=== PATIENT | male | born 1935 | race Hispanic/Latino ===

== ENCOUNTER 2017-03-29 07:25 | Day surgery (SDC) | payer MEDICARE, OTHER ==
[2015-01-03 15:35] VITALS: PULSE 143
[2017-03-13 08:33] VITALS: BMI 19.5
[2017-03-29] MEDS ORDERED: Phenylephrine 2.5% Opht Soln OS ONE (08:00)
[2017-03-29] MEDS ORDERED: Flurbiprofen 0.3% Opht SOLN OU ONE (08:00)
[2017-03-29] MEDS ORDERED: Tropicamide 1% Opht 150 DROP/15 ML LEFTEYE ONE (08:00)
[2017-03-29] MEDS ORDERED: CA CL/K CL/NA CL 500 ML IR ONE (08:12)
[2017-03-29] MEDS ORDERED: EPINEPHrine 1 mg/ml (1:1000) Inj ONE (08:12)
[2017-03-29] MEDS ORDERED: Lidocaine 1% 20 MG/2 ML PF AMP ONE (08:12)
[2017-03-29] MEDS ORDERED: BSS 15 ML 45 ML IR ONE (08:12)
[2017-03-29] MEDS ORDERED: Tetracaine 0.5% Ophth 2 ML BOTTLE ONE (08:12)
[2017-03-29] MEDS ORDERED: Povidone Iodine 5% Opht SOLUTION ONE (08:13)
[2017-03-29] MEDS ORDERED: Chondroitin/Hyaluronate Opth Syringe KIT (0.55 ml-0.5 ml) IO ONE (08:13)
[2017-03-29] MEDS ORDERED: Flurbiprofen 0.3% Opht SOLN OS SCH (08:45)
[2017-03-29] MEDS ORDERED: Phenylephrine 2.5% Opht Soln OS SCH (08:45)
[2017-03-29] MEDS ORDERED: Tropicamide 1% Opht 150 DROP/15 ML LEFTEYE SCH (08:45)
[2017-03-29] MEDS ORDERED: Lactated Ringer's 1,000 ML IV ONE (09:30)
[2017-03-29] MEDS ORDERED: Midazolam 2 MG/2 ML VIAL ONE (09:33)
[2017-03-29] MEDS ORDERED: Tetracaine 0.5% Ophth 2 ML BOTTLE OU ONE (09:45)
[2017-03-29] MEDS: Acetylcholine 1% Opth System Pack IO ONE ×2 (09:58→10:15)
[2017-03-29] MEDS: Maxitrol Opht Susp ONE ×3 (09:59→10:21)
[2017-03-29] MEDS: Pilocarpine 1% Opht Soln ONE ×3 (10:00→10:21)
[2017-03-29 10:58] VITALS: O2SAT 100
[2017-03-29 11:37] VITALS: BP 138/78; PULSE 68; RESP 22; TEMP 97.6
--- NOTE | 2017-04-03 11:24 | OP ---
PROCEDURE DATE: 03/29/2017 SURGEON: RICARDA HIGGINS MD ANESTHESIOLOGIST: JOSÉ MIGUEL ACEVEDO MD ANESTHESIA: LOCAL / IV SEDATION PREOPERATIVE DIAGNOSIS: CATARACT LEFT EYE. POSTOPERATIVE DIAGNOSIS: CATARACT LEFT EYE. OPERATION: CLEAR CORNEAL PHACOEMULSIFICATION WITH LENS IMPLANT LEFT EYE. PREPARATION AND PROCEDURE: After the patient was prepped and draped in the usual manner for sterile ophthalmic surgery, local IV sedation was administered ; eye seals were applied to the upper and lower lid margins and an adult wire lid speculum was placed within the lids. Under microsurgical control, a two- step clear corneal incision was made into the anterior chamber. The initial incision was perpendicular to the corneal plane. The second Incision with the keratome was placed at a 45-degree angle to the first incision. One cc of one percent Xylocaine MPF was instilled into the anterior chamber to achieve proper intraocular anesthesia. At this time, the Viscoelastic was injected into the anterior chamber for protection of the endothelium and for maintenance of the chamber depth. A 360-degree continuous curvilinear capsulorrhexis was performed using a pre-bent 25-gauge needle. Hydrodissection and hydrodelineation were performed using a Rothman cannula and balanced salt solution. Utilizing the tip of the Rothman cannula, the nucleus was rotated freely within the capsular bag. A standard one-handed phacoemulsification was utilized at this time for sculpting and rotating of the nucleus. The nucleus was fragmented in its entirety and aspirated without any consequence. A standard I&A was carried out for the residual cortical material. No residual material was noted within the capsular bag. The posterior capsule was noted to be clear. Additional Viscoelastic was injected into the capsular bag in preparation for lens implantation. After this has been satisfactorily achieved the intraocular lens injected through the corneal incision into the capsular bag. The intraocular lens was manipulated until it was properly oriented and the Viscoelastic was evacuated from the capsular bag and anterior chamber. The anterior chamber was reformed with balanced salt solution. The corneal incision was irrigated with BSS. The intraocular pressure was found to be within normal limits. This terminated the procedure. The speculum and lid drapes were removed. TobraDex ophthalmic suspension and Pilocarpine 1% drops one drop was applied to the eye. POSTOPERATIVE CONDITION: The patient was brought to the Postanesthesia Recovery area with stable vital signs. DRICARDA LEWIS MD
== END 2017-03-29 11:50 | disposition home or self-care (01) ==
LOC: H.OPSURG 07:25
PROVIDERS: ATTEND Ophthalmology
DX: H25.22 Age-related cataract, morgagnian type, left eye (principal); J44.9 Chronic obstructive pulmonary disease, unspecified; I10 Essential (primary) hypertension; N40.0 Benign prostatic hyperplasia without lower urinary tract symptoms
CPT/HCPCS: 66984; J0171; J2250; J3010; J7120; V2632

== ENCOUNTER 2017-04-10 07:28 | Day surgery (SDC) | payer MEDICARE, OTHER ==
[2015-01-03 15:35] VITALS: PULSE 143
[2017-04-10 09:21] VITALS: BMI 19.7
[2017-04-10] MEDS ORDERED: Phenylephrine 2.5% Opht Soln OD ONE (09:23)
[2017-04-10] MEDS ORDERED: Flurbiprofen 0.3% Opht SOLN OD SCH (09:30)
[2017-04-10] MEDS ORDERED: Tropicamide 1% Opht 150 DROP/15 ML RIGHTEYE SCH (09:30)
[2017-04-10] MEDS ORDERED: Acetylcholine 1% Opth System Pack IO ONE (09:40)
[2017-04-10] MEDS ORDERED: Maxitrol Opht Susp ONE (09:40)
[2017-04-10] MEDS ORDERED: CA CL/K CL/NA CL 500 ML IR ONE (09:41)
[2017-04-10] MEDS ORDERED: Pilocarpine 1% Opht Soln ONE (09:41)
[2017-04-10] MEDS ORDERED: EPINEPHrine 1 mg/ml (1:1000) Inj ONE (09:41)
[2017-04-10] MEDS ORDERED: BSS 15 ML 45 ML IR ONE (09:41)
[2017-04-10] MEDS ORDERED: Lidocaine 1% 20 MG/2 ML PF AMP ONE (09:41)
[2017-04-10] MEDS ORDERED: Chondroitin/Hyaluronate Opth Syringe KIT (0.55 ml-0.5 ml) IO ONE (09:41)
[2017-04-10] MEDS ORDERED: Tetracaine 0.5% Ophth 2 ML BOTTLE ONE (09:41)
[2017-04-10] MEDS ORDERED: Povidone Iodine 5% Opht SOLUTION ONE (09:41)
[2017-04-10] MEDS ORDERED: Lactated Ringer's 1,000 ML IV ONE (09:51)
[2017-04-10] MEDS ORDERED: Flurbiprofen 0.3% Opht SOLN OU ONE (09:52)
[2017-04-10] MEDS ORDERED: Tropicamide 1% Opht 150 DROP/15 ML OD ONE (09:53)
[2017-04-10] MEDS ORDERED: Midazolam 2 MG/2 ML VIAL ONE (13:00)
[2017-04-10 14:24] VITALS: PULSE 72; RESP 20
[2017-04-10 14:58] VITALS: BP 176/93; TEMP 97.2
[2017-04-10 15:07] VITALS: O2SAT 96
--- NOTE | 2017-04-25 11:25 | OP ---
PROCEDURE DATE: 04/10/2017 SURGEON: RICARDA HIGGINS MD ANESTHESIOLOGIST: LORENZO BRADY MD ANESTHESIA: LOCAL / IV SEDATION PREOPERATIVE DIAGNOSIS: CATARACT RIGHT EYE. POSTOPERATIVE DIAGNOSIS: CATARACT RIGHT EYE. OPERATION: CLEAR CORNEAL PHACOEMULSIFICATION WITH LENS IMPLANT RIGHT EYE. PREPARATION AND PROCEDURE: After the patient was prepped and draped in the usual manner for sterile ophthalmic surgery, local IV sedation was administered ; eye seals were applied to the upper and lower lid margins and an adult wire lid speculum was placed within the lids. Under microsurgical control, a two- step clear corneal incision was made into the anterior chamber. The initial incision was perpendicular to the corneal plane. The second incision with the keratome was placed at a 45-degree angle to the first incision. One cc of one percent Xylocaine MPF was instilled into the anterior chamber to achieve proper intraocular anesthesia. At this time, the Viscoelastic was injected into the anterior chamber for protection of the endothelium and for maintenance of the chamber depth. A 360-degree continuous curvilinear capsulorrhexis was performed using a pre-bent 25-gauge needle. Hydrodissection and hydrodelineation were performed using a Rothman cannula and balanced salt solution. Utilizing the tip of the Rothman cannula, the nucleus was rotated freely within the capsular bag. A standard one-handed phacoemulsification was utilized at this time for sculpting and rotating of the nucleus. The nucleus was fragmented in its entirety and aspirated without any consequence. A standard I&A was carried out for the residual cortical material. No residual material was noted within the capsular bag. The posterior capsule was noted to be clear. Additional Viscoelastic was injected into the capsular bag in preparation for lens implantation. After this has been satisfactorily achieved the intraocular lens injected through the corneal incision into the capsular bag. The intraocular lens was manipulated until it was properly oriented and the Viscoelastic was evacuated from the capsular bag and anterior chamber. The anterior chamber was reformed with balanced salt solution. The corneal incision was irrigated with BSS. The intraocular pressure was found to be within normal limits. This terminated the procedure. The speculum and lid drapes were removed. TobraDex ophthalmic suspension and Pilocarpine 1% drops one drop was applied to the eye. POSTOPERATIVE CONDITION: The patient was brought to the Post anesthesia Recovery area with stable vital signs. DRICARDA LEWIS MDD
== END 2017-04-10 15:08 | disposition home or self-care (01) ==
LOC: H.OPSURG 07:28
PROVIDERS: ATTEND Ophthalmology
DX: H25.21 Age-related cataract, morgagnian type, right eye (principal)
CPT/HCPCS: 66984; J0171; J2250; J7120; V2632

== ENCOUNTER 2017-09-05 22:37 | Inpatient (IN) | payer MEDICARE, OTHER ==
[2017-09-05 22:37] VITALS: PULSE 143; BMI 19.7
[2017-09-05] MEDS ORDERED: Albuterol 0.083% Inhal Sol (2.5 mg/3 mL) UD INH ONE (23:36)
[2017-09-06] MEDS ORDERED: Albuterol 0.083% Inhal Sol (2.5 mg/3 mL) UD ONE (00:08)
--- NOTE | 2017-09-06 00:33 | ED PDOC ---
HPI: SOB/CHF/COPD Time Seen by Provider: 09/05/17 23:00 Chief Complaint (Nursing): Shortness Of Breath Chief Complaint (Provider): Shortness of Breath History Per: Patient History/Exam Limitations: no limitations Onset/Duration Of Symptoms: Hrs (2 hours ago) Current Symptoms Are (Timing): Still Present Additional Complaint(s): 82 yo male, brought in by EMS, with a history of COPD and Pneumothorax, presents to the ED complaining of shortness of breath, chest and shoulder pain, onset of 2 hours ago. Patient is currently receives oxygen at home and reports of tripping and falling over one of the oxygen cords. Of note, he denies hitting his head. pcp: Ephraim Niño Past Medical History Reviewed: Historical Data, Nursing Documentation, Vital Signs Vital Signs: Last Vital Signs Temp 98 F 09/11/17 08:16 Pulse 68 09/11/17 10:42 Resp 20 09/11/17 08:16 BP 157/89 H 09/11/17 08:22 Pulse Ox 98 09/11/17 10:42 - Medical History PMH: Anemia, COPD, Fractures (right hip fracture ), HTN, Pneumothorax Denies: Chronic Kidney Disease - Surgical History Other surgeries: Right Hip Surgery - Family History Family History: States: Unknown Family Hx - Social History Ex-Smoker (has not smoked in the last 12 months): No Alcohol: None Drugs: Denies - Home Medications Home Medications: Ambulatory Orders Medication Instructions Recorded Ascorbic Acid [Vitamin C 250 mg 250 mg PO BID #0 tab 01/20/15 Tab] Docusate [Colace] 100 mg PO BID #0 cap 01/20/15 Ferrous Sulfate [Feosol] 324 mg PO BID #0 ect 01/20/15 Lidocaine 5% [Lidoderm] 1 ea TD DAILY #0 patch 01/20/15 Metoprolol Tartrate [Lopressor] 25 mg PO Q12 #0 tab 01/20/15 Pantoprazole [Protonix EC Tab] 40 mg PO DAILY #0 ect 01/20/15 Tamsulosin [Flomax] 0.4 mg PO DAILY #0 cap 01/20/15 Aspirin [Ecotrin] 81 mg PO .COUPLE IN WEEK 03/29/17 Propylene Glycol/Peg 400 [Systane 1 drop OU TID 09/07/17 0.3-0.4% Eye Drops] Albuterol 0.083% [Albuterol 0.083% 2.5 mg INH RQ4 PRN neb 09/11/17 Inhal Annie (2.5 mg/3 ml) UD] Albuterol/Ipratropium [Duoneb 3 3 ml INH RQID neb 09/11/17 mg/0.5 mg (3 ml) UD] Aluminum Hydroxide/Magnesium 30 ml PO Q6 PRN udc 09/11/17 [Maalox Plus 30 ml] Cefdinir [Omnicef] 300 mg PO BID cap 09/11/17 Docusate [Colace] 100 mg PO BID cap 09/11/17 Enoxaparin [Lovenox] 40 mg SC DAILY syr 09/11/17 Ferrous Sulfate [Feosol] 325 mg PO BID tab 09/11/17 Methylprednisolone [Medrol Dose 4 mg PO ASDIR #21 mg 09/11/17 Pack (21 tabs)] - Allergies Allergies/Adverse Reactions: Allergies Allergy/AdvReac Type Severity Reaction Status Date / Time shellfish Allergy SHORTNESS Uncoded 09/05/17 22:41 OF BREATH Review of Systems ROS Statement: Except As Marked, All Systems Reviewed And Found Negative Cardiovascular: Positive for: Chest Pain Respiratory: Positive for: Shortness of Breath Musculoskeletal: Positive for: Shoulder Pain Physical Exam - Reviewed Nursing Documentation Reviewed: Yes Vital Signs Reviewed: Yes - Physical Exam Appears: Positive for: Well, Non-toxic, No Acute Distress Head Exam: Positive for: ATRAUMATIC Skin: Positive for: Normal Color, Warm, DRY Eye Exam: Positive for: EOMI, Normal appearance, PERRL ENT: Positive for: Normal ENT Inspection Neck: Positive for: Normal, Painless ROM, Supple Cardiovascular/Chest: Positive for: Regular Rate, Rhythm. Negative for: Murmur Respiratory: Positive for: Normal Breath Sounds. Negative for: Respiratory Distress Gastrointestinal/Abdominal: Positive for: Normal Exam, Soft. Negative for: Tenderness Back: Positive for: Normal Inspection Extremity: Positive for: Normal ROM, Deformity. Negative for: Pedal Edema Neurologic/Psych: Positive for: Alert, Oriented. Negative for: Motor/Sensory Deficits - Laboratory Results Result Diagrams: 09/09/17 10:02 09/07/17 05:55 - ECG ECG: Positive for: Interpreted By Me, Viewed By Me ECG Rhythm: Positive for: Normal QRS, Normal ST Segment, Sinus Rhythm (normal) Rate: 90 O2 Sat by Pulse Oximetry: 100 (RA) Medical Decision Making Medical Decision Making: Time: --23:33 Impression: --Shortness of breath - rule out pneumonia Plan: --ECG --Labs --Troponin I --ED Urine Dip --Chest X-ray --Albuterol 2.5mg INH --methylprednisolone --right shoulder x-ray --peak flow pre/post tx --Influenza a b - Reassess --00:00 Patient to be signed out to Dr. Sumeet Villalobos pending workup, Chest X-ray, and Shoulder X-ray and admission Scribe Attestation: Documented by Artemio Peacock acting as a scribe for Elian Siegel MD. Provider Attestation: All medical record entries made by the Scribe were at my direction and personally dictated by me. I have reviewed the chart and agree that the record accurately reflects my personal performance of the history, physical exam, medical decision making, and the department course for this patient. I have also personally directed, reviewed, and agree with the discharge instructions and disposition. Disposition - Clinical Impression Clinical Impression: Shortness of breath, Pneumonia - Patient ED Disposition Is Patient to be Admitted: Transfer of Care Discussed With : Sumeet Villalobos Doctor Will See Patient In The: ED - Disposition Disposition: Transfer of Care Disposition Time: 00:00 Condition: STABLE Patient Signed Over To: Sumeet Villalobos
[2017-09-06 00:45] LABS: BASO % 0.4 % (0.0-2.0); EOS # 0.2 K/uL (0.0-0.7); EOS % 1.7 % (0.0-4.0); HEMOGLOBIN 11.9 g/dL (12.0-18.0); LYMPH # 0.8 K/uL (1.0-4.3); LYMPH % 8.5 % (20.0-40.0); MEAN CELL VOLUME 94.8 fl (80.0-94.0); MEAN CORPUSCULAR HEMOGLOBIN 30.6 pg (27.0-31.0); MEAN CORPUSCULAR HGB CONC 32.3 g/dL (33.0-37.0); MEAN PLATELET VOLUME 8.8 fl (7.2-11.7); MONO # 0.7 K/uL (0.0-0.8); MONO % 8.2 % (0.0-10.0); NEUT # 7.3 K/uL (1.8-7.0); NEUT % 81.2 % (50.0-75.0); PLATELET COUNT 200 K/uL (130-400); RBC 3.88 Mil/uL (4.40-5.90); RED CELL DISTRIBUTION WIDTH 13.1 % (11.5-14.5)
[2017-09-06 00:56] LABS: ALB/GLOB RATIO 0.9 (1.0-2.1); ALBUMIN 3.9 g/dL (3.5-5.0); ALT/SGPT 30 U/L (21-72); AST/SGOT 36 U/L (17-59); BLOOD UREA NITROGEN 23 mg/dl (9-20); CALCIUM 9.2 mg/dL (8.4-10.2); GFR AFRICAN-AMERICAN > 60; GFR NON-AFRICAN AMERICAN 58
--- NOTE | 2017-09-06 01:37 | ED PDOC ---
- Laboratory Results Result Diagrams: 09/06/17 00:30 09/06/17 00:30 - ECG O2 Sat by Pulse Oximetry: 100 (RA) Pulse Ox Interpretation: Normal Medical Decision Making Medical Decision Making: Time: --00:00 Reassess --Patient signed out to the provider by Elian Young pending workup, Chest X-ray, and Shoulder X-ray. --05:23 EXAM: CT Head Without Intravenous Contrast FINDINGS: Brain: Cerebral and cerebellar volume loss. Patchy hypodensity is seen in the periventricular and subcortical white matter. No hemorrhage. Ventricles: Unremarkable. No ventriculomegaly. Bones/joints: Unremarkable. No acute fracture. Soft tissues: Unremarkable. Vasculature: Vascular calcifications. Sinuses: Unremarkable. No acute sinusitis. Mastoid air cells: Unremarkable. No mastoid effusion. Orbits: Evidence of bilateral eye surgery. IMPRESSION: No evidence of an acute intracranial hemorrhage, midline shift or mass effect is identified 327 Pt. w PNA on CXR. Will admit to Dr. Palomo given age and RF's for inpatient treatment. Scribe Attestation: Documented by Artemio Peacock acting as a scribe for Sumeet Villalobos MD. Provider Attestation: All medical record entries made by the Scribe were at my direction and personally dictated by me. I have reviewed the chart and agree that the record accurately reflects my personal performance of the history, physical exam, medical decision making, and the department course for this patient. I have also personally directed, reviewed, and agree with the discharge instructions and disposition. Disposition - Clinical Impression Clinical Impression: Shortness of breath, Pneumonia - POA Present On Arrival: None - Disposition Disposition: Admitted as In-Patient Disposition Time: 03:00 Condition: FAIR
[2017-09-06] MEDS ORDERED: Azithromycin 500 MG in Sodium Chloride 0.9% 250 ML IVPB STA (02:26)
[2017-09-06] MEDS ORDERED: Sodium Chloride 0.9% 1,000 ML IV STA (03:10)
[2017-09-06 03:15] LABS: VENOUS BLOOD GAS BASE EXCESS 3.2 mmol/L (0.0-2.0); VENOUS BLOOD GAS PCO2 53 mmHg (40-60); VENOUS BLOOD GAS PO2 41 mm/Hg (30-55); VENOUS BLOOD PH 7.36 (7.32-7.43)
--- NOTE | 2017-09-06 03:26 | CP.PCM.HP ---
History of Present Illness - History of Present Illness History of Present Illness: Aircraft Time Clerk: Ephraim Niño MD Chief Complaint: Fall/SOB The patient was seen and examined in the ED HPI: The hx was obtained from the patient and dafter review of the medical records. He is an 82 years old male, living alone, uses a cane to ambulate, with hx of Interstitial lung disease on home Oxygen, Pneumothorax and Anemia. He was brought to the ED with a 2 hrs hx of felling and could not get up and SOB. According to the patient, he tripped and fell receiving pain to the right shoulder and tightness to the chest with some worsening of his SOB. He denies hitting his head but does not remember how he received the linear bruise horizontal at the mid left arm. No LOC. PMH: Right Pneumothorax' A Fiv; Anemia; Interstitial Lung disease; HTTN; BPH; Right hip fracture; COPD PSH: Bilateral Cataract surgery; Right Hip ORIF. Right Chest Tube 12/28/14 SH: Never Smoked: No ETOH use; No illegal drug Use; Lives alone with Aide visiting; Walks with 4 legged Cane FH: Brother with Lung problem on home Oxygen Allergies: NKDA Shellfish Medication: Reviewed Present on Admission - Present on Admission Any Indicators Present on Admission: No History of DVT/PE: No History of Uncontrolled Diabetes: No Urinary Catheter: No Decubitus Ulcer Present: No Review of Systems - Constitutional Constitutional: Weakness. absent: Fever, Lethargy - EENT Eyes: Requires Corrective Lenses. absent: Diplopia, Floaters, Photophobia Ears: Decreased Hearing. absent: Ear Discharge, Tinnitus Nose/Mouth/Throat: absent: Epistaxis, Nasal Congestion, Nasal Discharge, Sinus Pain, Sinus Pressure - Cardiovascular Cardiovascular: Dyspnea, Edema, Leg Edema Additional comments: Chest Pressure - Respiratory Respiratory: Cough, Dyspnea - Gastrointestinal Gastrointestinal: absent: Abdominal Pain, Constipation, Diarrhea, Nausea, Vomiting - Musculoskeletal Musculoskeletal: Arthralgias, Muscle Weakness - Integumentary Integumentary: Alopecia, Swelling. absent: Pruritus, Rash, Skin Ulcer, Sores, Striae - Neurological Neurological: Weakness. absent: Confusion, Dizziness, Focal Weakness, Headaches - Psychiatric Psychiatric: absent: Anxiety, Depression, Panic Attacks - Endocrine Endocrine: absent: Palpitations, Polydipsia, Polyphagia, Polyuria - Hematologic/Lymphatic Hematologic: absent: Easy Bleeding, Easy Bruising Past Patient History - Infectious Disease Hx of Infectious Diseases: None - Tetanus Immunizations Tetanus Immunization: Unknown - Past Medical History & Family History Past Medical History?: Yes - Past Social History Smoking Status: Never Smoked Chewing Tobacco Use: No Cigar Use: No Alcohol: None Drugs: Denies Home Situation {Lives}: Alone - CARDIAC Hx Hypertension: Yes - PULMONARY Hx Chronic Obstructive Pulmonary Disease (COPD): Yes Other/Comment: Interstitial lung disease. On Home Oxygen - NEUROLOGICAL Hx Neurological Disorder: No - HEENT Hx HEENT Problems: Yes Hx Cataracts: Yes (BILATERAL) Hx Deafness: Yes - RENAL Hx Chronic Kidney Disease: No - ENDOCRINE/METABOLIC Hx Endocrine Disorders: No - HEMATOLOGICAL/ONCOLOGICAL Hx Anemia: Yes - INTEGUMENTARY Hx Dermatological Problems: No - MUSCULOSKELETAL/RHEUMATOLOGICAL Hx Fractures: Yes (right hip fracture ) - GASTROINTESTINAL Hx Gastrointestinal Disorders: No - GENITOURINARY/GYNECOLOGICAL Hx Genitourinary Disorders: Yes Hx Prostate Problems: Yes (BPH) - PSYCHIATRIC Hx Psychophysiologic Disorder: No Hx Substance Use: No - SURGICAL HISTORY Hx Surgeries: Yes Other/Comment: R HIP PINNING ORIF; Right COLLAPSE LUNG/-CHEST TUBE - ANESTHESIA Hx Anesthesia: Yes Hx Anesthesia Reactions: No Hx Malignant Hyperthermia: No Meds Allergies/Adverse Reactions: Allergies Allergy/AdvReac Type Severity Reaction Status Date / Time shellfish Allergy SHORTNESS Uncoded 09/05/17 22:41 OF BREATH Physical Exam - Constitutional Appears: In Acute Distress - Head Exam Additional comments: Head Atraumatic, central [place], Black coloration at mid forehead, probably dirt or dried skin, - Eye Exam Eye Exam: EOMI, Normal appearance Pupil Exam: NORMAL ACCOMODATION, PERRL - ENT Exam ENT Exam: Mucous Membranes Dry, Normal External Ear Exam - Neck Exam Neck exam: Positive for: Full Rom, Normal Inspection. Negative for: Lymphadenopathy, Tenderness - Respiratory Exam Additional comments: Rales diffuse in both lung erickson L>R, No wheezes nor rhonchi. - Cardiovascular Exam Cardiovascular Exam: REGULAR RHYTHM, RRR, +S1, +S2. absent: Gallop - GI/Abdominal Exam GI & Abdominal Exam: Normal Bowel Sounds, Soft. absent: Mass, Organomegaly - Rectal Exam Rectal Exam: Deferred - Extremities Exam Additional comments: Both ankles with trace edema, nontender to palpation. Horizontal linear bruise at lateral, mid left arm 4-5cm Right shoulder pain on anterior flexion. - Back Exam Back exam: NORMAL INSPECTION. absent: CVA tenderness (L), CVA tenderness (R) - Neurological Exam Neurological exam: Alert, CN II-XII Intact, Oriented x3, Reflexes Normal - Psychiatric Exam Psychiatric exam: Normal Affect, Normal Mood - Skin Skin Exam: Dry, Normal Color, Warm Results - Vital Signs Recent Vital Signs: Last Vital Signs Temp 98.0 F 09/05/17 22:42 Pulse 90 09/06/17 00:43 Resp 15 09/05/17 23:04 BP 180/99 H 09/05/17 22:42 Pulse Ox 100 09/06/17 01:37 - Labs Result Diagrams: 09/06/17 00:30 09/06/17 00:30 Labs: Laboratory Results - last 24 hr 09/06/17 09/06/17 09/06/17 00:30 00:30 00:30 WBC 9.0 RBC 3.88 L Hgb 11.9 L Hct 36.8 MCV 94.8 H MCH 30.6 MCHC 32.3 L RDW 13.1 Plt Count 200 MPV 8.8 Neut % (Auto) 81.2 H Lymph % (Auto) 8.5 L Calhoun % (Auto) 8.2 Eos % (Auto) 1.7 Baso % (Auto) 0.4 Neut # (Auto) 7.3 H Lymph # (Auto) 0.8 L Calhoun # (Auto) 0.7 Eos # (Auto) 0.2 Baso # (Auto) 0.0 pO2 VBG pH VBG pCO2 VBG HCO3 VBG Total CO2 VBG O2 Sat (Calc) VBG Base Excess VBG Potassium Glucose Lactate FiO2 Sodium 141 Potassium 4.2 Chloride 100 Carbon Dioxide 30 Anion Gap 15 BUN 23 H Creatinine 1.2 Est GFR ( Amer) > 60 Est GFR (Non-Af Amer) 58 Random Glucose 101 Calcium 9.2 Total Bilirubin 0.4 AST 36 ALT 30 Alkaline Phosphatase 65 Troponin I 0.0710 Total Protein 8.3 H Albumin 3.9 Globulin 4.4 H Albumin/Globulin Ratio 0.9 L Venous Blood Potassium Influenza Typ A,B (EIA) Negative for flu a/b 09/06/17 03:12 WBC RBC Hgb Hct MCV MCH MCHC RDW Plt Count MPV Neut % (Auto) Lymph % (Auto) Calhoun % (Auto) Eos % (Auto) Baso % (Auto) Neut # (Auto) Lymph # (Auto) Calhoun # (Auto) Eos # (Auto) Baso # (Auto) pO2 41 VBG pH 7.36 VBG pCO2 53 VBG HCO3 26.8 VBG Total CO2 31.5 H VBG O2 Sat (Calc) 82.6 H VBG Base Excess 3.2 H VBG Potassium 4.0 Glucose 132 H Lactate 1.1 FiO2 21.0 Sodium 137.0 Potassium Chloride 101.0 Carbon Dioxide Anion Gap BUN Creatinine Est GFR ( Amer) Est GFR (Non-Af Amer) Random Glucose Calcium Total Bilirubin AST ALT Alkaline Phosphatase Troponin I Total Protein Albumin Globulin Albumin/Globulin Ratio Venous Blood Potassium 4.0 Influenza Typ A,B (EIA) - Impressions Impression: NSR 90/min with LVH. No sign of Acute Ischemia - Imaging and Cardiology CT scan - head Status: Image reviewed by me, Report reviewed by me Additional comment: CT Head Without Intravenous Contrast FINDINGS: Brain: Cerebral and cerebellar volume loss. Patchy hypodensity is seen in the periventricular and subcortical white matter. No hemorrhage. Ventricles: Unremarkable. No ventriculomegaly. Bones/joints: Unremarkable. No acute fracture. Soft tissues: Unremarkable. Vasculature: Vascular calcifications. Sinuses: Unremarkable. No acute sinusitis. Mastoid air cells: Unremarkable. No mastoid effusion. Orbits: Evidence of bilateral eye surgery. IMPRESSION: No evidence of an acute intracranial hemorrhage, midline shift or mass effect is identified. Chest x-ray Status: Image reviewed by me Additional comment: Chronic interstitial lung changes, worse at left base Right shoulder X Ray Status: Image reviewed by me Additional comment: No fracture nor Dislocation as read by me Assessment & Plan - Assessment and Plan (Free Text) Assessment: #. Fall #. Interstitial Lung disease on home Oxygen #. Dehydration #. Anemia #. HTN Plan: 82 years old male, living alone, uses a cane to ambulate, with hx of Interstitial lung disease on home Oxygen, Pneumothorax and Anemia, brought to the ED 2hrs after tripping and falling and could not get up, also found to have significant SOB. Complained of right shoulder pain and Chest tightness with worsening SOB. No LOC. #. Fall etiology not quite clear. r/o CVA CT Head IMPRESSION: No evidence of an acute intracranial hemorrhage, midline shift or mass effect is identified. - Neuro checks Q4 - PT/OT #. Interstitial Lung disease on home Oxygen. Now with worsening SOB and Chest tightness, r/o Pneumonia left lung - Consult Dr Niño pulmonary - Albuterol/ Ipratropium - Methylprednisolone - Empiric antibiotics: - Azithromycin - Ceftriaxone - follow serial Troponin to r/o ACS #. Dehydration Probably due to Poor intake - IV Fluid - Follow Renal labs #. Anemia Symptomatic. Weakness after walking short distances caused by the ILD and the ANEMIA - Iron Panel/Vitamin B12/ Folate levels - Follow Hb #. HTN Uncontrolled - Metoprolol - Follow blood pressures #. Leg edema, probably due to stasis . Follow BNP to decide on work up for CHF #. hx of A Fib now Sinus Rhythm #. DVT prophylaxis with Lovenox and SCD #. Code Status: Full - Date & Time Date: 09/06/17 Time: 03:25
[2017-09-06] MEDS ORDERED: Sodium Chloride 0.45% 1,000 ML IV SCH (04:15)
[2017-09-06] MEDS ORDERED: Albuterol-Ipratrop 3 mg / 0.5 (3 ml) UD INH PRN (04:15)
[2017-09-06] MEDS ORDERED: Lactated Ringer's 1,000 ML IV SCH (04:45)
[2017-09-06 05:20] LABS: BANDS 1 % (0-2); EOSINOPHIL 1 % (0-7); LYMPHOCYTE 10 % (20-50); MONOCYTE 8 % (0-10); NEUTROPHIL 79 % (42-75); REACTIVE LYMPHOCYTES 1 % (0-0); TOTAL CELLS COUNTED 100
[2017-09-06 05:21] LABS: ANISOCYTOSIS SLIGHT; PLATELET ESTIMATE NORMAL (NORMAL); STOMATOCYTES SLIGHT
--- NOTE | 2017-09-06 05:23 | CT ---
EXAM: CT Head Without Intravenous Contrast CLINICAL HISTORY: 82 years old, male; Injury or trauma; Fall; Additional info: Fall and could not get up TECHNIQUE: Axial computed tomography images of the head/brain without intravenous contrast. All CT scans at this facility use one or more dose reduction techniques, viz.: automated exposure control; ma/kV adjustment per patient size (including targeted exams where dose is matched to indication; i.e. head); or iterative reconstruction technique. 307 images are submitted. Coronal and sagittal reformatted images were created and reviewed. Axial reformatted images were created and reviewed. COMPARISON: No relevant prior studies available. FINDINGS: Brain: Cerebral and cerebellar volume loss. Patchy hypodensity is seen in the periventricular and subcortical white matter. No hemorrhage. Ventricles: Unremarkable. No ventriculomegaly. Bones/joints: Unremarkable. No acute fracture. Soft tissues: Unremarkable. Vasculature: Vascular calcifications. Sinuses: Unremarkable. No acute sinusitis. Mastoid air cells: Unremarkable. No mastoid effusion. Orbits: Evidence of bilateral eye surgery. IMPRESSION: No evidence of an acute intracranial hemorrhage, midline shift or mass effect is identified.
[2017-09-06] MEDS: Albuterol-Ipratrop 3 mg / 0.5 (3 ml) UD INH SCH ×3 (08:40→20:07)
[2017-09-06] MEDS ORDERED: cefTRIAXone 2 GM in Sodium Chloride 0.9% 100 ML IVPB SCH (09:00)
[2017-09-06] MEDS ORDERED: methylPREDNISolone 40 MG in Sodium Chloride 0.9% 50 ML IVPB SCH (09:00)
[2017-09-06] MEDS ORDERED: Patient's Own Med (Ferrous Sulfate [Feosol] 324 MG) PO SCH (09:00)
[2017-09-06] MEDS: Enoxaparin 40 mg Syringe SC SCH (10:21)
[2017-09-06] MEDS: Pantoprazole 40 mg EC Tab PO SCH (10:23)
[2017-09-06] MEDS: MethylPREDNISolone 40 mg Vial IVP SCH ×2 (10:24→16:24)
--- NOTE | 2017-09-06 10:53 | CARD ---
APPROVED REPORT EKG Measurement Heart [id number] <Conclusion> Normal sinus rhythm Voltage criteria for left ventricular hypertrophy T wave abnormality, consider anterior ischemia Abnormal ECG excessive artefact to read correctly-recommend repeat
[2017-09-06 11:11] LABS: BASO % 0.1 % (0.0-2.0); HEMOGLOBIN 11.3 g/dL (12.0-18.0); LYMPH # 0.4 K/uL (1.0-4.3); LYMPH % 7.2 % (20.0-40.0); MEAN CELL VOLUME 94.5 fl (80.0-94.0); MEAN CORPUSCULAR HEMOGLOBIN 30.5 pg (27.0-31.0); MEAN CORPUSCULAR HGB CONC 32.2 g/dL (33.0-37.0); MEAN PLATELET VOLUME 8.7 fl (7.2-11.7); MONO % 0.8 % (0.0-10.0); NEUT # 5.6 K/uL (1.8-7.0); NEUT % 91.9 % (50.0-75.0); PLATELET COUNT 194 K/uL (130-400); RED CELL DISTRIBUTION WIDTH 13.4 % (11.5-14.5); WHITE BLOOD COUNT 6.1 K/uL (4.8-10.8)
--- NOTE | 2017-09-06 11:27 | RAD ---
PROCEDURE: Radiographs of the Right Shoulder HISTORY: R SHOULDER PAIN COMPARISON: No prior shoulder radiographs available however correlation made with prior chest radiograph 11/20/2016 which partially image the right shoulder. FINDINGS: BONES: No evidence of acute displaced fracture nor dislocation. Two tiny sclerotic densities are present of which overlies the humeral head however the more inferiorly located sclerotic density could be located within the glenoid. 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 SOFT TISSUES: Normal. OTHER FINDINGS: Re- demonstrated is diffuse extensive interstitial fibrosis right lung IMPRESSION: No evidence of acute displaced fracture nor dislocation. Minor degenerative changes right acromioclavicular joint. Re- demonstrated is diffuse extensive interstitial fibrosis right lung.
[2017-09-06 11:28] LABS: BLOOD UREA NITROGEN 21 mg/dl (9-20); CALCIUM 8.7 mg/dL (8.4-10.2); GFR AFRICAN-AMERICAN > 60; GFR NON-AFRICAN AMERICAN > 60
--- NOTE | 2017-09-06 11:35 | RAD ---
PROCEDURE: CHEST RADIOGRAPH, 1 VIEW HISTORY: SOB COMPARISON: Comparison made with chest radiograph 11/20/[address] scan chest dated 01/15/2015. FINDINGS: LUNGS: Extensive diffuse interstitial fibrosis again noted. Slight persistent elevation right hemidiaphragm unchanged PLEURA: No pneumothorax or pleural fluid seen. CARDIOVASCULAR: Heart appears enlarged. OSSEOUS STRUCTURES: No significant abnormalities. VISUALIZED UPPER ABDOMEN: Normal. OTHER FINDINGS: None. IMPRESSION: Extensive diffuse interstitial fibrosis again noted. Slight persistent elevation right hemidiaphragm unchanged
[2017-09-06 11:37] LABS: B-TYPE NATRIURETIC PEPTIDE 2080 pg/ml (0-900)
[2017-09-06 13:21] LABS: IRON 26 ug/dL (49-181)
[2017-09-06 13:35] LABS: % IRON SATURATION 10 % (20-55); TOTAL IRON BINDING CAPACITY 249 ug/dL (250-450)
[2017-09-06 15:41] LABS: LYMPHOCYTE 5 % (20-50); MONOCYTE 2 % (0-10); NEUTROPHIL 93 % (42-75); TOTAL CELLS COUNTED 100
[2017-09-06 15:42] LABS: HYPOCHROMIC SLIGHT; PLATELET ESTIMATE NORMAL (NORMAL)
[2017-09-06 15:43] LABS: OVALOCYTES SLIGHT
[2017-09-06 22:18] LABS: FOLATE > 20.0 ng/mL
[2017-09-07] MEDS: Albuterol-Ipratrop 3 mg / 0.5 (3 ml) UD INH SCH ×4 (00:59→19:08)
[2017-09-07] MEDS: MethylPREDNISolone 40 mg Vial IVP SCH ×3 (01:30→16:52)
[2017-09-07 06:36] LABS: HEMOGLOBIN 9.9 g/dL (12.0-18.0); MEAN CELL VOLUME 94.8 fl (80.0-94.0); MEAN CORPUSCULAR HEMOGLOBIN 29.9 pg (27.0-31.0); MEAN CORPUSCULAR HGB CONC 31.5 g/dL (33.0-37.0); RBC 3.33 Mil/uL (4.40-5.90); RED CELL DISTRIBUTION WIDTH 13.6 % (11.5-14.5); WHITE BLOOD COUNT 15.9 K/uL (4.8-10.8)
[2017-09-07 06:43] LABS: BLOOD UREA NITROGEN 31 mg/dl (9-20); CALCIUM 8.7 mg/dL (8.4-10.2); GFR AFRICAN-AMERICAN > 60; GFR NON-AFRICAN AMERICAN 58
[2017-09-07] MEDS: Enoxaparin 40 mg Syringe SC SCH (09:23)
[2017-09-07] MEDS: Pantoprazole 40 mg EC Tab PO SCH (09:24)
--- NOTE | 2017-09-07 10:11 | PCM.RRT ---
<Markel Jeromeang - Last Filed: 09/07/17 10:12> [facility] [employer] [facility] Nurse Assessment - Ventilator Settings Ventilator Respiratory Rate Settin Ventilator Tidal Volume Settin Peak Flow: 90 Plan - Assessment of Findings&Treatment Plan [facility] [employer] LOCATION 664- [facility] REASON: chest tightness S: 82 yo M with pmhx of IPF reported chest tightness while consuming breakfast. Denies chest pain, sob, diaphoresis, N/V, Chest tightness is mid sternal, non radiating, O [facility] [employer] [facility] VITALS 173/80 99% on 3L NC. 97.6 F AAOX3 Cardiac: S1S2 Chest: reproducible chest discomfort at substernal. Lungs: bl lower lung crackles Abdo: soft, nontender [facility] [employer] INTERVENTION EKG: Normal sinus rhythm. Troponin A/P: 82 yo M with pmhx of IPF reported chest tightness [employer] OUTCOME f/u troponin, r/o ACS Monitor for progression of chest tightness, vitals [facility] [employer] LEADER Dr. Foster [facility] [employer] [facility] RESIDENTS: Dr. Queenie MD PGY1, Dr. Erum MD PGY3, Dr. Gustabo MD PGY1, Dr. Stuart DPM PGY1 <Washington Foster - Last Filed: 09/07/17 15:59> [employer] Nurse Assessment - Vital Signs Vital Signs: Rapid Response Vital Sign Blood Pressure 173/80 Pulse Rate 101 Temperature 97.6 F Oxygen Saturation 99 - Vital Signs at end of [facility] [employer] [facility] Vital Signs at end of [facility] [employer] [facility]: Rapid Response End Vital Sign Blood Pressure 165/74 Plan - Assessment of Findings&Treatment Plan ATTENDING ATTESTATION: Patient was seen and examined. I discussed the case with the resident and agree with the findings and plan as documented in the residents note. EKG SHOWS NORMAL SINUS RHYTHM; NO ACUTE CHANGES TROPONIN WITHIN NORMAL LIMITS CHEST PAIN RESOLVED ETIOLOGY LIKELY MUSCULOSKELETAL VS ANXIETY
[2017-09-07] MEDS: Azithromycin 500 MG in Sodium Chloride 0.9% 250 ML IVPB SCH (10:36)
--- NOTE | 2017-09-07 16:25 | CP.PCM.PN ---
Subjective - Date & Time of Evaluation Date of Evaluation: 09/07/17 Time of Evaluation: 16:22 - Subjective Subjective: Seen on rounds earlier this morning in his room on the regular medical floor. He had an episode this morning of chest discomfort for which an MANAGER KNOWLEDGE was called and the patient was evaluated without any cardiac findings. The patient relates a feeling of acid reflux subsequent to having breakfast this morning. The patient presently is seated upright in bed talking with family members without any distress. There is mild flush facies noted because of his ongoing treatment. The pharynx is pink and mucous membranes are moist. No exudate. The neck is supple and trachea is midline. No neck vein distention or carotid bruit. No dullness on chest percussion is noted. Equal, but limited expansion bilaterally. Breath sounds are present bilaterally with diffuse early dry, Velcro type rales. No audible wheezing. No bronchial breathing or egophony. Idiopathic pulmonary fibrosis. Apparent gastroesophageal reflux with esophagitis and spasm earlier this morning. Would not discontinue antibiotics at this current time. Objective - Vital Signs/Intake and Output Vital Signs (last 24 hours): Temp Pulse Resp BP Pulse Ox 97.6 F 101 H 20 173/80 H 98 09/07/17 08:28 09/07/17 09:48 09/07/17 08:28 09/07/17 09:48 09/07/17 08:28 - Medications Medications: Current Medications Albuterol/Ipratropium (Duoneb 3 Mg/0.5 Mg (3 Ml) Ud) 3 ml INH RQ6 [facility] Last Admin: 09/07/17 13:02 Dose: Not Given Albuterol/Ipratropium (Duoneb 3 Mg/0.5 Mg (3 Ml) Ud) 3 ml INH RQ2 PRN PRN Reason: Shortness of Breath Ascorbic Acid (Vitamin C 250 Mg Tab) 250 mg PO BID [facility] Last Admin: 09/07/17 09:25 Dose: 250 mg Aspirin (Ecotrin) 81 mg PO DAILY [facility] Last Admin: 09/07/17 09:23 Dose: 81 mg Docusate Sodium (Colace) 100 mg PO BID [facility] Last Admin: 09/07/17 09:23 Dose: 100 mg Enoxaparin Sodium (Lovenox) 40 mg SC DAILY [facility] PRN Reason: Protocol Last Admin: 09/07/17 09:23 Dose: 40 mg Ferrous Sulfate (Feosol) 325 mg PO BID [facility] Last Admin: 09/07/17 09:24 Dose: 325 mg Ceftriaxone Sodium 1 gm/ (Sodium Chloride) 100 mls @ 100 mls/hr IVPB DAILY [facility] PRN Reason: Protocol Last Admin: 09/07/17 09:25 Dose: 100 mls/hr Azithromycin 500 mg/ Sodium (Chloride) 250 mls @ 250 mls/hr IVPB DAILY [facility] PRN Reason: Protocol Last Admin: 09/07/17 10:36 Dose: 250 mls/hr Methylprednisolone (Solu-Medrol) 40 mg IVP Q8 [facility] Last Admin: 09/07/17 09:25 Dose: 40 mg Metoprolol Tartrate (Lopressor) 25 mg PO Q12 [facility] Last Admin: 09/07/17 09:48 Dose: 25 mg Pantoprazole Sodium (Protonix Ec Tab) 40 mg PO DAILY [facility] Last Admin: 09/07/17 09:24 Dose: 40 mg Tamsulosin HCl (Flomax) 0.4 mg PO DAILY [facility] Last Admin: 09/07/17 09:24 Dose: 0.4 mg - Labs Labs: 09/07/17 05:55 09/07/17 05:55
--- NOTE | 2017-09-07 17:06 | CP.PCM.PN ---
Subjective - Date & Time of Evaluation Date of Evaluation: 09/07/17 Time of Evaluation: 17:10 - Subjective Subjective: Patient seen and examined. Had chest tightness earlier and had SKY DIVER. Still having some tightness but actually feeling better. Denied SOB. Objective - Vital Signs/Intake and Output Vital Signs (last 24 hours): Temp Pulse Resp BP Pulse Ox 98.1 F 88 20 127/71 98 09/07/17 16:36 09/07/17 16:36 09/07/17 16:36 09/07/17 16:36 09/07/17 16:36 - Medications Medications: Current Medications Albuterol/Ipratropium (Duoneb 3 Mg/0.5 Mg (3 Ml) Ud) 3 ml INH RQ6 [facility] Last Admin: 09/07/17 13:02 Dose: Not Given Albuterol/Ipratropium (Duoneb 3 Mg/0.5 Mg (3 Ml) Ud) 3 ml INH RQ2 PRN PRN Reason: Shortness of Breath Ascorbic Acid (Vitamin C 250 Mg Tab) 250 mg PO BID [facility] Last Admin: 09/07/17 09:25 Dose: 250 mg Aspirin (Ecotrin) 81 mg PO DAILY [facility] Last Admin: 09/07/17 09:23 Dose: 81 mg Docusate Sodium (Colace) 100 mg PO BID [facility] Last Admin: 09/07/17 09:23 Dose: 100 mg Enoxaparin Sodium (Lovenox) 40 mg SC DAILY [facility] PRN Reason: Protocol Last Admin: 09/07/17 09:23 Dose: 40 mg Ferrous Sulfate (Feosol) 325 mg PO BID [facility] Last Admin: 09/07/17 09:24 Dose: 325 mg Ceftriaxone Sodium 1 gm/ (Sodium Chloride) 100 mls @ 100 mls/hr IVPB DAILY [facility] PRN Reason: Protocol Last Admin: 09/07/17 09:25 Dose: 100 mls/hr Azithromycin 500 mg/ Sodium (Chloride) 250 mls @ 250 mls/hr IVPB DAILY [facility] PRN Reason: Protocol Last Admin: 09/07/17 10:36 Dose: 250 mls/hr Methylprednisolone (Solu-Medrol) 40 mg IVP Q8 [facility] Last Admin: 09/07/17 09:25 Dose: 40 mg Metoprolol Tartrate (Lopressor) 25 mg PO Q12 [facility] Last Admin: 09/07/17 09:48 Dose: 25 mg Pantoprazole Sodium (Protonix Ec Tab) 40 mg PO DAILY [facility] Last Admin: 09/07/17 09:24 Dose: 40 mg Tamsulosin HCl (Flomax) 0.4 mg PO DAILY [facility] Last Admin: 09/07/17 09:24 Dose: 0.4 mg - Labs Labs: 09/07/17 05:55 09/07/17 05:55 - Constitutional Appears: No Acute Distress - Head Exam Head Exam: ATRAUMATIC - Eye Exam Eye Exam: absent: Scleral icterus - ENT Exam ENT Exam: Mucous Membranes Moist - Neck Exam Neck Exam: absent: Meningismus - Respiratory Exam Respiratory Exam: absent: Rhonchi, Wheezes, Respiratory Distress - Cardiovascular Exam Cardiovascular Exam: REGULAR RHYTHM, +S1, +S2 - GI/Abdominal Exam GI & Abdominal Exam: Soft. absent: Tenderness - Rectal Exam Rectal Exam: Deferred - Neurological Exam Neurological Exam: Alert, Oriented x3 - Psychiatric Exam Psychiatric exam: Normal Affect - Skin Skin Exam: Dry, Intact Assessment and Plan - Assessment and Plan (Free Text) Assessment: 82 yo male with history of Idiopathic Pulmonary Fibrosis with oxygen dependent at home tripped on his oxygen tubing and fell. He called 911 since he could not get up and was brought here and placed on observation. Patient denied SOB while with oxygen supplement which is his baseline. 1. Fall accidentally tripped on oxygen tubings and was unable to get up on his own CT scan of Head: negative for intracranial bleed Shoulder Xray: negative for fracture 2. Idiopathic Pulmonary Fibrosis continue oxygen supplement Duoneb q 2 hrs prn for SOB SoluMedrol 40mg IV q 8hrs continue Rocephin and Azithromycin 3. Reflux Esophagitis probably causing spasm perceived as chest tightness Mylanta 30cc PO q 6hrs prn Protonix 40mg PO daily 4. HTN BP stable continue Metoprolol 25mg PO q 12hrs 5. DVT prophylaxis on Lovenox
[2017-09-07] MEDS: Alum-Mag Hydrox-Simethicone Susp (30 mL) PO PRN (17:52)
[2017-09-07] MEDS: PROPYLENE GLYCOL OU SCH (17:52)
[2017-09-07] MEDS: PEG OU SCH (17:52)
--- NOTE | 2017-09-07 19:00 | CARD ---
APPROVED REPORT EKG Measurement Heart [id number] <Conclusion> Normal sinus rhythm Left axis deviation Moderate voltage criteria for LVH, may be normal variant Borderline ECG
[2017-09-08] MEDS: MethylPREDNISolone 40 mg Vial IVP SCH ×3 (00:32→21:53)
[2017-09-08] MEDS: Albuterol-Ipratrop 3 mg / 0.5 (3 ml) UD INH SCH ×5 (01:10→19:48)
[2017-09-08] MEDS: Pantoprazole 40 mg EC Tab PO SCH (09:05)
[2017-09-08] MEDS: PROPYLENE GLYCOL OU SCH ×3 (09:06→17:03)
[2017-09-08] MEDS: PEG OU SCH ×3 (09:06→17:03)
[2017-09-08] MEDS: Enoxaparin 40 mg Syringe SC SCH (09:06)
--- NOTE | 2017-09-08 09:10 | CP.PCM.CON ---
History of Present Illness - History of Present Illness History of Present Illness: Asked to evaluate this 82-year-old gentleman who is a never smoker with a previous diagnosis of idiopathic pulmonary fibrosis. He apparently had been in his usual state of health at home when he sustained a fall causing trauma to the right shoulder and right hip. This resulted in chest tightness and increased shortness of breath. There was no loss of consciousness or head trauma. He does use oxygen by nasal cannula at home on a regular basis. His activities markedly limited because of dyspnea on exertion. Review of Systems - Review of Systems All systems: reviewed and no additional remarkable complaints except - Respiratory Respiratory: Cough, Dyspnea on Exertion - Musculoskeletal Musculoskeletal: As Per HPI - Neurological Neurological: As Per HPI Past Patient History - Infectious Disease Hx of Infectious Diseases: None - Tetanus Immunizations Tetanus Immunization: Unknown - Past Medical History & Family History Past Medical History?: Yes Pertinent Family History: Mother and father both had coronary artery disease. One brother had rectal carcinoma. - Past Social History Smoking Status: Never Smoked Chewing Tobacco Use: No Cigar Use: No Alcohol: None Drugs: Denies Home Situation {Lives}: Alone - CARDIAC Hx Hypertension: Yes - PULMONARY Hx Chronic Obstructive Pulmonary Disease (COPD): Yes Other/Comment: Idiopathic pulmonary fibrosis. Spontaneous pneumothorax - NEUROLOGICAL Hx Neurological Disorder: No Hx Vertigo: No Other/Comment: Gradual cognitive decline - HEENT Hx Cataracts: Yes - RENAL Hx Chronic Kidney Disease: No - ENDOCRINE/METABOLIC Hx Endocrine Disorders: No - HEMATOLOGICAL/ONCOLOGICAL Hx Anemia: Yes - INTEGUMENTARY Hx Dermatological Problems: No - MUSCULOSKELETAL/RHEUMATOLOGICAL Hx Falls: Yes Hx Fractures: Yes (right hip fracture 2008) Hx Unsteady Gait: Yes (uses cane to ambulate) - GASTROINTESTINAL Hx Gastrointestinal Disorders: No - GENITOURINARY/GYNECOLOGICAL Hx Prostate Problems: Yes (BPH) - PSYCHIATRIC Hx Psychophysiologic Disorder: No Hx Substance Use: No - SURGICAL HISTORY Hx Cataract Extraction: Yes Hx Joint Replacement: Yes (Hip) Other/Comment: Right hip fracture ORIF. Right spontaneous pneumothorax with VATS - ANESTHESIA Hx Anesthesia: Yes Hx Anesthesia Reactions: No Hx Malignant Hyperthermia: No Meds Allergies/Adverse Reactions: Allergies Allergy/AdvReac Type Severity Reaction Status Date / Time shellfish Allergy SHORTNESS Uncoded 09/05/17 22:41 OF BREATH - Medications Medications: Current Medications Al Hydrox/Mg Hydrox/Simethicone (Maalox Plus 30 Ml) 30 ml PO Q6 PRN PRN Reason: Indigestion / Heartburn Last Admin: 09/07/17 17:52 Dose: 30 ml Albuterol/Ipratropium (Duoneb 3 Mg/0.5 Mg (3 Ml) Ud) 3 ml INH RQ6 [facility] Last Admin: 09/08/17 08:02 Dose: 3 ml Albuterol/Ipratropium (Duoneb 3 Mg/0.5 Mg (3 Ml) Ud) 3 ml INH RQ2 PRN PRN Reason: Shortness of Breath Ascorbic Acid (Vitamin C 250 Mg Tab) 250 mg PO BID [facility] Last Admin: 09/08/17 09:04 Dose: 250 mg Aspirin (Ecotrin) 81 mg PO DAILY [facility] Last Admin: 09/08/17 09:05 Dose: 81 mg Docusate Sodium (Colace) 100 mg PO BID [facility] Last Admin: 09/08/17 09:04 Dose: 100 mg Enoxaparin Sodium (Lovenox) 40 mg SC DAILY [facility] PRN Reason: Protocol Last Admin: 09/08/17 09:06 Dose: 40 mg Ferrous Sulfate (Feosol) 325 mg PO BID [facility] Last Admin: 09/08/17 09:05 Dose: 325 mg Home Med (Propylene Glycol/Peg 400 [Systane 0.3-0.4% Eye Drops]) 1 drop OU TID [facility] Last Admin: 09/08/17 09:06 Dose: 1 drop Ceftriaxone Sodium 1 gm/ (Sodium Chloride) 100 mls @ 100 mls/hr IVPB DAILY [facility] PRN Reason: Protocol Last Admin: 09/08/17 09:03 Dose: 100 mls/hr Azithromycin 500 mg/ Sodium (Chloride) 250 mls @ 250 mls/hr IVPB DAILY [facility] PRN Reason: Protocol Last Admin: 09/07/17 10:36 Dose: 250 mls/hr Methylprednisolone (Solu-Medrol) 40 mg IVP Q8 [facility] Last Admin: 09/08/17 00:32 Dose: 40 mg Metoprolol Tartrate (Lopressor) 25 mg PO Q12 [facility] Last Admin: 09/07/17 21:25 Dose: 25 mg Pantoprazole Sodium (Protonix Ec Tab) 40 mg PO DAILY [facility] Last Admin: 09/08/17 09:05 Dose: 40 mg Tamsulosin HCl (Flomax) 0.4 mg PO DAILY [facility] Last Admin: 09/08/17 09:05 Dose: 0.4 mg Physical Exam - Additional Findings Additional findings: Thin, chronically ill-appearing male who is dyspneic with conversation. The conjunctivae are pale and there is no scleral icterus. Nares are patent bilaterally without bleeding or exudate. Pharynx is pink and mucous membranes are moist. No exudate. Neck is supple and trachea is midline. No neck vein distention or carotid bruit. No palpable lymphadenopathy. No dullness on chest percussion. Healed surgical sites from thoracostomy tubes and VATS. Breath sounds are diminished bilaterally with a shortened inspiratory phase. Try to medium Velcro type rales are heard throughout both lungs. No audible wheezing. No bronchial breathing or egophony. The heart is regular and mildly tachycardic. Heart sounds are distant. No murmurs heard. Abdomen is soft and nontender with no palpable HSM. No mass. Normal bowel sounds. Trace bilateral dependent edema of ankles. No cyanosis. No calf tenderness. Linear excoriation is noted over the left upper extremity. Tenderness on palpation of the right shoulder and passive movement. Tenderness over the right hip without visible ecchymosis. Results - Vital Signs Recent Vital Signs: Last Vital Signs Temp 97.4 F L 09/08/17 08:45 Pulse 80 09/08/17 08:45 Resp 19 09/08/17 08:45 BP 162/79 H 09/08/17 08:45 Pulse Ox 96 09/08/17 08:45 - Labs Result Diagrams: 09/07/17 05:55 09/07/17 05:55 Labs: Laboratory Results - last 24 hr 09/07/17 09/07/17 09:50 10:20 POC Glucose (mg/dL) 186 H Troponin I 0.0690 Assessment & Plan (1) Idiopathic pulmonary fibrosis Status: Chronic Priority: High Comment: Initial encounter 2014 with spontaneous pneumothorax. Has been treated with PIRFENIDONE for over one year. (2) Fall Status: Acute Priority: High Comment: Mechanical fall without loss of consciousness. (3) Musculoskeletal pain of right upper extremity Status: Acute Priority: High (4) Musculoskeletal pain of right lower extremity Status: Acute Priority: High - Assessment and Plan (Free Text) Assessment: Current exacerbation of symptoms appear to be related to musculoskeletal pain. Current chest x-ray does not reveal significant change from previous films. Remains well oxygenated. - Date & Time Date: 09/06/17 Time: 14:00
--- NOTE | 2017-09-08 09:44 | CP.PCM.PN ---
Subjective - Date & Time of Evaluation Date of Evaluation: 09/08/17 Time of Evaluation: 09:15 - Subjective Subjective: Patient seen and examined. Claimed he was feeling better. Asked if he was willing to stay for therapy to make him stronger, he gladly accepted. His home visitor is currently hospitalized at [facility], so he would be all alone at home. Objective - Vital Signs/Intake and Output Vital Signs (last 24 hours): Temp Pulse Resp BP Pulse Ox 97.4 F L 97 H 19 144/75 96 09/08/17 08:45 09/08/17 09:08 09/08/17 08:45 09/08/17 09:08 09/08/17 08:45 - Medications Medications: Current Medications Al Hydrox/Mg Hydrox/Simethicone (Maalox Plus 30 Ml) 30 ml PO Q6 PRN PRN Reason: Indigestion / Heartburn Last Admin: 09/07/17 17:52 Dose: 30 ml Albuterol/Ipratropium (Duoneb 3 Mg/0.5 Mg (3 Ml) Ud) 3 ml INH RQ6 [facility] Last Admin: 09/08/17 08:02 Dose: 3 ml Albuterol/Ipratropium (Duoneb 3 Mg/0.5 Mg (3 Ml) Ud) 3 ml INH RQ2 PRN PRN Reason: Shortness of Breath Ascorbic Acid (Vitamin C 250 Mg Tab) 250 mg PO BID [facility] Last Admin: 09/08/17 09:04 Dose: 250 mg Aspirin (Ecotrin) 81 mg PO DAILY [facility] Last Admin: 09/08/17 09:05 Dose: 81 mg Docusate Sodium (Colace) 100 mg PO BID [facility] Last Admin: 09/08/17 09:04 Dose: 100 mg Enoxaparin Sodium (Lovenox) 40 mg SC DAILY [facility] PRN Reason: Protocol Last Admin: 09/08/17 09:06 Dose: 40 mg Ferrous Sulfate (Feosol) 325 mg PO BID [facility] Last Admin: 09/08/17 09:05 Dose: 325 mg Home Med (Propylene Glycol/Peg 400 [Systane 0.3-0.4% Eye Drops]) 1 drop OU TID [facility] Last Admin: 09/08/17 09:06 Dose: 1 drop Ceftriaxone Sodium 1 gm/ (Sodium Chloride) 100 mls @ 100 mls/hr IVPB DAILY [facility] PRN Reason: Protocol Last Admin: 09/08/17 09:03 Dose: 100 mls/hr Azithromycin 500 mg/ Sodium (Chloride) 250 mls @ 250 mls/hr IVPB DAILY [facility] PRN Reason: Protocol Last Admin: 09/07/17 10:36 Dose: 250 mls/hr Methylprednisolone (Solu-Medrol) 40 mg IVP Q8 [facility] Last Admin: 09/08/17 09:24 Dose: 40 mg Metoprolol Tartrate (Lopressor) 25 mg PO Q12 [facility] Last Admin: 09/08/17 09:08 Dose: 25 mg Pantoprazole Sodium (Protonix Ec Tab) 40 mg PO DAILY [facility] Last Admin: 09/08/17 09:05 Dose: 40 mg Tamsulosin HCl (Flomax) 0.4 mg PO DAILY [facility] Last Admin: 09/08/17 09:05 Dose: 0.4 mg - Labs Labs: 09/07/17 05:55 09/07/17 05:55 - Constitutional Appears: No Acute Distress - Head Exam Head Exam: ATRAUMATIC - Eye Exam Eye Exam: absent: Scleral icterus - ENT Exam ENT Exam: Mucous Membranes Moist - Neck Exam Neck Exam: absent: Meningismus - Respiratory Exam Respiratory Exam: Decreased Breath Sounds. absent: Rhonchi, Wheezes, Respiratory Distress - Cardiovascular Exam Cardiovascular Exam: REGULAR RHYTHM, +S1, +S2 - GI/Abdominal Exam GI & Abdominal Exam: Soft. absent: Tenderness - Rectal Exam Rectal Exam: Deferred - Neurological Exam Neurological Exam: Alert, Oriented x3 - Psychiatric Exam Psychiatric exam: Normal Affect - Skin Skin Exam: Dry, Intact Assessment and Plan - Assessment and Plan (Free Text) Assessment: 82 yo male with history of Idiopathic Pulmonary Fibrosis with oxygen dependent at home tripped on his oxygen tubing and fell. He called 911 since he could not get up and was brought here and placed on observation. Patient denied SOB while with oxygen supplement which is his baseline. 1. Fall accidentally tripped on oxygen tubings and was unable to get up on his own CT scan of Head: negative for intracranial bleed Shoulder Xray: negative for fracture patient needed therapy because of deconditioning specially after falling at home. Also his home visitor is hospitalized and will not be available to assist when he gets home recommended by PT to be admitted to [facility] or TCU 2. Idiopathic Pulmonary Fibrosis continue oxygen supplement Duoneb q 2 hrs prn for SOB SoluMedrol 40mg IV q 8hrs continue Rocephin and Azithromycin 3. Reflux Esophagitis Mylanta 30cc PO q 6hrs prn Protonix 40mg PO daily 4. HTN BP stable continue Metoprolol 25mg PO q 12hrs 5. DVT prophylaxis on Lovenox
[2017-09-08] MEDS: Azithromycin 500 MG in Sodium Chloride 0.9% 250 ML IVPB SCH (10:31)
[2017-09-08] MEDS ORDERED: Albuterol 0.083% Inhal Sol (2.5 mg/3 mL) UD INH PRN (11:47)
--- NOTE | 2017-09-08 12:45 | CP.PCM.PN ---
Subjective - Date & Time of Evaluation Date of Evaluation: 09/08/17 Time of Evaluation: 12:42 - Subjective Subjective: Appears to be doing well on current regimen. Vital signs have remained stable, no temp elevation. Diffuse early dry to medium rales bilaterally. No audible wheezing at present. Flushed facies secondary to steroid therapy. Agree with need for physical therapy/TOSIN. Antibiotics changed to PO azithromycin and Omnicef. Solumedrol dose reduced, elevated WBC hopefully result of steroids only. Objective - Vital Signs/Intake and Output Vital Signs (last 24 hours): Temp Pulse Resp BP Pulse Ox 97.4 F L 97 H 19 144/75 96 09/08/17 08:45 09/08/17 09:08 09/08/17 08:45 09/08/17 09:08 09/08/17 08:45 - Medications Medications: Current Medications Al Hydrox/Mg Hydrox/Simethicone (Maalox Plus 30 Ml) 30 ml PO Q6 PRN PRN Reason: Indigestion / Heartburn Last Admin: 09/07/17 17:52 Dose: 30 ml Albuterol Sulfate (Albuterol 0.083% Inhal Annie (2.5 Mg/3 Ml) Ud) 2.5 mg INH RQ4 PRN PRN Reason: Shortness of Breath Albuterol/Ipratropium (Duoneb 3 Mg/0.5 Mg (3 Ml) Ud) 3 ml INH RQID [facility] Ascorbic Acid (Vitamin C 250 Mg Tab) 250 mg PO BID [facility] Last Admin: 09/08/17 09:04 Dose: 250 mg Aspirin (Ecotrin) 81 mg PO DAILY [facility] Last Admin: 09/08/17 09:05 Dose: 81 mg Azithromycin (Zithromax) 250 mg PO DAILY [facility] PRN Reason: Protocol Stop: 09/12/17 09:01 Cefdinir (Omnicef) 300 mg PO BID [facility] Docusate Sodium (Colace) 100 mg PO BID [facility] Last Admin: 09/08/17 09:04 Dose: 100 mg Enoxaparin Sodium (Lovenox) 40 mg SC DAILY [facility] PRN Reason: Protocol Last Admin: 09/08/17 09:06 Dose: 40 mg Ferrous Sulfate (Feosol) 325 mg PO BID [facility] Last Admin: 09/08/17 09:05 Dose: 325 mg Home Med (Propylene Glycol/Peg 400 [Systane 0.3-0.4% Eye Drops]) 1 drop OU TID [facility] Last Admin: 09/08/17 09:06 Dose: 1 drop Methylprednisolone (Solu-Medrol) 40 mg IVP Q12 [facility] Metoprolol Tartrate (Lopressor) 25 mg PO Q12 [facility] Last Admin: 09/08/17 09:08 Dose: 25 mg Pantoprazole Sodium (Protonix Ec Tab) 40 mg PO DAILY [facility] Last Admin: 09/08/17 09:05 Dose: 40 mg Tamsulosin HCl (Flomax) 0.4 mg PO DAILY [facility] Last Admin: 09/08/17 09:05 Dose: 0.4 mg - Labs Labs: 09/07/17 05:55 09/07/17 05:55 Assessment and Plan (1) Idiopathic pulmonary fibrosis Status: Chronic (2) Fall Status: Acute (3) Musculoskeletal pain of right upper extremity Status: Acute (4) Musculoskeletal pain of right lower extremity Status: Acute
[2017-09-08] MEDS: Cefdinir 300 MG CAP PO SCH (17:02)
[2017-09-09] MEDS: Albuterol-Ipratrop 3 mg / 0.5 (3 ml) UD INH SCH ×4 (09:21→19:08)
[2017-09-09] MEDS: PEG OU SCH ×3 (10:27→17:06)
[2017-09-09] MEDS: Enoxaparin 40 mg Syringe SC SCH (10:27)
[2017-09-09] MEDS: PROPYLENE GLYCOL OU SCH ×3 (10:27→17:06)
[2017-09-09] MEDS: Cefdinir 300 MG CAP PO SCH (10:28)
[2017-09-09] MEDS: Pantoprazole 40 mg EC Tab PO SCH (10:34)
[2017-09-09 11:06] LABS: BASO % 0.1 % (0.0-2.0); EOS % 0.2 % (0.0-4.0); HEMOGLOBIN 12.1 g/dL (12.0-18.0); LYMPH # 1.3 K/uL (1.0-4.3); MEAN CELL VOLUME 96.2 fl (80.0-94.0); MEAN CORPUSCULAR HEMOGLOBIN 30.3 pg (27.0-31.0); MEAN CORPUSCULAR HGB CONC 31.5 g/dL (33.0-37.0); MEAN PLATELET VOLUME 9.1 fl (7.2-11.7); MONO # 0.8 K/uL (0.0-0.8); MONO % 6.9 % (0.0-10.0); NEUT # 9.7 K/uL (1.8-7.0); NEUT % 81.8 % (50.0-75.0); RED CELL DISTRIBUTION WIDTH 13.9 % (11.5-14.5); WHITE BLOOD COUNT 11.8 K/uL (4.8-10.8)
[2017-09-09] MEDS: Alum-Mag Hydrox-Simethicone Susp (30 mL) PO PRN (12:29)
[2017-09-09] MEDS: MethylPREDNISolone 40 mg Vial IVP SCH ×2 (12:29→21:27)
--- NOTE | 2017-09-09 19:03 | CP.PCM.PN ---
Subjective - Date & Time of Evaluation Date of Evaluation: 09/09/17 Time of Evaluation: 15:30 - Subjective Subjective: Patient seen and examined. Denied any complaint. Objective - Vital Signs/Intake and Output Vital Signs (last 24 hours): Temp Pulse Resp BP Pulse Ox 97.6 F 78 20 99/62 L 95 09/09/17 15:46 09/09/17 15:46 09/09/17 15:46 09/09/17 15:46 09/09/17 15:46 - Medications Medications: Current Medications Al Hydrox/Mg Hydrox/Simethicone (Maalox Plus 30 Ml) 30 ml PO Q6 PRN PRN Reason: Indigestion / Heartburn Last Admin: 09/09/17 12:29 Dose: 30 ml Albuterol Sulfate (Albuterol 0.083% Inhal Annie (2.5 Mg/3 Ml) Ud) 2.5 mg INH RQ4 PRN PRN Reason: Shortness of Breath Albuterol/Ipratropium (Duoneb 3 Mg/0.5 Mg (3 Ml) Ud) 3 ml INH RQID [facility] Last Admin: 09/09/17 15:39 Dose: 3 ml Ascorbic Acid (Vitamin C 250 Mg Tab) 250 mg PO BID [facility] Last Admin: 09/09/17 17:06 Dose: 250 mg Aspirin (Ecotrin) 81 mg PO DAILY [facility] Last Admin: 09/09/17 10:26 Dose: 81 mg Azithromycin (Zithromax) 250 mg PO DAILY [facility] PRN Reason: Protocol Stop: 09/12/17 09:01 Last Admin: 09/09/17 10:26 Dose: 250 mg Cefdinir (Omnicef) 300 mg PO BID [facility] Last Admin: 09/09/17 10:28 Dose: 300 mg Docusate Sodium (Colace) 100 mg PO BID [facility] Last Admin: 09/09/17 17:05 Dose: Not Given Enoxaparin Sodium (Lovenox) 40 mg SC DAILY [facility] PRN Reason: Protocol Last Admin: 09/09/17 10:27 Dose: 40 mg Ferrous Sulfate (Feosol) 325 mg PO BID [facility] Last Admin: 09/09/17 17:06 Dose: 325 mg Home Med (Propylene Glycol/Peg 400 [Systane 0.3-0.4% Eye Drops]) 1 drop OU TID [facility] Last Admin: 09/09/17 17:06 Dose: 1 drop Methylprednisolone (Solu-Medrol) 40 mg IVP Q12 [facility] Last Admin: 09/09/17 12:29 Dose: 40 mg Metoprolol Tartrate (Lopressor) 25 mg PO Q12 [facility] Last Admin: 09/09/17 10:24 Dose: 25 mg Pantoprazole Sodium (Protonix Ec Tab) 40 mg PO DAILY [facility] Last Admin: 09/09/17 10:34 Dose: 40 mg Tamsulosin HCl (Flomax) 0.4 mg PO DAILY [facility] Last Admin: 09/09/17 10:27 Dose: 0.4 mg - Labs Labs: 09/09/17 10:02 09/07/17 05:55 - Constitutional Appears: No Acute Distress - Head Exam Head Exam: ATRAUMATIC - Eye Exam Eye Exam: absent: Scleral icterus - ENT Exam ENT Exam: Mucous Membranes Moist - Neck Exam Neck Exam: absent: Meningismus - Respiratory Exam Respiratory Exam: absent: Rhonchi, Wheezes, Respiratory Distress - Cardiovascular Exam Cardiovascular Exam: REGULAR RHYTHM, +S1, +S2 - GI/Abdominal Exam GI & Abdominal Exam: Soft. absent: Tenderness - Rectal Exam Rectal Exam: Deferred - Back Exam Back Exam: absent: tenderness - Neurological Exam Neurological Exam: Alert, Oriented x3 - Psychiatric Exam Psychiatric exam: Normal Affect - Skin Skin Exam: Dry, Intact Assessment and Plan - Assessment and Plan (Free Text) Assessment: 82 yo male with history of Idiopathic Pulmonary Fibrosis with oxygen dependent at home tripped on his oxygen tubing and fell. He called 911 since he could not get up and was brought here and placed on observation. Patient denied SOB while with oxygen supplement which is his baseline. 1. Fall fell on oxygen tubings and was unable to get up on his own CT scan of Head: negative for intracranial bleed Shoulder Xray: negative for fracture patient needed therapy because of deconditioning specially after falling at home. Also county home demonstrator is hospitalized and will not be available to assist him recommended by PT to be admitted to [facility] or TCU 2. Idiopathic Pulmonary Fibrosis continue oxygen supplement Duoneb q 2 hrs prn for SOB SoluMedrol 40mg IV q 12hrs switched to PO Cefdinir 300mg PO BID and Zithromax 250mg PO daily 3. Reflux Esophagitis Mylanta 30cc PO q 6hrs prn Protonix 40mg PO daily 4. HTN BP stable continue Metoprolol 25mg PO q 12hrs 5. DVT prophylaxis on Lovenox
[2017-09-10] MEDS: Albuterol-Ipratrop 3 mg / 0.5 (3 ml) UD INH SCH ×4 (08:00→19:18)
[2017-09-10] MEDS: Enoxaparin 40 mg Syringe SC SCH (09:45)
[2017-09-10] MEDS: Pantoprazole 40 mg EC Tab PO SCH (09:46)
[2017-09-10] MEDS: Cefdinir 300 MG CAP PO SCH ×2 (09:47→16:27)
[2017-09-10] MEDS: PROPYLENE GLYCOL OU SCH ×3 (09:50→16:27)
[2017-09-10] MEDS: PEG OU SCH ×3 (09:50→16:27)
--- NOTE | 2017-09-10 11:46 | CP.PCM.DIS ---
Provider - Provider Date of Admission: 09/08/17 09:47 Attending physician: Chalo Palomo Consults: Pulmonary Consult- Dr. Niño Time Spent in preparation of Discharge (in minutes): 20 Diagnosis - Discharge Diagnosis (1) Fall Status: Acute Priority: Medium (2) Idiopathic pulmonary fibrosis Status: Acute Priority: Medium (3) Reflux esophagitis Status: Acute Priority: Medium (4) HTN (hypertension) Status: Chronic Priority: Medium Hospital Course - Lab Results Lab Results: Micro Results 09/06/17 05:37 Blood-Venous Blood Culture - Preliminary NO GROWTH AFTER 4 DAYS Most Recent Lab Values WBC 11.8 K/uL (4.8-10.8) H 09/09/17 10:02 RBC 4.00 Mil/uL (4.40-5.90) L 09/09/17 10:02 Hgb 12.1 g/dL (12.0-18.0) D 09/09/17 10:02 Hct 38.5 % (35.0-51.0) 09/09/17 10:02 MCV 96.2 fl (80.0-94.0) H 09/09/17 10:02 MCH 30.3 pg (27.0-31.0) 09/09/17 10:02 MCHC 31.5 g/dL (33.0-37.0) L 09/09/17 10:02 RDW 13.9 % (11.5-14.5) 09/09/17 10:02 Plt Count 197 K/uL (130-400) 09/09/17 10:02 MPV 9.1 fl (7.2-11.7) 09/09/17 10:02 Neut % (Auto) 81.8 % (50.0-75.0) H 09/09/17 10:02 Lymph % (Auto) 11.0 % (20.0-40.0) L 09/09/17 10:02 Vernon % (Auto) 6.9 % (0.0-10.0) 09/09/17 10:02 Eos % (Auto) 0.2 % (0.0-4.0) 09/09/17 10:02 Baso % (Auto) 0.1 % (0.0-2.0) 09/09/17 10:02 Neut # (Auto) 9.7 K/uL (1.8-7.0) H 09/09/17 10:02 Lymph # (Auto) 1.3 K/uL (1.0-4.3) 09/09/17 10:02 Vernon # (Auto) 0.8 K/uL (0.0-0.8) 09/09/17 10:02 Eos # (Auto) 0.0 K/uL (0.0-0.7) 09/09/17 10:02 Baso # (Auto) 0.0 K/uL (0.0-0.2) 09/09/17 10:02 Neutrophils % (Manual) 93 % (42-75) H 09/06/17 10:58 Band Neutrophils % 1 % (0-2) 09/06/17 00:30 Lymphocytes % (Manual) 5 % (20-50) L 09/06/17 10:58 Reactive Lymphs % 1 % (0-0) H 09/06/17 00:30 Monocytes % (Manual) 2 % (0-10) 09/06/17 10:58 Eosinophils % (Manual) 1 % (0-7) 09/06/17 00:30 Platelet Estimate Normal (NORMAL) 09/06/17 10:58 Hypochromasia (manual) Slight 09/06/17 10:58 Anisocytosis (manual) Slight 09/06/17 00:30 Macrocytosis (manual) Slight 09/06/17 10:58 Ovalocytes Slight 09/06/17 10:58 Stomatocytes Slight 09/06/17 00:30 pO2 41 mm/Hg (30-55) 09/06/17 03:12 VBG pH 7.36 (7.32-7.43) 09/06/17 03:12 VBG pCO2 53 mmHg (40-60) 09/06/17 03:12 VBG HCO3 26.8 mmol/L 09/06/17 03:12 VBG Total CO2 31.5 mmol/L (22-28) H 09/06/17 03:12 VBG O2 Sat (Calc) 82.6 % (40-65) H 09/06/17 03:12 VBG Base Excess 3.2 mmol/L (0.0-2.0) H 09/06/17 03:12 VBG Potassium 4.0 mmol/L (3.6-5.2) 09/06/17 03:12 Sodium 137.0 mmol/L (132-148) 09/06/17 03:12 Chloride 101.0 mmol/L (98-107) 09/06/17 03:12 Glucose 132 mg/dL (75-110) H 09/06/17 03:12 Lactate 1.1 mmol/L (0.7-2.1) 09/06/17 03:12 FiO2 21.0 % 09/06/17 03:12 Sodium 140 mmol/l (132-148) 09/07/17 05:55 Potassium 4.6 MMOL/L (3.6-5.0) 09/07/17 05:55 Chloride 103 mmol/L (98-107) 09/07/17 05:55 Carbon Dioxide 25 mmol/L (22-30) 09/07/17 05:55 Anion Gap 17 (10-20) 09/07/17 05:55 BUN 31 mg/dl (9-20) H 09/07/17 05:55 Creatinine 1.2 mg/dl (0.8-1.5) 09/07/17 05:55 Est GFR ( Amer) > 60 09/07/17 05:55 Est GFR (Non-Af Amer) 58 09/07/17 05:55 POC Glucose (mg/dL) 186 mg/dL (65-110) H 09/07/17 09:50 Random Glucose 142 mg/dL (75-110) H 09/07/17 05:55 Calcium 8.7 mg/dL (8.4-10.2) 09/07/17 05:55 Iron 26 ug/dL (49-181) L 09/06/17 10:58 TIBC 249 ug/dL (250-450) L 09/06/17 10:58 % Saturation 10 % (20-55) L 09/06/17 10:58 Total Bilirubin 0.4 mg/dl (0.2-1.3) 09/06/17 00:30 AST 36 U/L (17-59) 09/06/17 00:30 ALT 30 U/L (21-72) 09/06/17 00:30 Alkaline Phosphatase 65 U/L (38-126) 09/06/17 00:30 Troponin I 0.0690 ng/mL (0.00-0.120) 09/07/17 10:20 NT-Pro-B Natriuret Pep 2080 pg/ml (0-900) H 09/06/17 10:58 Total Protein 8.3 G/DL (6.3-8.2) H 09/06/17 00:30 Albumin 3.9 g/dL (3.5-5.0) 09/06/17 00:30 Globulin 4.4 gm/dL (2.2-3.9) H 09/06/17 00:30 Albumin/Globulin Ratio 0.9 (1.0-2.1) L 09/06/17 00:30 Vitamin B12 455 pg/mL (239-931) 09/06/17 10:58 Folate > 20.0 ng/mL 09/06/17 10:58 Venous Blood Potassium 4.0 mmol/L (3.6-5.2) 09/06/17 03:12 Influenza Typ A,B (EIA) Negative for flu a/b (NEGATIVE) 09/06/17 00:30 - Hospital Course Hospital Course: Waiting for SW May be D/C today to rehab pending healthcare social worker Discharge Exam - Head Exam Head Exam: ATRAUMATIC, NORMAL INSPECTION, NORMOCEPHALIC - Eye Exam Eye Exam: EOMI, Normal appearance Pupil Exam: NORMAL ACCOMODATION - ENT Exam ENT Exam: Mucous Membranes Moist - Neck Exam Neck exam: Full Rom, Normal Inspection - Respiratory Exam Respiratory Exam: Rales. absent: Rhonchi, Wheezes, Respiratory Distress, Stridor Additional comments: Diminished breath sounds - Cardiovascular Exam Cardiovascular Exam: REGULAR RHYTHM, +S1, +S2 - GI/Abdominal Exam GI & Abdominal Exam: Normal Bowel Sounds - Rectal Exam Rectal Exam: Deferred - Extremities Exam Additional comments: Pitting edema noted to the LE bilaterally No pain with palpation to the calfs bilaterally - Back Exam Back exam: absent: CVA tenderness (L), CVA tenderness (R) - Neurological Exam Neurological exam: Alert, Oriented x3 - Psychiatric Exam Psychiatric exam: Normal Affect, Normal Mood - Skin Skin Exam: Dry, Intact, Normal Color, Warm - Additional Findings Additional findings: Limited ROM to left shoulder with mild pain elicited with ROM Ecchymosis noted to the left upper arm measuring approximately 2 x 3 cm, healing and improved in color No flucatance, no hematoma, no abscess Discharge Plan - Follow Up Plan Condition: FAIR Disposition: TRANSF TO SNF Instructions: Shortness of Breath (Dyspnea) (DC) Referrals: Ephraim Niño MD [Family Provider] -
[2017-09-10] MEDS: MethylPREDNISolone 40 mg Vial IVP SCH ×2 (12:17→21:28)
--- NOTE | 2017-09-10 13:27 | PQF GENQUE ---
Dr. Phillips Pt has documented Pneumonia noted as rule out in the H and P and then the dx. is dropped: Please clarify status of this condition: Patient has condition Condition was ruled out Please provide corresponding diagnosis for patient's clinical picture and associated treatment Patient had condition which is now resolved Other (please specify) Clinically unable to determine Unknown CXR: Impression: Extensive diffuse interstitial fibrosis again noted. Slight persistent elevation right hemidiaphragm unchanged H and P: Interstitial Lung disease on home Oxygen. Now with worsening SOB and Chest tightness, r/o Pneumonia left lung - Consult Dr Niño pulmonary - Albuterol/ Ipratropium - Methylprednisolone - Empiric antibiotics: - Azithromycin - Ceftriaxone - follow serial Troponin to r/o ACS This form is a permanent part of the medical record Clarification of your documentation is requested to better reflect the severity of illness and intensity of treatment of your patient. Indicators present [] Specify: [] [] Specify: [] [] Specify: [] [] Specify: [] Location in the medical record that reflects the above clinical findings: [] Treatment Provided: [] PHYSICIAN'S RESPONSE Based on your medical judgment of the clinical indicators outlined above please clarify the following: [] Practitioner response [] If unable to determine, please check the box, sign and date. Present On Admission (POA) Indicator: [] Present at the time of admission [] Not present at the time of admission [] Clinically Undetermined In responding to this query, please exercise your independent professional judgment. The fact that a question is asked does not imply that any particular answer is desired or expected. Thank you for your clarification on this documentation. If you have any questions please call. * Thank you, Laura Houston RN ext. #[phone] MTDD
--- NOTE | 2017-09-10 14:54 | PQF GENQUE ---
Dr. Phillips, Please clarify the medical conditions and the associated clinical risk factors necessitating admission. H and P; 82 years old male, living alone, uses a cane to ambulate, with hx of Interstitial lung disease on home Oxygen, Pneumothorax and Anemia, brought to the ED 2hrs after tripping and falling and could not get up, also found to have significant SOB. Complained of right shoulder pain and Chest tightness with worsening SOB. No LOC. #. Fall etiology not quite clear. r/o CVA #Interstitial Lung disease on home Oxygen. Now with worsening SOB and Chest tightness, r/o Pneumonia left lung - Consult Dr Niño pulmonary - Albuterol/ Ipratropium - Methylprednisolone - Empiric antibiotics: - Azithromycin - Ceftriaxone - follow serial Troponin to r/o ACS #. Dehydration Probably due to Poor intake - IV Fluid - Follow Renal labs #. Anemia Symptomatic. Weakness after walking short distances caused by the ILD and the ANEMIA - Iron Panel/Vitamin B12/ Folate levels - Follow Hb #. HTN Uncontrolled - Metoprolol - Follow blood pressures #. Leg edema, probably due to stasis . Follow BNP to decide on work up for CHF #. hx of A Fib now Sinus Rhythm #. DVT prophylaxis with Lovenox and SCD 09/07 and 09/08 and 09/09: Follow up Progress notes Attending: history of Idiopathic Pulmonary Fibrosis with oxygen dependent at home tripped on his oxygen tubing and fell. He called 911 since he could not get up and was brought here and placed on observation. Patient denied SOB while with oxygen supplement which is his baseline. 1. Fall fell on oxygen tubings and was unable to get up on his own CT scan of Head: negative for intracranial bleed Shoulder Xray: negative for fracture patient needed therapy because of deconditioning specially after falling at home. Also caregiver services home is hospitalized and will not be available to assist him recommended by PT to be admitted to [facility] or TCU 2. Idiopathic Pulmonary Fibrosis continue oxygen supplement Duoneb q 2 hrs prn for SOB SoluMedrol 40mg IV q 12hrs switched to PO Cefdinir 300mg PO BID and Zithromax 250mg PO daily 3. Reflux Esophagitis Mylanta 30cc PO q 6hrs prn Protonix 40mg PO daily 4. HTN BP stable continue Metoprolol 25mg PO q 12hrs 5. DVT prophylaxis on Lovenox This form is a permanent part of the medical record Clarification of your documentation is requested to better reflect the severity of illness and intensity of treatment of your patient. Indicators present [] Specify: [] [] Specify: [] [] Specify: [] [] Specify: [] Location in the medical record that reflects the above clinical findings: [] Treatment Provided: [] PHYSICIAN'S RESPONSE Based on your medical judgment of the clinical indicators outlined above please clarify the following: [] Practitioner response [] If unable to determine, please check the box, sign and date. Present On Admission (POA) Indicator: [] Present at the time of admission [] Not present at the time of admission [] Clinically Undetermined In responding to this query, please exercise your independent professional judgment. The fact that a question is asked does not imply that any particular answer is desired or expected. Thank you for your clarification on this documentation. If you have any questions please call. * Thank you, Laura Houston RN ext. #[phone] MTDD
--- NOTE | 2017-09-10 14:55 | CP.PCM.PN ---
Subjective - Date & Time of Evaluation Date of Evaluation: 09/10/17 Time of Evaluation: 10:30 - Subjective Subjective: Hospitalist Progress Note- Dr. Phillips 82 y.o male seen and evaluated at bedside with attending Dr. Phillips s/p fall from home on 09/06/17. Patient is seen resting comfortably in chair, in NAD, and AA0x3. Patient has no new complains today. Denies acute overnight events. Denies n/v/sob/cp/chills/f or calf tenderness. Objective - Vital Signs/Intake and Output Vital Signs (last 24 hours): Temp Pulse Resp BP Pulse Ox 97.6 F 71 20 148/82 100 09/10/17 08:30 09/10/17 09:43 09/10/17 08:30 09/10/17 09:43 09/10/17 08:30 - Medications Medications: Current Medications Al Hydrox/Mg Hydrox/Simethicone (Maalox Plus 30 Ml) 30 ml PO Q6 PRN PRN Reason: Indigestion / Heartburn Last Admin: 09/09/17 12:29 Dose: 30 ml Albuterol Sulfate (Albuterol 0.083% Inhal Annie (2.5 Mg/3 Ml) Ud) 2.5 mg INH RQ4 PRN PRN Reason: Shortness of Breath Albuterol/Ipratropium (Duoneb 3 Mg/0.5 Mg (3 Ml) Ud) 3 ml INH RQID [facility] Last Admin: 09/10/17 11:37 Dose: 3 ml Ascorbic Acid (Vitamin C 250 Mg Tab) 250 mg PO BID [facility] Last Admin: 09/10/17 09:44 Dose: 250 mg Aspirin (Ecotrin) 81 mg PO DAILY [facility] Last Admin: 09/10/17 09:44 Dose: 81 mg Azithromycin (Zithromax) 250 mg PO DAILY [facility] PRN Reason: Protocol Stop: 09/12/17 09:01 Last Admin: 09/10/17 12:16 Dose: 250 mg Cefdinir (Omnicef) 300 mg PO BID [facility] Last Admin: 09/10/17 09:47 Dose: 300 mg Docusate Sodium (Colace) 100 mg PO BID [facility] Last Admin: 09/10/17 09:46 Dose: 100 mg Enoxaparin Sodium (Lovenox) 40 mg SC DAILY [facility] PRN Reason: Protocol Last Admin: 09/10/17 09:45 Dose: 40 mg Ferrous Sulfate (Feosol) 325 mg PO BID [facility] Last Admin: 09/10/17 09:46 Dose: 325 mg Home Med (Propylene Glycol/Peg 400 [Systane 0.3-0.4% Eye Drops]) 1 drop OU TID [facility] Last Admin: 09/10/17 12:20 Dose: 1 drop Methylprednisolone (Solu-Medrol) 40 mg IVP Q12 [facility] Last Admin: 09/10/17 12:17 Dose: 40 mg Metoprolol Tartrate (Lopressor) 25 mg PO Q12 [facility] Last Admin: 09/10/17 09:43 Dose: 25 mg Pantoprazole Sodium (Protonix Ec Tab) 40 mg PO DAILY [facility] Last Admin: 09/10/17 09:46 Dose: 40 mg Tamsulosin HCl (Flomax) 0.4 mg PO DAILY [facility] Last Admin: 09/10/17 09:46 Dose: 0.4 mg - Labs Labs: 09/09/17 10:02 09/07/17 05:55 - Constitutional Appears: Well, Non-toxic, No Acute Distress - Head Exam Head Exam: ATRAUMATIC, NORMOCEPHALIC - Eye Exam Eye Exam: EOMI, Normal appearance, PERRL Pupil Exam: NORMAL ACCOMODATION, PERRL - ENT Exam ENT Exam: Mucous Membranes Moist, Normal Exam - Neck Exam Neck Exam: Full ROM, Normal Inspection - Respiratory Exam Respiratory Exam: Decreased Breath Sounds. absent: Rales, Rhonchi, Wheezes, Respiratory Distress, Stridor - Cardiovascular Exam Cardiovascular Exam: REGULAR RHYTHM, +S1, +S2 - GI/Abdominal Exam GI & Abdominal Exam: Soft, Normal Bowel Sounds - Rectal Exam Rectal Exam: Deferred - Extremities Exam Extremities Exam: absent: Calf Tenderness Additional comments: Pitting edema noted to the LE bilaterally No pain with palpation to the calfs bilaterally - Back Exam Back Exam: NORMAL INSPECTION. absent: CVA tenderness (L), CVA tenderness (R) - Neurological Exam Neurological Exam: Alert, Awake, Oriented x3 - Psychiatric Exam Psychiatric exam: Normal Affect, Normal Mood Additional comments: Limited ROM to left shoulder with mild pain elicited with ROM Ecchymosis noted to the left upper arm measuring approximately 2 x 3 cm, healing and improved in color No flucatance, no hematoma, no abscess Assessment and Plan - Assessment and Plan (Free Text) Assessment: 82 yo male with Idiopathic Pulmonary Fibrosis with home O2 seen s/p fall after tripping. Plan: 1. Trip and Fall w/ right shoulder contusion -fell on oxygen tubings and was unable to get up on his own -CT scan of Head: negative for intracranial bleed -Shoulder Xray: negative for fracture -patient needed therapy because of deconditioning specially after falling at home. Also home day care provider is hospitalized and will not be available to assist him -recommended by PT to be admitted to [facility] or TCU 2. Idiopathic Pulmonary Fibrosis with worsening dyspnea -Chest X-ray shows chronic interstitial lung changes, worse at the left base. -c/w oxygen supplement -Duoneb q 2 hrs prn for SOB -SoluMedrol 40mg IV q 12hrs -will tapered down to PO -discontinued IV Rocephin and Azithromycin -c/w Cefdinir 300mg PO BID and Zithromax 250mg PO daily 3. Reflux Esophagitis -Mylanta 30cc PO q 6hrs prn -Protonix 40mg PO daily 4. HTN -BP stable -continue Metoprolol 25mg PO q 12hrs 5. Mild anemia with iron deficiency -c/w ferrous sulfate 6. BPH -Tamsulosin 7. Dehydration -IV fluids 60mls/hr 8. Cachexia -heart healthy diet -IV fluids 9. DVT prophylaxis on Lovenox
[2017-09-10] MEDS: Sodium Chloride 0.9% 1,000 ML IV SCH (16:26)
[2017-09-11] MEDS: Albuterol-Ipratrop 3 mg / 0.5 (3 ml) UD INH SCH ×4 (08:10→20:16)
[2017-09-11] MEDS: Enoxaparin 40 mg Syringe SC SCH (08:21)
[2017-09-11] MEDS: Cefdinir 300 MG CAP PO SCH ×2 (08:22→16:01)
[2017-09-11] MEDS: Pantoprazole 40 mg EC Tab PO SCH (08:23)
[2017-09-11] MEDS: PROPYLENE GLYCOL OU SCH ×3 (08:23→16:01)
[2017-09-11] MEDS: Sodium Chloride 0.9% 1,000 ML IV SCH (08:23)
[2017-09-11] MEDS: PEG OU SCH ×3 (08:23→16:01)
[2017-09-11] MEDS: MethylPREDNISolone 40 mg Vial IVP SCH (08:31)
--- NOTE | 2017-09-11 10:07 | CP.PCM.PN ---
Subjective - Date & Time of Evaluation Date of Evaluation: 09/11/17 Time of Evaluation: 10:03 - Subjective Subjective: Seated in a bedside chair, appears comfortable. Vital signs remain stable. He continues to be afebrile. Occasional cough is noted with rare mucoid sputum production. Oxygenation is good with supplemental nasal cannula at 2 L. Able to ambulate short distances with assistance. Diffuse early Velcro type rales are heard bilaterally. No audible wheezing. Plan is for discharge to subacute rehabilitation. Taper and discontinue steroids as tolerated. Continue azithromycin, discontinue Omnicef. Objective - Vital Signs/Intake and Output Vital Signs (last 24 hours): Temp Pulse Resp BP Pulse Ox 98 F 71 20 157/89 H 100 09/11/17 08:16 09/11/17 08:22 09/11/17 08:16 09/11/17 08:22 09/11/17 08:16 - Medications Medications: Current Medications Al Hydrox/Mg Hydrox/Simethicone (Maalox Plus 30 Ml) 30 ml PO Q6 PRN PRN Reason: Indigestion / Heartburn Last Admin: 09/09/17 12:29 Dose: 30 ml Albuterol Sulfate (Albuterol 0.083% Inhal Annie (2.5 Mg/3 Ml) Ud) 2.5 mg INH RQ4 PRN PRN Reason: Shortness of Breath Albuterol/Ipratropium (Duoneb 3 Mg/0.5 Mg (3 Ml) Ud) 3 ml INH RQID [facility] Last Admin: 09/11/17 08:10 Dose: 3 ml Ascorbic Acid (Vitamin C 250 Mg Tab) 250 mg PO BID [facility] Last Admin: 09/11/17 08:23 Dose: 250 mg Aspirin (Ecotrin) 81 mg PO DAILY [facility] Last Admin: 09/11/17 08:22 Dose: 81 mg Azithromycin (Zithromax) 250 mg PO DAILY [facility] PRN Reason: Protocol Stop: 09/12/17 09:01 Last Admin: 09/11/17 08:23 Dose: 250 mg Cefdinir (Omnicef) 300 mg PO BID [facility] Last Admin: 09/11/17 08:22 Dose: 300 mg Docusate Sodium (Colace) 100 mg PO BID [facility] Last Admin: 09/11/17 08:22 Dose: 100 mg Enoxaparin Sodium (Lovenox) 40 mg SC DAILY [facility] PRN Reason: Protocol Last Admin: 09/11/17 08:21 Dose: 40 mg Ferrous Sulfate (Feosol) 325 mg PO BID [facility] Last Admin: 09/11/17 08:22 Dose: 325 mg Home Med (Propylene Glycol/Peg 400 [Systane 0.3-0.4% Eye Drops]) 1 drop OU TID [facility] Last Admin: 09/11/17 08:23 Dose: 1 drop Sodium Chloride (Sodium Chloride 0.9%) 1,000 mls @ 60 mls/hr IV .[id number] [facility] Stop: 09/11/17 15:56 Last Admin: 09/11/17 08:23 Dose: 60 mls/hr Methylprednisolone (Solu-Medrol) 40 mg IVP DAILY [facility] Last Admin: 09/11/17 08:31 Dose: 40 mg Metoprolol Tartrate (Lopressor) 25 mg PO Q12 [facility] Last Admin: 09/11/17 08:22 Dose: 25 mg Pantoprazole Sodium (Protonix Ec Tab) 40 mg PO DAILY [facility] Last Admin: 09/11/17 08:23 Dose: 40 mg Tamsulosin HCl (Flomax) 0.4 mg PO DAILY [facility] Last Admin: 09/11/17 08:22 Dose: 0.4 mg - Labs Labs: 09/09/17 10:02 09/07/17 05:55 Assessment and Plan (1) Idiopathic pulmonary fibrosis Status: Acute (2) Fall Status: Acute (3) Musculoskeletal pain of right upper extremity Status: Acute (4) Musculoskeletal pain of right lower extremity Status: Acute
--- NOTE | 2017-09-11 10:10 | CP.PCM.PN ---
Subjective - Date & Time of Evaluation Date of Evaluation: 09/10/17 Time of Evaluation: 10:00 - Subjective Subjective: Seated in bedside chair, appears comfortable. Flushed facies noted. Steroid dosages being decreased. Physical findings are unchanged. Plan is for discharge to subacute therapy. Objective - Vital Signs/Intake and Output Vital Signs (last 24 hours): Temp Pulse Resp BP Pulse Ox 98 F 71 20 157/89 H 100 09/11/17 08:16 09/11/17 08:22 09/11/17 08:16 09/11/17 08:22 09/11/17 08:16 - Medications Medications: Current Medications Al Hydrox/Mg Hydrox/Simethicone (Maalox Plus 30 Ml) 30 ml PO Q6 PRN PRN Reason: Indigestion / Heartburn Last Admin: 09/09/17 12:29 Dose: 30 ml Albuterol Sulfate (Albuterol 0.083% Inhal Annie (2.5 Mg/3 Ml) Ud) 2.5 mg INH RQ4 PRN PRN Reason: Shortness of Breath Albuterol/Ipratropium (Duoneb 3 Mg/0.5 Mg (3 Ml) Ud) 3 ml INH RQID [facility] Last Admin: 09/11/17 08:10 Dose: 3 ml Ascorbic Acid (Vitamin C 250 Mg Tab) 250 mg PO BID [facility] Last Admin: 09/11/17 08:23 Dose: 250 mg Aspirin (Ecotrin) 81 mg PO DAILY [facility] Last Admin: 09/11/17 08:22 Dose: 81 mg Azithromycin (Zithromax) 250 mg PO DAILY [facility] PRN Reason: Protocol Stop: 09/12/17 09:01 Last Admin: 09/11/17 08:23 Dose: 250 mg Cefdinir (Omnicef) 300 mg PO BID [facility] Last Admin: 09/11/17 08:22 Dose: 300 mg Docusate Sodium (Colace) 100 mg PO BID [facility] Last Admin: 09/11/17 08:22 Dose: 100 mg Enoxaparin Sodium (Lovenox) 40 mg SC DAILY [facility] PRN Reason: Protocol Last Admin: 09/11/17 08:21 Dose: 40 mg Ferrous Sulfate (Feosol) 325 mg PO BID [facility] Last Admin: 09/11/17 08:22 Dose: 325 mg Home Med (Propylene Glycol/Peg 400 [Systane 0.3-0.4% Eye Drops]) 1 drop OU TID [facility] Last Admin: 09/11/17 08:23 Dose: 1 drop Sodium Chloride (Sodium Chloride 0.9%) 1,000 mls @ 60 mls/hr IV .[id number] [facility] Stop: 09/11/17 15:56 Last Admin: 09/11/17 08:23 Dose: 60 mls/hr Methylprednisolone (Solu-Medrol) 40 mg IVP DAILY [facility] Last Admin: 09/11/17 08:31 Dose: 40 mg Metoprolol Tartrate (Lopressor) 25 mg PO Q12 [facility] Last Admin: 09/11/17 08:22 Dose: 25 mg Pantoprazole Sodium (Protonix Ec Tab) 40 mg PO DAILY [facility] Last Admin: 09/11/17 08:23 Dose: 40 mg Tamsulosin HCl (Flomax) 0.4 mg PO DAILY [facility] Last Admin: 09/11/17 08:22 Dose: 0.4 mg - Labs Labs: 09/09/17 10:02 09/07/17 05:55 Assessment and Plan (1) Idiopathic pulmonary fibrosis Status: Acute (2) Fall Status: Acute (3) Musculoskeletal pain of right upper extremity Status: Acute (4) Musculoskeletal pain of right lower extremity Status: Acute
--- NOTE | 2017-09-11 10:29 | CP.PCM.DIS ---
<Brendan Stuart - Last Filed: 09/11/17 15:20> Provider - Provider Date of Admission: 09/08/17 09:47 Attending physician: Chalo Palomo Consults: Pulmonary Consult- Dr. Niño Time Spent in preparation of Discharge (in minutes): 20 Diagnosis - Discharge Diagnosis (1) Contusion of right shoulder Status: Acute (2) Fall Status: Acute Priority: Medium (3) Idiopathic pulmonary fibrosis Status: Chronic Priority: Medium Comment: pneumonia ruled out (4) Gait instability Status: Acute (5) Reflux esophagitis Status: Acute Priority: Medium (6) HTN (hypertension) Status: Chronic Priority: Medium (7) BPH (benign prostatic hyperplasia) Status: Chronic (8) Dehydration Status: Acute (9) Cachexia Status: Chronic Hospital Course - Lab Results Lab Results: Micro Results 09/06/17 05:37 Blood-Venous Blood Culture - Final NO GROWTH AFTER 5 DAYS 09/06/17 05:37 Blood-Venous Gram Stain - Final TEST NOT PERFORMED Most Recent Lab Values WBC 11.8 K/uL (4.8-10.8) H 09/09/17 10:02 RBC 4.00 Mil/uL (4.40-5.90) L 09/09/17 10:02 Hgb 12.1 g/dL (12.0-18.0) D 09/09/17 10:02 Hct 38.5 % (35.0-51.0) 09/09/17 10:02 MCV 96.2 fl (80.0-94.0) H 09/09/17 10:02 MCH 30.3 pg (27.0-31.0) 09/09/17 10:02 MCHC 31.5 g/dL (33.0-37.0) L 09/09/17 10:02 RDW 13.9 % (11.5-14.5) 09/09/17 10:02 Plt Count 197 K/uL (130-400) 09/09/17 10:02 MPV 9.1 fl (7.2-11.7) 09/09/17 10:02 Neut % (Auto) 81.8 % (50.0-75.0) H 09/09/17 10:02 Lymph % (Auto) 11.0 % (20.0-40.0) L 09/09/17 10:02 Dawson % (Auto) 6.9 % (0.0-10.0) 09/09/17 10:02 Eos % (Auto) 0.2 % (0.0-4.0) 09/09/17 10:02 Baso % (Auto) 0.1 % (0.0-2.0) 09/09/17 10:02 Neut # (Auto) 9.7 K/uL (1.8-7.0) H 09/09/17 10:02 Lymph # (Auto) 1.3 K/uL (1.0-4.3) 09/09/17 10:02 Dawson # (Auto) 0.8 K/uL (0.0-0.8) 09/09/17 10:02 Eos # (Auto) 0.0 K/uL (0.0-0.7) 09/09/17 10:02 Baso # (Auto) 0.0 K/uL (0.0-0.2) 09/09/17 10:02 Neutrophils % (Manual) 93 % (42-75) H 09/06/17 10:58 Band Neutrophils % 1 % (0-2) 09/06/17 00:30 Lymphocytes % (Manual) 5 % (20-50) L 09/06/17 10:58 Reactive Lymphs % 1 % (0-0) H 09/06/17 00:30 Monocytes % (Manual) 2 % (0-10) 09/06/17 10:58 Eosinophils % (Manual) 1 % (0-7) 09/06/17 00:30 Platelet Estimate Normal (NORMAL) 09/06/17 10:58 Hypochromasia (manual) Slight 09/06/17 10:58 Anisocytosis (manual) Slight 09/06/17 00:30 Macrocytosis (manual) Slight 09/06/17 10:58 Ovalocytes Slight 09/06/17 10:58 Stomatocytes Slight 09/06/17 00:30 pO2 41 mm/Hg (30-55) 09/06/17 03:12 VBG pH 7.36 (7.32-7.43) 09/06/17 03:12 VBG pCO2 53 mmHg (40-60) 09/06/17 03:12 VBG HCO3 26.8 mmol/L 09/06/17 03:12 VBG Total CO2 31.5 mmol/L (22-28) H 09/06/17 03:12 VBG O2 Sat (Calc) 82.6 % (40-65) H 09/06/17 03:12 VBG Base Excess 3.2 mmol/L (0.0-2.0) H 09/06/17 03:12 VBG Potassium 4.0 mmol/L (3.6-5.2) 09/06/17 03:12 Sodium 137.0 mmol/L (132-148) 09/06/17 03:12 Chloride 101.0 mmol/L (98-107) 09/06/17 03:12 Glucose 132 mg/dL (75-110) H 09/06/17 03:12 Lactate 1.1 mmol/L (0.7-2.1) 09/06/17 03:12 FiO2 21.0 % 09/06/17 03:12 Sodium 140 mmol/l (132-148) 09/07/17 05:55 Potassium 4.6 MMOL/L (3.6-5.0) 09/07/17 05:55 Chloride 103 mmol/L (98-107) 09/07/17 05:55 Carbon Dioxide 25 mmol/L (22-30) 09/07/17 05:55 Anion Gap 17 (10-20) 09/07/17 05:55 BUN 31 mg/dl (9-20) H 09/07/17 05:55 Creatinine 1.2 mg/dl (0.8-1.5) 09/07/17 05:55 Est GFR ( Amer) > 60 09/07/17 05:55 Est GFR (Non-Af Amer) 58 09/07/17 05:55 POC Glucose (mg/dL) 186 mg/dL (65-110) H 09/07/17 09:50 Random Glucose 142 mg/dL (75-110) H 09/07/17 05:55 Calcium 8.7 mg/dL (8.4-10.2) 09/07/17 05:55 Iron 26 ug/dL (49-181) L 09/06/17 10:58 TIBC 249 ug/dL (250-450) L 09/06/17 10:58 % Saturation 10 % (20-55) L 09/06/17 10:58 Total Bilirubin 0.4 mg/dl (0.2-1.3) 09/06/17 00:30 AST 36 U/L (17-59) 09/06/17 00:30 ALT 30 U/L (21-72) 09/06/17 00:30 Alkaline Phosphatase 65 U/L (38-126) 09/06/17 00:30 Troponin I 0.0690 ng/mL (0.00-0.120) 09/07/17 10:20 NT-Pro-B Natriuret Pep 2080 pg/ml (0-900) H 09/06/17 10:58 Total Protein 8.3 G/DL (6.3-8.2) H 09/06/17 00:30 Albumin 3.9 g/dL (3.5-5.0) 09/06/17 00:30 Globulin 4.4 gm/dL (2.2-3.9) H 09/06/17 00:30 Albumin/Globulin Ratio 0.9 (1.0-2.1) L 09/06/17 00:30 Vitamin B12 455 pg/mL (239-931) 09/06/17 10:58 Folate > 20.0 ng/mL 09/06/17 10:58 Venous Blood Potassium 4.0 mmol/L (3.6-5.2) 09/06/17 03:12 Influenza Typ A,B (EIA) Negative for flu a/b (NEGATIVE) 09/06/17 00:30 - Hospital Course Hospital Course: 82 y.o male with PMHx of interstitial lung disease on home O2, pneumothorax and anemia, brought to the ED 2hrs after tripping and falling on 09/06/17. In the ED, patient complained of right shoulder pain and chest tightness with worsening SOB and was admitted . CT Head- no acute intracranial hemmorhage, midline shift or mass effect noted. EKG- wnl. Troponin x 3- negative. Chest X- ray shows chronic interstitial lung changes, worse at the left base. Right shoulder X-ray- no fractures. Pulmonary consult- Dr. Niño recommended supplement oxygen, Albuterol/ Ipratropium, IV Methylprednisolone. Patient started on Azithromycin and Ceftriaxone due to worsening SOB and interstitial lung disease and was switched to PO Cefdinir 300mg PO BID and Zithromax 250mg PO daily. PO Cefinir discontinued on 09/11/17 and IV methyloprednisone tapered down per pulmonary recommendations. During hospital stay patient had SERVICE COUNSELOR called secondary to chest tightness while consuming breakfast. Reproducible at substernal. EKG performed- showed normal sinus rhythm with no acute changes. Troponin negative. Chest pain resolved a and SERVICE COUNSELOR was called off. Patient's leukocytosis (on 09/07/17) most likely secondary to steroid therapy. During hospital stay, patient has improved clinically and hemodynamically stable and decision was made to discharge patient to rehab for strength, muscle function, coordination, and gait mobility. Oxygenation is good with supplemental nasal cannula at 2 L. Discharge Exam - Head Exam Head Exam: ATRAUMATIC, NORMOCEPHALIC - Eye Exam Eye Exam: EOMI, Normal appearance, PERRL Pupil Exam: NORMAL ACCOMODATION, PERRL - ENT Exam ENT Exam: Mucous Membranes Moist - Neck Exam Neck exam: Full Rom, Normal Inspection - Respiratory Exam Respiratory Exam: NORMAL BREATHING PATTERN. absent: Wheezes, Respiratory Distress, Stridor Additional comments: Diffuse rales to b/l lungs - Cardiovascular Exam Cardiovascular Exam: REGULAR RHYTHM, +S1, +S2 - GI/Abdominal Exam GI & Abdominal Exam: Normal Bowel Sounds, Unremarkable - Extremities Exam Additional comments: Pitting edema noted to the LE bilaterally No pain with palpation to the calfs bilaterally - Back Exam Back exam: NORMAL INSPECTION. absent: CVA tenderness (L), CVA tenderness (R) - Neurological Exam Neurological exam: Alert, Oriented x3 - Psychiatric Exam Psychiatric exam: Normal Affect, Normal Mood - Skin Skin Exam: Dry, Intact, Normal Color - Additional Findings Additional findings: Limited ROM right shoulder. No pain with palpation to hips, shoulders, back. Discharge Plan - Discharge Medications Prescriptions: Methylprednisolone [Medrol Dose Pack (21 tabs)] 4 mg PO ASDIR #21 mg - Follow Up Plan Condition: STABLE Disposition: TRANSF TO SNF Instructions: Shortness of Breath (Dyspnea) (DC) Referrals: Ephraim Niño MD [Family Provider] - <Lilian Tate - Last Filed: 09/11/17 15:40> Provider - Provider Date of Admission: 09/08/17 09:47 Attending physician: Chalo Palomo [facility] Course - Lab Results Lab Results: Micro Results 09/06/17 05:37 Blood-Venous Blood Culture - Final NO GROWTH AFTER 5 DAYS 02/15/18 05:37 Blood-Venous Gram Stain - Final TEST NOT PERFORMED Most Recent Lab Values WBC 11.8 K/uL (4.8-10.8) H 09/09/17 10:02 RBC 4.00 Mil/uL (4.40-5.90) L 09/09/17 10:02 Hgb 12.1 g/dL (12.0-18.0) D 09/09/17 10:02 Hct 38.5 % (35.0-51.0) 09/09/17 10:02 MCV 96.2 fl (80.0-94.0) H 09/09/17 10:02 MCH 30.3 pg (27.0-31.0) 09/09/17 10:02 MCHC 31.5 g/dL (33.0-37.0) L 09/09/17 10:02 RDW 13.9 % (11.5-14.5) 09/09/17 10:02 Plt Count 197 K/uL (130-400) 09/09/17 10:02 MPV 9.1 fl (7.2-11.7) 09/09/17 10:02 Neut % (Auto) 81.8 % (50.0-75.0) H 09/09/17 10:02 Lymph % (Auto) 11.0 % (20.0-40.0) L 09/09/17 10:02 Dawson % (Auto) 6.9 % (0.0-10.0) 09/09/17 10:02 Eos % (Auto) 0.2 % (0.0-4.0) 09/09/17 10:02 Baso % (Auto) 0.1 % (0.0-2.0) 09/09/17 10:02 Neut # (Auto) 9.7 K/uL (1.8-7.0) H 09/09/17 10:02 Lymph # (Auto) 1.3 K/uL (1.0-4.3) 09/09/17 10:02 Dawson # (Auto) 0.8 K/uL (0.0-0.8) 09/09/17 10:02 Eos # (Auto) 0.0 K/uL (0.0-0.7) 09/09/17 10:02 Baso # (Auto) 0.0 K/uL (0.0-0.2) 09/09/17 10:02 Neutrophils % (Manual) 93 % (42-75) H 09/06/17 10:58 Band Neutrophils % 1 % (0-2) 09/06/17 00:30 Lymphocytes % (Manual) 5 % (20-50) L 09/06/17 10:58 Reactive Lymphs % 1 % (0-0) H 09/06/17 00:30 Monocytes % (Manual) 2 % (0-10) 09/06/17 10:58 Eosinophils % (Manual) 1 % (0-7) 09/06/17 00:30 Platelet Estimate Normal (NORMAL) 09/06/17 10:58 Hypochromasia (manual) Slight 09/06/17 10:58 Anisocytosis (manual) Slight 09/06/17 00:30 Macrocytosis (manual) Slight 09/06/17 10:58 Ovalocytes Slight 09/06/17 10:58 Stomatocytes Slight 09/06/17 00:30 pO2 41 mm/Hg (30-55) 09/06/17 03:12 VBG pH 7.36 (7.32-7.43) 09/06/17 03:12 VBG pCO2 53 mmHg (40-60) 09/06/17 03:12 VBG HCO3 26.8 mmol/L 09/06/17 03:12 VBG Total CO2 31.5 mmol/L (22-28) H 09/06/17 03:12 VBG O2 Sat (Calc) 82.6 % (40-65) H 09/06/17 03:12 VBG Base Excess 3.2 mmol/L (0.0-2.0) H 09/06/17 03:12 VBG Potassium 4.0 mmol/L (3.6-5.2) 09/06/17 03:12 Sodium 137.0 mmol/L (132-148) 09/06/17 03:12 Chloride 101.0 mmol/L (98-107) 09/06/17 03:12 Glucose 132 mg/dL (75-110) H 09/06/17 03:12 Lactate 1.1 mmol/L (0.7-2.1) 09/06/17 03:12 FiO2 21.0 % 09/06/17 03:12 Sodium 140 mmol/l (132-148) 09/07/17 05:55 Potassium 4.6 MMOL/L (3.6-5.0) 09/07/17 05:55 Chloride 103 mmol/L (98-107) 09/07/17 05:55 Carbon Dioxide 25 mmol/L (22-30) 09/07/17 05:55 Anion Gap 17 (10-20) 09/07/17 05:55 BUN 31 mg/dl (9-20) H 09/07/17 05:55 Creatinine 1.2 mg/dl (0.8-1.5) 09/07/17 05:55 Est GFR ( Amer) > 60 09/07/17 05:55 Est GFR (Non-Af Amer) 58 09/07/17 05:55 POC Glucose (mg/dL) 186 mg/dL (65-110) H 09/07/17 09:50 Random Glucose 142 mg/dL (75-110) H 09/07/17 05:55 Calcium 8.7 mg/dL (8.4-10.2) 09/07/17 05:55 Iron 26 ug/dL (49-181) L 09/06/17 10:58 TIBC 249 ug/dL (250-450) L 09/06/17 10:58 % Saturation 10 % (20-55) L 09/06/17 10:58 Total Bilirubin 0.4 mg/dl (0.2-1.3) 09/06/17 00:30 AST 36 U/L (17-59) 09/06/17 00:30 ALT 30 U/L (21-72) 09/06/17 00:30 Alkaline Phosphatase 65 U/L (38-126) 09/06/17 00:30 Troponin I 0.0690 ng/mL (0.00-0.120) 09/07/17 10:20 NT-Pro-B Natriuret Pep 2080 pg/ml (0-900) H 09/06/17 10:58 Total Protein 8.3 G/DL (6.3-8.2) H 09/06/17 00:30 Albumin 3.9 g/dL (3.5-5.0) 09/06/17 00:30 Globulin 4.4 gm/dL (2.2-3.9) H 09/06/17 00:30 Albumin/Globulin Ratio 0.9 (1.0-2.1) L 09/06/17 00:30 Vitamin B12 455 pg/mL (239-931) 09/06/17 10:58 Folate > 20.0 ng/mL 09/06/17 10:58 Venous Blood Potassium 4.0 mmol/L (3.6-5.2) 09/06/17 03:12 Influenza Typ A,B (EIA) Negative for flu a/b (NEGATIVE) 09/06/17 00:30 Attending/Attestation - Attestation I have personally seen and examined this patient.: Yes I have fully participated in the care of the patient.: Yes I have reviewed all pertinent clinical information, including history, physical exam and plan: Yes
[2017-09-12 06:25] LABS: MEAN CELL VOLUME 94.4 fl (80.0-94.0); MEAN CORPUSCULAR HEMOGLOBIN 30.9 pg (27.0-31.0); MEAN CORPUSCULAR HGB CONC 32.8 g/dL (33.0-37.0); RBC 3.87 Mil/uL (4.40-5.90); RED CELL DISTRIBUTION WIDTH 13.2 % (11.5-14.5); WHITE BLOOD COUNT 11.6 K/uL (4.8-10.8)
[2017-09-12 06:45] LABS: BLOOD UREA NITROGEN 50 mg/dl (9-20); CALCIUM 8.8 mg/dL (8.4-10.2); GFR AFRICAN-AMERICAN > 60; GFR NON-AFRICAN AMERICAN 58
[2017-09-12] MEDS: Albuterol-Ipratrop 3 mg / 0.5 (3 ml) UD INH SCH ×4 (07:44→19:14)
--- NOTE | 2017-09-12 09:15 | CP.PCM.PN ---
<Brendan Stuart - Last Filed: 09/12/17 16:03> Subjective - Date & Time of Evaluation Date of Evaluation: 09/12/17 Time of Evaluation: 09:00 - Subjective Subjective: Hospitalist Progress Note- Dr. Tate 82 y.o male seen and evaluated at bedside with attending s/p fall with right shoulder contusion from home on 09/06/17. Patient is seen resting comfortably in chair, in NAD, and AA0x3. Patient reports the same chest tightness, reproducible with palpation. Patient has no new complains today. Denies acute overnight events. Denies n/v/sob/cp/chills/f or calf tenderness. Patient denies pain. Denies pain to the hips, shoulders, and back. Objective - Vital Signs/Intake and Output Vital Signs (last 24 hours): Temp Pulse Resp BP Pulse Ox 97.6 F 76 22 152/81 H 100 09/12/17 08:18 09/12/17 08:18 09/12/17 08:18 09/12/17 08:18 09/12/17 08:18 - Medications Medications: Current Medications Al Hydrox/Mg Hydrox/Simethicone (Maalox Plus 30 Ml) 30 ml PO Q6 PRN PRN Reason: Indigestion / Heartburn Last Admin: 09/09/17 12:29 Dose: 30 ml Albuterol Sulfate (Albuterol 0.083% Inhal Annie (2.5 Mg/3 Ml) Ud) 2.5 mg INH RQ4 PRN PRN Reason: Shortness of Breath Albuterol/Ipratropium (Duoneb 3 Mg/0.5 Mg (3 Ml) Ud) 3 ml INH RQID [facility] Last Admin: 09/12/17 07:44 Dose: 3 ml Ascorbic Acid (Vitamin C 250 Mg Tab) 250 mg PO BID [facility] Last Admin: 09/11/17 16:02 Dose: 250 mg Aspirin (Ecotrin) 81 mg PO DAILY [facility] Last Admin: 09/11/17 08:22 Dose: 81 mg Azithromycin (Zithromax) 250 mg PO DAILY [facility] PRN Reason: Protocol Stop: 09/12/17 09:01 Last Admin: 09/11/17 08:23 Dose: 250 mg Cefdinir (Omnicef) 300 mg PO BID [facility] Last Admin: 09/11/17 16:01 Dose: 300 mg Docusate Sodium (Colace) 100 mg PO BID [facility] Last Admin: 09/11/17 16:01 Dose: 100 mg Enoxaparin Sodium (Lovenox) 40 mg SC DAILY [facility] PRN Reason: Protocol Last Admin: 09/11/17 08:21 Dose: 40 mg Ferrous Sulfate (Feosol) 325 mg PO BID [facility] Last Admin: 09/11/17 16:01 Dose: 325 mg Home Med (Propylene Glycol/Peg 400 [Systane 0.3-0.4% Eye Drops]) 1 drop OU TID [facility] Last Admin: 09/11/17 16:01 Dose: 1 drop Methylprednisolone (Solu-Medrol) 40 mg IVP DAILY [facility] Last Admin: 09/11/17 08:31 Dose: 40 mg Metoprolol Tartrate (Lopressor) 25 mg PO Q12 [facility] Last Admin: 09/11/17 21:10 Dose: 25 mg Pantoprazole Sodium (Protonix Ec Tab) 40 mg PO DAILY [facility] Last Admin: 09/11/17 08:23 Dose: 40 mg Tamsulosin HCl (Flomax) 0.4 mg PO DAILY [facility] Last Admin: 09/11/17 08:22 Dose: 0.4 mg - Labs Labs: 09/12/17 05:55 09/12/17 05:55 - Constitutional Appears: Well, Non-toxic, No Acute Distress - Head Exam Head Exam: ATRAUMATIC, NORMOCEPHALIC - Eye Exam Eye Exam: EOMI, Normal appearance, PERRL Pupil Exam: NORMAL ACCOMODATION - ENT Exam ENT Exam: Mucous Membranes Moist, Normal Exam - Neck Exam Neck Exam: Full ROM, Normal Inspection - Respiratory Exam Additional comments: Diffuse rales to the lower base of lungs b/l - Cardiovascular Exam Cardiovascular Exam: REGULAR RHYTHM, +S1, +S2 - GI/Abdominal Exam GI & Abdominal Exam: Soft, Normal Bowel Sounds - Extremities Exam Additional comments: Pitting edema noted to the LE bilaterally, temperature gradient WNL, CFT delayed to digits No pain with palpation to the calfs bilaterally No pain with hip flexion and extension Hand tremors - Back Exam Back Exam: NORMAL INSPECTION. absent: CVA tenderness (L), CVA tenderness (R) Additional comments: No pain with palpation to the entire back - Neurological Exam Neurological Exam: Alert, Awake, Oriented x3 - Psychiatric Exam Psychiatric exam: Normal Affect, Normal Mood - Skin Skin Exam: Dry, Intact, Normal Color Assessment and Plan (1) Contusion of right shoulder Status: Acute (2) Fall Status: Acute (3) Idiopathic pulmonary fibrosis Status: Chronic (4) Gait instability Status: Acute (5) Reflux esophagitis Status: Acute (6) HTN (hypertension) Status: Chronic (7) BPH (benign prostatic hyperplasia) Status: Chronic (8) Dehydration Status: Acute (9) Cachexia Status: Chronic - Assessment and Plan (Free Text) Assessment: 82 yo male with Idiopathic Pulmonary Fibrosis on home O2 admitted after tripping and falling with right shoulder contusion. Plan: 1. Trip and Fall w/ right shoulder contusion -fell on oxygen tubings and was unable to get up on his own -CT scan of Head: negative for intracranial bleed -Shoulder Xray: negative for fracture -patient needed therapy because of deconditioning specially after falling at home. Also home health caregiver is hospitalized and will not be available to assist him -recommended by PT to be admitted to [facility] or TCU 2. Idiopathic Pulmonary Fibrosis with worsening dyspnea -Chest X-ray shows chronic interstitial lung changes, worse at the left base. -c/w oxygen supplement -Duoneb q 2 hrs prn for SOB -SoluMedrol 40mg IV q 12hrs tapered down to 40mg IV q daily -discontinued IV Rocephin and Azithromycin -c/w Cefdinir PO and Zithromax PO 3. Gait instability -c/w OT/PT 4. Mild tremors -Neurology Dr. Soto consulted 5. Reflux Esophagitis -Mylanta 30cc PO q 6hrs prn -Protonix 40mg PO daily 6. HTN -BP stable -continue Metoprolol 25mg PO q 12hrs 7. Mild anemia with iron deficiency -c/w ferrous sulfate 8. BPH -c/w Tamsulosin 9. Dehydration -c/w IV fluids 60mls/hr 10. Cachexia -heart healthy diet -IV fluids 11. DVT prophylaxis on Lovenox <Lilian Tate - Last Filed: 09/12/17 16:38> Objective - Vital Signs/Intake and Output Vital Signs (last 24 hours): Temp Pulse Resp BP Pulse Ox 98 F 83 20 108/65 93 L 09/12/17 16:11 09/12/17 16:11 09/12/17 16:11 09/12/17 16:11 09/12/17 16:11 - Medications Medications: Current Medications Al Hydrox/Mg Hydrox/Simethicone (Maalox Plus 30 Ml) 30 ml PO Q6 PRN PRN Reason: Indigestion / Heartburn Last Admin: 09/09/17 12:29 Dose: 30 ml Albuterol Sulfate (Albuterol 0.083% Inhal Annie (2.5 Mg/3 Ml) Ud) 2.5 mg INH RQ4 PRN PRN Reason: Shortness of Breath Albuterol/Ipratropium (Duoneb 3 Mg/0.5 Mg (3 Ml) Ud) 3 ml INH RQID [facility] Last Admin: 09/12/17 15:36 Dose: 3 ml Ascorbic Acid (Vitamin C 250 Mg Tab) 250 mg PO BID [facility] Last Admin: 09/12/17 16:21 Dose: 250 mg Aspirin (Ecotrin) 81 mg PO DAILY [facility] Last Admin: 09/12/17 09:28 Dose: 81 mg Cefdinir (Omnicef) 300 mg PO BID [facility] Last Admin: 09/12/17 16:22 Dose: 300 mg Docusate Sodium (Colace) 100 mg PO BID [facility] Last Admin: 09/12/17 16:21 Dose: Not Given Enoxaparin Sodium (Lovenox) 40 mg SC DAILY [facility] PRN Reason: Protocol Last Admin: 09/12/17 09:31 Dose: 40 mg Ferrous Sulfate (Feosol) 325 mg PO BID [facility] Last Admin: 09/12/17 16:21 Dose: 325 mg Home Med (Propylene Glycol/Peg 400 [Systane 0.3-0.4% Eye Drops]) 1 drop OU TID [facility] Last Admin: 09/12/17 16:21 Dose: 1 drop Methylprednisolone (Solu-Medrol) 40 mg IVP DAILY [facility] Last Admin: 09/12/17 09:34 Dose: 40 mg Metoprolol Tartrate (Lopressor) 25 mg PO Q12 [facility] Last Admin: 09/12/17 09:29 Dose: 25 mg Pantoprazole Sodium (Protonix Ec Tab) 40 mg PO DAILY [facility] Last Admin: 09/12/17 09:33 Dose: 40 mg Tamsulosin HCl (Flomax) 0.4 mg PO DAILY [facility] Last Admin: 09/12/17 09:29 Dose: 0.4 mg - Labs Labs: 09/12/17 05:55 09/12/17 05:55 Attending/Attestation - Attestation I have personally seen and examined this patient.: Yes I have fully participated in the care of the patient.: Yes I have reviewed all pertinent clinical information, including history, physical exam and plan: Yes Notes (Text): Additional Note: Mild Tremors - pt was seen by Dr Soto ( neuro) , and he does not think this is Parkinson's Gait Instability Pt's gait is still unstable, he lives alone and is unsafe for discharge - awaiting pt's insurance to approve Rehab benefit , till then , pt will remain in the hospital and continue PT inhouse
[2017-09-12] MEDS: Enoxaparin 40 mg Syringe SC SCH (09:31)
[2017-09-12] MEDS: Cefdinir 300 MG CAP PO SCH ×3 (09:31→16:22)
[2017-09-12] MEDS: PROPYLENE GLYCOL OU SCH ×3 (09:32→16:21)
[2017-09-12] MEDS: PEG OU SCH ×3 (09:32→16:21)
[2017-09-12] MEDS: Pantoprazole 40 mg EC Tab PO SCH (09:33)
[2017-09-12] MEDS: MethylPREDNISolone 40 mg Vial IVP SCH (09:34)
[2017-09-13] MEDS: Albuterol-Ipratrop 3 mg / 0.5 (3 ml) UD INH SCH ×4 (08:21→19:55)
--- NOTE | 2017-09-13 08:28 | CON ---
DATE: 09/12/2017 NEUROLOGY CONSULT CHIEF COMPLAINT: Evaluation for tremors and poor balance. HISTORY OF PRESENT ILLNESS: This is an 82-year-old man with past medical history of interstitial lung disease on home oxygen, pneumothorax, and anemia, brought into the hospital because after stripping and fall on 09/06/2017 where he injured his right shoulder and contused his right side of the chest. Right shoulder x-ray showed no fractures. He did have some worsening shortness of breath for which he has been started on Zithromax and ceftriaxone due to worsening shortness of breath and interstitial lung disease and switched to cephalosporins, Zithromax, and IV methylprednisolone, which was tapered. He has some chest tightness while consuming breakfast and reproducible substernal most likely musculoskeletal. He has poor balance cause of severe tremors and poor balance. He did not have any features of Parkinson's disease. His tremors are very mild and more on the plan of action rather than rest, slight increased though moves all extremities equally. He is A&O x3. PAST MEDICAL HISTORY: History of interstitial lung disease on home oxygen, pneumothorax, and anemia. REVIEW OF SYSTEMS: A 14-point review of systems negative except for the HPI. FAMILY HISTORY: Noncontributory. SOCIAL HISTORY: No illicit drug use, smoking or EtOH abuse. ALLERGIES: ALLERGIC TO SELFISH. MEDICATIONS: Reviewed by nurse reconciliation sheet. PHYSICAL EXAMINATION: VITAL SIGNS: Temperature 97.6, pulse rate 76, blood pressure 150/81, respiratory rate 22, and oxygen saturation 100% by home oxygen. GENERAL: The patient is sitting up in bed, in no acute distress. HEENT: Atraumatic, normocephalic. PERRLA. Extraocular muscles intact. NECK: Supple. No JVD. No adenopathy noted. LUNGS: Clear to auscultation. No adventitious sounds. HEART: S1 and S2. Normal rate and rhythm. No murmurs, rubs or gallops. ABDOMEN: Soft, nontender, and nondistended. Bowel sounds are present. EXTREMITIES: No clubbing. No cyanosis. Peripheral pulses are 2+ felt bilaterally. NEUROLOGIC: The patient is alert and oriented to person, place, month, and year. Recall after 5 minutes 0/3. Poor attention span, slow thought process. Motor exam: Slight increase in tone throughout. Moves all extremities equally. resting tremor seen. Sensory exam: Light touch, pinprick, proprioception, and vibration are intact. DTRs are 2+ throughout and 1 at the both knees and ankles. Coordination, [id number] intact. Gait is unstable. LABORATORY DATA: Sodium 139, potassium 4.6, chloride 98, carbon dioxide of 32, BUN of 50, creatinine 1.2, and random glucose 88. ASSESSMENT AND PLAN: This is an 82-year-old man with a history of interstitial lung disease on home oxygen, pneumothorax, and anemia, iron-deficiency type status post fall, had right shoulder contusion, otherwise, no fracture. There are no features of Parkinson's. He is very deconditioned with his superimposed underlying idiopathic pulmonary fibrosis. At this time, recommend physical therapy, recommend subacute rehab for muscle strengthening, coordination, balance exercises, and continue with heart-healthy diet and IV fluids and continue with ferrous sulfate for his mild iron deficiency anemia. Keep his blood pressure into 122 to 130 mmHg and have PT and OT evaluation in subacute rehab. At this time, no medications for any Parkinsonism at this time. We will evaluate him in the office setting. Thank you for this consult. Brodie Soto MD
[2017-09-13 09:25] LABS: BLOOD UREA NITROGEN 44 mg/dl (9-20); CALCIUM 8.8 mg/dL (8.4-10.2); GFR AFRICAN-AMERICAN > 60; GFR NON-AFRICAN AMERICAN > 60
[2017-09-13] MEDS: PEG OU SCH ×3 (09:47→17:15)
[2017-09-13] MEDS: Pantoprazole 40 mg EC Tab PO SCH (09:47)
[2017-09-13] MEDS: PROPYLENE GLYCOL OU SCH ×3 (09:47→17:15)
[2017-09-13] MEDS: MethylPREDNISolone 40 mg Vial IVP SCH (09:48)
[2017-09-13] MEDS: Enoxaparin 40 mg Syringe SC SCH (09:48)
--- NOTE | 2017-09-13 10:56 | CP.PCM.PN ---
Subjective - Date & Time of Evaluation Date of Evaluation: 09/13/17 Time of Evaluation: 11:00 - Subjective Subjective: Hospitalist Progress Note- Dr. Phillips 82 y.o male admitted for fall with right shoulder contusion at home on 09/06/17. Patient is seen laying comfortably in bed, in NAD, and AA0x3. Patient reports the same chest tightness, reproducible with palpation. Patient has no new complains today. Denies acute overnight events. Denies n/v/sob/cp/chills/f or calf tenderness. Patient denies pain. Denies pain to the hips, shoulders, and back. Objective - Vital Signs/Intake and Output Vital Signs (last 24 hours): Temp Pulse Resp BP Pulse Ox 98.3 F 64 20 144/79 100 09/13/17 08:10 09/13/17 09:48 09/13/17 08:10 09/13/17 09:48 09/13/17 08:10 - Medications Medications: Current Medications Al Hydrox/Mg Hydrox/Simethicone (Maalox Plus 30 Ml) 30 ml PO Q6 PRN PRN Reason: Indigestion / Heartburn Last Admin: 09/09/17 12:29 Dose: 30 ml Albuterol Sulfate (Albuterol 0.083% Inhal Annie (2.5 Mg/3 Ml) Ud) 2.5 mg INH RQ4 PRN PRN Reason: Shortness of Breath Albuterol/Ipratropium (Duoneb 3 Mg/0.5 Mg (3 Ml) Ud) 3 ml INH RQID [facility] Last Admin: 09/13/17 08:21 Dose: 3 ml Ascorbic Acid (Vitamin C 250 Mg Tab) 250 mg PO BID [facility] Last Admin: 09/13/17 09:49 Dose: 250 mg Aspirin (Ecotrin) 81 mg PO DAILY [facility] Last Admin: 09/13/17 09:47 Dose: 81 mg Azithromycin (Zithromax) 500 mg PO DAILY [facility] PRN Reason: Protocol Stop: 09/16/17 09:01 Last Admin: 09/13/17 09:48 Dose: 500 mg Docusate Sodium (Colace) 100 mg PO BID [facility] Last Admin: 09/13/17 09:47 Dose: 100 mg Enoxaparin Sodium (Lovenox) 40 mg SC DAILY [facility] PRN Reason: Protocol Last Admin: 09/13/17 09:48 Dose: 40 mg Ferrous Sulfate (Feosol) 325 mg PO BID [facility] Last Admin: 09/13/17 09:47 Dose: 325 mg Home Med (Propylene Glycol/Peg 400 [Systane 0.3-0.4% Eye Drops]) 1 drop OU TID [facility] Last Admin: 09/13/17 09:47 Dose: 1 drop Methylprednisolone (Solu-Medrol) 40 mg IVP DAILY [facility] Stop: 09/13/17 23:59 Last Admin: 09/13/17 09:48 Dose: 40 mg Methylprednisolone (Medrol) 20 mg PO DAILY [facility] Metoprolol Tartrate (Lopressor) 25 mg PO Q12 [facility] Last Admin: 09/13/17 09:48 Dose: 25 mg Pantoprazole Sodium (Protonix Ec Tab) 40 mg PO DAILY [facility] Last Admin: 09/13/17 09:47 Dose: 40 mg Tamsulosin HCl (Flomax) 0.4 mg PO DAILY [facility] Last Admin: 09/13/17 09:48 Dose: 0.4 mg - Labs Labs: 09/12/17 05:55 09/13/17 09:05 - Constitutional Appears: Well, Non-toxic, No Acute Distress - Head Exam Head Exam: ATRAUMATIC, NORMOCEPHALIC - Eye Exam Eye Exam: EOMI, Normal appearance, PERRL Pupil Exam: NORMAL ACCOMODATION, PERRL - ENT Exam ENT Exam: Mucous Membranes Moist, Normal Exam - Neck Exam Neck Exam: Full ROM, Normal Inspection - Respiratory Exam Respiratory Exam: NORMAL BREATHING PATTERN. absent: Rhonchi, Wheezes, Respiratory Distress, Stridor Additional comments: Diffuse rales to the lower base of lungs b/l - Cardiovascular Exam Cardiovascular Exam: REGULAR RHYTHM, +S1 - GI/Abdominal Exam GI & Abdominal Exam: Soft, Normal Bowel Sounds - Extremities Exam Extremities Exam: absent: Calf Tenderness Additional comments: Pitting edema noted to the LE bilaterally, temperature gradient WNL, CFT delayed to digits No pain with palpation to the calfs bilaterally No pain with hip flexion and extension Hand tremors - Back Exam Back Exam: NORMAL INSPECTION. absent: CVA tenderness (L), CVA tenderness (R) - Neurological Exam Neurological Exam: Alert, Awake, Oriented x3 - Psychiatric Exam Psychiatric exam: Normal Affect, Normal Mood - Skin Skin Exam: Dry, Intact, Normal Color, Warm Assessment and Plan (1) Contusion of right shoulder Status: Acute (2) Fall Status: Acute (3) Idiopathic pulmonary fibrosis Status: Chronic (4) Gait instability Status: Acute (5) Reflux esophagitis Status: Acute (6) HTN (hypertension) Status: Chronic (7) BPH (benign prostatic hyperplasia) Status: Chronic (8) Dehydration Status: Acute (9) Cachexia Status: Chronic - Assessment and Plan (Free Text) Assessment: 82 yo male with Idiopathic Pulmonary Fibrosis on home O2 admitted after tripping and falling with right shoulder contusion. Plan: 1. Trip and Fall w/ right shoulder contusion -fell on oxygen tubings and was unable to get up on his own -CT scan of Head: negative for intracranial bleed -Shoulder Xray: negative for fracture -patient needed therapy because of deconditioning specially after falling at home. Also home supervisor is hospitalized and will not be available to assist him -recommended by PT to be admitted to TOSIN or TCU -pt to work with PT/OT while in house 2. Idiopathic Pulmonary Fibrosis with worsening dyspnea -Chest X-ray shows chronic interstitial lung changes, worse at the left base. -c/w oxygen supplement -Duoneb q 2 hrs prn for SOB -SoluMedrol 40mg IV q daily tapered to methylprednisolone 20mg PO daily in AM -discontinued IV Rocephin and Azithromycin -d/c Cefdinir PO and Zithromax PO 3. Elevated BUN, unclear etiology -no diarrhea, no active bleeding -BUN unproportional to creatinine, not likely from kidney -check EF and cardiac function; pending ECHO -repeat BMP in AM 4. Gait instability -c/w OT/PT -pt to work with PT/OT while in house 5. Mild tremors likely essential tremors -Neurology Dr. Soto consulted -No Parkinson 6. Reflux Esophagitis -Mylanta 30cc PO q 6hrs prn -Protonix 40mg PO daily 7. HTN -BP stable -continue Metoprolol 25mg PO q 12hrs 8. Mild anemia with iron deficiency -c/w ferrous sulfate 9. BPH -c/w Tamsulosin 10. Dehydration -encourage to increase PO intake 11. Cachexia -heart healthy diet -encourage to increase PO intake 12. DVT prophylaxis on Lovenox
[2017-09-13 11:08] LABS: ABG ALLEN TEST YES; ARTERIAL BLOOD GAS HCO3 29.7 mmol/L (21-28); ARTERIAL BLOOD GAS HEMOGLOBIN 11.9 g/dL (11.7-17.4); ARTERIAL BLOOD GAS O2 CAPACITY 16.3 mL/dL (16-24); ARTERIAL BLOOD GAS O2 CONTENT 16.2 ML/dL (15-23); ARTERIAL BLOOD GAS O2 SAT 99.3 % (95-98); ARTERIAL BLOOD GAS PCO2 52 mm/Hg (35-45); ARTERIAL BLOOD GAS PO2 133 mm/Hg (80-100); ARTERIAL BLOOD GAS TCO2 33.8 mmol/L (22-28)
--- NOTE | 2017-09-13 15:18 | CP.PCM.PN ---
Subjective - Date & Time of Evaluation Date of Evaluation: 09/13/17 Time of Evaluation: 15:16 - Subjective Subjective: The patient is presently seated in bedside chair. He has just come back from having an echocardiogram. He claims to feel relatively well and denies any shortness of breath at rest. Vital signs remained stable and he remains well oxygenated with supplemental oxygen via nasal cannula at 2 L/m. He continues to be afebrile. Mild flushed facies are evident secondary to steroids. 1+ dependent edema is noted at both ankles. No calf tenderness. No cyanosis. Neck is supple and trachea is midline. No dullness on chest percussion. Breath sounds are well heard bilaterally with loud/early/dry rales present throughout both lungs. No audible wheezing is noted. No bronchial breathing or egophony. Heart sounds are relatively well heard and auscultation is slightly difficult due to noisy breathing. Agree with current medical management. Taper and discontinue steroids as tolerated. Agree with need for subacute rehabilitation to ensure safe discharge. Patient will need to complete ADLs on his own. Objective - Vital Signs/Intake and Output Vital Signs (last 24 hours): Temp Pulse Resp BP Pulse Ox 98.3 F 64 20 144/79 100 09/13/17 08:10 09/13/17 09:48 09/13/17 08:10 09/13/17 09:48 09/13/17 08:10 - Medications Medications: Current Medications Al Hydrox/Mg Hydrox/Simethicone (Maalox Plus 30 Ml) 30 ml PO Q6 PRN PRN Reason: Indigestion / Heartburn Last Admin: 09/09/17 12:29 Dose: 30 ml Albuterol Sulfate (Albuterol 0.083% Inhal Annie (2.5 Mg/3 Ml) Ud) 2.5 mg INH RQ4 PRN PRN Reason: Shortness of Breath Albuterol/Ipratropium (Duoneb 3 Mg/0.5 Mg (3 Ml) Ud) 3 ml INH RQID [facility] Last Admin: 09/13/17 11:56 Dose: 3 ml Ascorbic Acid (Vitamin C 250 Mg Tab) 250 mg PO BID [facility] Last Admin: 09/13/17 09:49 Dose: 250 mg Aspirin (Ecotrin) 81 mg PO DAILY [facility] Last Admin: 09/13/17 09:47 Dose: 81 mg Azithromycin (Zithromax) 500 mg PO DAILY [facility] PRN Reason: Protocol Stop: 09/16/17 09:01 Last Admin: 09/13/17 09:48 Dose: 500 mg Docusate Sodium (Colace) 100 mg PO BID [facility] Last Admin: 09/13/17 09:47 Dose: 100 mg Enoxaparin Sodium (Lovenox) 40 mg SC DAILY [facility] PRN Reason: Protocol Last Admin: 09/13/17 09:48 Dose: 40 mg Ferrous Sulfate (Feosol) 325 mg PO BID [facility] Last Admin: 09/13/17 09:47 Dose: 325 mg Home Med (Propylene Glycol/Peg 400 [Systane 0.3-0.4% Eye Drops]) 1 drop OU TID [facility] Last Admin: 09/13/17 12:28 Dose: 1 drop Methylprednisolone (Solu-Medrol) 40 mg IVP DAILY [facility] Stop: 09/13/17 23:59 Last Admin: 09/13/17 09:48 Dose: 40 mg Methylprednisolone (Medrol) 20 mg PO DAILY [facility] Metoprolol Tartrate (Lopressor) 25 mg PO Q12 [facility] Last Admin: 09/13/17 09:48 Dose: 25 mg Pantoprazole Sodium (Protonix Ec Tab) 40 mg PO DAILY [facility] Last Admin: 09/13/17 09:47 Dose: 40 mg Tamsulosin HCl (Flomax) 0.4 mg PO DAILY [facility] Last Admin: 09/13/17 09:48 Dose: 0.4 mg - Labs Labs: 09/12/17 05:55 09/13/17 09:05 Assessment and Plan (1) Idiopathic pulmonary fibrosis Status: Chronic (2) Fall Status: Acute (3) Musculoskeletal pain of right upper extremity Status: Acute (4) Musculoskeletal pain of right lower extremity Status: Acute
--- NOTE | 2017-09-13 16:02 | CARD ---
APPROVED REPORT EXAM: Two-dimensional and M-mode echocardiogram with Doppler and color Doppler. Other Information Quality : GoodRhythm : NSR INDICATION LV Function:SystolicDiastolic 2D DIMENSIONS IVSd0.96 (0.7-1.1cm)LVDd3.44 (3.9-5.9cm) LVOT Diameter2.20 (1.8-2.4cm)PWd1.04 (0.7-1.1cm) IVSs1.39 (0.8-1.2cm)LVDs1.72 (2.5-4.0cm) FS (%) 49.9 %PWs1.55 (0.8-1.2cm) LVEF (%)55.0 (>50%) M-Mode DIMENSIONS Left Atrium (MM)2.23 (2.5-4.0cm)IVSd0.75 (0.7-1.1cm) Aortic Root3.04 (2.2-3.7cm)LVDd4.39 (4.0-5.6cm) Aortic Cusp Exc.1.39 (1.5-2.0cm)PWd0.95 (0.7-1.1cm) IVSs1.39 cmFS (%) 50 % LVDs2.18 (2.0-3.8cm)PWs1.68 cm Mitral Valve MV E Ljajlhpm87.0cm/sMV DECEL [id number] A Itvfsrjq35.1cm/s MV GDJ52prE/A ratio1.1MVA (PHT)2.79cm2 TDI Lateral E' Peak V13.44cm/sMedial E' Peak V6.27cm/sE/Lateral E'5.0 E/Medial E'10.7 Pulmonary Valve PV Peak Dzfcdwxe264.0cm/s Tricuspid Valve TR Peak Lqadjhan723ml/sRAP [id number] Peak Gr.38mmHg [id number] LEFT VENTRICLE The left ventricle is normal size. There is mild to moderate concentric left ventricular hypertrophy. The left ventricular function is normal. The left ventricular ejection fraction is within the normal range. There is normal LV segmental wall motion. Transmitral Doppler flow pattern is Grade I-abnormal relaxation pattern. RIGHT VENTRICLE The right ventricle is mildly dilated. There is normal right ventricular wall thickness. Systolic function is borderline reduced. ATRIA The left atrium size is normal. The right atrium is borderline dilated. AORTIC VALVE The aortic valve is mildly sclerotic. No aortic regurgitation is present. There is no aortic valvular stenosis. MITRAL VALVE The mitral valve is mildly thickened. There is no mitral valve stenosis. There is no mitral valve regurgitation noted. TRICUSPID VALVE The tricuspid valve is normal in structure. There is moderate tricuspid regurgitation. There is moderate pulmonary hypertension. PULMONIC VALVE The pulmonary valve is normal in structure. There is no pulmonic valvular regurgitation. GREAT VESSELS The aortic root is normal in size. The IVC was not visualized. PERICARDIAL EFFUSION The pericardium appears normal. <Conclusion> The left ventricle is normal size. There is mild to moderate concentric left ventricular hypertrophy. The left ventricular function is normal. The left ventricular ejection fraction is within the normal range. There is normal LV segmental wall motion. Transmitral Doppler flow pattern is Grade I-abnormal relaxation pattern. There is moderate tricuspid regurgitation. There is moderate pulmonary hypertension.
[2017-09-13] MEDS: Sodium Chloride 0.9% 1,000 ML IV SCH (17:13)
[2017-09-14] MEDS: Sodium Chloride 0.9% 1,000 ML IV SCH (05:02)
[2017-09-14 06:50] LABS: BLOOD UREA NITROGEN 42 mg/dl (9-20); CALCIUM 8.4 mg/dL (8.4-10.2); GFR AFRICAN-AMERICAN > 60; GFR NON-AFRICAN AMERICAN > 60
[2017-09-14] MEDS: Albuterol-Ipratrop 3 mg / 0.5 (3 ml) UD INH SCH ×3 (07:28→19:41)
[2017-09-14] MEDS: Enoxaparin 40 mg Syringe SC SCH (09:38)
[2017-09-14] MEDS: PEG OU SCH ×3 (09:39→17:15)
[2017-09-14] MEDS: PROPYLENE GLYCOL OU SCH ×3 (09:39→17:15)
[2017-09-14] MEDS: Pantoprazole 40 mg EC Tab PO SCH (09:39)
--- NOTE | 2017-09-14 15:05 | CP.PCM.PN ---
Subjective - Date & Time of Evaluation Date of Evaluation: 09/14/17 Time of Evaluation: 15:05 - Subjective Subjective: Hospitalist Progress Note- Dr. Phillips 82 y.o male admitted for fall with right shoulder contusion at home on 09/06/17. Patient is seen sitting comfortably in bed, in NAD, and AA0x3. Patient reports the same chest tightness, reproducible with palpation. Patient has no new complains today. Denies acute overnight events. Denies n/v/sob/cp/chills/f or calf tenderness. Patient denies pain. Denies pain to the hips, shoulders, and back. Patient reports that he is still feeling weak. He reports that he has no where to go. Patient reports that his pipes burst and contractors are coming over the weekend to get them fix. Objective - Vital Signs/Intake and Output Vital Signs (last 24 hours): Temp Pulse Resp BP Pulse Ox 97.7 F 84 20 138/73 100 09/14/17 08:02 09/14/17 09:38 09/14/17 08:02 09/14/17 09:38 09/14/17 08:02 - Medications Medications: Current Medications Al Hydrox/Mg Hydrox/Simethicone (Maalox Plus 30 Ml) 30 ml PO Q6 PRN PRN Reason: Indigestion / Heartburn Last Admin: 09/09/17 12:29 Dose: 30 ml Albuterol Sulfate (Albuterol 0.083% Inhal Annie (2.5 Mg/3 Ml) Ud) 2.5 mg INH RQ4 PRN PRN Reason: Shortness of Breath Albuterol/Ipratropium (Duoneb 3 Mg/0.5 Mg (3 Ml) Ud) 3 ml INH RQID [facility] Last Admin: 09/14/17 07:28 Dose: 3 ml Ascorbic Acid (Vitamin C 250 Mg Tab) 250 mg PO BID [facility] Last Admin: 09/14/17 09:39 Dose: 250 mg Aspirin (Ecotrin) 81 mg PO DAILY [facility] Last Admin: 09/14/17 09:37 Dose: 81 mg Docusate Sodium (Colace) 100 mg PO BID [facility] Last Admin: 09/14/17 09:37 Dose: 100 mg Enoxaparin Sodium (Lovenox) 40 mg SC DAILY [facility] PRN Reason: Protocol Last Admin: 09/14/17 09:38 Dose: 40 mg Ferrous Sulfate (Feosol) 325 mg PO BID [facility] Last Admin: 09/14/17 09:37 Dose: 325 mg Home Med (Propylene Glycol/Peg 400 [Systane 0.3-0.4% Eye Drops]) 1 drop OU TID [facility] Last Admin: 09/14/17 13:30 Dose: 1 drop Sodium Chloride (Sodium Chloride 0.9%) 1,000 mls @ 80 mls/hr IV .[id number] [facility] Stop: 09/14/17 16:14 Last Admin: 09/14/17 05:02 Dose: Not Given Methylprednisolone (Medrol) 20 mg PO DAILY [facility] Last Admin: 09/14/17 09:39 Dose: 20 mg Metoprolol Tartrate (Lopressor) 25 mg PO Q12 [facility] Last Admin: 09/14/17 09:38 Dose: 25 mg Pantoprazole Sodium (Protonix Ec Tab) 40 mg PO DAILY [facility] Last Admin: 09/14/17 09:39 Dose: 40 mg Tamsulosin HCl (Flomax) 0.4 mg PO DAILY [facility] Last Admin: 09/14/17 09:38 Dose: 0.4 mg - Labs Labs: 09/12/17 05:55 09/14/17 05:00 - Constitutional Appears: Well, Non-toxic, No Acute Distress - Head Exam Head Exam: ATRAUMATIC, NORMAL INSPECTION, NORMOCEPHALIC - Eye Exam Eye Exam: EOMI, Normal appearance, PERRL Pupil Exam: NORMAL ACCOMODATION, PERRL - ENT Exam ENT Exam: Mucous Membranes Moist, Normal Exam - Neck Exam Neck Exam: Full ROM, Normal Inspection - Respiratory Exam Respiratory Exam: NORMAL BREATHING PATTERN. absent: Rhonchi, Respiratory Distress, Stridor Additional comments: Diffuse rales to the lower base of lungs b/l - Cardiovascular Exam Cardiovascular Exam: REGULAR RHYTHM, +S1, +S2 - GI/Abdominal Exam GI & Abdominal Exam: Soft, Normal Bowel Sounds. absent: Tenderness - Rectal Exam Rectal Exam: absent: Deferred - Extremities Exam Extremities Exam: absent: Calf Tenderness Additional comments: Pitting edema noted to the LE bilaterally, temperature gradient WNL, CFT delayed to digits No pain with palpation to the calfs bilaterally No pain with hip flexion and extension Hand tremors - Back Exam Back Exam: NORMAL INSPECTION. absent: CVA tenderness (L), CVA tenderness (R) - Neurological Exam Neurological Exam: Alert, Awake, Oriented x3 - Psychiatric Exam Psychiatric exam: Normal Affect, Normal Mood - Skin Skin Exam: Dry, Intact, Normal Color, Warm Assessment and Plan (1) Contusion of right shoulder Status: Acute (2) Fall Status: Acute (3) Idiopathic pulmonary fibrosis Status: Chronic (4) Gait instability Status: Acute (5) Reflux esophagitis Status: Acute (6) HTN (hypertension) Status: Chronic (7) BPH (benign prostatic hyperplasia) Status: Chronic (8) Dehydration Status: Acute (9) Cachexia Status: Chronic - Assessment and Plan (Free Text) Assessment: 82 yo male with Idiopathic Pulmonary Fibrosis on home O2 admitted after tripping and falling with right shoulder contusion. Plan: 1. Trip and Fall w/ right shoulder contusion -fell on oxygen tubings and was unable to get up on his own -CT scan of Head: negative for intracranial bleed -Shoulder Xray: negative for fracture -patient needed therapy because of deconditioning specially after falling at home. Also home economics expert is hospitalized and will not be available to assist him -recommended by PT to be admitted to TOSIN or TCU -pt to work with PT/OT while in house 2. Idiopathic Pulmonary Fibrosis with worsening dyspnea -Chest X-ray shows chronic interstitial lung changes, worse at the left base. -c/w oxygen supplement -Duoneb q 2 hrs prn for SOB - methylprednisolone 20mg PO daily in AM, will stop steroids -discontinued IV Rocephin and Azithromycin -discuss with pulmonary, d/c Cefdinir PO and Zithromax PO 3. Elevated BUN, unclear etiology -no diarrhea, no active bleeding -BUN unproportional to creatinine, not likely from kidney -ECHO showed normal EF and wall motion with moderate pulmonary hypertension -c/w NS @ 80cc/hr -BUN slightly improved from yesterday 4. Gait instability -c/w OT/PT -pt to work with PT/OT while in house 5. Mild tremors likely essential tremors -Neurology Dr. Soto consulted -No Parkinson 6. Reflux Esophagitis -Mylanta 30cc PO q 6hrs prn -Protonix 40mg PO daily 7. HTN -BP stable -continue Metoprolol 25mg PO q 12hrs 8. Mild anemia with iron deficiency -c/w ferrous sulfate 9. BPH -c/w Tamsulosin 10. Dehydration -encourage to increase PO intake 11. Cachexia -heart healthy diet -encourage to increase PO intake 12. DVT prophylaxis on Lovenox
[2017-09-15] MEDS: Albuterol-Ipratrop 3 mg / 0.5 (3 ml) UD INH SCH ×4 (07:23→19:07)
[2017-09-15] MEDS: Enoxaparin 40 mg Syringe SC SCH (08:35)
[2017-09-15] MEDS: PEG OU SCH ×3 (08:36→16:36)
[2017-09-15] MEDS: PROPYLENE GLYCOL OU SCH ×3 (08:36→16:36)
[2017-09-15] MEDS: Pantoprazole 40 mg EC Tab PO SCH (08:36)
--- NOTE | 2017-09-15 09:52 | CP.PCM.PN ---
Subjective - Date & Time of Evaluation Date of Evaluation: 09/15/17 Time of Evaluation: 09:30 - Subjective Subjective: Pt seen while he was having physical therapy He was able to walk with the help of the walker , assisted by PT from his bed to a chair that was in the hallway [place] short of breath with exertion some epigastric discomfort relieved by Mylanta denies N/V no fever Objective - Vital Signs/Intake and Output Vital Signs (last 24 hours): Temp Pulse Resp BP Pulse Ox 97.9 F 73 20 146/74 100 09/15/17 08:20 09/15/17 08:35 09/15/17 08:20 09/15/17 08:35 09/15/17 08:20 - Medications Medications: Current Medications Al Hydrox/Mg Hydrox/Simethicone (Maalox Plus 30 Ml) 30 ml PO Q6 PRN PRN Reason: Indigestion / Heartburn Last Admin: 09/09/17 12:29 Dose: 30 ml Albuterol Sulfate (Albuterol 0.083% Inhal Annie (2.5 Mg/3 Ml) Ud) 2.5 mg INH RQ4 PRN PRN Reason: Shortness of Breath Albuterol/Ipratropium (Duoneb 3 Mg/0.5 Mg (3 Ml) Ud) 3 ml INH RQID [facility] Last Admin: 09/15/17 07:23 Dose: 3 ml Ascorbic Acid (Vitamin C 250 Mg Tab) 250 mg PO BID [facility] Last Admin: 09/15/17 08:36 Dose: 250 mg Aspirin (Ecotrin) 81 mg PO DAILY [facility] Last Admin: 09/15/17 08:36 Dose: 81 mg Docusate Sodium (Colace) 100 mg PO BID [facility] Last Admin: 09/15/17 08:34 Dose: 100 mg Enoxaparin Sodium (Lovenox) 40 mg SC DAILY [facility] PRN Reason: Protocol Last Admin: 09/15/17 08:35 Dose: 40 mg Ferrous Sulfate (Feosol) 325 mg PO BID [facility] Last Admin: 09/15/17 08:36 Dose: 325 mg Home Med (Propylene Glycol/Peg 400 [Systane 0.3-0.4% Eye Drops]) 1 drop OU TID [facility] Last Admin: 09/15/17 08:36 Dose: 1 drop Metoprolol Tartrate (Lopressor) 25 mg PO Q12 [facility] Last Admin: 02/24/18 08:35 Dose: 25 mg Pantoprazole Sodium (Protonix Ec Tab) 40 mg PO DAILY [facility] Last Admin: 09/15/17 08:36 Dose: 40 mg Prednisone (Prednisone Tab) 10 mg PO DAILY [facility] Last Admin: 09/15/17 08:36 Dose: 10 mg Tamsulosin HCl (Flomax) 0.4 mg PO DAILY [facility] Last Admin: 09/15/17 08:34 Dose: 0.4 mg - Labs Labs: 09/12/17 05:55 09/14/17 05:00 - Constitutional Appears: No Acute Distress, Chronically Ill - Head Exam Head Exam: NORMAL INSPECTION, NORMOCEPHALIC - Eye Exam Eye Exam: EOMI, Normal appearance Pupil Exam: NORMAL ACCOMODATION - ENT Exam ENT Exam: Mucous Membranes Moist, Normal External Ear Exam - Neck Exam Neck Exam: Full ROM. absent: Meningismus - Respiratory Exam Respiratory Exam: Rales, Rhonchi, NORMAL BREATHING PATTERN. absent: Wheezes, Respiratory Distress - Cardiovascular Exam Cardiovascular Exam: REGULAR RHYTHM, +S1, +S2 - GI/Abdominal Exam GI & Abdominal Exam: Soft, Normal Bowel Sounds. absent: Tenderness - Extremities Exam Extremities Exam: Normal Capillary Refill. absent: Calf Tenderness, Pedal Edema - Back Exam Back Exam: Full ROM. absent: CVA tenderness (L), CVA tenderness (R) - Neurological Exam Neurological Exam: Alert, Awake, Oriented x3 Neuro motor strength exam: Left Upper Extremity: 5, Right Upper Extremity: 5, Left Lower Extremity: 5, Right Lower Extremity: 5 - Psychiatric Exam Psychiatric exam: Normal Affect, Normal Mood - Skin Skin Exam: Dry, Normal Color, Warm Assessment and Plan - Assessment and Plan (Free Text) Assessment: 82 yo male with Idiopathic Pulmonary Fibrosis on home O2 admitted after tripping and falling with right shoulder contusion. 1. Trip and Fall w/ right shoulder contusion -tripped on oxygen tubings and was unable to get up on his own -CT scan of Head: negative for intracranial bleed -Shoulder Xray: negative for fracture -patient needed therapy because of deconditioning specially after falling at home. Also mobile home laborer is hospitalized and will not be available to assist him -recommended by PT to be admitted to [facility] or TCU however pt has no Insurance Rehab benefits -pt to work with PT/OT while in house 2. Idiopathic Pulmonary Fibrosis with worsening dyspnea -Chest X-ray shows chronic interstitial lung changes, worse at the left base. -c/w oxygen supplement -Duoneb q 2 hrs prn for SOB -Solumedrol IV tapered off - now on Prednisone 10 mg daily -discontinued IV Rocephin and Azithromycin -completed tx w/ Cefdinir PO and Zithromax PO 3. Elevated BUN, unclear etiology -no diarrhea, no active bleeding -BUN unproportional to creatinine -ECHO showed normal EF and wall motion with moderate pulmonary hypertension - IVF hydration -BUN slightly improved from yesterday 4. Gait instability -c/w OT/PT -pt to work with PT/OT while in house 5. Mild tremors likely essential tremors -Neurology Dr. Soto consulted -No Parkinson 6. Reflux Esophagitis -Mylanta 30cc PO q 6hrs prn -Protonix 40mg PO daily - start Sucralfate susp 7. HTN -BP stable -continue Metoprolol 25mg PO q 12hrs 8. Mild anemia with iron deficiency -c/w ferrous sulfate 9. BPH -c/w Tamsulosin 10. Dehydration -encourage to increase PO intake 11. Cachexia -heart healthy diet -encourage to increase PO intake 12. DVT prophylaxis on Lovenox
[2017-09-15] MEDS ORDERED: Sucralfate 1 gm/10 ml Oral Susp UD PO SCH (10:00)
--- NOTE | 2017-09-15 13:54 | CP.PCM.PN ---
Subjective - Date & Time of Evaluation Date of Evaluation: 09/15/17 Time of Evaluation: 13:52 - Subjective Subjective: Presently seated in a bedside chair, appears comfortable. Complains of chest tightness when attempting to get up from the chair. Congested cough with minimal sputum production persists. No cyanosis. No palpable lymphadenopathy. Diffuse Velcro type rales are heard bilaterally primarily in the lower lung zones. No audible wheezing or bronchial breathing. No chest wall tenderness elicited. Tenderness is present in the epigastric area on light palpation. There appears to be some mild distention of the abdomen. Started earlier today on sucralfate which I will simply increase to 4 times daily. Agree with reduction in steroid dosing. Remainder of treatments remain unchanged. Objective - Vital Signs/Intake and Output Vital Signs (last 24 hours): Temp Pulse Resp BP Pulse Ox 97.9 F 73 20 146/74 100 09/15/17 09:00 09/15/17 09:00 09/15/17 09:00 09/15/17 09:00 09/15/17 09:00 - Medications Medications: Current Medications Al Hydrox/Mg Hydrox/Simethicone (Maalox Plus 30 Ml) 30 ml PO Q6 PRN PRN Reason: Indigestion / Heartburn Last Admin: 09/09/17 12:29 Dose: 30 ml Albuterol Sulfate (Albuterol 0.083% Inhal Annie (2.5 Mg/3 Ml) Ud) 2.5 mg INH RQ4 PRN PRN Reason: Shortness of Breath Albuterol/Ipratropium (Duoneb 3 Mg/0.5 Mg (3 Ml) Ud) 3 ml INH RQID [facility] Last Admin: 09/15/17 11:27 Dose: 3 ml Ascorbic Acid (Vitamin C 250 Mg Tab) 250 mg PO BID [facility] Last Admin: 09/15/17 08:36 Dose: 250 mg Aspirin (Ecotrin) 81 mg PO DAILY [facility] Last Admin: 09/15/17 08:36 Dose: 81 mg Docusate Sodium (Colace) 100 mg PO BID [facility] Last Admin: 09/15/17 08:34 Dose: 100 mg Enoxaparin Sodium (Lovenox) 40 mg SC DAILY [facility] PRN Reason: Protocol Last Admin: 09/15/17 08:35 Dose: 40 mg Ferrous Sulfate (Feosol) 325 mg PO BID [facility] Last Admin: 09/15/17 08:36 Dose: 325 mg Home Med (Propylene Glycol/Peg 400 [Systane 0.3-0.4% Eye Drops]) 1 drop OU TID [facility] Last Admin: 09/15/17 12:48 Dose: 1 drop Metoprolol Tartrate (Lopressor) 25 mg PO Q12 [facility] Last Admin: 09/15/17 08:35 Dose: 25 mg Pantoprazole Sodium (Protonix Ec Tab) 40 mg PO DAILY [facility] Last Admin: 09/15/17 08:36 Dose: 40 mg Prednisone (Prednisone Tab) 10 mg PO DAILY [facility] Last Admin: 09/15/17 08:36 Dose: 10 mg Sucralfate (Carafate Oral Susp) 1 gm PO QID [facility] Tamsulosin HCl (Flomax) 0.4 mg PO DAILY [facility] Last Admin: 09/15/17 08:34 Dose: 0.4 mg - Labs Labs: 09/12/17 05:55 09/14/17 05:00 Assessment and Plan (1) Idiopathic pulmonary fibrosis Status: Chronic (2) Fall Status: Acute (3) Musculoskeletal pain of right upper extremity Status: Acute (4) Musculoskeletal pain of right lower extremity Status: Acute
[2017-09-15] MEDS: Sucralfate 1 gm/10 ml Oral Susp UD PO SCH ×2 (16:36→21:19)
[2017-09-16] MEDS: Albuterol-Ipratrop 3 mg / 0.5 (3 ml) UD INH SCH ×4 (07:06→19:22)
[2017-09-16] MEDS: Alum-Mag Hydrox-Simethicone Susp (30 mL) PO PRN (07:50)
[2017-09-16] MEDS: Sucralfate 1 gm/10 ml Oral Susp UD PO SCH ×4 (10:00→21:11)
[2017-09-16] MEDS: Pantoprazole 40 mg EC Tab PO SCH (10:01)
[2017-09-16] MEDS: PROPYLENE GLYCOL OU SCH ×3 (10:02→17:53)
[2017-09-16] MEDS: Enoxaparin 40 mg Syringe SC SCH (10:02)
[2017-09-16] MEDS: PEG OU SCH ×3 (10:02→17:53)
--- NOTE | 2017-09-16 10:18 | CP.PCM.PN ---
Subjective - Date & Time of Evaluation Date of Evaluation: 09/16/17 Time of Evaluation: 09:45 - Subjective Subjective: Pt complains of some chest tightness, pain reproducible on palpation of chest claims pain also better with antacids EKG done : no change from previous EKGs, Troponin : negative. Pt had similar episode a few days ago and Trop x 3 negative. no fever some dyspnea on exertion no N/V sl epigastric pain Objective - Vital Signs/Intake and Output Vital Signs (last 24 hours): Temp Pulse Resp BP Pulse Ox 97.4 F L 73 20 134/78 100 09/16/17 08:18 09/16/17 10:01 09/16/17 08:18 09/16/17 10:01 09/16/17 08:18 - Medications Medications: Current Medications Al Hydrox/Mg Hydrox/Simethicone (Maalox Plus 30 Ml) 30 ml PO Q6 PRN PRN Reason: Indigestion / Heartburn Last Admin: 09/16/17 07:50 Dose: 30 ml Albuterol Sulfate (Albuterol 0.083% Inhal Annie (2.5 Mg/3 Ml) Ud) 2.5 mg INH RQ4 PRN PRN Reason: Shortness of Breath Albuterol/Ipratropium (Duoneb 3 Mg/0.5 Mg (3 Ml) Ud) 3 ml INH RQID [facility] Last Admin: 09/16/17 07:06 Dose: 3 ml Ascorbic Acid (Vitamin C 250 Mg Tab) 250 mg PO BID [facility] Last Admin: 09/16/17 10:02 Dose: 250 mg Aspirin (Ecotrin) 81 mg PO DAILY [facility] Last Admin: 09/16/17 10:00 Dose: 81 mg Docusate Sodium (Colace) 100 mg PO BID [facility] Last Admin: 09/16/17 10:01 Dose: 100 mg Enoxaparin Sodium (Lovenox) 40 mg SC DAILY [facility] PRN Reason: Protocol Last Admin: 09/16/17 10:02 Dose: 40 mg Ferrous Sulfate (Feosol) 325 mg PO BID [facility] Last Admin: 09/16/17 10:01 Dose: 325 mg Home Med (Propylene Glycol/Peg 400 [Systane 0.3-0.4% Eye Drops]) 1 drop OU TID [facility] Last Admin: 09/16/17 10:02 Dose: 1 drop Metoprolol Tartrate (Lopressor) 25 mg PO Q12 [facility] Last Admin: 09/16/17 10:01 Dose: 25 mg Pantoprazole Sodium (Protonix Ec Tab) 40 mg PO DAILY [facility] Last Admin: 09/16/17 10:01 Dose: 40 mg Prednisone (Prednisone Tab) 10 mg PO DAILY [facility] Last Admin: 09/16/17 10:02 Dose: 10 mg Sucralfate (Carafate Oral Susp) 1 gm PO QID [facility] Last Admin: 09/16/17 10:00 Dose: 1 gm Tamsulosin HCl (Flomax) 0.4 mg PO DAILY [facility] Last Admin: 09/16/17 10:01 Dose: 0.4 mg Tramadol HCl (Ultram) 50 mg PO STAT [facility] Stop: 09/16/17 10:17 - Labs Labs: 09/12/17 05:55 09/14/17 05:00 - Constitutional Appears: No Acute Distress, Chronically Ill - Head Exam Head Exam: NORMAL INSPECTION, NORMOCEPHALIC - Eye Exam Eye Exam: EOMI, Normal appearance Pupil Exam: NORMAL ACCOMODATION - ENT Exam ENT Exam: Mucous Membranes Moist, Normal External Ear Exam - Neck Exam Neck Exam: Full ROM. absent: Meningismus - Respiratory Exam Respiratory Exam: + Rales, Rhonchi, especially on bases NORMAL BREATHING PATTERN. absent: Wheezes, Respiratory Distress - Cardiovascular Exam Cardiovascular Exam: REGULAR RHYTHM, +S1, +S2 - GI/Abdominal Exam GI & Abdominal Exam: Soft, Normal Bowel Sounds. absent: Tenderness - Extremities Exam Extremities Exam: Normal Capillary Refill. absent: Calf Tenderness trace Pedal Edema - Back Exam Back Exam: Full ROM. absent: CVA tenderness (L), CVA tenderness (R) - Neurological Exam Neurological Exam: Alert, Awake, Oriented x3 Neuro motor strength exam: Left Upper Extremity: 5, Right Upper Extremity: 5, Left Lower Extremity: 5, Right Lower Extremity: 5 - Psychiatric Exam Psychiatric exam: Normal Affect, Normal Mood - Skin Skin Exam: Dry, Normal Color, Warm Assessment and Plan - Assessment and Plan (Free Text) Assessment: 82 yo male with Idiopathic Pulmonary Fibrosis on home O2 admitted after tripping and falling , sustained right shoulder contusion. Complained of some chest tightness on exertion, relieved by Antacids. ( EKG : no change , Trops : neg) PT/OT consulted- rec TOSIN placement however pt's insurance has no Rehab benefit . Patient was kept in the hospital for further Rehab as pt lives alone and his gait is unstable . Plan to maximize PT while inhouse then d/c pt home. 1. Trip and Fall w/ right shoulder contusion -tripped on oxygen tubings and was unable to get up on his own -CT scan of Head: negative for intracranial bleed -Shoulder Xray: negative for fracture -patient needed therapy because of deconditioning specially after falling at home. Also home service technician is hospitalized and will not be available to assist him -recommended by PT to be admitted to TOSIN or TCU however pt has no Insurance Rehab benefits -pt to work with PT/OT while in house 2. Idiopathic Pulmonary Fibrosis with worsening dyspnea -Chest X-ray shows chronic interstitial lung changes, worse at the left base. -c/w oxygen supplement -Duoneb prn for SOB -Solumedrol IV tapered off - now on Prednisone 10 mg daily -discontinued IV Rocephin and Azithromycin -completed tx w/ Cefdinir PO and Zithromax PO 3. Elevated BUN -no diarrhea, no active bleeding -BUN unproportional to creatinine -ECHO showed normal EF and wall motion with moderate pulmonary hypertension - IVF hydration -BUN improving 4. Gait instability -c/w OT/PT -pt to work with PT/OT while in house 5. Mild tremors likely essential tremors -Neurology Dr. Soto consulted -No Parkinson 6. Reflux Esophagitis -Mylanta 30cc PO q 6hrs prn -Protonix 40mg PO daily -cont Sucralfate susp 7. Chest Tightness reproducible CP EKG : no change analgesics prn CP also better with antacids 8. HTN -BP stable -continue Metoprolol 25mg PO q 12hrs 9. Mild anemia with iron deficiency -c/w ferrous sulfate 10. BPH -c/w Tamsulosin 11. Cachexia BMI 19 -encourage to increase PO intake 12. DVT prophylaxis on Lovenox
[2017-09-17 06:32] LABS: HEMOGLOBIN 11.1 g/dL (12.0-18.0); MEAN CELL VOLUME 95.3 fl (80.0-94.0); MEAN CORPUSCULAR HEMOGLOBIN 31.2 pg (27.0-31.0); MEAN CORPUSCULAR HGB CONC 32.7 g/dL (33.0-37.0); RBC 3.55 Mil/uL (4.40-5.90); RED CELL DISTRIBUTION WIDTH 13.7 % (11.5-14.5); WHITE BLOOD COUNT 10.4 K/uL (4.8-10.8)
[2017-09-17 06:42] LABS: BLOOD UREA NITROGEN 38 mg/dl (9-20); CALCIUM 8.6 mg/dL (8.4-10.2); GFR AFRICAN-AMERICAN > 60; GFR NON-AFRICAN AMERICAN > 60
[2017-09-17] MEDS: Albuterol-Ipratrop 3 mg / 0.5 (3 ml) UD INH SCH ×4 (07:46→19:35)
[2017-09-17] MEDS: Enoxaparin 40 mg Syringe SC SCH (08:58)
[2017-09-17] MEDS: PROPYLENE GLYCOL OU SCH ×3 (08:58→16:07)
[2017-09-17] MEDS: PEG OU SCH ×3 (08:58→16:07)
[2017-09-17] MEDS: Sucralfate 1 gm/10 ml Oral Susp UD PO SCH ×4 (08:58→21:18)
[2017-09-17] MEDS: Pantoprazole 40 mg EC Tab PO SCH (08:59)
--- NOTE | 2017-09-17 10:12 | CP.PCM.PN ---
<Brendan Stuart - Last Filed: 09/17/17 13:22> Subjective - Date & Time of Evaluation Date of Evaluation: 09/17/17 Time of Evaluation: 10:00 - Subjective Subjective: Hospitalist Progress Note- Dr. Tate 82 y.o male seen and evaluated at bedside. Patient is seen resting comfortably in chair, in NAD, and [id number]. Patient reports the same chest tightness, dyspnea with exertion. Denies acute overnight events. Denies n/v/sob/cp/chills/f or calf tenderness. Denies pain to the hips, shoulders, and back. Reports no epigastric pain today Reports upper back stiffness and pain. Patient reports his home is still under construction. Objective - Vital Signs/Intake and Output Vital Signs (last 24 hours): Temp Pulse Resp BP Pulse Ox 97.8 F 74 20 135/76 99 09/17/17 07:53 09/17/17 09:00 09/17/17 07:53 09/17/17 09:00 09/17/17 07:53 - Medications Medications: Current Medications Acetaminophen (Tylenol 325mg Tab) 650 mg PO Q6 PRN PRN Reason: Pain, Mild (1-3) Al Hydrox/Mg Hydrox/Simethicone (Maalox Plus 30 Ml) 30 ml PO Q6 PRN PRN Reason: Indigestion / Heartburn Last Admin: 09/16/17 07:50 Dose: 30 ml Albuterol Sulfate (Albuterol 0.083% Inhal Annie (2.5 Mg/3 Ml) Ud) 2.5 mg INH RQ4 PRN PRN Reason: Shortness of Breath Albuterol/Ipratropium (Duoneb 3 Mg/0.5 Mg (3 Ml) Ud) 3 ml INH RQID [facility] Last Admin: 09/17/17 07:46 Dose: 3 ml Ascorbic Acid (Vitamin C 250 Mg Tab) 250 mg PO BID [facility] Last Admin: 09/17/17 09:00 Dose: 250 mg Aspirin (Ecotrin) 81 mg PO DAILY [facility] Last Admin: 09/17/17 09:01 Dose: 81 mg Docusate Sodium (Colace) 100 mg PO BID [facility] Last Admin: 09/17/17 08:59 Dose: 100 mg Enoxaparin Sodium (Lovenox) 40 mg SC DAILY [facility] PRN Reason: Protocol Last Admin: 09/17/17 08:58 Dose: 40 mg Ferrous Sulfate (Feosol) 325 mg PO BID [facility] Last Admin: 09/17/17 09:00 Dose: 325 mg Home Med (Propylene Glycol/Peg 400 [Systane 0.3-0.4% Eye Drops]) 1 drop OU TID [facility] Last Admin: 09/17/17 08:58 Dose: 1 drop Metoprolol Tartrate (Lopressor) 25 mg PO Q12 [facility] Last Admin: 09/17/17 09:00 Dose: 25 mg Pantoprazole Sodium (Protonix Ec Tab) 40 mg PO DAILY [facility] Last Admin: 09/17/17 08:59 Dose: 40 mg Prednisone (Prednisone Tab) 10 mg PO DAILY [facility] Last Admin: 09/17/17 08:59 Dose: 10 mg Sucralfate (Carafate Oral Susp) 1 gm PO QID [facility] Last Admin: 09/17/17 08:58 Dose: 1 gm Tamsulosin HCl (Flomax) 0.4 mg PO DAILY [facility] Last Admin: 09/17/17 09:01 Dose: 0.4 mg - Labs Labs: 09/17/17 04:00 09/17/17 05:30 - Constitutional Appears: Well, Toxic, No Acute Distress - Head Exam Head Exam: ATRAUMATIC, NORMOCEPHALIC - Eye Exam Eye Exam: EOMI, Normal appearance, PERRL Pupil Exam: NORMAL ACCOMODATION - ENT Exam ENT Exam: Mucous Membranes Moist, Normal Exam - Neck Exam Neck Exam: Full ROM, Normal Inspection - Respiratory Exam Additional comments: Diffuse rales to the lower base of lungs b/l - Cardiovascular Exam Cardiovascular Exam: REGULAR RHYTHM, +S1, +S2 - GI/Abdominal Exam GI & Abdominal Exam: Soft, Normal Bowel Sounds. absent: Tenderness Additional comments: No pain with palpation to the abdomen region - Extremities Exam Extremities Exam: absent: Calf Tenderness Additional comments: Pitting edema noted to the LE bilaterally, temperature gradient WNL, CFT delayed to digits No pain with palpation to the calfs bilaterally No pain with hip flexion and extension - Back Exam Additional comments: Pain to palpation of upperback, musculoskeletal - Psychiatric Exam Psychiatric exam: Normal Affect, Normal Mood - Skin Skin Exam: Dry, Intact, Normal Color, Warm Assessment and Plan (1) Contusion of right shoulder Status: Acute (2) Fall Status: Acute (3) Idiopathic pulmonary fibrosis Status: Chronic (4) Gait instability Status: Acute (5) Reflux esophagitis Status: Acute (6) HTN (hypertension) Status: Chronic (7) BPH (benign prostatic hyperplasia) Status: Chronic (8) Dehydration Status: Acute (9) Cachexia Status: Chronic - Assessment and Plan (Free Text) Assessment: 82 yo male with Idiopathic Pulmonary Fibrosis on home O2 admitted after tripping and falling , sustained right shoulder contusion. Complained of some chest tightness on exertion, relieved by Antacids. ( EKG : no change , Trops : neg) PT/OT consulted- rec TOSIN placement however pt's insurance has no Rehab benefit . Patient was kept in the hospital for further Rehab as pt lives alone and his gait is unstable . Plan to maximize PT while inhouse then d/c pt home. Plan: 1. Trip and Fall w/ right shoulder contusion -tripped on oxygen tubings and was unable to get up on his own -CT scan of Head: negative for intracranial bleed -Shoulder Xray: negative for fracture -patient needed therapy because of deconditioning specially after falling at home. 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 Idiopathic Pulmonary Fibrosis with worsening dyspnea -Chest X-ray shows chronic interstitial lung changes, worse at the left base. -c/w oxygen supplement -Duoneb prn for SOB -Solumedrol IV tapered off - now on Prednisone 10 mg daily -discontinued IV Rocephin and Azithromycin -completed tx w/ Cefdinir PO and Zithromax PO 3. Elevated BUN -no diarrhea, no active bleeding -BUN unproportional to creatinine -ECHO showed normal EF and wall motion with moderate pulmonary hypertension - IVF hydration -BUN improving 4. Gait instability -c/w OT/PT -pt to work with PT/OT while in house 5. Mild tremors likely essential tremors -Neurology Dr. Soto consulted -No Parkinson 6. Reflux Esophagitis -Mylanta 30cc PO q 6hrs prn -Protonix 40mg PO daily -c/w Sucralfate susp 7. Chest Tightness reproducible CP -EKG : no change -analgesics prn -CP also better with antacids 8. Upper back pain/stiffness musculoskeletal -Lidoderm patch 9. HTN -BP stable -continue Metoprolol 25mg PO q 12hrs 10. Mild anemia with iron deficiency -c/w ferrous sulfate 11. BPH -c/w Tamsulosin 12. Cachexia BMI 19 -encourage to increase PO intake 13. DVT prophylaxis on Lovenox <Lilian Tate - Last Filed: 09/17/17 15:50> Objective - Vital Signs/Intake and Output Vital Signs (last 24 hours): Temp Pulse Resp BP Pulse Ox 97.8 F 74 20 135/76 99 09/17/17 09:00 09/17/17 09:00 09/17/17 09:00 09/17/17 09:00 09/17/17 09:00 - Medications Medications: Current Medications Acetaminophen (Tylenol 325mg Tab) 650 mg PO Q6 PRN PRN Reason: Pain, Mild (1-3) Al Hydrox/Mg Hydrox/Simethicone (Maalox Plus 30 Ml) 30 ml PO Q6 PRN PRN Reason: Indigestion / Heartburn Last Admin: 09/16/17 07:50 Dose: 30 ml Albuterol Sulfate (Albuterol 0.083% Inhal Annie (2.5 Mg/3 Ml) Ud) 2.5 mg INH RQ4 PRN PRN Reason: Shortness of Breath Albuterol/Ipratropium (Duoneb 3 Mg/0.5 Mg (3 Ml) Ud) 3 ml INH RQID [facility] Last Admin: 09/17/17 15:41 Dose: 3 ml Ascorbic Acid (Vitamin C 250 Mg Tab) 250 mg PO BID [facility] Last Admin: 09/17/17 09:00 Dose: 250 mg Aspirin (Ecotrin) 81 mg PO DAILY [facility] Last Admin: 09/17/17 09:01 Dose: 81 mg Docusate Sodium (Colace) 100 mg PO BID [facility] Last Admin: 09/17/17 08:59 Dose: 100 mg Enoxaparin Sodium (Lovenox) 40 mg SC DAILY [facility] PRN Reason: Protocol Last Admin: 09/17/17 08:58 Dose: 40 mg Ferrous Sulfate (Feosol) 325 mg PO BID [facility] Last Admin: 09/17/17 09:00 Dose: 325 mg Home Med (Propylene Glycol/Peg 400 [Systane 0.3-0.4% Eye Drops]) 1 drop OU TID [facility] Last Admin: 09/17/17 12:19 Dose: 1 drop Lidocaine (Lidoderm) 1 ea TD DAILY [facility] Last Admin: 09/17/17 12:19 Dose: 1 ea Metoprolol Tartrate (Lopressor) 25 mg PO Q12 [facility] Last Admin: 09/17/17 09:00 Dose: 25 mg Pantoprazole Sodium (Protonix Ec Tab) 40 mg PO DAILY [facility] Last Admin: 09/17/17 08:59 Dose: 40 mg Prednisone (Prednisone Tab) 5 mg PO DAILY [facility] Sucralfate (Carafate Oral Susp) 1 gm PO QID [facility] Last Admin: 09/17/17 12:19 Dose: 1 gm Tamsulosin HCl (Flomax) 0.4 mg PO DAILY [facility] Last Admin: 09/17/17 09:01 Dose: 0.4 mg - Labs Labs: 09/17/17 04:00 09/17/17 05:30 Attending/Attestation - Attestation I have personally seen and examined this patient.: Yes I have fully participated in the care of the patient.: Yes I have reviewed all pertinent clinical information, including history, physical exam and plan: Yes Notes (Text): Will get GI consult for further eval/mgt of Epigastric Pain -
--- NOTE | 2017-09-17 11:31 | CP.PCM.PN ---
Subjective - Date & Time of Evaluation Date of Evaluation: 09/17/17 Time of Evaluation: 11:28 - Subjective Subjective: Seated in a bedside chair and appears comfortable at the present time. As a complaint of mid to upper back pain which appears to be musculoskeletal in nature. This pain is manifest when the patient attempts to come to a standing position from sitting in the chair. He still has epigastric tenderness to palpation with mild distention. This epigastric pain is present on palpation but otherwise is not there. His respiratory status appears the same with diffuse early Velcro type rales bilaterally. Has begun sucralfate 1 g 4 times daily but continues to have epigastric pain. No vomiting or nausea. Agree with GI evaluation for possible gastritis/peptic ulcer disease. Objective - Vital Signs/Intake and Output Vital Signs (last 24 hours): Temp Pulse Resp BP Pulse Ox 97.8 F 74 20 135/76 99 09/17/17 09:00 09/17/17 09:00 09/17/17 09:00 09/17/17 09:00 09/17/17 09:00 - Medications Medications: Current Medications Acetaminophen (Tylenol 325mg Tab) 650 mg PO Q6 PRN PRN Reason: Pain, Mild (1-3) Al Hydrox/Mg Hydrox/Simethicone (Maalox Plus 30 Ml) 30 ml PO Q6 PRN PRN Reason: Indigestion / Heartburn Last Admin: 09/16/17 07:50 Dose: 30 ml Albuterol Sulfate (Albuterol 0.083% Inhal Annie (2.5 Mg/3 Ml) Ud) 2.5 mg INH RQ4 PRN PRN Reason: Shortness of Breath Albuterol/Ipratropium (Duoneb 3 Mg/0.5 Mg (3 Ml) Ud) 3 ml INH RQID [facility] Last Admin: 09/17/17 07:46 Dose: 3 ml Ascorbic Acid (Vitamin C 250 Mg Tab) 250 mg PO BID [facility] Last Admin: 09/17/17 09:00 Dose: 250 mg Aspirin (Ecotrin) 81 mg PO DAILY [facility] Last Admin: 09/17/17 09:01 Dose: 81 mg Docusate Sodium (Colace) 100 mg PO BID [facility] Last Admin: 09/17/17 08:59 Dose: 100 mg Enoxaparin Sodium (Lovenox) 40 mg SC DAILY [facility] PRN Reason: Protocol Last Admin: 09/17/17 08:58 Dose: 40 mg Ferrous Sulfate (Feosol) 325 mg PO BID [facility] Last Admin: 09/17/17 09:00 Dose: 325 mg Home Med (Propylene Glycol/Peg 400 [Systane 0.3-0.4% Eye Drops]) 1 drop OU TID [facility] Last Admin: 09/17/17 08:58 Dose: 1 drop Lidocaine (Lidoderm) 1 ea TD DAILY [facility] Metoprolol Tartrate (Lopressor) 25 mg PO Q12 [facility] Last Admin: 09/17/17 09:00 Dose: 25 mg Pantoprazole Sodium (Protonix Ec Tab) 40 mg PO DAILY [facility] Last Admin: 09/17/17 08:59 Dose: 40 mg Prednisone (Prednisone Tab) 10 mg PO DAILY [facility] Last Admin: 09/17/17 08:59 Dose: 10 mg Sucralfate (Carafate Oral Susp) 1 gm PO QID [facility] Last Admin: 09/17/17 08:58 Dose: 1 gm Tamsulosin HCl (Flomax) 0.4 mg PO DAILY [facility] Last Admin: 09/17/17 09:01 Dose: 0.4 mg - Labs Labs: 09/17/17 04:00 09/17/17 05:30 Assessment and Plan (1) Idiopathic pulmonary fibrosis Status: Chronic (2) Fall Status: Acute (3) Musculoskeletal pain of right upper extremity Status: Acute (4) Musculoskeletal pain of right lower extremity Status: Acute
[2017-09-17] MEDS: Lidocaine 5% Patch TD SCH (12:19)
--- NOTE | 2017-09-17 21:22 | CARD ---
APPROVED REPORT EKG Measurement Heart [id number] VT [id number] <Conclusion> Poor data quality, interpretation may be adversely affected Normal sinus rhythm Voltage criteria for left ventricular hypertrophy Abnormal ECG
--- NOTE | 2017-09-17 22:43 | CON ---
DATE: 09/17/2017 REFERRING PHYSICIAN: Ephraim Niño MD REASON FOR CONSULTATION: Heartburn, reflux, abdominal pain with epigastric discomfort. HISTORY OF PRESENT ILLNESS: This is a very pleasant 82-year-old man with history of interstitial lung disease on home oxygen, history of pneumothorax and anemia brought in status post fall, injury of the right shoulder. Basically, he has been complaining some heartburn while in the hospital. The pain is improving, he is tolerating diet. No nausea or vomiting. No fevers or chills. Currently, lying in bed comfortably in no apparent distress. PAST MEDICAL HISTORY: As above. PAST SURGICAL HISTORY: As above. MEDICATIONS: Has been reviewed. REVIEW OF SYSTEMS: All other systems have been reviewed and negative apart from the HPI. PHYSICAL EXAMINATION GENERAL: A pleasant elderly-appearing male, lying in bed comfortably, in no apparent distress. VITAL SIGNS: In the hospital are grossly unremarkable. HEENT: Head is normocephalic and atraumatic. Eyes, pupils equally reactive to light bilaterally. No conjunctival pallor or icterus. NECK: Supple. Normal range of motion. No lymphadenopathy appreciated. LUNGS: Coarse bilateral . ABDOMEN: Soft and nontender. Bowel sounds present. Epigastric discomfort. No rebound. No guarding. RECTAL: Deferred. EXTREMITIES: Pulses present bilaterally. NEUROLOGIC: A and O x3. LABORATORY DATA: Reviewed. WBC is 10.4, hemoglobin 11.1, hematocrit 33.9 and platelet count is 186. ASSESSMENT AND PLAN: This is an 82-year-old male with history of interstitial lung disease, epigastric discomfort and reflux, from Gastroenterology standpoint the patient is doing better on proton pump inhibitor and Carafate. Would recommend endoscopy likely however given his clinical history with status and we will defer any elective procedure to more optimize medically. From Gastroenterology standpoint advance diet as tolerated. Thank you for the consult. Adrien Boland MD/ PhD cc: Ephraim Niño MD
[2017-09-18] MEDS: Albuterol-Ipratrop 3 mg / 0.5 (3 ml) UD INH SCH ×4 (07:35→19:36)
[2017-09-18] MEDS: Sucralfate 1 gm/10 ml Oral Susp UD PO SCH ×4 (09:30→21:57)
[2017-09-18] MEDS: Enoxaparin 40 mg Syringe SC SCH (09:33)
[2017-09-18] MEDS: Pantoprazole 40 mg EC Tab PO SCH (09:34)
[2017-09-18] MEDS: PROPYLENE GLYCOL OU SCH ×3 (09:36→17:53)
[2017-09-18] MEDS: PEG OU SCH ×3 (09:36→17:53)
[2017-09-18] MEDS: Lidocaine 5% Patch TD SCH (09:39)
--- NOTE | 2017-09-18 10:02 | CP.PCM.PN ---
Subjective - Date & Time of Evaluation Date of Evaluation: 09/18/17 Time of Evaluation: 10:02 - Subjective Subjective: doing well Objective - Vital Signs/Intake and Output Vital Signs (last 24 hours): Temp Pulse Resp BP Pulse Ox 97.5 F L 71 18 138/73 100 09/18/17 07:57 09/18/17 09:38 09/18/17 07:57 09/18/17 09:38 09/18/17 07:57 - Medications Medications: Current Medications Acetaminophen (Tylenol 325mg Tab) 650 mg PO Q6 PRN PRN Reason: Pain, Mild (1-3) Al Hydrox/Mg Hydrox/Simethicone (Maalox Plus 30 Ml) 30 ml PO Q6 PRN PRN Reason: Indigestion / Heartburn Last Admin: 09/16/17 07:50 Dose: 30 ml Albuterol Sulfate (Albuterol 0.083% Inhal Annie (2.5 Mg/3 Ml) Ud) 2.5 mg INH RQ4 PRN PRN Reason: Shortness of Breath Albuterol/Ipratropium (Duoneb 3 Mg/0.5 Mg (3 Ml) Ud) 3 ml INH RQID [facility] Last Admin: 09/18/17 07:35 Dose: 3 ml Ascorbic Acid (Vitamin C 250 Mg Tab) 250 mg PO BID [facility] Last Admin: 09/18/17 09:31 Dose: 250 mg Aspirin (Ecotrin) 81 mg PO DAILY [facility] Last Admin: 09/18/17 09:33 Dose: 81 mg Docusate Sodium (Colace) 100 mg PO BID [facility] Last Admin: 09/18/17 09:33 Dose: 100 mg Enoxaparin Sodium (Lovenox) 40 mg SC DAILY [facility] PRN Reason: Protocol Last Admin: 09/18/17 09:33 Dose: 40 mg Ferrous Sulfate (Feosol) 325 mg PO BID [facility] Last Admin: 09/18/17 09:31 Dose: 325 mg Home Med (Propylene Glycol/Peg 400 [Systane 0.3-0.4% Eye Drops]) 1 drop OU TID [facility] Last Admin: 09/18/17 09:36 Dose: 1 drop Lidocaine (Lidoderm) 1 ea TD DAILY [facility] Last Admin: 09/18/17 09:39 Dose: 1 ea Metoprolol Tartrate (Lopressor) 25 mg PO Q12 [facility] Last Admin: 09/18/17 09:38 Dose: 25 mg Pantoprazole Sodium (Protonix Ec Tab) 40 mg PO DAILY [facility] Last Admin: 09/18/17 09:34 Dose: 40 mg Prednisone (Prednisone Tab) 5 mg PO DAILY [facility] Last Admin: 09/18/17 09:31 Dose: 5 mg Sucralfate (Carafate Oral Susp) 1 gm PO QID [facility] Last Admin: 09/18/17 09:30 Dose: 1 gm Tamsulosin HCl (Flomax) 0.4 mg PO DAILY [facility] Last Admin: 09/18/17 09:35 Dose: 0.4 mg - Labs Labs: 09/17/17 04:00 09/17/17 05:30 - Neck Exam Neck Exam: Normal Inspection - Cardiovascular Exam Cardiovascular Exam: REGULAR RHYTHM - GI/Abdominal Exam GI & Abdominal Exam: Soft, Normal Bowel Sounds Assessment and Plan - Assessment and Plan (Free Text) Assessment: 82 yo male with GRED doing well elective endoscopy once clinically more stable
--- NOTE | 2017-09-18 10:57 | CP.PCM.PN ---
<Brendan Stuart - Last Filed: 09/18/17 10:52> Subjective - Date & Time of Evaluation Date of Evaluation: 09/18/17 Time of Evaluation: 10:52 - Subjective Subjective: Hospitalist Progress Note- Dr. Foster 82 y.o male seen and evaluated at bedside. Patient is seen resting comfortably in chair, in NAD, and AA0x3. Patient reports the same chest tightness and dyspnea with exertion. Patient denies acute overnight events. He reports sleeping okay. He continues to do physical therapy daily and reports still having trouble getting out the bed. Patient denies n/v/sob/cp/chills/f or calf tenderness. Patient reports that his home is still under construction and he has no where to go. Objective - Vital Signs/Intake and Output Vital Signs (last 24 hours): Temp Pulse Resp BP Pulse Ox 97.5 F L 71 18 138/73 100 09/18/17 07:57 09/18/17 09:38 09/18/17 07:57 09/18/17 09:38 09/18/17 07:57 - Medications Medications: Current Medications Acetaminophen (Tylenol 325mg Tab) 650 mg PO Q6 PRN PRN Reason: Pain, Mild (1-3) Al Hydrox/Mg Hydrox/Simethicone (Maalox Plus 30 Ml) 30 ml PO Q6 PRN PRN Reason: Indigestion / Heartburn Last Admin: 09/16/17 07:50 Dose: 30 ml Albuterol Sulfate (Albuterol 0.083% Inhal Annie (2.5 Mg/3 Ml) Ud) 2.5 mg INH RQ4 PRN PRN Reason: Shortness of Breath Albuterol/Ipratropium (Duoneb 3 Mg/0.5 Mg (3 Ml) Ud) 3 ml INH RQID [facility] Last Admin: 09/18/17 07:35 Dose: 3 ml Ascorbic Acid (Vitamin C 250 Mg Tab) 250 mg PO BID [facility] Last Admin: 09/18/17 09:31 Dose: 250 mg Aspirin (Ecotrin) 81 mg PO DAILY [facility] Last Admin: 09/18/17 09:33 Dose: 81 mg Docusate Sodium (Colace) 100 mg PO BID [facility] Last Admin: 09/18/17 09:33 Dose: 100 mg Enoxaparin Sodium (Lovenox) 40 mg SC DAILY [facility] PRN Reason: Protocol Last Admin: 09/18/17 09:33 Dose: 40 mg Ferrous Sulfate (Feosol) 325 mg PO BID [facility] Last Admin: 09/18/17 09:31 Dose: 325 mg Home Med (Propylene Glycol/Peg 400 [Systane 0.3-0.4% Eye Drops]) 1 drop OU TID [facility] Last Admin: 09/18/17 09:36 Dose: 1 drop Lidocaine (Lidoderm) 1 ea TD DAILY [facility] Last Admin: 09/18/17 09:39 Dose: 1 ea Metoprolol Tartrate (Lopressor) 25 mg PO Q12 [facility] Last Admin: 09/18/17 09:38 Dose: 25 mg Pantoprazole Sodium (Protonix Ec Tab) 40 mg PO DAILY [facility] Last Admin: 09/18/17 09:34 Dose: 40 mg Prednisone (Prednisone Tab) 5 mg PO DAILY [facility] Last Admin: 09/18/17 09:31 Dose: 5 mg Sucralfate (Carafate Oral Susp) 1 gm PO QID [facility] Last Admin: 09/18/17 09:30 Dose: 1 gm Tamsulosin HCl (Flomax) 0.4 mg PO DAILY [facility] Last Admin: 09/18/17 09:35 Dose: 0.4 mg - Labs Labs: 09/17/17 04:00 09/17/17 05:30 - Constitutional Appears: Well, No Acute Distress - Head Exam Head Exam: ATRAUMATIC, NORMOCEPHALIC - Eye Exam Eye Exam: EOMI, Normal appearance, PERRL Pupil Exam: NORMAL ACCOMODATION - ENT Exam ENT Exam: Mucous Membranes Moist, Normal Exam - Neck Exam Neck Exam: Full ROM, Normal Inspection - Respiratory Exam Additional comments: Diffuse rales to the lower base of lungs b/l - Cardiovascular Exam Cardiovascular Exam: RRR, +S1, +S2 - GI/Abdominal Exam Additional comments: No pain with palpation to the abdomen region - Extremities Exam Additional comments: Pitting edema noted to the LE bilaterally, temperature gradient WNL, CFT delayed to digits No pain with palpation to the calfs bilaterally No pain with hip flexion and extension - Back Exam Additional comments: Mild pain to palpation of upperback, musculoskeletal - Neurological Exam Neurological Exam: Alert, Awake, Oriented x3 - Psychiatric Exam Psychiatric exam: Normal Affect, Normal Mood - Skin Skin Exam: Dry, Intact, Normal Color, Warm Assessment and Plan (1) Contusion of right shoulder Status: Acute (2) Fall Status: Acute (3) Idiopathic pulmonary fibrosis Status: Chronic (4) Gait instability Status: Acute (5) Reflux esophagitis Status: Acute (6) HTN (hypertension) Status: Chronic (7) BPH (benign prostatic hyperplasia) Status: Chronic (8) Dehydration Status: Acute (9) Cachexia Status: Chronic - Assessment and Plan (Free Text) Assessment: 82 yo male with Idiopathic Pulmonary Fibrosis on home O2 admitted after tripping and falling , sustained right shoulder contusion. Complained of some chest tightness on exertion, relieved by Antacids. ( EKG : no change , Trops : neg) PT/OT consulted- rec TOSIN placement however pt's insurance has no Rehab benefit . Patient was kept in the hospital for further Rehab as pt lives alone and his gait is unstable . Plan to maximize PT while inhouse then d/c pt home. Plan: 1. Trip and Fall w/ right shoulder contusion -tripped on oxygen tubings and was unable to get up on his own -CT scan of Head: negative for intracranial bleed -Shoulder Xray: negative for fracture -patient needed therapy because of deconditioning specially after falling at home. 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 Idiopathic Pulmonary Fibrosis with worsening dyspnea -Chest X-ray shows chronic interstitial lung changes, worse at the left base. -c/w oxygen supplement -Duoneb prn for SOB -Solumedrol IV tapered off - now on Prednisone 5 mg PO daily -discontinued IV Rocephin and Azithromycin -completed tx w/ Cefdinir PO and Zithromax PO 3. Elevated BUN -no diarrhea, no active bleeding -BUN unproportional to creatinine -ECHO showed normal EF and wall motion with moderate pulmonary hypertension - IVF hydration -BUN improving 4. Gait instability -c/w OT/PT -pt to work with PT/OT while in house 5. Mild tremors likely essential tremors -Neurology Dr. Soto consulted -No Parkinson 6. Reflux Esophagitis -Mylanta 30cc PO q 6hrs prn -Protonix 40mg PO daily -c/w Sucralfate susp 7. Chest Tightness reproducible CP -EKG : no change -analgesics prn -CP also better with antacids 8. Upper back pain/stiffness musculoskeletal -Lidoderm patch 9. HTN -BP stable -continue Metoprolol 25mg PO q 12hrs 10. Mild anemia with iron deficiency -c/w ferrous sulfate 11. BPH -c/w Tamsulosin 12. Cachexia BMI 19 -encourage to increase PO intake 13. DVT prophylaxis on Lovenox <Washington Foster - Last Filed: 09/18/17 16:30> Objective - Vital Signs/Intake and Output Vital Signs (last 24 hours): Temp Pulse Resp BP Pulse Ox 97.5 F L 73 18 138/73 100 09/18/17 07:57 09/18/17 11:34 09/18/17 07:57 09/18/17 09:38 09/18/17 07:57 - Medications Medications: Current Medications Acetaminophen (Tylenol 325mg Tab) 650 mg PO Q6 PRN PRN Reason: Pain, Mild (1-3) Al Hydrox/Mg Hydrox/Simethicone (Maalox Plus 30 Ml) 30 ml PO Q6 PRN PRN Reason: Indigestion / Heartburn Last Admin: 09/16/17 07:50 Dose: 30 ml Albuterol Sulfate (Albuterol 0.083% Inhal Annie (2.5 Mg/3 Ml) Ud) 2.5 mg INH RQ4 PRN PRN Reason: Shortness of Breath Albuterol/Ipratropium (Duoneb 3 Mg/0.5 Mg (3 Ml) Ud) 3 ml INH RQID [facility] Last Admin: 09/18/17 16:01 Dose: 3 ml Ascorbic Acid (Vitamin C 250 Mg Tab) 250 mg PO BID [facility] Last Admin: 09/18/17 09:31 Dose: 250 mg Aspirin (Ecotrin) 81 mg PO DAILY [facility] Last Admin: 09/18/17 09:33 Dose: 81 mg Docusate Sodium (Colace) 100 mg PO BID [facility] Last Admin: 09/18/17 09:33 Dose: 100 mg Enoxaparin Sodium (Lovenox) 40 mg SC DAILY [facility] PRN Reason: Protocol Last Admin: 09/18/17 09:33 Dose: 40 mg Ferrous Sulfate (Feosol) 325 mg PO BID [facility] Last Admin: 02/27/18 09:31 Dose: 325 mg Home Med (Propylene Glycol/Peg 400 [Systane 0.3-0.4% Eye Drops]) 1 drop OU TID [facility] Last Admin: 09/18/17 09:36 Dose: 1 drop Lidocaine (Lidoderm) 1 ea TD DAILY [facility] Last Admin: 09/18/17 09:39 Dose: 1 ea Metoprolol Tartrate (Lopressor) 25 mg PO Q12 [facility] Last Admin: 09/18/17 09:38 Dose: 25 mg Pantoprazole Sodium (Protonix Ec Tab) 40 mg PO DAILY [facility] Last Admin: 09/18/17 09:34 Dose: 40 mg Sucralfate (Carafate Oral Susp) 1 gm PO QID [facility] Last Admin: 09/18/17 09:30 Dose: 1 gm Tamsulosin HCl (Flomax) 0.4 mg PO DAILY [facility] Last Admin: 09/18/17 09:35 Dose: 0.4 mg - Labs Labs: 09/17/17 04:00 09/17/17 05:30 Assessment and Plan - Assessment and Plan (Free Text) Plan: ATTENDING ATTESTATION: Patient was seen and examined. I discussed the case with the resident and agree with the findings and plan as documented in the residents note.
--- NOTE | 2017-09-18 11:20 | CP.PCM.PN ---
Subjective - Date & Time of Evaluation Date of Evaluation: 09/18/17 Time of Evaluation: 11:20 Objective - Vital Signs/Intake and Output Vital Signs (last 24 hours): Temp Pulse Resp BP Pulse Ox 97.5 F L 71 18 138/73 100 09/18/17 07:57 09/18/17 09:38 09/18/17 07:57 09/18/17 09:38 09/18/17 07:57 - Medications Medications: Current Medications Acetaminophen (Tylenol 325mg Tab) 650 mg PO Q6 PRN PRN Reason: Pain, Mild (1-3) Al Hydrox/Mg Hydrox/Simethicone (Maalox Plus 30 Ml) 30 ml PO Q6 PRN PRN Reason: Indigestion / Heartburn Last Admin: 09/16/17 07:50 Dose: 30 ml Albuterol Sulfate (Albuterol 0.083% Inhal Annie (2.5 Mg/3 Ml) Ud) 2.5 mg INH RQ4 PRN PRN Reason: Shortness of Breath Albuterol/Ipratropium (Duoneb 3 Mg/0.5 Mg (3 Ml) Ud) 3 ml INH RQID [facility] Last Admin: 09/18/17 07:35 Dose: 3 ml Ascorbic Acid (Vitamin C 250 Mg Tab) 250 mg PO BID [facility] Last Admin: 09/18/17 09:31 Dose: 250 mg Aspirin (Ecotrin) 81 mg PO DAILY [facility] Last Admin: 09/18/17 09:33 Dose: 81 mg Docusate Sodium (Colace) 100 mg PO BID [facility] Last Admin: 09/18/17 09:33 Dose: 100 mg Enoxaparin Sodium (Lovenox) 40 mg SC DAILY [facility] PRN Reason: Protocol Last Admin: 09/18/17 09:33 Dose: 40 mg Ferrous Sulfate (Feosol) 325 mg PO BID [facility] Last Admin: 09/18/17 09:31 Dose: 325 mg Home Med (Propylene Glycol/Peg 400 [Systane 0.3-0.4% Eye Drops]) 1 drop OU TID [facility] Last Admin: 09/18/17 09:36 Dose: 1 drop Lidocaine (Lidoderm) 1 ea TD DAILY [facility] Last Admin: 09/18/17 09:39 Dose: 1 ea Metoprolol Tartrate (Lopressor) 25 mg PO Q12 [facility] Last Admin: 09/18/17 09:38 Dose: 25 mg Pantoprazole Sodium (Protonix Ec Tab) 40 mg PO DAILY [facility] Last Admin: 09/18/17 09:34 Dose: 40 mg Prednisone (Prednisone Tab) 5 mg PO DAILY [facility] Last Admin: 09/18/17 09:31 Dose: 5 mg Sucralfate (Carafate Oral Susp) 1 gm PO QID [facility] Last Admin: 09/18/17 09:30 Dose: 1 gm Tamsulosin HCl (Flomax) 0.4 mg PO DAILY [facility] Last Admin: 09/18/17 09:35 Dose: 0.4 mg - Labs Labs: 09/17/17 04:00 09/17/17 05:30 Assessment and Plan (1) Idiopathic pulmonary fibrosis Status: Chronic (2) Fall Status: Acute (3) Musculoskeletal pain of right upper extremity Status: Acute (4) Musculoskeletal pain of right lower extremity Status: Acute
[2017-09-19] MEDS: Albuterol-Ipratrop 3 mg / 0.5 (3 ml) UD INH SCH ×3 (07:08→15:11)
--- NOTE | 2017-09-19 08:12 | CP.PCM.PN ---
Subjective - Date & Time of Evaluation Date of Evaluation: 09/19/17 Time of Evaluation: 08:13 - Subjective Subjective: Hospitalist Progress Note- Dr. Foster 82 y.o male seen and evaluated at bedside. Patient is seen resting comfortably in chair, in NAD, and AA0x3. Denies acute overnight events. Patient reports back tenderness has improved. Complains of the same chest tightness. Patient denies n/v/sob/cp/chills/f or calf tenderness. No urinary or problems with BM. Last BM was yesterday evening. Patient reports that his home is still under construction. Objective - Vital Signs/Intake and Output Vital Signs (last 24 hours): Temp Pulse Resp BP Pulse Ox 98.1 F 68 19 135/80 100 09/19/17 07:38 09/19/17 07:38 09/19/17 07:38 09/19/17 07:38 09/19/17 07:38 - Medications Medications: Current Medications Acetaminophen (Tylenol 325mg Tab) 650 mg PO Q6 PRN PRN Reason: Pain, Mild (1-3) Al Hydrox/Mg Hydrox/Simethicone (Maalox Plus 30 Ml) 30 ml PO Q6 PRN PRN Reason: Indigestion / Heartburn Last Admin: 09/16/17 07:50 Dose: 30 ml Albuterol Sulfate (Albuterol 0.083% Inhal Annie (2.5 Mg/3 Ml) Ud) 2.5 mg INH RQ4 PRN PRN Reason: Shortness of Breath Albuterol/Ipratropium (Duoneb 3 Mg/0.5 Mg (3 Ml) Ud) 3 ml INH RQID [facility] Last Admin: 09/19/17 07:08 Dose: 3 ml Ascorbic Acid (Vitamin C 250 Mg Tab) 250 mg PO BID [facility] Last Admin: 09/18/17 17:52 Dose: 250 mg Aspirin (Ecotrin) 81 mg PO DAILY [facility] Last Admin: 09/18/17 09:33 Dose: 81 mg Docusate Sodium (Colace) 100 mg PO BID [facility] Last Admin: 09/18/17 17:52 Dose: 100 mg Enoxaparin Sodium (Lovenox) 40 mg SC DAILY [facility] PRN Reason: Protocol Last Admin: 09/18/17 09:33 Dose: 40 mg Ferrous Sulfate (Feosol) 325 mg PO BID [facility] Last Admin: 09/18/17 17:52 Dose: 325 mg Home Med (Propylene Glycol/Peg 400 [Systane 0.3-0.4% Eye Drops]) 1 drop OU TID [facility] Last Admin: 09/18/17 17:53 Dose: 1 drop Lidocaine (Lidoderm) 1 ea TD DAILY [facility] Last Admin: 09/18/17 09:39 Dose: 1 ea Metoprolol Tartrate (Lopressor) 25 mg PO Q12 [facility] Last Admin: 09/18/17 21:58 Dose: 25 mg Pantoprazole Sodium (Protonix Ec Tab) 40 mg PO DAILY [facility] Last Admin: 09/18/17 09:34 Dose: 40 mg Sucralfate (Carafate Oral Susp) 1 gm PO QID [facility] Last Admin: 09/18/17 21:57 Dose: 1 gm Tamsulosin HCl (Flomax) 0.4 mg PO DAILY [facility] Last Admin: 09/18/17 09:35 Dose: 0.4 mg - Labs Labs: 09/17/17 04:00 09/17/17 05:30 - Constitutional Appears: Well, Non-toxic, No Acute Distress - Head Exam Head Exam: ATRAUMATIC, NORMAL INSPECTION, NORMOCEPHALIC - Eye Exam Eye Exam: EOMI, Normal appearance, PERRL Pupil Exam: NORMAL ACCOMODATION - ENT Exam ENT Exam: Mucous Membranes Moist, Normal Exam - Neck Exam Neck Exam: Normal Inspection - Respiratory Exam Additional comments: Diffuse rales to the lower base of lungs b/l - Cardiovascular Exam Cardiovascular Exam: REGULAR RHYTHM, +S1, +S2 - GI/Abdominal Exam GI & Abdominal Exam: Soft, Normal Bowel Sounds. absent: Tenderness - Extremities Exam Extremities Exam: absent: Calf Tenderness Additional comments: Pitting edema noted to the LE bilaterally, temperature gradient WNL, CFT delayed to digits - Back Exam Back Exam: absent: CVA tenderness (L), CVA tenderness (R) Additional comments: Tenderness with palpation to the mid back - Psychiatric Exam Psychiatric exam: Normal Affect, Normal Mood - Skin Skin Exam: Dry, Intact, Normal Color, Warm Assessment and Plan (1) Contusion of right shoulder Status: Acute (2) Fall Status: Acute (3) Idiopathic pulmonary fibrosis Status: Chronic (4) Gait instability Status: Acute (5) Reflux esophagitis Status: Acute (6) HTN (hypertension) Status: Chronic (7) BPH (benign prostatic hyperplasia) Status: Chronic (8) Dehydration Status: Acute (9) Cachexia Status: Chronic - Assessment and Plan (Free Text) Assessment: 82 yo male with Idiopathic Pulmonary Fibrosis on home O2 admitted after tripping and falling , sustained right shoulder contusion. Complained of some chest tightness on exertion, relieved by Antacids. ( EKG : no change , Trops : neg) PT/OT consulted- rec TOSIN placement however pt's insurance has no Rehab benefit . Patient was kept in the hospital for further Rehab as pt lives alone and his gait is unstable . Plan to maximize PT while inhouse then d/c pt home. Plan: 1. Trip and Fall w/ right shoulder contusion -tripped on oxygen tubings and was unable to get up on his own -CT scan of Head: negative for intracranial bleed -Shoulder Xray: negative for fracture -patient needed therapy because of deconditioning specially after falling at home. 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 Idiopathic Pulmonary Fibrosis with worsening dyspnea -Chest X-ray shows chronic interstitial lung changes, worse at the left base. -c/w oxygen supplement -Duoneb prn for SOB -completed Prednisone -discontinued IV Rocephin and Azithromycin -completed tx w/ Cefdinir PO and Zithromax PO 3. Elevated BUN -no diarrhea, no active bleeding -BUN unproportional to creatinine -ECHO showed normal EF and wall motion with moderate pulmonary hypertension -IVF hydration -BUN improving 4. Gait instability -c/w OT/PT -pt to work with PT/OT while in house 5. Mild tremors likely essential tremors -Neurology Dr. Soto consulted -No Parkinson 6. Reflux Esophagitis -Mylanta 30cc PO q 6hrs prn -Protonix 40mg PO daily -c/w Sucralfate susp 7. Chest Tightness reproducible CP -EKG : no change -analgesics prn -CP also better with antacids 8. Upper back pain/stiffness musculoskeletal -Lidoderm patch 9. HTN -BP stable -continue Metoprolol 25mg PO q 12hrs 10. Mild anemia with iron deficiency -c/w ferrous sulfate 11. BPH -c/w Tamsulosin 12. Cachexia BMI 19 -encourage to increase PO intake 13. DVT prophylaxis on Lovenox
[2017-09-19] MEDS: Enoxaparin 40 mg Syringe SC SCH (09:20)
[2017-09-19] MEDS: Sucralfate 1 gm/10 ml Oral Susp UD PO SCH ×2 (09:20→12:35)
[2017-09-19] MEDS: PEG OU SCH ×2 (09:20→12:35)
[2017-09-19] MEDS: PROPYLENE GLYCOL OU SCH ×2 (09:20→12:35)
[2017-09-19] MEDS: Lidocaine 5% Patch TD SCH (09:22)
[2017-09-19] MEDS: Pantoprazole 40 mg EC Tab PO SCH (12:36)
--- NOTE | 2017-09-19 13:25 | CP.PCM.PN ---
Subjective - Date & Time of Evaluation Date of Evaluation: 09/19/17 Time of Evaluation: 13:23 - Subjective Subjective: Seated in bedside chair, appears to be comfortable. Condition used to have a plate of upper right-sided back pain but less pain in the abdomen. He does still have some discomfort in the epigastric area upon arising from a chair. He continues to have chronic cough which is productive of a small amount of whitish sputum. His vital signs remained stable. Diffuse Velcro type rales are heard throughout all lung erickson, more so the lower lobes. No audible wheezing. No bronchial breathing. Heart sounds are focal to auscultate because of noisy respiration but the rhythm is regular. 1+ dependent edema is noted at both ankles. No Cyanosis. Objective - Vital Signs/Intake and Output Vital Signs (last 24 hours): Temp Pulse Resp BP Pulse Ox 98.1 F 68 19 135/80 100 09/19/17 09:00 09/19/17 09:21 09/19/17 09:00 09/19/17 09:21 09/19/17 09:00 - Medications Medications: Current Medications Acetaminophen (Tylenol 325mg Tab) 650 mg PO Q6 PRN PRN Reason: Pain, Mild (1-3) Al Hydrox/Mg Hydrox/Simethicone (Maalox Plus 30 Ml) 30 ml PO Q6 PRN PRN Reason: Indigestion / Heartburn Last Admin: 09/16/17 07:50 Dose: 30 ml Albuterol Sulfate (Albuterol 0.083% Inhal Annie (2.5 Mg/3 Ml) Ud) 2.5 mg INH RQ4 PRN PRN Reason: Shortness of Breath Albuterol/Ipratropium (Duoneb 3 Mg/0.5 Mg (3 Ml) Ud) 3 ml INH RQID [facility] Last Admin: 09/19/17 11:18 Dose: 3 ml Ascorbic Acid (Vitamin C 250 Mg Tab) 250 mg PO BID [facility] Last Admin: 09/19/17 09:21 Dose: 250 mg Aspirin (Ecotrin) 81 mg PO DAILY [facility] Last Admin: 09/19/17 09:22 Dose: 81 mg Docusate Sodium (Colace) 100 mg PO BID [facility] Last Admin: 09/19/17 09:21 Dose: 100 mg Enoxaparin Sodium (Lovenox) 40 mg SC DAILY [facility] PRN Reason: Protocol Last Admin: 09/19/17 09:20 Dose: 40 mg Ferrous Sulfate (Feosol) 325 mg PO BID [facility] Last Admin: 09/19/17 09:22 Dose: 325 mg Home Med (Propylene Glycol/Peg 400 [Systane 0.3-0.4% Eye Drops]) 1 drop OU TID [facility] Last Admin: 09/19/17 12:35 Dose: 1 drop Lidocaine (Lidoderm) 1 ea TD DAILY [facility] Last Admin: 09/19/17 09:22 Dose: 1 ea Metoprolol Tartrate (Lopressor) 25 mg PO Q12 [facility] Last Admin: 09/19/17 09:21 Dose: 25 mg Pantoprazole Sodium (Protonix Ec Tab) 40 mg PO DAILY [facility] Last Admin: 09/19/17 12:36 Dose: 40 mg Sucralfate (Carafate Oral Susp) 1 gm PO QID [facility] Last Admin: 09/19/17 12:35 Dose: 1 gm Tamsulosin HCl (Flomax) 0.4 mg PO DAILY [facility] Last Admin: 09/19/17 09:22 Dose: 0.4 mg - Labs Labs: 09/17/17 04:00 09/17/17 05:30 Assessment and Plan (1) Idiopathic pulmonary fibrosis Status: Chronic (2) Fall Status: Acute (3) Musculoskeletal pain of right upper extremity Status: Acute (4) Musculoskeletal pain of right lower extremity Status: Acute
[2017-09-19 16:07] VITALS: BP 125/64; PULSE 75; RESP 20; TEMP 97.8; O2SAT 98
--- NOTE | 2017-09-19 16:12 | CT ---
PROCEDURE: CT Chest without contrast HISTORY: pulmonary fibrosis COMPARISON: 01/15/2015 TECHNIQUE: Contiguous axial images were obtained through the chest without intravenous contrast enhancement. Sagittal and coronal reconstructions were performed. Radiation dose (DLP): 360 mGy-cm. This CT exam was performed using one or more of the following dose reduction techniques: Automated exposure control, adjustment of the mA and/or kV according to patient size, and/or use of iterative reconstruction technique. FINDINGS: LUNGS: The extensive peripheral honeycombing and traction bronchiectasis - end-stage interstitial fibrosis changes are again noted and similar. The prior right sided chest tube is been removed. Large bulla are similar. airway clear. MEDIASTINUM: Thoracic aorta is ectatic as before. . No aneurysm. Normal sized heart. Main pulmonary artery unremarkable. No vascular congestion. No lymphadenopathy. PLEURA: No pleural fluid. No pneumothorax. BONES: No fracture. No destructive lesion. UPPER ABDOMEN: Grossly unremarkable. OTHER FINDINGS: None. IMPRESSION: End-stage interstitial fibrosis -honeycombing - prior right sided chest tube has been removed the prior right sided pleural thickening fluid is no longer present
--- NOTE | 2017-09-19 16:29 | CP.PCM.DIS ---
Provider - Provider Date of Admission: 09/08/17 09:47 Attending physician: Chalo Palomo Primary care physician: Dr. Niño Consults: Dr. Niño- pulmonary Dr. Soto- neurology Dr. Boland- gastroenterology Time Spent in preparation of Discharge (in minutes): 25 Hospital Course - Lab Results Lab Results: Micro Results 09/06/17 05:37 Blood-Venous Blood Culture - Final NO GROWTH AFTER 5 DAYS 09/06/17 05:37 Blood-Venous Gram Stain - Final TEST NOT PERFORMED Most Recent Lab Values WBC 10.4 K/uL (4.8-10.8) 09/17/17 04:00 RBC 3.55 Mil/uL (4.40-5.90) L 09/17/17 04:00 Hgb 11.1 g/dL (12.0-18.0) L 09/17/17 04:00 Hct 33.9 % (35.0-51.0) L 09/17/17 04:00 MCV 95.3 fl (80.0-94.0) H 09/17/17 04:00 MCH 31.2 pg (27.0-31.0) H 09/17/17 04:00 MCHC 32.7 g/dL (33.0-37.0) L 09/17/17 04:00 RDW 13.7 % (11.5-14.5) 09/17/17 04:00 Plt Count 186 K/uL (130-400) 09/17/17 04:00 MPV 9.1 fl (7.2-11.7) 09/09/17 10:02 Neut % (Auto) 81.8 % (50.0-75.0) H 09/09/17 10:02 Lymph % (Auto) 11.0 % (20.0-40.0) L 09/09/17 10:02 Sauk % (Auto) 6.9 % (0.0-10.0) 09/09/17 10:02 Eos % (Auto) 0.2 % (0.0-4.0) 09/09/17 10:02 Baso % (Auto) 0.1 % (0.0-2.0) 09/09/17 10:02 Neut # (Auto) 9.7 K/uL (1.8-7.0) H 09/09/17 10:02 Lymph # (Auto) 1.3 K/uL (1.0-4.3) 09/09/17 10:02 Sauk # (Auto) 0.8 K/uL (0.0-0.8) 09/09/17 10:02 Eos # (Auto) 0.0 K/uL (0.0-0.7) 09/09/17 10:02 Baso # (Auto) 0.0 K/uL (0.0-0.2) 09/09/17 10:02 Neutrophils % (Manual) 93 % (42-75) H 09/06/17 10:58 Band Neutrophils % 1 % (0-2) 09/06/17 00:30 Lymphocytes % (Manual) 5 % (20-50) L 09/06/17 10:58 Reactive Lymphs % 1 % (0-0) H 09/06/17 00:30 Monocytes % (Manual) 2 % (0-10) 09/06/17 10:58 Eosinophils % (Manual) 1 % (0-7) 09/06/17 00:30 Platelet Estimate Normal (NORMAL) 09/06/17 10:58 Hypochromasia (manual) Slight 09/06/17 10:58 Anisocytosis (manual) Slight 09/06/17 00:30 Macrocytosis (manual) Slight 09/06/17 10:58 Ovalocytes Slight 09/06/17 10:58 Stomatocytes Slight 09/06/17 00:30 pCO2 52 mm/Hg (35-45) H 09/13/17 08:05 pO2 133 mm/Hg (80-100) H 09/13/17 08:05 HCO3 29.7 mmol/L (21-28) H 09/13/17 08:05 ABG pH 7.40 (7.35-7.45) 09/13/17 08:05 ABG Total CO2 33.8 mmol/L (22-28) H 09/13/17 08:05 ABG O2 Saturation 99.3 % (95-98) H 09/13/17 08:05 ABG O2 Content 16.2 ML/dL (15-23) 09/13/17 08:05 ABG Base Excess 6.2 mmol/L (-2.0-3.0) H 09/13/17 08:05 ABG Hemoglobin 11.9 g/dL (11.7-17.4) 09/13/17 08:05 ABG Carboxyhemoglobin 0.8 % (0.5-1.5) 09/13/17 08:05 POC ABG HHb (Measured) 0.7 % (0.0-5.0) 09/13/17 08:05 ABG Methemoglobin 2.8 % (0.0-3.0) 09/13/17 08:05 ABG O2 Capacity 16.3 mL/dL (16-24) 09/13/17 08:05 Ryan Test Yes 09/13/17 08:05 VBG pH 7.36 (7.32-7.43) 09/06/17 03:12 VBG pCO2 53 mmHg (40-60) 09/06/17 03:12 VBG HCO3 26.8 mmol/L 09/06/17 03:12 VBG Total CO2 31.5 mmol/L (22-28) H 09/06/17 03:12 VBG O2 Sat (Calc) 82.6 % (40-65) H 09/06/17 03:12 VBG Base Excess 3.2 mmol/L (0.0-2.0) H 09/06/17 03:12 VBG Potassium 4.0 mmol/L (3.6-5.2) 09/06/17 03:12 A-a O2 Difference 16.0 mm/Hg 09/13/17 08:05 Hgb O2 Saturation 95.7 % (95.0-98.0) 09/13/17 08:05 Sodium 137.0 mmol/L (132-148) 09/06/17 03:12 Chloride 101.0 mmol/L (98-107) 09/06/17 03:12 Glucose 132 mg/dL (75-110) H 09/06/17 03:12 Lactate 1.1 mmol/L (0.7-2.1) 09/06/17 03:12 FiO2 30.0 % 09/13/17 08:05 Blood Gas Comments 2ll/m nc,rr 09/13/17 08:05 Crit Value Read Back N 09/13/17 08:05 Sodium 136 mmol/l (132-148) 09/17/17 05:30 Potassium 4.5 MMOL/L (3.6-5.0) 09/17/17 05:30 Chloride 96 mmol/L (98-107) L 09/17/17 05:30 Carbon Dioxide 31 mmol/L (22-30) H 09/17/17 05:30 Anion Gap 14 (10-20) 09/17/17 05:30 BUN 38 mg/dl (9-20) H 09/17/17 05:30 Creatinine 1.0 mg/dl (0.8-1.5) 09/17/17 05:30 Est GFR ( Amer) > 60 09/17/17 05:30 Est GFR (Non-Af Amer) > 60 09/17/17 05:30 POC Glucose (mg/dL) 186 mg/dL (65-110) H 09/07/17 09:50 Random Glucose 86 mg/dL (75-110) 09/17/17 05:30 Calcium 8.6 mg/dL (8.4-10.2) 09/17/17 05:30 Iron 26 ug/dL (49-181) L 09/06/17 10:58 TIBC 249 ug/dL (250-450) L 09/06/17 10:58 % Saturation 10 % (20-55) L 09/06/17 10:58 Total Bilirubin 0.4 mg/dl (0.2-1.3) 09/06/17 00:30 AST 36 U/L (17-59) 09/06/17 00:30 ALT 30 U/L (21-72) 09/06/17 00:30 Alkaline Phosphatase 65 U/L (38-126) 09/06/17 00:30 Troponin I < 0.0120 ng/mL (0.00-0.120) 09/16/17 10:30 NT-Pro-B Natriuret Pep 2080 pg/ml (0-900) H 09/06/17 10:58 Total Protein 8.3 G/DL (6.3-8.2) H 09/06/17 00:30 Albumin 3.9 g/dL (3.5-5.0) 09/06/17 00:30 Globulin 4.4 gm/dL (2.2-3.9) H 09/06/17 00:30 Albumin/Globulin Ratio 0.9 (1.0-2.1) L 09/06/17 00:30 Vitamin B12 455 pg/mL (239-931) 09/06/17 10:58 Folate > 20.0 ng/mL 09/06/17 10:58 Venous Blood Potassium 4.0 mmol/L (3.6-5.2) 09/06/17 03:12 Influenza Typ A,B (EIA) Negative for flu a/b (NEGATIVE) 09/06/17 00:30 - Hospital Course Hospital Course: 82 y.o male with PMHx of interstitial lung disease on home O2, pneumothorax and anemia, brought to the ED 2hrs after tripping and falling on 09/06/17. In the ED, patient complained of right shoulder pain and chest tightness with worsening SOB and was admitted . CT Head- no acute intracranial hemmorhage, midline shift or mass effect noted. EKG- wnl. Troponin x 3- negative. Chest X- ray shows chronic interstitial lung changes, worse at the left base. Right shoulder X-ray- no fractures. Pulmonary consult- Dr. Niño recommended supplement oxygen, Albuterol/ Ipratropium, IV Methylprednisolone. Patient started on Azithromycin and Ceftriaxone due to worsening SOB and interstitial lung disease and was switched to PO Cefdinir 300mg PO BID and Zithromax 250mg PO daily. PO Cefinir discontinued on 09/11/17 and IV methyloprednisone tapered down per pulmonary recommendations. During hospital stay patient had [employer] called secondary to chest tightness while consuming breakfast. Reproducible at substernal. EKG performed- showed normal sinus rhythm with no acute changes. Troponin negative. Chest pain resolved a and [employer] was called off. This was relieved with antacids and thought to be due to dyspepsia. Patient's leukocytosis (on 09/07/17) most likely secondary to steroid therapy. During hospital stay, patient has improved clinically and hemodynamically stable. Today, follow up CT chest was performed which showed end stage IPF but no acute changes. He is being discharged to [facility] in stable condition. Plan: 1. Trip and Fall w/ right shoulder contusion -tripped on oxygen tubings and was unable to get up on his own -CT scan of Head: negative for intracranial bleed -Shoulder Xray: negative for fracture -patient needed therapy because of deconditioning specially after falling at home. Also caregiver services home is hospitalized and will not be available to assist him - For discharge to [facility] today. 2. Idiopathic Pulmonary Fibrosis with worsening dyspnea -Chest X-ray shows chronic interstitial lung changes, worse at the left base. -c/w oxygen supplement -Duoneb prn for SOB -completed Prednisone -discontinued IV Rocephin and Azithromycin -completed tx w/ Cefdinir PO and Zithromax PO 3. Elevated BUN -no diarrhea, no active bleeding -BUN unproportional to creatinine -ECHO showed normal EF and wall motion with moderate pulmonary hypertension -IVF hydration -BUN improving 4. Gait instability -c/w OT/PT -pt to work with PT/OT while in house 5. Mild tremors likely essential tremors -Neurology Dr. Soto consulted -No Parkinson 6. Reflux Esophagitis -Mylanta 30cc PO q 6hrs prn -Protonix 40mg PO daily -c/w Sucralfate susp 7. Chest Tightness reproducible CP -EKG : no change -analgesics prn -CP also better with antacids 8. Upper back pain/stiffness musculoskeletal -Lidoderm patch 9. HTN -BP stable -continue Metoprolol 25mg PO q 12hrs 10. Mild anemia with iron deficiency -c/w ferrous sulfate 11. BPH -c/w Tamsulosin 12. Cachexia BMI 19 -encourage to increase PO intake 13. DVT prophylaxis on Lovenox Discharge Exam - Additional Findings Additional findings: Physical exam: Constitutional- cooperative, awake, alert Head- NCAT, PERRL Eye- PERRL, EOMI ENT- normal exam, MMM. Neck- normal inspection, supple, no JVD Respiratory- CTAB, no wheezes, rhonchi. Diffuse rales to the lower base of lungs bilaterally Cardiovascular- RRR, +S1, +S2 no MRG GI/Abdominal- normal bowel sounds, soft, no mass, no hsm Skin- warm, dry Extremities Exam- +1 bilateral lower extremity edema Neurological Exam- alert, awake, oriented Psych- normal mood, normal affect Discharge Plan - Discharge Medications Prescriptions: Methylprednisolone [Medrol Dose Pack (21 tabs)] 4 mg PO ASDIR #21 mg - Follow Up Plan Condition: STABLE Disposition: REHAB FACILITY/REHAB UNIT Instructions: Preventing Falls in the Older Adult, Shortness of Breath (Dyspnea ) (DC), Preventing Falls, Community-Acquired Pneumonia, Adult (DC), Idiopathic Pulmonary Fibrosis (DC) Referrals: Adrien Boland MD, PhD [Staff Provider] - Brodie Soto MD [Staff Provider] - Ephraim Niño MD [Family Provider] -
--- NOTE | 2017-09-20 09:13 | CP.PCM.PN ---
Subjective - Date & Time of Evaluation Date of Evaluation: 10/17/17 Time of Evaluation: 09:00 - Subjective Subjective: doing well Objective - Vital Signs/Intake and Output Vital Signs (last 24 hours): Temp Pulse Resp BP Pulse Ox 97.8 F 75 20 125/64 98 09/19/17 16:06 09/19/17 16:06 09/19/17 16:06 09/19/17 16:06 09/19/17 16:06 - Labs Labs: 09/17/17 04:00 09/17/17 05:30 - Head Exam Head Exam: NORMOCEPHALIC - Neck Exam Neck Exam: Normal Inspection - Respiratory Exam Respiratory Exam: NORMAL BREATHING PATTERN - Cardiovascular Exam Cardiovascular Exam: REGULAR RHYTHM - GI/Abdominal Exam GI & Abdominal Exam: Soft, Normal Bowel Sounds Assessment and Plan - Assessment and Plan (Free Text) Assessment: 82 yo male with gerd doing well dc planning
== END 2017-09-19 16:00 | DRG 605 ==
LOC: H.ER 22:37 → H.ERHOLD 09-06 03:51 → H.MEDSURG1 09-06 07:08 → OBSVTOIN 09-08 09:47
PROVIDERS: ADMIT Internal Medicine; ATTEND Internal Medicine
DX: S40.011A Contusion of right shoulder, initial encounter (principal); R64 Cachexia; J84.112 Idiopathic pulmonary fibrosis; I27.20 Pulmonary hypertension, unspecified; Z99.81 Dependence on supplemental oxygen; Z68.1 Body mass index [BMI] 19.9 or less, adult; E86.0 Dehydration; D50.9 Iron deficiency anemia, unspecified; G25.0 Essential tremor; I10 Essential (primary) hypertension; K21.0 Gastro-esophageal reflux disease with esophagitis; S20.211A Contusion of right front wall of thorax, initial encounter; W01.0XXA Fall on same level from slipping, tripping and stumbling without subsequent striking against object, initial encounter; Z91.013 Allergy to seafood; N40.0 Benign prostatic hyperplasia without lower urinary tract symptoms; M79.604 Pain in right leg; R26.2 Difficulty in walking, not elsewhere classified; M54.6 Pain in thoracic spine; R07.89 Other chest pain; J44.9 Chronic obstructive pulmonary disease, unspecified

== ENCOUNTER 2018-06-25 19:37 | Inpatient (IN) | payer OTHER, MEDICARE ==
[2018-06-25 19:37] VITALS: PULSE 143; BMI 19.7
[2018-06-25] MEDS ORDERED: Albuterol-Ipratrop 3 mg / 0.5 (3 ml) UD INH STA (20:40)
[2018-06-25 21:07] LABS: BASO % 0.1 % (0.0-2.0); EOS % 0.1 % (0.0-4.0); HEMOGLOBIN 11.4 g/dL (12.0-18.0); LYMPH # 0.2 K/uL (1.0-4.3); LYMPH % 2.5 % (20.0-40.0); MEAN CELL VOLUME 92.9 fl (80.0-94.0); MEAN CORPUSCULAR HEMOGLOBIN 29.9 pg (27.0-31.0); MEAN CORPUSCULAR HGB CONC 32.1 g/dL (33.0-37.0); MEAN PLATELET VOLUME 8.8 fl (7.2-11.7); MONO # 0.5 K/uL (0.0-0.8); MONO % 5.7 % (0.0-10.0); NEUT # 7.9 K/uL (1.8-7.0); NEUT % 91.6 % (50.0-75.0); NRBC % 0.1 % (0.0-0.0); PLATELET COUNT 249 K/uL (130-400); RBC 3.83 Mil/uL (4.40-5.90); RED CELL DISTRIBUTION WIDTH 13.4 % (11.5-14.5); WHITE BLOOD COUNT 8.6 K/uL (4.8-10.8)
[2018-06-25 21:13] LABS: ALB/GLOB RATIO 0.9 (1.0-2.1); ALBUMIN 3.5 g/dL (3.5-5.0); ALT/SGPT 30 U/L (21-72); AST/SGOT 36 U/L (17-59); BLOOD UREA NITROGEN 25 mg/dl (9-20); CALCIUM 9.1 mg/dL (8.4-10.2); GFR NON-AFRICAN AMERICAN 53
[2018-06-25] MEDS ORDERED: Piperacillin/Tazobact 3.375 GM in Sodium Chloride 0.9% 100 ML IVPB STA (21:47)
[2018-06-25] MEDS ORDERED: Piperacillin/Tazobact 3.375 gm Inj IVPB ONE (22:09)
[2018-06-25] MEDS ORDERED: Vancomycin 1 g Inj ONE (22:09)
--- NOTE | 2018-06-25 22:13 | ED PDOC ---
HPI: SOB/CHF/COPD Time Seen by Provider: 06/25/18 20:00 Chief Complaint (Nursing): Shortness Of Breath Chief Complaint (Provider): Shortness Of Breath History Per: Patient History/Exam Limitations: no limitations Onset/Duration Of Symptoms: Persistent (x1 week) Current Symptoms Are (Timing): Still Present Additional Complaint(s): 83 year old male with pmHx of COPD and HTN, pulmonary fibrosis, arrives to ED for an evaluation of shortness of breath for 1 week. He receives O2 via nasal cannula home 24-7. Patient states he was visiting friends when they noted he had difficulty breath with more swelling than usual his his legs, thus, prompting ED visit. He denies any fever or chills. Pulm: Dr. Ephraim Niño Past Medical History Reviewed: Historical Data, Nursing Documentation, Vital Signs Vital Signs: Last Vital Signs Temp 100.1 F H 06/25/18 19:47 Pulse 111 H 06/25/18 19:47 Resp 46 H 06/25/18 19:47 BP 170/66 H 06/25/18 19:47 Pulse Ox 100 06/25/18 19:47 - Medical History PMH: Anemia, COPD, Fractures (right hip fracture ), HTN, Pneumonia, Pneumothorax Denies: Alzheimer's Disease, Asthma, Atrial Fibrillation, Bronchitis, CAD, Cardia Arrhythmia, CHF, Crohn's Disease, Dementia, Diverticulitis, Emphysema, Gastritis, Gall Bladder Disease, HIV, Hypercholesterolemia, Hyperthyroidism, Hypothyroidism, Kidney Stones, Migraine, Mitral Valve Prolapse, Multiple Sclerosis, Pancreatitis, Parkinson's Disease, Peripheral Edema, Pulmonary Embolism, Chronic Kidney Disease, Seizures, Sickle Cell Disease, Sleep Apnea, TIA - Surgical History Surgical History: No Surg Hx Denies: Pacemaker - Family History Family History: States: Unknown Family Hx - Social History Current smoker - smoking cessation education provided: No Ex-Smoker (has not smoked in the last 12 months): No Alcohol: None Drugs: Denies - Home Medications Home Medications: Ambulatory Orders Medication Instructions Recorded RX: Ascorbic Acid [Vitamin C 250 250 mg PO BID #0 tab 01/20/15 mg Tab] RX: Metoprolol Tartrate [Lopressor] 25 mg PO Q12 #0 tab 01/20/15 RX: Tamsulosin [Flomax] 0.4 mg PO DAILY #0 cap 01/20/15 Pantoprazole Sodium [Protonix] 40 mg PO DAILY 12/04/18 Triamterene/Hydrochlorothiazid 1 cap PO DAILY 06/25/18 [Triamterene-Hydrochlorothiazide 25 mg-37.5 mg] - Allergies Allergies/Adverse Reactions: Allergies Allergy/AdvReac Type Severity Reaction Status Date / Time shellfish Allergy SHORTNESS Uncoded 06/25/18 19:47 OF BREATH Review of Systems ROS Statement: Except As Marked, All Systems Reviewed And Found Negative Constitutional: Negative for: Fever, Chills Respiratory: Positive for: Shortness of Breath Musculoskeletal: Positive for: Other (chronic bilateral leg swelling) Physical Exam - Reviewed Nursing Documentation Reviewed: Yes Vital Signs Reviewed: Yes - Physical Exam Appears: Positive for: No Acute Distress Head Exam: Positive for: ATRAUMATIC, NORMAL INSPECTION, NORMOCEPHALIC Skin: Positive for: Normal Color Eye Exam: Positive for: Normal appearance, EOMI, PERRL ENT: Positive for: Normal ENT Inspection. Negative for: Pharyngeal Erythema Neck: Positive for: Normal, Supple Cardiovascular/Chest: Positive for: Regular Rate, Rhythm Respiratory: Positive for: Rales (diffusely), Rhonchi (diffusely). Negative for: Respiratory Distress Gastrointestinal/Abdominal: Positive for: Normal Exam Extremity: Positive for: Pedal Edema (2+ pitting bilaterally) Neurologic/Psych: Positive for: Alert, Oriented - Laboratory Results Result Diagrams: 06/27/18 05:00 06/27/18 05:00 - ECG O2 Sat by Pulse Oximetry: 100 (RA) Pulse Ox Interpretation: Normal Medical Decision Making Medical Decision Making: Initial Impression: shortness of breath, rule out COPD exacerbation vs pneumonia Initial Plan: * Labs * CXR * Tylenol 650mg PO * Duoneb 3ml INH * Solu-medrol 125mg IVP * Influenza A B Time: 2138 --Patient will be admitted to hospital for (+) right sided pneumonia noted on CXR. Negative for influenza. he requested urine strep and legionella Case discussed with hospitalist, Dr. Kruger, who accepts patient for telemetry. Scribe Attestation: Documented by Karissa Carter, acting as a scribe for Elian Siegel MD. Provider Scribe Attestation: All medical record entries made by the Scribe were at my direction and personally dictated by me. I have reviewed the chart and agree that the record accurately reflects my personal performance of the history, physical exam, medical decision making, and the department course for this patient. I have also personally directed, reviewed, and agree with the discharge instructions and disposition. Disposition - Clinical Impression Clinical Impression: COPD (chronic obstructive pulmonary disease), Idiopathic pulmonary fibrosis - Patient ED Disposition Is Patient to be Admitted: Yes Counseled Patient/Family Regarding: Studies Performed, Diagnosis - Disposition Disposition Time: 21:40 Condition: GUARDED
[2018-06-25 22:28] LABS: BANDS 2 % (0-2); LYMPHOCYTE 5 % (20-50); MONOCYTE 6 % (0-10); NEUTROPHIL 87 % (42-75); TOTAL CELLS COUNTED 100
[2018-06-25 22:29] LABS: ANISOCYTOSIS SLIGHT; HYPOCHROMIC SLIGHT; PLATELET ESTIMATE NORMAL (NORMAL)
[2018-06-26 00:11] LABS: VENOUS BLOOD GAS BASE EXCESS 4.8 mmol/L (0.0-2.0); VENOUS BLOOD GAS PCO2 45 mmHg (40-60); VENOUS BLOOD GAS PO2 69 mm/Hg (30-55); VENOUS BLOOD PH 7.43 (7.32-7.43)
[2018-06-26] MEDS ORDERED: Albuterol-Ipratrop 3 mg / 0.5 (3 ml) UD INH STA (00:12)
--- NOTE | 2018-06-26 00:30 | CP.PCM.HP ---
History of Present Illness - History of Present Illness History of Present Illness: History obtained from the patient and review of the medical records CC: worsening dyspnea HPI: 83 years old male, living alone, with hx of Interstitial lung disease on home Oxygen, Pneumothorax, HTN and Anemia presented to ED with complaints of worsening shortness of breath x 2 weeks associated with mild cough. Patient reports for last 2 weeks, he feels short of breath with very minimal activities despite using home oxygen. Reports feeling chills but denies any fever at home. Reports swelling of left lower leg for over a year. Patient uses 2 pillows to sleep at night (at baseline). Denies nausea, vomiting, headache or dizziness. Denies any recent fall or injury. PMD/Mid Level Project Manager: Dr. Niño PMH: Right Pneumothorax' A Fiv; Anemia; Interstitial Lung disease; HTTN; BPH; Right hip fracture; COPD PSH: Bilateral Cataract surgery; Right Hip ORIF. Right Chest Tube 12/28/14 SH: Never Smoked: No ETOH use; No illegal drug Use; Lives alone with Aide visiting; Walks with 4 legged Cane FH: Brother with Lung problem on home Oxygen Allergies: NKDA, Shellfish Medication: Reviewed Code status: Full code Next of Kin: Jordon Clemens (nephew) [phone] Present on Admission - Present on Admission Any Indicators Present on Admission: No Review of Systems - Review of Systems Review of Systems: all 12 systems reviewed and negative except as mentioned in HPI Past Patient History - Infectious Disease Hx of Infectious Diseases: None - Tetanus Immunizations Tetanus Immunization: Unknown - Past Medical History & Family History Past Medical History?: Yes - Past Social History Alcohol: None Drugs: Denies - CARDIAC Hx Atrial Fibrillation: No Hx Cardia Arrhythmia: No Hx Congestive Heart Failure: No Hx Hypercholesterolemia: No Hx Hypertension: Yes Hx Mitral Valve Prolapse: No Hx Pacemaker: No Hx Peripheral Edema: No - PULMONARY Hx Asthma: No Hx Bronchitis: No Hx Chronic Obstructive Pulmonary Disease (COPD): Yes Hx Emphysema: No Hx Pneumonia: Yes Hx Pulmonary Embolism: No Hx Sleep Apnea: No - NEUROLOGICAL Hx Alzheimer's Disease: No Hx Dementia: No Hx Migraine: No Hx Multiple Sclerosis: No Hx Parkinson's Disease: No Hx Seizures: No Hx Transient Ischemic Attacks (TIA): No - HEENT Hx Cataracts: Yes - RENAL Hx Chronic Kidney Disease: No Hx Kidney Stones: No - ENDOCRINE/METABOLIC Hx Hyperthyroidism: No Hx Hypothyroidism: No - HEMATOLOGICAL/ONCOLOGICAL Hx Anemia: Yes Hx Human Immunodeficiency Virus (HIV): No Hx Sickle Cell Disease: No - INTEGUMENTARY Hx Dermatological Problems: No - MUSCULOSKELETAL/RHEUMATOLOGICAL Hx Fractures: Yes (right hip fracture ) - GASTROINTESTINAL Hx Crohn's Disease: No Hx Diverticulitis: No Hx Gall Bladder Disease: No Hx Gastritis: No Hx Pancreatitis: No - GENITOURINARY/GYNECOLOGICAL Hx Prostate Problems: Yes (BPH) - PSYCHIATRIC Hx Psychophysiologic Disorder: No Hx Substance Use: No - SURGICAL HISTORY Hx Cataract Extraction: Yes Hx Joint Replacement: Yes (Hip) Other/Comment: Right hip fracture ORIF. Right spontaneous pneumothorax with VATS - ANESTHESIA Hx Anesthesia: Yes Hx Anesthesia Reactions: No Hx Malignant Hyperthermia: No Meds Allergies/Adverse Reactions: Allergies Allergy/AdvReac Type Severity Reaction Status Date / Time shellfish Allergy SHORTNESS Uncoded 06/25/18 19:47 OF BREATH Physical Exam - Constitutional Appears: Non-toxic, Chronically Ill, Other (looks uncomfortable, on [place] oxygen) - Head Exam Head Exam: ATRAUMATIC, NORMAL INSPECTION, NORMOCEPHALIC - Eye Exam Eye Exam: Normal appearance - ENT Exam ENT Exam: Mucous Membranes Moist - Neck Exam Neck exam: Positive for: Normal Inspection. Negative for: Meningismus - Respiratory Exam Respiratory Exam: Prolonged Expiratory Phase, NORMAL BREATHING PATTERN. absent: Accessory Muscle Use, Respiratory Distress Additional comments: B/L diffuse rales and crackles. +bronchial breath sounds - Cardiovascular Exam Cardiovascular Exam: REGULAR RHYTHM, +S1, +S2 - GI/Abdominal Exam GI & Abdominal Exam: Normal Bowel Sounds, Soft. absent: Tenderness - Extremities Exam Extremities exam: Positive for: normal capillary refill, pedal edema (Left 2+), pedal pulses present. Negative for: calf tenderness - Neurological Exam Neurological exam: Alert, Oriented x3 - Psychiatric Exam Psychiatric exam: Normal Affect, Normal Mood - Skin Skin Exam: Dry, Normal Color, Warm Results - Vital Signs Recent Vital Signs: Last Vital Signs Temp 100.1 F H 06/25/18 19:47 Pulse 118 H 06/25/18 22:05 Resp 30 H 06/25/18 22:05 BP 157/81 H 06/25/18 22:05 Pulse Ox 100 06/25/18 22:19 - Labs Result Diagrams: 06/25/18 20:59 06/25/18 20:59 Labs: Laboratory Results - last 24 hr 06/25/18 06/25/18 06/25/18 20:59 20:59 21:13 WBC 8.6 RBC 3.83 L Hgb 11.4 L Hct 35.6 MCV 92.9 D MCH 29.9 MCHC 32.1 L RDW 13.4 Plt Count 249 MPV 8.8 Neut % (Auto) 91.6 H Lymph % (Auto) 2.5 L [place] % (Auto) 5.7 Eos % (Auto) 0.1 Baso % (Auto) 0.1 Neut # (Auto) 7.9 H Lymph # (Auto) 0.2 L [place] # (Auto) 0.5 Eos # (Auto) 0.0 Baso # (Auto) 0.0 Neutrophils % (Manual) 87 H Band Neutrophils % 2 Lymphocytes % (Manual) 5 L Monocytes % (Manual) 6 Platelet Estimate Normal Hypochromasia (manual) Slight Anisocytosis (manual) Slight pO2 VBG pH VBG pCO2 VBG HCO3 VBG Total CO2 VBG O2 Sat (Calc) VBG Base Excess VBG Potassium A-a O2 Difference Glucose Lactate FiO2 Sodium 141 Potassium 3.9 Chloride 102 Carbon Dioxide 31 H Anion Gap 12 BUN 25 H Creatinine 1.3 Est GFR ( Amer) > 60 Est GFR (Non-Af Amer) 53 Random Glucose 143 H Calcium 9.1 Total Bilirubin 0.5 AST 36 ALT 30 Alkaline Phosphatase 97 NT-Pro-B Natriuret Pep Total Protein 7.5 Albumin 3.5 Globulin 4.0 H Albumin/Globulin Ratio 0.9 L Venous Blood Potassium Influenza Typ A,B (EIA) Negative for flu a/b 06/25/18 06/26/18 21:15 00:08 WBC RBC Hgb Hct MCV MCH MCHC RDW Plt Count MPV Neut % (Auto) Lymph % (Auto) [place] % (Auto) Eos % (Auto) Baso % (Auto) Neut # (Auto) Lymph # (Auto) [place] # (Auto) Eos # (Auto) Baso # (Auto) Neutrophils % (Manual) Band Neutrophils % Lymphocytes % (Manual) Monocytes % (Manual) Platelet Estimate Hypochromasia (manual) Anisocytosis (manual) pO2 69 H VBG pH 7.43 VBG pCO2 45 VBG HCO3 28.6 VBG Total CO2 31.3 H VBG O2 Sat (Calc) 98.6 H VBG Base Excess 4.8 H VBG Potassium 3.6 A-a O2 Difference 24.0 Glucose 178 H Lactate 1.6 FiO2 21.0 Sodium 141.0 Potassium Chloride 106.0 Carbon Dioxide Anion Gap BUN Creatinine Est GFR ( Amer) Est GFR (Non-Af Amer) Random Glucose Calcium Total Bilirubin AST ALT Alkaline Phosphatase NT-Pro-B Natriuret Pep 1300 H Total Protein Albumin Globulin Albumin/Globulin Ratio Venous Blood Potassium 3.6 Influenza Typ A,B (EIA) Assessment & Plan - Assessment and Plan (Free Text) Assessment: 83 years old male, living alone, with hx of Interstitial lung disease on home Oxygen, Pneumothorax and Anemia presented to ED with complaints of worsening shortness of breath x 2 weeks associated with mild cough. Patient is admitted for worsening dyspnea and suspected pneumonia. Plan: Interstitial Lung disease on home Oxygen. Now with worsening dyspnea and cough r/o Pneumonia -afebrile, tachycardic -wbc 8.6 -Consult Dr Niño pulmonary -s/p Methylprednisolone 125mg IVP in ED -s/p Vanco and Zosyn in ED -c/w Albuterol/Ipratropium q6h prn -Empiric antibiotics: - Azithromycin and Ceftriaxone -NC O2 prn -f/u AM labs HTN Uncontrolled - c/w Metoprolol - Follow blood pressures Left Leg edema -ProBNP 1300 -ECHO on 08/2017 had normal EF -s/p lasix 40 mg ivpb Mild anemia with iron deficiency -c/w ferrous sulfate BPH -c/w Tamsulosin Dehydration -encourage to increase PO intake DVT prophylaxis -Lovenox 40 mg SC GI prophylaxis -Protonix 40 mg po daily Code Status -Full code Patient seen, examined and plan d/w with Dr. Slick Hilton, pgy-2
[2018-06-26] MEDS: MethylPREDNISolone 40 mg Vial IVP SCH ×4 (01:30→23:59)
[2018-06-26] MEDS ORDERED: MethylPREDNISolone 40 mg Vial ONE (01:39)
[2018-06-26 05:18] LABS: BASO % 0.1 % (0.0-2.0); HEMOGLOBIN 10.9 g/dL (12.0-18.0); LYMPH # 0.2 K/uL (1.0-4.3); MEAN CELL VOLUME 92.3 fl (80.0-94.0); MEAN CORPUSCULAR HEMOGLOBIN 30.5 pg (27.0-31.0); MEAN CORPUSCULAR HGB CONC 33.1 g/dL (33.0-37.0); MEAN PLATELET VOLUME 8.7 fl (7.2-11.7); MONO # 0.1 K/uL (0.0-0.8); MONO % 1.1 % (0.0-10.0); NEUT # 7.5 K/uL (1.8-7.0); NEUT % 96.8 % (50.0-75.0); PLATELET COUNT 230 K/uL (130-400); RBC 3.56 Mil/uL (4.40-5.90); RED CELL DISTRIBUTION WIDTH 13.4 % (11.5-14.5); WHITE BLOOD COUNT 7.7 K/uL (4.8-10.8)
[2018-06-26 05:27] LABS: BLOOD UREA NITROGEN 24 mg/dl (9-20); CALCIUM 8.8 mg/dL (8.4-10.2); GFR NON-AFRICAN AMERICAN 53
[2018-06-26 07:09] LABS: BANDS 5 % (0-2); LYMPHOCYTE 0 % (20-50); MONOCYTE 2 % (0-10); NEUTROPHIL 93 % (42-75); PLATELET ESTIMATE NORMAL (NORMAL); TOTAL CELLS COUNTED 100
[2018-06-26 07:12] LABS: ANISOCYTOSIS SLIGHT; HYPOCHROMIC SLIGHT
[2018-06-26] MEDS: Pantoprazole 40 mg EC Tab PO SCH (08:35)
[2018-06-26] MEDS: Enoxaparin 40 mg Syringe SC SCH (08:43)
[2018-06-26] MEDS: Azithromycin 500 MG in Sodium Chloride 0.9% 250 ML IVPB SCH (08:44)
[2018-06-26] MEDS ORDERED: PEG OU SCH (09:00)
[2018-06-26] MEDS ORDERED: PROPYLENE GLYCOL OU SCH (09:00)
[2018-06-26] MEDS: Lubricant Eye Drops UD OU SCH ×3 (09:37→17:21)
--- NOTE | 2018-06-26 09:55 | CP.PCM.CON ---
Past Patient History - Infectious Disease Hx of Infectious Diseases: None - Tetanus Immunizations Tetanus Immunization: Unknown - Past Medical History & Family History Past Medical History?: Yes - Past Social History Alcohol: None Drugs: Denies - CARDIAC Hx Atrial Fibrillation: No Hx Cardia Arrhythmia: No Hx Congestive Heart Failure: No Hx Hypercholesterolemia: No Hx Hypertension: Yes Hx Mitral Valve Prolapse: No Hx Pacemaker: No Hx Peripheral Edema: No - PULMONARY Hx Asthma: No Hx Bronchitis: No Hx Chronic Obstructive Pulmonary Disease (COPD): Yes Hx Emphysema: No Hx Pneumonia: Yes Hx Pulmonary Embolism: No Hx Sleep Apnea: No - NEUROLOGICAL Hx Alzheimer's Disease: No Hx Dementia: No Hx Migraine: No Hx Multiple Sclerosis: No Hx Parkinson's Disease: No Hx Seizures: No Hx Transient Ischemic Attacks (TIA): No - HEENT Hx Cataracts: Yes - RENAL Hx Chronic Kidney Disease: No Hx Kidney Stones: No - ENDOCRINE/METABOLIC Hx Hyperthyroidism: No Hx Hypothyroidism: No - HEMATOLOGICAL/ONCOLOGICAL Hx Anemia: Yes Hx Human Immunodeficiency Virus (HIV): No Hx Sickle Cell Disease: No - INTEGUMENTARY Hx Dermatological Problems: No - MUSCULOSKELETAL/RHEUMATOLOGICAL Hx Fractures: Yes (right hip fracture ) - GASTROINTESTINAL Hx Crohn's Disease: No Hx Diverticulitis: No Hx Gall Bladder Disease: No Hx Gastritis: No Hx Pancreatitis: No - GENITOURINARY/GYNECOLOGICAL Hx Prostate Problems: Yes (BPH) - PSYCHIATRIC Hx Psychophysiologic Disorder: No Hx Substance Use: No - SURGICAL HISTORY Hx Cataract Extraction: Yes Hx Joint Replacement: Yes (Hip) Other/Comment: Right hip fracture ORIF. Right spontaneous pneumothorax with [facility] TS - ANESTHESIA Hx Anesthesia: Yes Hx Anesthesia Reactions: No Hx Malignant Hyperthermia: No Meds Allergies/Adverse Reactions: Allergies Allergy/AdvReac Type Severity Reaction Status Date / Time shellfish Allergy SHORTNESS Uncoded 06/25/18 19:47 OF BREATH - Medications Medications: Current Medications Acetaminophen (Tylenol 325mg Tab) 650 mg PO Q6 PRN PRN Reason: Pain, Mild (1-3) Albuterol/Ipratropium (Duoneb 3 Mg/0.5 Mg (3 Ml) Ud) 3 ml INH RQ6 PRN PRN Reason: Shortness of Breath Artificial Tears (Refresh Opth Soln) 1 ml OU TID [facility] Last Admin: 06/26/18 09:37 Dose: 1 ml Ascorbic Acid (Vitamin C 250 Mg Tab) 250 mg PO BID [facility] Last Admin: 06/26/18 08:34 Dose: 250 mg Aspirin (Ecotrin) 81 mg PO .COUPLE IN WEEK [facility] Docusate Sodium (Colace) 100 mg PO BID PRN PRN Reason: Constipation Enoxaparin Sodium (Lovenox) 40 mg SC DAILY [facility]; Protocol Last Admin: 06/26/18 08:43 Dose: 40 mg Ferrous Sulfate (Feosol) 325 mg PO BID [facility] Last Admin: 06/26/18 08:33 Dose: 325 mg Ceftriaxone Sodium 1 gm/ (Sodium Chloride) 100 mls @ 100 mls/hr IVPB DAILY [facility]; Protocol Last Admin: 06/26/18 08:35 Dose: 100 mls/hr Azithromycin 500 mg/ Sodium (Chloride) 250 mls @ 250 mls/hr IVPB DAILY [facility]; Protocol Last Admin: 06/26/18 08:44 Dose: 250 mls/hr Methylprednisolone (Solu-Medrol) 40 mg IVP Q8 [facility] Last Admin: 06/26/18 08:48 Dose: 40 mg Metoprolol Tartrate (Lopressor) 25 mg PO Q12 [facility] Last Admin: 06/26/18 08:34 Dose: 25 mg Pantoprazole Sodium (Protonix Ec Tab) 40 mg PO DAILY [facility] Last Admin: 06/26/18 08:35 Dose: 40 mg Tamsulosin HCl (Flomax) 0.4 mg PO DAILY [facility] Last Admin: 06/26/18 08:33 Dose: 0.4 mg Results - Vital Signs Recent Vital Signs: Last Vital Signs Temp 97.3 F L 06/26/18 08:11 Pulse 69 06/26/18 08:34 Resp 20 06/26/18 08:11 BP 163/91 H 06/26/18 08:34 Pulse Ox 96 06/26/18 08:11 - Labs Result Diagrams: 06/26/18 04:25 06/26/18 04:25 Labs: Laboratory Results - last 24 hr 06/25/18 06/25/18 06/25/18 20:59 20:59 21:13 WBC 8.6 RBC 3.83 L Hgb 11.4 L Hct 35.6 MCV 92.9 D MCH 29.9 MCHC 32.1 L RDW 13.4 Plt Count 249 MPV 8.8 Neut % (Auto) 91.6 H Lymph % (Auto) 2.5 L [place] % (Auto) 5.7 Eos % (Auto) 0.1 Baso % (Auto) 0.1 Neut # (Auto) 7.9 H Lymph # (Auto) 0.2 L [place] # (Auto) 0.5 Eos # (Auto) 0.0 Baso # (Auto) 0.0 Neutrophils % (Manual) 87 H Band Neutrophils % 2 Lymphocytes % (Manual) 5 L Monocytes % (Manual) 6 Platelet Estimate Normal Hypochromasia (manual) Slight Anisocytosis (manual) Slight pO2 VBG pH VBG pCO2 VBG HCO3 VBG Total CO2 VBG O2 Sat (Calc) VBG Base Excess VBG Potassium A-a O2 Difference Glucose Lactate FiO2 Sodium 141 Potassium 3.9 Chloride 102 Carbon Dioxide 31 H Anion Gap 12 BUN 25 H Creatinine 1.3 Est GFR ( Amer) > 60 Est GFR (Non-Af Amer) 53 Random Glucose 143 H Calcium 9.1 Phosphorus Magnesium Total Bilirubin 0.5 AST 36 ALT 30 Alkaline Phosphatase 97 NT-Pro-B Natriuret Pep Total Protein 7.5 Albumin 3.5 Globulin 4.0 H Albumin/Globulin Ratio 0.9 L Venous Blood Potassium Influenza Typ A,B (EIA) Negative for flu a/b 06/25/18 06/26/18 06/26/18 21:15 00:08 04:25 WBC 7.7 RBC 3.56 L Hgb 10.9 L Hct 32.8 L MCV 92.3 MCH 30.5 MCHC 33.1 RDW 13.4 Plt Count 230 MPV 8.7 Neut % (Auto) 96.8 H Lymph % (Auto) 2.0 L [place] % (Auto) 1.1 Eos % (Auto) 0.0 Baso % (Auto) 0.1 Neut # (Auto) 7.5 H Lymph # (Auto) 0.2 L [place] # (Auto) 0.1 Eos # (Auto) 0.0 Baso # (Auto) 0.0 Neutrophils % (Manual) 93 H Band Neutrophils % 5 H Lymphocytes % (Manual) 0 L Monocytes % (Manual) 2 Platelet Estimate Normal Hypochromasia (manual) Slight Anisocytosis (manual) Slight pO2 69 H VBG pH 7.43 VBG pCO2 45 VBG HCO3 28.6 VBG Total CO2 31.3 H VBG O2 Sat (Calc) 98.6 H VBG Base Excess 4.8 H VBG Potassium 3.6 A-a O2 Difference 24.0 Glucose 178 H Lactate 1.6 FiO2 21.0 Sodium 141.0 Potassium Chloride 106.0 Carbon Dioxide Anion Gap BUN Creatinine Est GFR ( Amer) Est GFR (Non-Af Amer) Random Glucose Calcium Phosphorus Magnesium Total Bilirubin AST ALT Alkaline Phosphatase NT-Pro-B Natriuret Pep 1300 H Total Protein Albumin Globulin Albumin/Globulin Ratio Venous Blood Potassium 3.6 Influenza Typ A,B (EIA) 06/26/18 04:25 WBC RBC Hgb Hct MCV MCH MCHC RDW Plt Count MPV Neut % (Auto) Lymph % (Auto) [place] % (Auto) Eos % (Auto) Baso % (Auto) Neut # (Auto) Lymph # (Auto) [place] # (Auto) Eos # (Auto) Baso # (Auto) Neutrophils % (Manual) Band Neutrophils % Lymphocytes % (Manual) Monocytes % (Manual) Platelet Estimate Hypochromasia (manual) Anisocytosis (manual) pO2 VBG pH VBG pCO2 VBG HCO3 VBG Total CO2 VBG O2 Sat (Calc) VBG Base Excess VBG Potassium A-a O2 Difference Glucose Lactate FiO2 Sodium 143 Potassium 3.7 Chloride 106 Carbon Dioxide 31 H Anion Gap 10 BUN 24 H Creatinine 1.3 Est GFR ( Amer) > 60 Est GFR (Non-Af Amer) 53 Random Glucose 187 H Calcium 8.8 Phosphorus 4.3 Magnesium 2.2 Total Bilirubin AST ALT Alkaline Phosphatase NT-Pro-B Natriuret Pep Total Protein Albumin Globulin Albumin/Globulin Ratio Venous Blood Potassium Influenza Typ A,B (EIA) Assessment & Plan (1) Idiopathic pulmonary fibrosis Status: Chronic Priority: High - Date & Time Date: 06/26/18 Time: 09:54
--- NOTE | 2018-06-26 09:56 | RAD ---
Date of service: 06/25/2018 HISTORY: sob COMPARISON: 09/05/2017 chest x-ray. CT chest without contrast high-resolution 09/19/2017 TECHNIQUE: Chest PA and lateral FINDINGS: LUNGS: Extensive bilateral subpleural interstitial lung disease/prominent interstitial lung markings are a repeated finding currently suggested. Some vague increased coalescence of interstitial lung markings and possible blending airspace opacity at the left mid to lower lung zone obscuring part of the left heart border is perceived on this exam. Current study is slightly less exposed on the prior. Lung volumes are shallow. Lateral view shows most of these coalescent the blending interstitial abnormal lung markings and likely blending patchy airspace opacities are posterior and inferiorly positioned The asymmetrically elevated right hemidiaphragm is similar status. PLEURA: No significant pleural effusion identified. No pneumothorax apparent. CARDIOVASCULAR: There is presence of aortic atherosclerotic calcification on x-ray. Mild cardiomegaly probable-similar mild concomitant interstitial pulmonary edema is a consideration. No OSSEOUS STRUCTURES: Definitive changes here noted. VISUALIZED UPPER ABDOMEN: Normal. OTHER FINDINGS: None. IMPRESSION: Again noted are chronic interstitial lung disease changes. Compared to the 09/05/2017 study some interval coalescence of interstitial lung markings and likely blending coalescing airspace opacities-a coalescence of interstitial pulmonary edema here is a consideration. A patchy coalescing atelectasis and/or infiltrate is another. Follow-up and clinical correlation is advised
[2018-06-26] MEDS: Albuterol-Ipratrop 3 mg / 0.5 (3 ml) UD INH PRN (13:01)
[2018-06-26] MEDS: Albuterol-Ipratrop 3 mg / 0.5 (3 ml) UD INH SCH ×2 (15:33→19:04)
[2018-06-27] MEDS: Albuterol-Ipratrop 3 mg / 0.5 (3 ml) UD INH PRN (00:05)
[2018-06-27 05:29] LABS: HEMOGLOBIN 9.8 g/dL (12.0-18.0); MEAN CELL VOLUME 92.6 fl (80.0-94.0); MEAN CORPUSCULAR HEMOGLOBIN 30.2 pg (27.0-31.0); MEAN CORPUSCULAR HGB CONC 32.6 g/dL (33.0-37.0); RBC 3.26 Mil/uL (4.40-5.90); RED CELL DISTRIBUTION WIDTH 13.2 % (11.5-14.5); WHITE BLOOD COUNT 13.9 K/uL (4.8-10.8)
[2018-06-27 05:51] LABS: CALCIUM 8.4 mg/dL (8.4-10.2)
[2018-06-27] MEDS: Albuterol-Ipratrop 3 mg / 0.5 (3 ml) UD INH SCH ×4 (07:34→19:35)
[2018-06-27] MEDS: MethylPREDNISolone 40 mg Vial IVP SCH ×2 (08:35→17:13)
[2018-06-27] MEDS: Lubricant Eye Drops UD OU SCH ×3 (08:36→17:13)
[2018-06-27] MEDS: Azithromycin 500 MG in Sodium Chloride 0.9% 250 ML IVPB SCH (08:37)
[2018-06-27] MEDS: Pantoprazole 40 mg EC Tab PO SCH (08:39)
[2018-06-27] MEDS: Enoxaparin 40 mg Syringe SC SCH (08:40)
--- NOTE | 2018-06-27 09:49 | CP.PCM.PN ---
Subjective - Date & Time of Evaluation Date of Evaluation: 06/27/18 Time of Evaluation: 09:49 - Subjective Subjective: SEEN ON MORNING ROUNDS, LYING IN BED. SPO2 90% WITH NASAL OXYGEN ON AT 2 LPM. APPEARS DYSPNEIC WITH CONVERSATION. NO CYANOSIS, TRACE EDEMA REMAINS LLE, NO EDEMA RLE. NO CALF TENDERNESS OR PALPABLE VENOUS CORDS. NECK SUPPLE AND TRACHEA MIDLINE. NO DULLNESS ON PERCUSSION OF THE ANTERIOR CHEST WALL. NO SUBCUTANEOUS EMPHYSEMA. POSITIVE MUSCLE RECRUITMENT. DIFFUSE, EARLY, DRY TO MEDIUM RALES BILATERALLY. NO AUDIBLE WHEEZES, NO BRONCHIAL BREATHING. SHORTENED INSPIRATORY PHASE. CONTINUE PRESENT REGIMEN. DISCUSSION REGARDING PALLIATIVE CARE EVAL. CONTINUOUS NASAL OXYGEN 3 LPM. Objective - Vital Signs/Intake and Output Vital Signs (last 24 hours): Temp Pulse Resp BP Pulse Ox 97.6 F 80 20 126/73 96 06/27/18 08:40 06/27/18 08:40 06/27/18 08:40 06/27/18 08:40 06/27/18 08:40 - Medications Medications: Current Medications Acetaminophen (Tylenol 325mg Tab) 650 mg PO Q6 PRN PRN Reason: Pain, Mild (1-3) Albuterol/Ipratropium (Duoneb 3 Mg/0.5 Mg (3 Ml) Ud) 3 ml INH RQ6 PRN PRN Reason: Shortness of Breath Last Admin: 06/27/18 00:05 Dose: 3 ml Albuterol/Ipratropium (Duoneb 3 Mg/0.5 Mg (3 Ml) Ud) 3 ml INH RQID [facility] Last Admin: 06/27/18 07:34 Dose: 3 ml Artificial Tears (Refresh Opth Soln) 1 ml OU TID [facility] Last Admin: 06/27/18 08:36 Dose: 1 ml Ascorbic Acid (Vitamin C 250 Mg Tab) 250 mg PO BID [facility] Last Admin: 06/27/18 08:39 Dose: 250 mg Aspirin (Ecotrin) 81 mg PO .COUPLE IN WEEK [facility] Docusate Sodium (Colace) 100 mg PO BID PRN PRN Reason: Constipation Enoxaparin Sodium (Lovenox) 40 mg SC DAILY [facility]; Protocol Last Admin: 06/27/18 08:40 Dose: 40 mg Ferrous Sulfate (Feosol) 325 mg PO BID [facility] Last Admin: 06/27/18 08:39 Dose: 325 mg Guaifenesin/Dextromethorphan (Mucinex-Dm 600-30 Mg) 1 tab PO BID [facility] Ceftriaxone Sodium 1 gm/ (Sodium Chloride) 100 mls @ 100 mls/hr IVPB DAILY [facility]; Protocol Last Admin: 06/27/18 08:37 Dose: 100 mls/hr Azithromycin 500 mg/ Sodium (Chloride) 250 mls @ 250 mls/hr IVPB DAILY [facility]; Protocol Last Admin: 06/27/18 08:37 Dose: 250 mls/hr Methylprednisolone (Solu-Medrol) 40 mg IVP Q8 [facility] Last Admin: 06/27/18 08:35 Dose: 40 mg Metoprolol Tartrate (Lopressor) 25 mg PO Q12 [facility] Last Admin: 06/27/18 08:40 Dose: 25 mg Pantoprazole Sodium (Protonix Ec Tab) 40 mg PO DAILY [facility] Last Admin: 06/27/18 08:39 Dose: 40 mg Tamsulosin HCl (Flomax) 0.4 mg PO DAILY [facility] Last Admin: 06/27/18 08:39 Dose: 0.4 mg - Labs Labs: 06/27/18 05:00 06/27/18 05:00 Assessment and Plan (1) Idiopathic pulmonary fibrosis Status: Chronic
[2018-06-27] MEDS: guaiFENesin-DM 600-30 mg ER Tab PO SCH ×2 (10:10→21:09)
--- NOTE | 2018-06-27 14:42 | CP.PCM.PN ---
Subjective - Date & Time of Evaluation Date of Evaluation: 06/27/18 Time of Evaluation: 07:15 - Subjective Subjective: Pt seen and examined at bedside. Reports coughing overnight. Reports mild SOB, however, improved since admission. Benefitting from duoneb treatment. Afebrile. Tolerating PO diet. Objective - Vital Signs/Intake and Output Vital Signs (last 24 hours): Temp Pulse Resp BP Pulse Ox 97.2 F L 83 20 121/83 98 06/27/18 12:40 06/27/18 12:40 06/27/18 12:40 06/27/18 12:40 06/27/18 12:40 - Medications Medications: Current Medications Acetaminophen (Tylenol 325mg Tab) 650 mg PO Q6 PRN PRN Reason: Pain, Mild (1-3) Albuterol/Ipratropium (Duoneb 3 Mg/0.5 Mg (3 Ml) Ud) 3 ml INH RQ6 PRN PRN Reason: Shortness of Breath Last Admin: 06/27/18 00:05 Dose: 3 ml Albuterol/Ipratropium (Duoneb 3 Mg/0.5 Mg (3 Ml) Ud) 3 ml INH RQID [facility] Last Admin: 06/27/18 11:40 Dose: 3 ml Artificial Tears (Refresh Opth Soln) 1 ml OU TID [facility] Last Admin: 06/27/18 12:57 Dose: 1 ml Ascorbic Acid (Vitamin C 250 Mg Tab) 250 mg PO BID [facility] Last Admin: 06/27/18 08:39 Dose: 250 mg Aspirin (Ecotrin) 81 mg PO .COUPLE IN WEEK [facility] Docusate Sodium (Colace) 100 mg PO BID PRN PRN Reason: Constipation Enoxaparin Sodium (Lovenox) 40 mg SC DAILY [facility]; Protocol Last Admin: 06/27/18 08:40 Dose: 40 mg Ferrous Sulfate (Feosol) 325 mg PO BID [facility] Last Admin: 06/27/18 08:39 Dose: 325 mg Guaifenesin/Dextromethorphan (Mucinex-Dm 600-30 Mg) 1 tab PO BID [facility] Last Admin: 06/27/18 10:10 Dose: 1 tab Ceftriaxone Sodium 1 gm/ (Sodium Chloride) 100 mls @ 100 mls/hr IVPB DAILY [facility]; Protocol Last Admin: 06/27/18 08:37 Dose: 100 mls/hr Azithromycin 500 mg/ Sodium (Chloride) 250 mls @ 250 mls/hr IVPB DAILY [facility]; Protocol Last Admin: 06/27/18 08:37 Dose: 250 mls/hr Methylprednisolone (Solu-Medrol) 40 mg IVP Q8 [facility] Last Admin: 06/27/18 08:35 Dose: 40 mg Metoprolol Tartrate (Lopressor) 25 mg PO Q12 [facility] Last Admin: 06/27/18 08:40 Dose: 25 mg Pantoprazole Sodium (Protonix Ec Tab) 40 mg PO DAILY [facility] Last Admin: 06/27/18 08:39 Dose: 40 mg Tamsulosin HCl (Flomax) 0.4 mg PO DAILY [facility] Last Admin: 06/27/18 08:39 Dose: 0.4 mg - Labs Labs: 06/27/18 05:00 06/27/18 05:00 - Constitutional Appears: Non-toxic - Eye Exam Eye Exam: EOMI - Respiratory Exam Respiratory Exam: Decreased Breath Sounds, Rales, Rhonchi - Cardiovascular Exam Cardiovascular Exam: REGULAR RHYTHM, +S1, +S2 - GI/Abdominal Exam GI & Abdominal Exam: Soft, Normal Bowel Sounds. absent: Tenderness - Extremities Exam Extremities Exam: absent: Calf Tenderness - Neurological Exam Neurological Exam: Alert, Awake, CN II-XII Intact, Oriented x3 - Psychiatric Exam Psychiatric exam: Normal Affect, Normal Mood Assessment and Plan - Assessment and Plan (Free Text) Assessment: 83 years old male, living alone, with hx of Interstitial lung disease on home Oxygen, Pneumothorax and Anemia presented to ED with complaints of worsening shortness of breath x 2 weeks associated with mild cough. Patient is admitted for worsening dyspnea and suspected pneumonia. Plan: Interstitial Lung disease on home Oxygen. Now with worsening dyspnea and cough -afebrile -NC O2 -Methylprednisolone 40 mg IVP Q8 -Albuterol/Ipratropium q6h -Bcx: Gram positive cocci in chains -s/p Vanco and Zosyn in ED -c/w Azithromycin and Ceftriaxone -Pulm: Dr Niño -Mucinex -f/u AM labs HTN - controlled - c/w Metoprolol - monitor BP Left Leg edema -ProBNP 1300 -ECHO on 08/2017 had normal EF -s/p lasix 40 mg ivpb Mild anemia with iron deficiency -c/w ferrous sulfate BPH -c/w Tamsulosin Dehydration -encourage to increase PO intake DVT prophylaxis -Lovenox 40 mg SC -ASA 81 GI prophylaxis -Protonix 40 mg po daily Code Status -Full code -Plan for palliative consult and consideration of TCU vs TOSIN with PT Plan dw Dr. Lissette Jerome MD PGY2
[2018-06-27] MEDS ORDERED: Potassium Chloride 20 mEq ER Tab PO ONE (17:41)
[2018-06-28] MEDS: MethylPREDNISolone 40 mg Vial IVP SCH ×4 (02:25→19:43)
[2018-06-28 05:50] LABS: HEMOGLOBIN 9.8 g/dL (12.0-18.0); MEAN CELL VOLUME 92.7 fl (80.0-94.0); MEAN CORPUSCULAR HEMOGLOBIN 29.8 pg (27.0-31.0); MEAN CORPUSCULAR HGB CONC 32.2 g/dL (33.0-37.0); RBC 3.3 Mil/uL (4.40-5.90); RED CELL DISTRIBUTION WIDTH 13.2 % (11.5-14.5); WHITE BLOOD COUNT 12.7 K/uL (4.8-10.8)
[2018-06-28 06:17] LABS: CALCIUM 8.5 mg/dL (8.4-10.2)
[2018-06-28] MEDS: Albuterol-Ipratrop 3 mg / 0.5 (3 ml) UD INH SCH ×4 (07:32→19:22)
[2018-06-28] MEDS: guaiFENesin-DM 600-30 mg ER Tab PO SCH ×2 (08:28→16:16)
[2018-06-28] MEDS: Lubricant Eye Drops UD OU SCH ×3 (08:29→16:16)
[2018-06-28] MEDS: Enoxaparin 40 mg Syringe SC SCH (08:29)
[2018-06-28] MEDS: Azithromycin 500 MG in Sodium Chloride 0.9% 250 ML IVPB SCH (08:34)
[2018-06-28] MEDS: Pantoprazole 40 mg EC Tab PO SCH (08:34)
--- NOTE | 2018-06-28 08:38 | CP.PCM.PN ---
Subjective - Date & Time of Evaluation Date of Evaluation: 06/28/18 Time of Evaluation: 07:15 - Subjective Subjective: Patient seen and examined at bedside. Reports improvement in cough and was able to sleep better overnight. Improved SOB. Tolerating diet, slowly. Regular bowel movement. Objective - Vital Signs/Intake and Output Vital Signs (last 24 hours): Temp Pulse Resp BP Pulse Ox 98 F 85 20 128/76 99 06/28/18 07:38 06/28/18 08:28 06/28/18 07:38 06/28/18 08:28 06/28/18 07:38 - Medications Medications: Current Medications Acetaminophen (Tylenol 325mg Tab) 650 mg PO Q6 PRN PRN Reason: Pain, Mild (1-3) Albuterol/Ipratropium (Duoneb 3 Mg/0.5 Mg (3 Ml) Ud) 3 ml INH RQ6 PRN PRN Reason: Shortness of Breath Last Admin: 06/27/18 00:05 Dose: 3 ml Albuterol/Ipratropium (Duoneb 3 Mg/0.5 Mg (3 Ml) Ud) 3 ml INH RQID [facility] Last Admin: 06/28/18 07:32 Dose: 3 ml Artificial Tears (Refresh Opth Soln) 1 ml OU TID [facility] Last Admin: 06/28/18 08:29 Dose: 1 ml Ascorbic Acid (Vitamin C 250 Mg Tab) 250 mg PO BID [facility] Last Admin: 06/28/18 08:29 Dose: 250 mg Aspirin (Ecotrin) 81 mg PO .COUPLE IN WEEK [facility] Docusate Sodium (Colace) 100 mg PO BID PRN PRN Reason: Constipation Enoxaparin Sodium (Lovenox) 40 mg SC DAILY [facility]; Protocol Last Admin: 06/28/18 08:29 Dose: 40 mg Ferrous Sulfate (Feosol) 325 mg PO BID [facility] Last Admin: 06/28/18 08:27 Dose: 325 mg Guaifenesin/Dextromethorphan (Mucinex-Dm 600-30 Mg) 1 tab PO BID [facility] Last Admin: 06/28/18 08:28 Dose: 1 tab Ceftriaxone Sodium 1 gm/ (Sodium Chloride) 100 mls @ 100 mls/hr IVPB DAILY [facility]; Protocol Last Admin: 06/28/18 08:31 Dose: 100 mls/hr Azithromycin 500 mg/ Sodium (Chloride) 250 mls @ 250 mls/hr IVPB DAILY [facility]; Protocol Last Admin: 06/28/18 08:34 Dose: 250 mls/hr Methylprednisolone (Solu-Medrol) 40 mg IVP Q8 [facility] Last Admin: 06/28/18 08:30 Dose: 40 mg Metoprolol Tartrate (Lopressor) 25 mg PO Q12 [facility] Last Admin: 06/28/18 08:28 Dose: 25 mg Pantoprazole Sodium (Protonix Ec Tab) 40 mg PO DAILY [facility] Last Admin: 06/28/18 08:34 Dose: 40 mg Tamsulosin HCl (Flomax) 0.4 mg PO DAILY [facility] Last Admin: 06/28/18 08:27 Dose: 0.4 mg - Labs Labs: 06/28/18 05:10 06/28/18 05:10 - Constitutional Appears: Non-toxic - Eye Exam Eye Exam: EOMI - ENT Exam ENT Exam: Mucous Membranes Moist - Respiratory Exam Respiratory Exam: Rhonchi Additional comments: Pt has increase work for inspiration with worsening SOB while conversing. - Cardiovascular Exam Cardiovascular Exam: +S1, +S2 - GI/Abdominal Exam GI & Abdominal Exam: Soft, Normal Bowel Sounds - Neurological Exam Neurological Exam: Alert, Awake, CN II-XII Intact, Oriented x3 - Psychiatric Exam Psychiatric exam: Normal Affect, Normal Mood Assessment and Plan - Assessment and Plan (Free Text) Assessment: 83 years old male, living alone, with hx of Interstitial lung disease on home Oxygen, Pneumothorax and Anemia presented to ED with complaints of worsening shortness of breath x 2 weeks associated with mild cough. Patient is admitted for worsening dyspnea and pneumonia. Plan: Pneumonia -Interstitial Lung disease on home Oxygen. -afebrile -NC O2 -Tapered Methylprednisolone 30 mg IVP Q8 -Albuterol/Ipratropium q6h -Bcx: Gram positive cocci in chains -s/p Vanco and Zosyn in ED -c/w Azithromycin and Ceftriaxone -Pulm: Dr Niño -Mucinex -f/u AM labs HTN - controlled - c/w Metoprolol - monitor BP Left Leg edema -ProBNP 1300 -ECHO on 08/2017 had normal EF -s/p lasix 40 mg ivpb Mild anemia with iron deficiency -c/w ferrous sulfate BPH -c/w Tamsulosin Dehydration -encourage to increase PO intake DVT prophylaxis -Lovenox 40 mg SC -ASA 81 GI prophylaxis -Protonix 40 mg po daily Code Status -Full code PT/OT: -Continue with treatment -Plan for palliative consult and TOSIN with PT Plan dw Dr. Lissette Jerome MD PGY2
[2018-06-28] MEDS ORDERED: methylPREDNISolone 30 MG in Sodium Chloride 0.9% 50 ML IV SCH (09:45)
[2018-06-28] MEDS ORDERED: Albuterol 0.083% Inhal Sol (2.5 mg/3 mL) UD INH PRN (09:47)
[2018-06-28] MEDS ORDERED: Sodium Chloride 0.9% 500 ML IV SCH (15:00)
[2018-06-28] MEDS: Sodium Chloride 0.9% 500 ML IV SCH (16:16)
[2018-06-28] MEDS ORDERED: Petrolatum, White 1 OZ TP PRN (21:27)
[2018-06-28] MEDS ORDERED: Petrolatum UD PAK TOP PRN (21:45)
[2018-06-29 07:33] LABS: HEMOGLOBIN 10.3 g/dL (12.0-18.0); MEAN CELL VOLUME 93.3 fl (80.0-94.0); MEAN CORPUSCULAR HEMOGLOBIN 30.6 pg (27.0-31.0); MEAN CORPUSCULAR HGB CONC 32.8 g/dL (33.0-37.0); RBC 3.36 Mil/uL (4.40-5.90); RED CELL DISTRIBUTION WIDTH 13.2 % (11.5-14.5); WHITE BLOOD COUNT 10.8 K/uL (4.8-10.8)
[2018-06-29 07:42] LABS: BLOOD UREA NITROGEN 43 mg/dl (9-20); CALCIUM 8.4 mg/dL (8.4-10.2); GFR NON-AFRICAN AMERICAN 53
[2018-06-29] MEDS: Albuterol-Ipratrop 3 mg / 0.5 (3 ml) UD INH SCH ×4 (07:46→19:08)
[2018-06-29] MEDS: Pantoprazole 40 mg EC Tab PO SCH (08:28)
[2018-06-29] MEDS: Enoxaparin 40 mg Syringe SC SCH (08:28)
[2018-06-29] MEDS: guaiFENesin-DM 600-30 mg ER Tab PO SCH ×2 (08:29→16:20)
[2018-06-29] MEDS: Lubricant Eye Drops UD OU SCH ×3 (08:29→16:19)
[2018-06-29] MEDS: Azithromycin 500 MG in Sodium Chloride 0.9% 250 ML IVPB SCH (09:32)
[2018-06-29] MEDS: MethylPREDNISolone 40 mg Vial IVP SCH ×2 (09:38→18:11)
--- NOTE | 2018-06-29 11:15 | CP.PCM.PN ---
<Yvonne Lala - Last Filed: 06/29/18 11:20> Subjective - Date & Time of Evaluation Date of Evaluation: 06/29/18 Time of Evaluation: 10:54 - Subjective Subjective: Patient seen and examined at bedside. Sitting up, still w/ cough and c/o nasal congestion. Denies SOB, chest pain. Nurse notes, labs, and charts reviewed. Objective - Vital Signs/Intake and Output Vital Signs (last 24 hours): Temp Pulse Resp BP Pulse Ox 98.2 F 78 20 129/77 100 06/29/18 07:46 06/29/18 08:28 06/29/18 07:46 06/29/18 08:28 06/29/18 07:46 - Medications Medications: Current Medications Acetaminophen (Tylenol 325mg Tab) 650 mg PO Q6 PRN PRN Reason: Pain, Mild (1-3) Albuterol Sulfate (Albuterol 0.083% Inhal Annie (2.5 Mg/3 Ml) Ud) 2.5 mg INH RQ4 PRN PRN Reason: Shortness of Breath Albuterol/Ipratropium (Duoneb 3 Mg/0.5 Mg (3 Ml) Ud) 3 ml INH RQID [facility] Last Admin: 06/29/18 07:46 Dose: 3 ml Artificial Tears (Refresh Opth Soln) 1 ml OU TID [facility] Last Admin: 06/29/18 08:29 Dose: 1 ml Ascorbic Acid (Vitamin C 250 Mg Tab) 250 mg PO BID [facility] Last Admin: 06/29/18 08:29 Dose: 250 mg Aspirin (Ecotrin) 81 mg PO DAILY [facility] Last Admin: 06/29/18 08:27 Dose: 81 mg Docusate Sodium (Colace) 100 mg PO BID PRN PRN Reason: Constipation Emollient Ointment (Vaseline Oint) 1 pkt TOP TID PRN PRN Reason: Dry skin Enoxaparin Sodium (Lovenox) 40 mg SC DAILY [facility]; Protocol Last Admin: 06/29/18 08:28 Dose: 40 mg Ferrous Sulfate (Feosol) 325 mg PO BID [facility] Last Admin: 06/29/18 08:28 Dose: 325 mg Guaifenesin/Dextromethorphan (Mucinex-Dm 600-30 Mg) 1 tab PO BID [facility] Last Admin: 06/29/18 08:29 Dose: 1 tab Ceftriaxone Sodium 1 gm/ (Sodium Chloride) 100 mls @ 100 mls/hr IVPB DAILY [facility]; Protocol Last Admin: 06/29/18 08:25 Dose: 100 mls/hr Azithromycin 500 mg/ Sodium (Chloride) 250 mls @ 250 mls/hr IVPB DAILY [facility]; Protocol Last Admin: 06/29/18 09:32 Dose: 250 mls/hr Sodium Chloride (Sodium Chloride 0.9%) 500 mls @ 40 mls/hr IV .[id number] [facility] Last Admin: 06/28/18 16:16 Dose: 40 mls/hr Methylprednisolone (Solu-Medrol) 30 mg IVP Q8H [facility] Last Admin: 06/29/18 09:38 Dose: 30 mg Metoprolol Tartrate (Lopressor) 25 mg PO Q12 [facility] Last Admin: 06/29/18 08:28 Dose: 25 mg Pantoprazole Sodium (Protonix Ec Tab) 40 mg PO DAILY [facility] Last Admin: 06/29/18 08:28 Dose: 40 mg Tamsulosin HCl (Flomax) 0.4 mg PO DAILY [facility] Last Admin: 06/29/18 08:28 Dose: 0.4 mg - Labs Labs: 06/29/18 05:30 06/29/18 05:30 - Constitutional Appears: No Acute Distress - Respiratory Exam Additional comments: Pt has increase work for inspiration with worsening SOB while conversing. - Cardiovascular Exam Cardiovascular Exam: REGULAR RHYTHM, +S1, +S2 - GI/Abdominal Exam GI & Abdominal Exam: Soft, Normal Bowel Sounds. absent: Tenderness - Skin Skin Exam: Dry, Intact, Warm Assessment and Plan - Assessment and Plan (Free Text) Assessment: 83 years old male, living alone, with hx of Interstitial lung disease on home Oxygen, Pneumothorax and Anemia presented to ED with complaints of worsening shortness of breath x 2 weeks associated with mild cough. Patient was admitted for worsening dyspnea and pneumonia. Patient treated w/ NC O2, Methylprednisolone 30 mg IVP Q8, Albuterol/Ipratropium q6h, Azithromycin and Ceftriaxone. Patient awaiting TOSIN placement. Plan: Pneumonia -Interstitial Lung disease on home Oxygen. -afebrile -NC O2 -Tapered Methylprednisolone 30 mg IVP Q8 -Albuterol/Ipratropium q6h -Bcx: Gram positive cocci in chains -s/p Vanco and Zosyn in ED -c/w Azithromycin and Ceftriaxone -Pulm: Dr Niño -Mucinex HTN - controlled - c/w Metoprolol - monitor BP Left Leg edema -ProBNP 1300 -ECHO on 08/2017 had normal EF -s/p lasix 40 mg ivpb Mild anemia with iron deficiency -c/w ferrous sulfate BPH -c/w Tamsulosin Dehydration -encourage to increase PO intake DVT prophylaxis -Lovenox 40 mg SC -ASA 81 GI prophylaxis -Protonix 40 mg po daily Code Status -Full code PT/OT: -Continue with treatment -Plan for palliative consult and TOSIN with PT <Lilian Tate - Last Filed: 06/29/18 14:33> Objective - Vital Signs/Intake and Output Vital Signs (last 24 hours): Temp Pulse Resp BP Pulse Ox 97.6 F 77 20 115/70 100 06/29/18 13:00 06/29/18 13:00 06/29/18 13:00 06/29/18 13:00 06/29/18 13:00 Intake and Output: 06/29/18 06/29/18 06:59 18:59 Intake Total 530 Output Total 200 Balance 330 - Medications Medications: Current Medications Acetaminophen (Tylenol 325mg Tab) 650 mg PO Q6 PRN PRN Reason: Pain, Mild (1-3) Albuterol Sulfate (Albuterol 0.083% Inhal Annie (2.5 Mg/3 Ml) Ud) 2.5 mg INH RQ4 PRN PRN Reason: Shortness of Breath Albuterol/Ipratropium (Duoneb 3 Mg/0.5 Mg (3 Ml) Ud) 3 ml INH RQID [facility] Last Admin: 06/29/18 11:30 Dose: 3 ml Artificial Tears (Refresh Opth Soln) 1 ml OU TID [facility] Last Admin: 06/29/18 12:21 Dose: 1 ml Ascorbic Acid (Vitamin C 250 Mg Tab) 250 mg PO BID [facility] Last Admin: 06/29/18 08:29 Dose: 250 mg Aspirin (Ecotrin) 81 mg PO DAILY [facility] Last Admin: 06/29/18 08:27 Dose: 81 mg Docusate Sodium (Colace) 100 mg PO BID PRN PRN Reason: Constipation Emollient Ointment (Vaseline Oint) 1 pkt TOP TID PRN PRN Reason: Dry skin Enoxaparin Sodium (Lovenox) 40 mg SC DAILY [facility]; Protocol Last Admin: 06/29/18 08:28 Dose: 40 mg Ferrous Sulfate (Feosol) 325 mg PO BID [facility] Last Admin: 06/29/18 08:28 Dose: 325 mg Guaifenesin/Dextromethorphan (Mucinex-Dm 600-30 Mg) 1 tab PO BID [facility] Last Admin: 06/29/18 08:29 Dose: 1 tab Ceftriaxone Sodium 1 gm/ (Sodium Chloride) 100 mls @ 100 mls/hr IVPB DAILY [facility]; Protocol Last Admin: 06/29/18 08:25 Dose: 100 mls/hr Azithromycin 500 mg/ Sodium (Chloride) 250 mls @ 250 mls/hr IVPB DAILY [facility]; Protocol Last Admin: 06/29/18 09:32 Dose: 250 mls/hr Sodium Chloride (Sodium Chloride 0.9%) 500 mls @ 40 mls/hr IV .[id number] [facility] Last Admin: 06/28/18 16:16 Dose: 40 mls/hr Methylprednisolone (Solu-Medrol) 30 mg IVP Q8H [facility] Last Admin: 06/29/18 09:38 Dose: 30 mg Metoprolol Tartrate (Lopressor) 25 mg PO Q12 [facility] Last Admin: 06/29/18 08:28 Dose: 25 mg Pantoprazole Sodium (Protonix Ec Tab) 40 mg PO DAILY [facility] Last Admin: 06/29/18 08:28 Dose: 40 mg Tamsulosin HCl (Flomax) 0.4 mg PO DAILY [facility] Last Admin: 06/29/18 08:28 Dose: 0.4 mg - Labs Labs: 06/29/18 05:30 06/29/18 05:30 Attending/Attestation - Attestation I have personally seen and examined this patient.: Yes I have fully participated in the care of the patient.: Yes I have reviewed all pertinent clinical information, including history, physical exam and plan: Yes Notes (Text): Bacterial Pneumonia with Streptococcal Pneumonia Bacteremia Idiopathic Pulmonary Fibrosis, chronic Physical Deconditioning - cont IV Ceftriaxone and Azithro - will likely needf 2 wks total IV abx - plan to d/c to [facility] for completion of Abx and for Physical therapy- cont Duoneb tx , tapering dose of IV Solumedrol
[2018-06-30] MEDS: MethylPREDNISolone 40 mg Vial IVP SCH ×4 (03:40→20:29)
[2018-06-30] MEDS: Sodium Chloride 0.9% 500 ML IV SCH (03:44)
[2018-06-30] MEDS: Albuterol-Ipratrop 3 mg / 0.5 (3 ml) UD INH SCH ×4 (07:55→19:53)
[2018-06-30] MEDS: Enoxaparin 40 mg Syringe SC SCH (08:29)
[2018-06-30] MEDS: Pantoprazole 40 mg EC Tab PO SCH (08:30)
[2018-06-30] MEDS: guaiFENesin-DM 600-30 mg ER Tab PO SCH ×2 (08:30→16:22)
[2018-06-30] MEDS: Lubricant Eye Drops UD OU SCH ×3 (08:31→16:23)
[2018-06-30] MEDS: Azithromycin 500 MG in Sodium Chloride 0.9% 250 ML IVPB SCH (08:32)
[2018-06-30] MEDS ORDERED: guaiFENesin 100 mg/5 ml Syrup UD PO PRN (14:12)
--- NOTE | 2018-06-30 17:14 | CP.PCM.PN ---
Subjective - Date & Time of Evaluation Date of Evaluation: 06/30/18 Time of Evaluation: 09:30 - Subjective Subjective: Pt has no fever complains of cough, productive of whitish phlegm Slight SOB no CP no abd pain Objective - Vital Signs/Intake and Output Vital Signs (last 24 hours): Temp Pulse Resp BP Pulse Ox 98.9 F 85 16 135/78 98 06/30/18 16:09 06/30/18 16:09 06/30/18 16:09 06/30/18 16:09 06/30/18 16:09 Intake and Output: 06/30/18 06/30/18 06:59 18:59 Intake Total 560 Output Total 600 Balance -40 - Medications Medications: Current Medications Acetaminophen (Tylenol 325mg Tab) 650 mg PO Q6 PRN PRN Reason: Pain, Mild (1-3) Albuterol Sulfate (Albuterol 0.083% Inhal Annie (2.5 Mg/3 Ml) Ud) 2.5 mg INH RQ4 PRN PRN Reason: Shortness of Breath Albuterol/Ipratropium (Duoneb 3 Mg/0.5 Mg (3 Ml) Ud) 3 ml INH RQID [facility] Last Admin: 06/30/18 15:53 Dose: 3 ml Artificial Tears (Refresh Opth Soln) 1 ml OU TID [facility] Last Admin: 06/30/18 16:23 Dose: 1 ml Ascorbic Acid (Vitamin C 250 Mg Tab) 250 mg PO BID [facility] Last Admin: 06/30/18 16:23 Dose: 250 mg Aspirin (Ecotrin) 81 mg PO DAILY [facility] Last Admin: 06/30/18 08:30 Dose: 81 mg Docusate Sodium (Colace) 100 mg PO BID PRN PRN Reason: Constipation Emollient Ointment (Vaseline Oint) 1 pkt TOP TID PRN PRN Reason: Dry skin Enoxaparin Sodium (Lovenox) 40 mg SC DAILY [facility]; Protocol Last Admin: 06/30/18 08:29 Dose: 40 mg Ferrous Sulfate (Feosol) 325 mg PO BID [facility] Last Admin: 06/30/18 16:22 Dose: 325 mg Guaifenesin/Dextromethorphan (Mucinex-Dm 600-30 Mg) 1 tab PO BID [facility] Last Admin: 06/30/18 16:22 Dose: 1 tab Ceftriaxone Sodium 1 gm/ (Sodium Chloride) 100 mls @ 100 mls/hr IVPB DAILY [facility]; Protocol Last Admin: 06/30/18 08:32 Dose: 100 mls/hr Azithromycin 500 mg/ Sodium (Chloride) 250 mls @ 250 mls/hr IVPB DAILY [facility]; Protocol Last Admin: 06/30/18 08:32 Dose: 250 mls/hr Sodium Chloride (Sodium Chloride 0.9%) 500 mls @ 40 mls/hr IV .[id number] [facility] Last Admin: 06/30/18 03:44 Dose: 40 mls/hr Methylprednisolone (Solu-Medrol) 30 mg IVP Q8H [facility] Last Admin: 06/30/18 10:18 Dose: 30 mg Metoprolol Tartrate (Lopressor) 25 mg PO Q12 [facility] Last Admin: 06/30/18 10:12 Dose: 25 mg Pantoprazole Sodium (Protonix Ec Tab) 40 mg PO DAILY [facility] Last Admin: 06/30/18 08:30 Dose: 40 mg Tamsulosin HCl (Flomax) 0.4 mg PO DAILY [facility] Last Admin: 06/30/18 08:31 Dose: 0.4 mg - Labs Labs: 06/29/18 05:30 06/29/18 05:30 - Constitutional Appears: Non-toxic, No Acute Distress, Chronically Ill - Head Exam Head Exam: NORMAL INSPECTION, NORMOCEPHALIC - Eye Exam Eye Exam: EOMI, Normal appearance Pupil Exam: NORMAL ACCOMODATION - ENT Exam ENT Exam: Mucous Membranes Moist, Normal External Ear Exam - Neck Exam Neck Exam: Full ROM. absent: Meningismus - Respiratory Exam Respiratory Exam: Rales, Rhonchi. absent: Respiratory Distress - Cardiovascular Exam Cardiovascular Exam: REGULAR RHYTHM, +S1, +S2 - GI/Abdominal Exam GI & Abdominal Exam: Soft, Normal Bowel Sounds. absent: Tenderness - Extremities Exam Extremities Exam: Normal Capillary Refill. absent: Calf Tenderness, Pedal Edema - Back Exam Back Exam: absent: CVA tenderness (L), CVA tenderness (R) - Neurological Exam Neurological Exam: Alert, Awake, Oriented x3 - Psychiatric Exam Psychiatric exam: Normal Affect, Normal Mood - Skin Skin Exam: Dry, Normal Color, Warm Assessment and Plan - Assessment and Plan (Free Text) Assessment: 1. Sepsis ( POA) sec to Bacterial Pneumonia with Streptococcal Pneumonia Bacteremia Pt is now afebrile, leukocytosis resolved Blood c/s : Strep Pneumo cont IV Azithro and Ceftriaxone Plan to d/c pt to [facility] to complete IV abx ( 2 wks total) and for physical therapy - SW arranging placement 2. Idiopathic Pulmonary Fibrosis, chronic cont Duoneb tx Pulmonary on consult Taper IV Solumedrol- decrease to 30 q12 3. Acute Kidney Injury prob due to Sepsis Crea 1.7 improved to 1.3 4. Chronic Anemia cont Ferrous 5. Physical Deconditioning Physical therapy 6. DVT proph - Lovenox
[2018-07-01] MEDS: Sodium Chloride 0.9% 500 ML IV SCH ×2 (00:47→08:45)
[2018-07-01] MEDS ORDERED: guaiFENesin-Codeine 100-10mg/5ml Syrup (5 ml) UD PO PRN (03:31)
[2018-07-01] MEDS ORDERED: guaiFENesin-Codeine 100-10mg/5ml Syrup (5 ml) UD PO STA (03:34)
--- NOTE | 2018-07-01 06:50 | CP.PCM.PN ---
<Juan Jerome - Last Filed: 07/01/18 09:04> Subjective - Date & Time of Evaluation Date of Evaluation: 07/01/18 Time of Evaluation: 06:50 - Subjective Subjective: Pt seen and examined while seated next to his bed. Reports overnight coughing. Pt reports improvement in SOB compared to admission. Afebrile, tolerating PO diet. Objective - Vital Signs/Intake and Output Vital Signs (last 24 hours): Temp Pulse Resp BP Pulse Ox 97.6 F 82 20 152/78 H 97 07/01/18 05:00 07/01/18 05:00 07/01/18 05:00 07/01/18 05:00 07/01/18 05:00 - Medications Medications: Current Medications Acetaminophen (Tylenol 325mg Tab) 650 mg PO Q6 PRN PRN Reason: Pain, Mild (1-3) Albuterol Sulfate (Albuterol 0.083% Inhal Annie (2.5 Mg/3 Ml) Ud) 2.5 mg INH RQ4 PRN PRN Reason: Shortness of Breath Albuterol/Ipratropium (Duoneb 3 Mg/0.5 Mg (3 Ml) Ud) 3 ml INH RQID [facility] Last Admin: 06/30/18 19:53 Dose: 3 ml Artificial Tears (Refresh Opth Soln) 1 ml OU TID [facility] Last Admin: 06/30/18 16:23 Dose: 1 ml Ascorbic Acid (Vitamin C 250 Mg Tab) 250 mg PO BID [facility] Last Admin: 06/30/18 16:23 Dose: 250 mg Aspirin (Ecotrin) 81 mg PO DAILY [facility] Last Admin: 06/30/18 08:30 Dose: 81 mg Docusate Sodium (Colace) 100 mg PO BID PRN PRN Reason: Constipation Emollient Ointment (Vaseline Oint) 1 pkt TOP TID PRN PRN Reason: Dry skin Enoxaparin Sodium (Lovenox) 40 mg SC DAILY [facility]; Protocol Last Admin: 06/30/18 08:29 Dose: 40 mg Ferrous Sulfate (Feosol) 325 mg PO BID [facility] Last Admin: 06/30/18 16:22 Dose: 325 mg Guaifenesin/Dextromethorphan (Mucinex-Dm 600-30 Mg) 1 tab PO BID [facility] Last Admin: 06/30/18 16:22 Dose: 1 tab Ceftriaxone Sodium 1 gm/ (Sodium Chloride) 100 mls @ 100 mls/hr IVPB DAILY [facility]; Protocol Last Admin: 06/30/18 08:32 Dose: 100 mls/hr Azithromycin 500 mg/ Sodium (Chloride) 250 mls @ 250 mls/hr IVPB DAILY [facility]; Protocol Last Admin: 06/30/18 08:32 Dose: 250 mls/hr Sodium Chloride (Sodium Chloride 0.9%) 500 mls @ 40 mls/hr IV .[id number] [facility] Last Admin: 07/01/18 00:47 Dose: 40 mls/hr Methylprednisolone (Solu-Medrol) 30 mg IVP Q12 [facility] Last Admin: 06/30/18 20:29 Dose: 30 mg Metoprolol Tartrate (Lopressor) 25 mg PO Q12 [facility] Last Admin: 06/30/18 20:27 Dose: 25 mg Pantoprazole Sodium (Protonix Ec Tab) 40 mg PO DAILY [facility] Last Admin: 06/30/18 08:30 Dose: 40 mg Tamsulosin HCl (Flomax) 0.4 mg PO DAILY [facility] Last Admin: 06/30/18 08:31 Dose: 0.4 mg - Labs Labs: 06/29/18 05:30 06/29/18 05:30 - Eye Exam Eye Exam: EOMI - Neck Exam Neck Exam: Full ROM - Respiratory Exam Respiratory Exam: Rhonchi. absent: Wheezes - Cardiovascular Exam Cardiovascular Exam: +S1, +S2 - GI/Abdominal Exam GI & Abdominal Exam: Soft, Normal Bowel Sounds. absent: Tenderness - Neurological Exam Neurological Exam: Alert, Awake, CN II-XII Intact, Oriented x3 - Psychiatric Exam Psychiatric exam: Normal Affect, Normal Mood Assessment and Plan - Assessment and Plan (Free Text) Assessment: 83 years old male, living alone, with hx of Interstitial lung disease on home Oxygen, Pneumothorax and Anemia presented to ED with complaints of worsening shortness of breath x 2 weeks associated with mild cough. Patient is admitted for worsening dyspnea and pneumonia. Plan: Sepsis (POA) 2/2 Bacterial Pneumonia with Streptococcal Pneumonia Bacteremia Pt is now afebrile, leukocytosis resolved Blood c/s: Strep Pneumo f/u blood cx: NG X 24 hrs IV Azithromycin and Ceftriaxone Duoneb Chest physiotherapy Pulm: Dr. Niño Idiopathic Pulmonary Fibrosis, chronic Duoneb tx Pulmonary on consult Tapered IV Solumedrol: q12 Acute Kidney Injury prob due to Sepsis Cr: 1.7 > 1.3 f/u labs HTN Metoprolol monitor bp Chronic Anemia Ferrous sulfate f/u labs Physical Deconditioning Physical therapy DVT/GI prophylaxis Lovenox ASA Protonix Discharge planning Plan to d/c to [facility] to complete IV abx (14 days total) and for physical therapy: SW arranging placement Plan dw Dr. Bebeto Jerome MD PGY2 <Lilian Tate - Last Filed: 07/01/18 16:30> Objective - Vital Signs/Intake and Output Vital Signs (last 24 hours): Temp Pulse Resp BP Pulse Ox 97.9 F 97 H 18 127/79 95 07/01/18 15:43 07/01/18 15:43 07/01/18 15:43 07/01/18 15:43 07/01/18 15:43 Intake and Output: 07/01/18 07/01/18 06:59 18:59 Intake Total 440 Output Total 800 Balance -360 - Medications Medications: Current Medications Acetaminophen (Tylenol 325mg Tab) 650 mg PO Q6 PRN PRN Reason: Pain, Mild (1-3) Albuterol Sulfate (Albuterol 0.083% Inhal Annie (2.5 Mg/3 Ml) Ud) 2.5 mg INH RQ4 PRN PRN Reason: Shortness of Breath Albuterol/Ipratropium (Duoneb 3 Mg/0.5 Mg (3 Ml) Ud) 3 ml INH RQID [facility] Last Admin: 07/01/18 15:42 Dose: 3 ml Artificial Tears (Refresh Opth Soln) 1 ml OU TID [facility] Last Admin: 07/01/18 08:36 Dose: 1 ml Ascorbic Acid (Vitamin C 250 Mg Tab) 250 mg PO BID [facility] Last Admin: 07/01/18 08:34 Dose: 250 mg Aspirin (Ecotrin) 81 mg PO DAILY [facility] Last Admin: 07/01/18 08:33 Dose: 81 mg Benzonatate (Tessalon Perles) 200 mg PO BID [facility] Docusate Sodium (Colace) 100 mg PO BID PRN PRN Reason: Constipation Emollient Ointment (Vaseline Oint) 1 pkt TOP TID PRN PRN Reason: Dry skin Enoxaparin Sodium (Lovenox) 40 mg SC DAILY [facility]; Protocol Last Admin: 07/01/18 08:34 Dose: 40 mg Ferrous Sulfate (Feosol) 325 mg PO BID [facility] Last Admin: 07/01/18 08:34 Dose: 325 mg Guaifenesin/Dextromethorphan (Mucinex-Dm 600-30 Mg) 1 tab PO BID [facility] Last Admin: 07/01/18 08:33 Dose: 1 tab Ceftriaxone Sodium 1 gm/ (Sodium Chloride) 100 mls @ 100 mls/hr IVPB DAILY [facility]; Protocol Last Admin: 07/01/18 08:32 Dose: 100 mls/hr Azithromycin 500 mg/ Sodium (Chloride) 250 mls @ 250 mls/hr IVPB DAILY [facility]; Protocol Last Admin: 07/01/18 08:32 Dose: 250 mls/hr Sodium Chloride (Sodium Chloride 0.9%) 500 mls @ 40 mls/hr IV .[id number] [facility] Last Admin: 07/01/18 08:45 Dose: 40 mls/hr Methylprednisolone (Solu-Medrol) 30 mg IVP Q12 [facility] Last Admin: 07/01/18 08:33 Dose: 30 mg Metoprolol Tartrate (Lopressor) 25 mg PO Q12 [facility] Last Admin: 07/01/18 08:35 Dose: 25 mg Pantoprazole Sodium (Protonix Ec Tab) 40 mg PO DAILY [facility] Last Admin: 07/01/18 08:34 Dose: 40 mg Tamsulosin HCl (Flomax) 0.4 mg PO DAILY [facility] Last Admin: 07/01/18 08:36 Dose: 0.4 mg - Labs Labs: 06/29/18 05:30 06/29/18 05:30 Attending/Attestation - Attestation I have personally seen and examined this patient.: Yes I have fully participated in the care of the patient.: Yes I have reviewed all pertinent clinical information, including history, physical exam and plan: Yes
[2018-07-01] MEDS: Albuterol-Ipratrop 3 mg / 0.5 (3 ml) UD INH SCH ×4 (07:57→19:26)
[2018-07-01] MEDS: Azithromycin 500 MG in Sodium Chloride 0.9% 250 ML IVPB SCH (08:32)
[2018-07-01] MEDS: guaiFENesin-DM 600-30 mg ER Tab PO SCH ×2 (08:33→16:37)
[2018-07-01] MEDS: MethylPREDNISolone 40 mg Vial IVP SCH ×2 (08:33→22:14)
[2018-07-01] MEDS: Enoxaparin 40 mg Syringe SC SCH (08:34)
[2018-07-01] MEDS: Pantoprazole 40 mg EC Tab PO SCH (08:34)
[2018-07-01] MEDS: Lubricant Eye Drops UD OU SCH ×3 (08:36→16:37)
[2018-07-02] MEDS: Albuterol-Ipratrop 3 mg / 0.5 (3 ml) UD INH SCH ×4 (07:16→19:03)
--- NOTE | 2018-07-02 07:52 | CP.PCM.PN ---
Subjective - Date & Time of Evaluation Date of Evaluation: 07/02/18 Time of Evaluation: 07:52 Objective - Vital Signs/Intake and Output Vital Signs (last 24 hours): Temp Pulse Resp BP Pulse Ox 98.8 F 75 19 161/89 H 96 07/02/18 01:38 07/02/18 01:38 07/02/18 01:38 07/02/18 01:38 07/02/18 01:38 - Medications Medications: Current Medications Acetaminophen (Tylenol 325mg Tab) 650 mg PO Q6 PRN PRN Reason: Pain, Mild (1-3) Albuterol Sulfate (Albuterol 0.083% Inhal Annie (2.5 Mg/3 Ml) Ud) 2.5 mg INH RQ4 PRN PRN Reason: Shortness of Breath Albuterol/Ipratropium (Duoneb 3 Mg/0.5 Mg (3 Ml) Ud) 3 ml INH RQID [facility] Last Admin: 07/02/18 07:16 Dose: 3 ml Artificial Tears (Refresh Opth Soln) 1 ml OU TID [facility] Last Admin: 07/01/18 16:37 Dose: 1 ml Ascorbic Acid (Vitamin C 250 Mg Tab) 250 mg PO BID [facility] Last Admin: 07/01/18 16:38 Dose: 250 mg Aspirin (Ecotrin) 81 mg PO DAILY [facility] Last Admin: 07/01/18 08:33 Dose: 81 mg Benzonatate (Tessalon Perles) 200 mg PO BID [facility] Last Admin: 07/01/18 17:13 Dose: Not Given Docusate Sodium (Colace) 100 mg PO BID PRN PRN Reason: Constipation Emollient Ointment (Vaseline Oint) 1 pkt TOP TID PRN PRN Reason: Dry skin Enoxaparin Sodium (Lovenox) 40 mg SC DAILY [facility]; Protocol Last Admin: 07/01/18 08:34 Dose: 40 mg Ferrous Sulfate (Feosol) 325 mg PO BID [facility] Last Admin: 07/01/18 16:36 Dose: 325 mg Guaifenesin/Dextromethorphan (Mucinex-Dm 600-30 Mg) 1 tab PO BID [facility] Last Admin: 07/01/18 16:37 Dose: 1 tab Ceftriaxone Sodium 1 gm/ (Sodium Chloride) 100 mls @ 100 mls/hr IVPB DAILY [facility]; Protocol Last Admin: 07/01/18 08:32 Dose: 100 mls/hr Azithromycin 500 mg/ Sodium (Chloride) 250 mls @ 250 mls/hr IVPB DAILY [facility]; Protocol Last Admin: 07/01/18 08:32 Dose: 250 mls/hr Sodium Chloride (Sodium Chloride 0.9%) 500 mls @ 40 mls/hr IV .[id number] [facility] Last Admin: 07/01/18 08:45 Dose: 40 mls/hr Methylprednisolone (Solu-Medrol) 30 mg IVP Q12 [facility] Last Admin: 07/01/18 22:14 Dose: 30 mg Metoprolol Tartrate (Lopressor) 25 mg PO Q12 [facility] Last Admin: 07/01/18 22:13 Dose: 25 mg Pantoprazole Sodium (Protonix Ec Tab) 40 mg PO DAILY [facility] Last Admin: 07/01/18 08:34 Dose: 40 mg Tamsulosin HCl (Flomax) 0.4 mg PO DAILY [facility] Last Admin: 07/01/18 08:36 Dose: 0.4 mg - Labs Labs: 06/29/18 05:30 06/29/18 05:30
--- NOTE | 2018-07-02 10:07 | CP.PCM.PN ---
Subjective - Date & Time of Evaluation Date of Evaluation: 07/01/18 Time of Evaluation: 09:00 - Subjective Subjective: The patient was examined earlier this morning on rounds in telemetry. EMR entries and lab results were reviewed. The patient is lying in bed and appears comfortable, but becomes dyspneic with conversation. Occasional congested cough is noted. No cyanosis with nasal O2 in place. Trace dependent edema of the lower extremities is noted. Pharynx is pink and mucous membranes are moist without exudate. Neck is supple and trachea is midline. No dullness on percussion of the anterior thorax. Inspiratory phase is shortened and coarse early rales are heard bilaterally, mostly in the lower lobes. No audible wheezing. No bronchial breath sounds. Heart sounds are difficult to auscultate but the rhythm appears regular. The abdomen is soft and nontender with normal bowel sounds. Severe restrictive lung disease secondary to IPF. Supportive care oxygen therapy as well as aerosol therapy. Taper and discontinue steroids quickly as able. Patient may require long-term custodial placement. Objective - Vital Signs/Intake and Output Vital Signs (last 24 hours): Temp Pulse Resp BP Pulse Ox 97.7 F 91 H 20 136/70 91 L 07/02/18 08:00 07/02/18 08:00 07/02/18 08:00 07/02/18 08:00 07/02/18 08:00 Intake and Output: 07/01/18 07/02/18 23:59 11:59 Intake Total 1380 Output Total 400 Balance 980 - Medications Medications: Current Medications Acetaminophen (Tylenol 325mg Tab) 650 mg PO Q6 PRN PRN Reason: Pain, Mild (1-3) Albuterol Sulfate (Albuterol 0.083% Inhal Annie (2.5 Mg/3 Ml) Ud) 2.5 mg INH RQ4 PRN PRN Reason: Shortness of Breath Albuterol/Ipratropium (Duoneb 3 Mg/0.5 Mg (3 Ml) Ud) 3 ml INH RQID [facility] Last Admin: 07/02/18 07:16 Dose: 3 ml Artificial Tears (Refresh Opth Soln) 1 ml OU TID [facility] Last Admin: 07/01/18 16:37 Dose: 1 ml Ascorbic Acid (Vitamin C 250 Mg Tab) 250 mg PO BID [facility] Last Admin: 07/01/18 16:38 Dose: 250 mg Aspirin (Ecotrin) 81 mg PO DAILY [facility] Last Admin: 07/01/18 08:33 Dose: 81 mg Benzonatate (Tessalon Perles) 200 mg PO BID [facility] Last Admin: 07/01/18 17:13 Dose: Not Given Docusate Sodium (Colace) 100 mg PO BID PRN PRN Reason: Constipation Emollient Ointment (Vaseline Oint) 1 pkt TOP TID PRN PRN Reason: Dry skin Enoxaparin Sodium (Lovenox) 40 mg SC DAILY [facility]; Protocol Last Admin: 07/01/18 08:34 Dose: 40 mg Ferrous Sulfate (Feosol) 325 mg PO BID [facility] Last Admin: 07/01/18 16:36 Dose: 325 mg Guaifenesin/Dextromethorphan (Mucinex-Dm 600-30 Mg) 1 tab PO BID [facility] Last Admin: 07/01/18 16:37 Dose: 1 tab Ceftriaxone Sodium 1 gm/ (Sodium Chloride) 100 mls @ 100 mls/hr IVPB DAILY [facility]; Protocol Last Admin: 07/01/18 08:32 Dose: 100 mls/hr Azithromycin 500 mg/ Sodium (Chloride) 250 mls @ 250 mls/hr IVPB DAILY [facility]; Protocol Last Admin: 07/01/18 08:32 Dose: 250 mls/hr Sodium Chloride (Sodium Chloride 0.9%) 500 mls @ 40 mls/hr IV .[id number] [facility] Last Admin: 07/01/18 08:45 Dose: 40 mls/hr Methylprednisolone (Solu-Medrol) 30 mg IVP Q12 [facility] Last Admin: 07/01/18 22:14 Dose: 30 mg Metoprolol Tartrate (Lopressor) 25 mg PO Q12 [facility] Last Admin: 07/01/18 22:13 Dose: 25 mg Pantoprazole Sodium (Protonix Ec Tab) 40 mg PO DAILY [facility] Last Admin: 07/01/18 08:34 Dose: 40 mg Tamsulosin HCl (Flomax) 0.4 mg PO DAILY [facility] Last Admin: 07/01/18 08:36 Dose: 0.4 mg - Labs Labs: 06/29/18 05:30 06/29/18 05:30 Assessment and Plan (1) Idiopathic pulmonary fibrosis Status: Chronic
--- NOTE | 2018-07-02 10:12 | CP.PCM.PN ---
Subjective - Date & Time of Evaluation Date of Evaluation: 07/02/18 Time of Evaluation: 10:09 - Subjective Subjective: Patient seen and examined this morning at bedside. There are no acute events overnight, NAD. Patient received acapella device and was instructed on its use. Patient reports breathing is stable and he has gone out of bed and sat on his chair. Patient has no other complaints Objective - Vital Signs/Intake and Output Vital Signs (last 24 hours): Temp Pulse Resp BP Pulse Ox 97.7 F 91 H 20 136/70 91 L 07/02/18 08:00 07/02/18 08:00 07/02/18 08:00 07/02/18 08:00 07/02/18 08:00 - Medications Medications: Current Medications Acetaminophen (Tylenol 325mg Tab) 650 mg PO Q6 PRN PRN Reason: Pain, Mild (1-3) Albuterol Sulfate (Albuterol 0.083% Inhal Annie (2.5 Mg/3 Ml) Ud) 2.5 mg INH RQ4 PRN PRN Reason: Shortness of Breath Albuterol/Ipratropium (Duoneb 3 Mg/0.5 Mg (3 Ml) Ud) 3 ml INH RQID [facility] Last Admin: 07/02/18 07:16 Dose: 3 ml Artificial Tears (Refresh Opth Soln) 1 ml OU TID [facility] Last Admin: 07/01/18 16:37 Dose: 1 ml Ascorbic Acid (Vitamin C 250 Mg Tab) 250 mg PO BID [facility] Last Admin: 07/01/18 16:38 Dose: 250 mg Aspirin (Ecotrin) 81 mg PO DAILY [facility] Last Admin: 07/01/18 08:33 Dose: 81 mg Benzonatate (Tessalon Perles) 200 mg PO BID [facility] Last Admin: 07/01/18 17:13 Dose: Not Given Docusate Sodium (Colace) 100 mg PO BID PRN PRN Reason: Constipation Emollient Ointment (Vaseline Oint) 1 pkt TOP TID PRN PRN Reason: Dry skin Enoxaparin Sodium (Lovenox) 40 mg SC DAILY [facility]; Protocol Last Admin: 07/01/18 08:34 Dose: 40 mg Ferrous Sulfate (Feosol) 325 mg PO BID [facility] Last Admin: 07/01/18 16:36 Dose: 325 mg Guaifenesin/Dextromethorphan (Mucinex-Dm 600-30 Mg) 1 tab PO BID [facility] Last Admin: 07/01/18 16:37 Dose: 1 tab Ceftriaxone Sodium 1 gm/ (Sodium Chloride) 100 mls @ 100 mls/hr IVPB DAILY [facility]; Protocol Last Admin: 07/01/18 08:32 Dose: 100 mls/hr Azithromycin 500 mg/ Sodium (Chloride) 250 mls @ 250 mls/hr IVPB DAILY [facility]; Protocol Last Admin: 07/01/18 08:32 Dose: 250 mls/hr Sodium Chloride (Sodium Chloride 0.9%) 500 mls @ 40 mls/hr IV .[id number] [facility] Last Admin: 07/01/18 08:45 Dose: 40 mls/hr Methylprednisolone (Solu-Medrol) 30 mg IVP Q12 [facility] Last Admin: 07/01/18 22:14 Dose: 30 mg Metoprolol Tartrate (Lopressor) 25 mg PO Q12 [facility] Last Admin: 07/01/18 22:13 Dose: 25 mg Pantoprazole Sodium (Protonix Ec Tab) 40 mg PO DAILY [facility] Last Admin: 07/01/18 08:34 Dose: 40 mg Tamsulosin HCl (Flomax) 0.4 mg PO DAILY [facility] Last Admin: 07/01/18 08:36 Dose: 0.4 mg - Labs Labs: 06/29/18 05:30 06/29/18 05:30 - Constitutional Appears: Non-toxic, No Acute Distress - Head Exam Head Exam: ATRAUMATIC, NORMAL INSPECTION, NORMOCEPHALIC - Eye Exam Eye Exam: Normal appearance - ENT Exam ENT Exam: Mucous Membranes Dry - Neck Exam Neck Exam: Full ROM. absent: Tenderness - Respiratory Exam Respiratory Exam: Rales (right lower lobes > left lower lobes). absent: Chest Wall Tenderness, Wheezes, Respiratory Distress, Stridor Additional comments: short inspiratory phase - Cardiovascular Exam Cardiovascular Exam: REGULAR RHYTHM. absent: Tachycardia - Extremities Exam Extremities Exam: Pedal Edema (trace left LE > right LE). absent: Calf Tenderness - Neurological Exam Neurological Exam: Alert, Awake - Skin Skin Exam: Dry, Warm Assessment and Plan (1) Pneumonia Status: Acute (2) Idiopathic pulmonary fibrosis Status: Chronic - Assessment and Plan (Free Text) Plan: - afebrile, no tachycardia, no WBC, BP normotensive - rocephin IV day 7 - azithromycin IV day 7 - solumedrol 30 mg IV Q12h day 3 - c/w tessalon perles PO BID - c/w albuterol Q4h prn - c/w mucinex-DM PO BID - c/w duoneb Q6h - c/w acapella for chest PT - pending TOSIN placement to complete 14 day course of IV antibiotics
[2018-07-02] MEDS: MethylPREDNISolone 40 mg Vial IVP SCH (10:24)
[2018-07-02] MEDS: guaiFENesin-DM 600-30 mg ER Tab PO SCH ×2 (10:25→18:03)
[2018-07-02] MEDS: Pantoprazole 40 mg EC Tab PO SCH (10:25)
[2018-07-02] MEDS: Enoxaparin 40 mg Syringe SC SCH (10:26)
[2018-07-02] MEDS: Azithromycin 500 MG in Sodium Chloride 0.9% 250 ML IVPB SCH (10:27)
[2018-07-02] MEDS: Lubricant Eye Drops UD OU SCH ×3 (10:30→18:08)
[2018-07-02] MEDS: Sodium Chloride 0.9% 500 ML IV SCH (10:30)
--- NOTE | 2018-07-02 17:22 | CP.PCM.DIS ---
Provider - Provider Date of Admission: 06/25/18 21:39 Attending physician: Halima Kruger MD Consults: 06/25/18 22:52 Pulmonology Consult Stat Comment: Consulting Provider: Ephraim Niño Consulting Physician: Ephraim Nioñ Reason for Consult: hx IPF, cough and worsening dyspnea 06/26/18 10:00 Nursing Referral for Palliative Care Routine Comment: Consulting Provider: Rosalba Figueroa Physician Instructions: Reason For Exam: as per admission Nursing Referral for Wound Care Routine Comment: Physician Instructions: Reason For Exam: Excoriated buttocks Pastoral Care Referral Routine Comment: Physician Instructions: Reason For Exam: as per admission Social Work Referral Routine Comment: Homemaker MWF 3 hrs/day Physician Instructions: Reason For Exam: Lives alone Time Spent in preparation of Discharge (in minutes): 30 Hospital Course - Lab Results Lab Results: Micro Results 06/29/18 10:20 Blood Blood Culture - Preliminary NO GROWTH AFTER 3 DAYS 06/29/18 10:20 Blood Blood Culture - Preliminary NO GROWTH AFTER 3 DAYS 06/25/18 22:31 Blood-Venous S.aureus & Coag-Neg Staph PNA FISH - Final 06/25/18 22:31 Blood-Venous Blood Culture - Final Streptococcus Pneumoniae 06/25/18 22:31 Blood-Venous Gram Stain - Final 06/25/18 22:01 Blood-Venous Blood Culture - Final Streptococcus Pneumoniae 06/25/18 22:01 Blood-Venous Gram Stain - Final Most Recent Lab Values WBC 10.8 K/uL (4.8-10.8) 06/29/18 05:30 RBC 3.36 Mil/uL (4.40-5.90) L 06/29/18 05:30 Hgb 10.3 g/dL (12.0-18.0) L 06/29/18 05:30 Hct 31.3 % (35.0-51.0) L 06/29/18 05:30 MCV 93.3 fl (80.0-94.0) 06/29/18 05:30 MCH 30.6 pg (27.0-31.0) 06/29/18 05:30 MCHC 32.8 g/dL (33.0-37.0) L 06/29/18 05:30 RDW 13.2 % (11.5-14.5) 06/29/18 05:30 Plt Count 228 K/uL (130-400) 06/29/18 05:30 MPV 8.7 fl (7.2-11.7) 06/26/18 04:25 Neut % (Auto) 96.8 % (50.0-75.0) H 06/26/18 04:25 Lymph % (Auto) 2.0 % (20.0-40.0) L 06/26/18 04:25 [place] % (Auto) 1.1 % (0.0-10.0) 06/26/18 04:25 Eos % (Auto) 0.0 % (0.0-4.0) 06/26/18 04:25 Baso % (Auto) 0.1 % (0.0-2.0) 06/26/18 04:25 Neut # (Auto) 7.5 K/uL (1.8-7.0) H 06/26/18 04:25 Lymph # (Auto) 0.2 K/uL (1.0-4.3) L 06/26/18 04:25 [place] # (Auto) 0.1 K/uL (0.0-0.8) 06/26/18 04:25 Eos # (Auto) 0.0 K/uL (0.0-0.7) 06/26/18 04:25 Baso # (Auto) 0.0 K/uL (0.0-0.2) 06/26/18 04:25 Neutrophils % (Manual) 93 % (42-75) H 06/26/18 04:25 Band Neutrophils % 5 % (0-2) H 06/26/18 04:25 Lymphocytes % (Manual) 0 % (20-50) L 06/26/18 04:25 Monocytes % (Manual) 2 % (0-10) 06/26/18 04:25 Platelet Estimate Normal (NORMAL) 06/26/18 04:25 Hypochromasia (manual) Slight 06/26/18 04:25 Anisocytosis (manual) Slight 06/26/18 04:25 pO2 69 mm/Hg (30-55) H 06/26/18 00:08 VBG pH 7.43 (7.32-7.43) 06/26/18 00:08 VBG pCO2 45 mmHg (40-60) 06/26/18 00:08 VBG HCO3 28.6 mmol/L 06/26/18 00:08 VBG Total CO2 31.3 mmol/L (22-28) H 06/26/18 00:08 VBG O2 Sat (Calc) 98.6 % (40-65) H 06/26/18 00:08 VBG Base Excess 4.8 mmol/L (0.0-2.0) H 06/26/18 00:08 VBG Potassium 3.6 mmol/L (3.6-5.2) 06/26/18 00:08 A-a O2 Difference 24.0 mm/Hg 06/26/18 00:08 Sodium 141.0 mmol/L (132-148) 06/26/18 00:08 Chloride 106.0 mmol/L (98-107) 06/26/18 00:08 Glucose 178 mg/dL (75-110) H 06/26/18 00:08 Lactate 1.6 mmol/L (0.7-2.1) 06/26/18 00:08 FiO2 21.0 % 06/26/18 00:08 Sodium 141 mmol/l (132-148) 06/29/18 05:30 Potassium 4.5 MMOL/L (3.6-5.0) 06/29/18 05:30 Chloride 105 mmol/L (98-107) 06/29/18 05:30 Carbon Dioxide 30 mmol/L (22-30) 06/29/18 05:30 Anion Gap 11 (10-20) 06/29/18 05:30 BUN 43 mg/dl (9-20) H 06/29/18 05:30 Creatinine 1.3 mg/dl (0.8-1.5) 06/29/18 05:30 Est GFR ( Amer) > 60 06/29/18 05:30 Est GFR (Non-Af Amer) 53 06/29/18 05:30 Random Glucose 94 mg/dL (75-110) 06/29/18 05:30 Calcium 8.4 mg/dL (8.4-10.2) 06/29/18 05:30 Phosphorus 4.3 mg/dl (2.5-4.5) 06/26/18 04:25 Magnesium 2.2 MG/DL (1.6-2.3) 06/26/18 04:25 Total Bilirubin 0.5 mg/dl (0.2-1.3) 06/25/18 20:59 AST 36 U/L (17-59) 06/25/18 20:59 ALT 30 U/L (21-72) 06/25/18 20:59 Alkaline Phosphatase 97 U/L (38-126) 06/25/18 20:59 NT-Pro-B Natriuret Pep 1300 pg/ml (0-900) H 06/25/18 21:15 Total Protein 7.5 G/DL (6.3-8.2) 06/25/18 20:59 Albumin 3.5 g/dL (3.5-5.0) 06/25/18 20:59 Globulin 4.0 gm/dL (2.2-3.9) H 06/25/18 20:59 Albumin/Globulin Ratio 0.9 (1.0-2.1) L 06/25/18 20:59 Venous Blood Potassium 3.6 mmol/L (3.6-5.2) 06/26/18 00:08 Influenza Typ A,B (EIA) Negative for flu a/b (NEGATIVE) 06/25/18 21:13 Ur L.pneumophila Ag Negative (NEGATIVE) 06/27/18 08:52 Ur Strep pneumoniae Ag Detected (Not Detected) H 06/26/18 13:02 - Hospital Course Hospital Course: 83 years old male, living alone, with hx of Interstitial lung disease on home Oxygen, Pneumothorax and Anemia presented to ED with complaints of worsening shortness of breath x 2 weeks associated with mild cough. Patient is admitted for worsening dyspnea and pneumonia. Sepsis (POA) 2/2 Bacterial Pneumonia with Streptococcal Pneumonia Bacteremia Afebrile, leukocytosis resolved; Blood c/s: Strep Pneumo; f/u blood cx: NG X 48 hrs IV Azithromycin and Ceftriaxone; Duoneb; Chest physiotherapy; Acapella therapy Pulm: Dr. Niño Idiopathic Pulmonary Fibrosis, chronic: Duoneb tx; Tapered IV Solumedrol: q12 Pt discharged to [facility] for completion of 14 day course of abx; with possibility of skilled nursing care. Case dw Dr. Lissette Jerome MD PGY2 Discharge Exam - Head Exam Head Exam: ATRAUMATIC, NORMAL INSPECTION, NORMOCEPHALIC - Eye Exam Eye Exam: EOMI - ENT Exam ENT Exam: Mucous Membranes Moist - Respiratory Exam Respiratory Exam: Rhonchi - Cardiovascular Exam Cardiovascular Exam: +S1, +S2 - GI/Abdominal Exam GI & Abdominal Exam: Normal Bowel Sounds, Soft. absent: Tenderness - Neurological Exam Neurological exam: Alert, CN II-XII Intact - Psychiatric Exam Psychiatric exam: Normal Affect, Normal Mood Discharge Plan - Discharge Medications Prescriptions: Prednisone [Deltasone] 40 mg PO DAILY 16 Days tablet - Follow Up Plan Condition: GUARDED Disposition: REHAB FACILITY/REHAB UNIT Instructions: Exacerbation of COPD (DC), Idiopathic Pulmonary Fibrosis (DC) Referrals: Ephraim Niño MD [Family Provider] -
[2018-07-02 19:28] VITALS: BP 149/76; PULSE 92; RESP 17; TEMP 97.2; O2SAT 98
== END 2018-07-02 20:00 | DRG 871 ==
LOC: H.ER 19:37 → H.ERHOLD 21:39 → H.TEL 06-26 01:51
PROVIDERS: ADMIT Internal Medicine; ATTEND Internal Medicine
DX: A40.3 Sepsis due to Streptococcus pneumoniae (principal); J13 Pneumonia due to Streptococcus pneumoniae; N17.9 Acute kidney failure, unspecified; J44.0 Chronic obstructive pulmonary disease with (acute) lower respiratory infection; J84.112 Idiopathic pulmonary fibrosis; D50.8 Other iron deficiency anemias; E86.0 Dehydration; I10 Essential (primary) hypertension; N40.0 Benign prostatic hyperplasia without lower urinary tract symptoms; Z96.641 Presence of right artificial hip joint; Z99.81 Dependence on supplemental oxygen; Z87.01 Personal history of pneumonia (recurrent); Z91.013 Allergy to seafood

== ENCOUNTER 2018-12-04 15:44 | Inpatient (IN) | payer OTHER, MEDICARE ==
[2018-12-04 15:44] VITALS: PULSE 143
[2018-12-04] MEDS ORDERED: Sodium Chloride 0.9% 1,000 ML IV STA ×2 (16:14→16:23)
[2018-12-04] MEDS ORDERED: Piperacillin/Tazobact 3.375 GM in Sodium Chloride 0.9% 100 ML IVPB STA (16:16)
[2018-12-04] MEDS ORDERED: Vancomycin 1 g Inj ONE (16:27)
[2018-12-04 16:28] LABS: BASO % 0.1 % (0.0-2.0); HEMOGLOBIN 13.8 g/dL (12.0-18.0); LYMPH # 0.7 K/uL (1.0-4.3); LYMPH % 6.2 % (20.0-40.0); MEAN CELL VOLUME 93.6 fl (80.0-94.0); MEAN CORPUSCULAR HEMOGLOBIN 29.2 pg (27.0-31.0); MEAN CORPUSCULAR HGB CONC 31.2 g/dL (33.0-37.0); MONO # 0.7 K/uL (0.0-0.8); MONO % 6.6 % (0.0-10.0); NEUT # 9.3 K/uL (1.8-7.0); NEUT % 87.1 % (50.0-75.0); PLATELET COUNT 243 K/uL (130-400); RBC 4.74 Mil/uL (4.40-5.90); RED CELL DISTRIBUTION WIDTH 14.5 % (11.5-14.5); WHITE BLOOD COUNT 10.7 K/uL (4.8-10.8)
[2018-12-04 16:32] LABS: VENOUS BLOOD GAS BASE EXCESS 5.6 mmol/L (0.0-2.0); VENOUS BLOOD GAS PCO2 62 mmHg (40-60); VENOUS BLOOD GAS PO2 49 mm/Hg (30-55); VENOUS BLOOD PH 7.34 (7.32-7.43)
--- NOTE | 2018-12-04 16:34 | ED PDOC ---
HPI: SOB/CHF/COPD Time Seen by Provider: 12/04/18 15:59 Chief Complaint (Nursing): Shortness Of Breath Chief Complaint (Provider): Shortness Of Breath History Per: Patient History/Exam Limitations: no limitations Onset/Duration Of Symptoms: Days (x2) Current Symptoms Are (Timing): Still Present Additional Complaint(s): Patient is an 83 y/o male with an extensive PMHx who was brought in by ambulance after post man found him on the ground. Patient was seen two days ago with shortness of breath and crackles. Patient right now complains of lower back pain. No other information is attainable at this moment because when asked about chest pain patient nodded his head but said "no." PCP: None Past Medical History Reviewed: Historical Data, Nursing Documentation, Vital Signs Vital Signs: Last Vital Signs Temp 98.7 F 12/04/18 16:18 Pulse 78 12/04/18 15:51 Resp 18 12/04/18 15:51 BP 113/80 12/04/18 15:51 Pulse Ox 99 12/04/18 15:51 Primary Care Provider: FAMILY PROVIDER,NO - Medical History PMH: Anemia, COPD, Fractures (right hip fracture ), HTN, Pneumonia, Pneumothorax Denies: Alzheimer's Disease, Asthma, Atrial Fibrillation, Bronchitis, CAD, Cardia Arrhythmia, CHF, Crohn's Disease, Dementia, Diverticulitis, Emphysema, Gastritis, Gall Bladder Disease, HIV, Hypercholesterolemia, Hyperthyroidism, Hypothyroidism, Kidney Stones, Migraine, Mitral Valve Prolapse, Multiple Scler osis, Pancreatitis, Parkinson's Disease, Peripheral Edema, Pulmonary Embolism, Chronic Kidney Disease, Seizures, Sickle Cell Disease, Sleep Apnea, TIA - Surgical History Surgical History: No Surg Hx Denies: Pacemaker - Family History Family History: States: Unknown Family Hx - Living Arrangements Living Arrangements: Alone - Home Medications Home Medications: Ambulatory Orders Medication Instructions Recorded Tamsulosin [Flomax] 0.4 mg PO DAILY #0 cap 01/20/15 Aspirin [Ecotrin] 81 mg PO DAILY tabec 07/02/18 Docusate [Colace] 100 mg PO BID PRN cap 07/02/18 Metoprolol Tartrate [Lopressor] 25 mg PO DAILY 12/04/18 Multivitamin [Multi-Vitamin Daily] 1 tab PO DAILY 12/04/18 Triamterene/Hydrochlorothiazid 1 cap PO DAILY 12/04/18 [Triamterene-Hctz 37.5-25 mg Cp] - Allergies Allergies/Adverse Reactions: Allergies Allergy/AdvReac Type Severity Reaction Status Date / Time shellfish Allergy SHORTNESS Uncoded 06/25/18 19:47 OF BREATH Review of Systems Review Of Systems: ROS cannot be obtained secondary to pt's inabilty to answer questions. Respiratory: Positive for: Shortness of Breath, Other (crackles) Musculoskeletal: Positive for: Back Pain (lower) Physical Exam - Reviewed Nursing Documentation Reviewed: Yes Vital Signs Reviewed: Yes - Physical Exam Appears: Positive for: In Acute Distress (thin and frail) Head Exam: Positive for: ATRAUMATIC, NORMAL INSPECTION (head in extension), NORMOCEPHALIC Skin: Positive for: Normal Color, Warm, DRY Eye Exam: Positive for: EOMI, Normal appearance, PERRL ENT: Positive for: Other (anterior chi nand throat swelling; tongue is dark brown with thick purulent mucous that has a foul odor) Neck: Positive for: Normal, Painless ROM, Supple Cardiovascular/Chest: Positive for: Tachycardia Respiratory: Positive for: Rhonchi, Respiratory Distress (acute), Other (tachypneic) Gastrointestinal/Abdominal: Positive for: Normal Exam, Soft. Negative for: Tenderness Back: Positive for: Other (stage 1 pressure ulcers to upper back and lower sacrum) Extremity: Positive for: Normal ROM. Negative for: Pedal Edema, Deformity - Laboratory Results Result Diagrams: 12/06/18 04:10 12/06/18 04:10 - ECG O2 Sat by Pulse Oximetry: 99 (RA) Pulse Ox Interpretation: Normal - Critical Care Total Time (In Min): 120 Medical Decision Making Medical Decision Making: Time: 1526 Impression: Questionable infection vs upper airway compression. Fiberoptic bronchoscopy to assess airway. Most likely admission into ICU. Most likely intubation at this point. Plan: Type and Screen VBG VBG Shock EKG BNP CMP Troponin I CBC PTT Prothrombin time Chest Portable [Rad] IV Fluids Vancomycin Zosyn Culture Blood Neck Soft Tissue [Rad] Time: 1650 CXR FINDINGS: LUNGS: Lung volumes normal in the left and low on the right yet similar. Asymmetrically elevated right hemidiaphragm similar status. The bi lateral chronic appearing interstitial lung disease changes along with subpleural blebs noted on the prior CT chest study from 09/19/2017 are still noted. Compared to the prior radiograph from 06/25/2018 there is interval nodular patchy opacity projecting of the left upper lung zone and also the left clavicle level round infiltrate, interval plastic no pulmonary nodule are some considerations. PLEURA: No significant pleural effusion identified, no pneumothorax apparent. CARDIOVASCULAR: There is presence of aortic atherosclerotic calcification on x-ray. Mild cardiomegaly- a mild concomitant pulmonary venous congestion OSSEOUS STRUCTURES: Thoraco lumbar spondylosis. VISUALIZED UPPER ABDOMEN: Normal. OTHER FINDINGS: None. IMPRESSION: Chronic interstitial lung disease with interval patchy fairly low density nodular opacity in the left mid to upper lung zone projecting of the left clavicle. An interval patchy infiltrate 1 consideration. Diagnosis of exclusion is interval developing left pulmonary nodule. Conceivably some lesion relating to the bone itself lytic lesion cannot be excluded given its projection over the clavicle. Blebs and bullous emphysematous changes are present. No complicating pneumothorax seen. Bronchiectasis is also inferred. Consider follow-up CT chest imaging without IV contrast. Time: 1699 Neck Soft Tissue FINDINGS: Soft tissues of the neck could not be evaluated on the frontal projection due to neck flexion. There is diffuse interstitial thickening in the visualized lungs and biapical pleural thickening. IMPRESSION: Nondiagnostic frontal radiograph for evaluation of the soft tissues of the neck. Diffuse interstitial fibrosis. Time: 1699 Adrien Salcido DO spoke to nephew who has power of state attorney, Jordon Triplett (Phone # [phone]), who states he believes patient would want all measures to be taken, however, indicated no specific advance directives for intubation or end of life care. Consult Dr. Niño who saw patient last year. Time: 1744 Bronchoscopy performed with anesthesia. Large fungating masses from tongue to epiglottis into the chords observed. Attempt to intubate made, however, based on altered anatomy, intubation was averted. Consulting ENT. Admitting to hospitalist. ABG shows CO2 retention. Protecting airway at this time with saturation in the high 90s. Time: 1939 Evaluated by ENT. Nasotracheal intubation performed. Patient sedated with Propofol, however, because patient's blood pressure began to fall switched to Fentanyl and Versed. Patient's friend at bed side. Patient's nephew contacted and informed of intubation. Patient to go to ICU with critical care doctors and admitting team informed. Scribe Attestation: Documented by Ron Thomas, acting as a scribe for Luz Marina Fischer MD. Provider Scribe Attestation: All medical record entries made by the Scribe were at my direction and personally dictated by me. I have reviewed the chart and agree that the record accurately reflects my personal performance of the history, physical exam, medical decision making, and the department course for this patient. I have also personally directed, reviewed, and agree with the discharge instructions and disposition. Disposition - Clinical Impression Clinical Impression: Respiratory failure, Laryngeal mass - Disposition Disposition Time: 19:40 Condition: CRITICAL
[2018-12-04 16:41] LABS: ALB/GLOB RATIO 0.9 (1.0-2.1); ALBUMIN 3.9 g/dL (3.5-5.0); ALT/SGPT 9 U/L (21-72); AST/SGOT 24 U/L (17-59); BLOOD UREA NITROGEN 42 mg/dl (9-20); CALCIUM 9.7 mg/dL (8.4-10.2); GFR NON-AFRICAN AMERICAN 53
[2018-12-04 16:47] LABS: PROTHROMBIN TIME 11.9 Seconds (9.8-13.1)
[2018-12-04 16:53] LABS: B-TYPE NATRIURETIC PEPTIDE 1390 pg/ml (0-900)
--- NOTE | 2018-12-04 16:53 | RAD ---
Date of service: 12/04/2018 HISTORY: possible admission COMPARISON: 06/25/2018 TECHNIQUE: 1 view obtained. FINDINGS: LUNGS: Lung volumes normal in the left and low on the right yet similar. Asymmetrically elevated right hemidiaphragm similar status. The bi lateral chronic appearing interstitial lung disease changes along with subpleural blebs noted on the prior CT chest study from 09/19/2017 are still noted. Compared to the prior radiograph from 06/25/2018 there is interval nodular patchy opacity projecting of the left upper lung zone and also the left clavicle level round infiltrate, interval plastic no pulmonary nodule are some considerations. PLEURA: No significant pleural effusion identified, no pneumothorax apparent. CARDIOVASCULAR: There is presence of aortic atherosclerotic calcification on x-ray. Mild cardiomegaly- a mild concomitant pulmonary venous congestion OSSEOUS STRUCTURES: Thoraco lumbar spondylosis. VISUALIZED UPPER ABDOMEN: Normal. OTHER FINDINGS: None. IMPRESSION: Chronic interstitial lung disease with interval patchy fairly low density nodular opacity in the left mid to upper lung zone projecting of the left clavicle. An interval patchy infiltrate 1 consideration. Diagnosis of exclusion is interval developing left pulmonary nodule. Conceivably some lesion relating to the bone itself lytic lesion cannot be excluded given its projection over the clavicle. Blebs and bullous emphysematous changes are present. No complicating pneumothorax seen. Bronchiectasis is also inferred. Consider follow-up CT chest imaging without IV contrast.
--- NOTE | 2018-12-04 16:57 | RAD ---
Date of service: 12/04/2018 HISTORY: COMPARISON: No comparison available. TECHNIQUE: 1 frontal view was obtained. FINDINGS: Soft tissues of the neck could not be evaluated on the frontal projection due to neck flexion. There is diffuse interstitial thickening in the visualized lungs and biapical pleural thickening. IMPRESSION: Nondiagnostic frontal radiograph for evaluation of the soft tissues of the neck. Diffuse interstitial fibrosis.
--- NOTE | 2018-12-04 17:14 | ED PDOC ---
- Laboratory Results Result Diagrams: 12/04/18 16:25 12/04/18 16:25 Lab Results: pO2 49 mm/Hg (30-55) 12/04/18 16:25 VBG pH 7.34 (7.32-7.43) 12/04/18 16:25 VBG pCO2 62 mmHg (40-60) H 12/04/18 16:25 VBG HCO3 28.9 mmol/L 12/04/18 16:25 VBG Total CO2 35.3 mmol/L (22-28) H 12/04/18 16:25 VBG O2 Sat (Calc) 87.8 % (40-65) H 12/04/18 16:25 VBG Base Excess 5.6 mmol/L (0.0-2.0) H 12/04/18 16:25 VBG Potassium 3.8 mmol/L (3.6-5.2) 12/04/18 16:25 Sodium 147.0 mmol/L (132-148) 12/04/18 16:25 Chloride 105.0 mmol/L (98-107) 12/04/18 16:25 Glucose 164 mg/dL (75-110) H 12/04/18 16:25 Lactate 2.6 mmol/L (0.7-2.1) H 12/04/18 16:25 FiO2 21.0 % 12/04/18 16:25 PT 11.9 Seconds (9.8-13.1) 12/04/18 16:25 INR 1.0 12/04/18 16:25 APTT 30.0 Seconds (25.6-37.1) 12/04/18 16:25 Troponin I 0.0230 ng/mL (0.00-0.120) 12/04/18 16:25 NT-Pro-B Natriuret Pep 1390 pg/ml (0-900) H 12/04/18 16:25 Total Bilirubin 0.7 mg/dl (0.2-1.3) 12/04/18 16:25 AST 24 U/L (17-59) 12/04/18 16:25 ALT 9 U/L (21-72) L D 12/04/18 16:25 Alkaline Phosphatase 103 U/L (38-126) 12/04/18 16:25 Total Protein 8.3 G/DL (6.3-8.2) H 12/04/18 16:25 Albumin 3.9 g/dL (3.5-5.0) 12/04/18 16:25 Globulin 4.4 gm/dL (2.2-3.9) H 12/04/18 16:25 Albumin/Globulin Ratio 0.9 (1.0-2.1) L 12/04/18 16:25 - ECG O2 Sat by Pulse Oximetry: 99 (RA) Pulse Ox Interpretation: Normal Medical Decision Making Medical Decision Making: Time: 1700 Patient endorsed to provider from Luz Marina Fischer MD. Spoke to nephew who has power of sr. manager marketing, Jordon Ioana (Phone # [phone]) who states he believes patient would want all measures to be taken, however, indicated no specific advance directives for intubation or end of life care. Consult Dr. Niño who saw patient last year. Scribe Attestation: Documented by Ron Thomas, acting as a scribe for Adrien Salcido DO. Provider Scribe Attestation: All medical record entries made by the Scribe were at my direction and personal ly dictated by me. I have reviewed the chart and agree that the record accurately reflects my personal performance of the history, physical exam, medical decision making, and the department course for this patient. I have also personally directed, reviewed, and agree with the discharge instructions and disposition. Disposition - Disposition Forms: [email or web address] (Slovak)
--- NOTE | 2018-12-04 17:17 | ED PDOC ---
- Laboratory Results Result Diagrams: 12/04/18 16:25 12/04/18 16:25 Lab Results: pO2 49 mm/Hg (30-55) 12/04/18 16:25 VBG pH 7.34 (7.32-7.43) 12/04/18 16:25 VBG pCO2 62 mmHg (40-60) H 12/04/18 16:25 VBG HCO3 28.9 mmol/L 12/04/18 16:25 VBG Total CO2 35.3 mmol/L (22-28) H 12/04/18 16:25 VBG O2 Sat (Calc) 87.8 % (40-65) H 12/04/18 16:25 VBG Base Excess 5.6 mmol/L (0.0-2.0) H 12/04/18 16:25 VBG Potassium 3.8 mmol/L (3.6-5.2) 12/04/18 16:25 Sodium 147.0 mmol/L (132-148) 12/04/18 16:25 Chloride 105.0 mmol/L (98-107) 12/04/18 16:25 Glucose 164 mg/dL (75-110) H 12/04/18 16:25 Lactate 2.6 mmol/L (0.7-2.1) H 12/04/18 16:25 FiO2 21.0 % 12/04/18 16:25 PT 11.9 Seconds (9.8-13.1) 12/04/18 16:25 INR 1.0 12/04/18 16:25 APTT 30.0 Seconds (25.6-37.1) 12/04/18 16:25 Troponin I 0.0230 ng/mL (0.00-0.120) 12/04/18 16:25 NT-Pro-B Natriuret Pep 1390 pg/ml (0-900) H 12/04/18 16:25 Total Bilirubin 0.7 mg/dl (0.2-1.3) 12/04/18 16:25 AST 24 U/L (17-59) 12/04/18 16:25 ALT 9 U/L (21-72) L D 12/04/18 16:25 Alkaline Phosphatase 103 U/L (38-126) 12/04/18 16:25 Total Protein 8.3 G/DL (6.3-8.2) H 12/04/18 16:25 Albumin 3.9 g/dL (3.5-5.0) 12/04/18 16:25 Globulin 4.4 gm/dL (2.2-3.9) H 12/04/18 16:25 Albumin/Globulin Ratio 0.9 (1.0-2.1) L 12/04/18 16:25 - ECG O2 Sat by Pulse Oximetry: 99 (RA) Pulse Ox Interpretation: Normal Medical Decision Making Medical Decision Making: Time: 1700 Patient endorsed to provider from Luz Marina Fischer MD. Spoke to nephew who has power of divorce attorney, Jordon Ioana (Phone # [phone]), who states he believes amelia felipe would want all measures to be taken, however, indicated no specific advance directives for intubation or end of life care. Consult Dr. Niño who saw patient last year. Scribe Attestation: Documented by Ron Thomas, acting as a scribe for Adrien Salcido DO. Provider Scribe Attestation: All medical record entries made by the Scribe were at my direction and personally dictated by me. I have reviewed the chart and agree that the record accurately reflects my personal performance of the history, physical exam, medical decision making, and the department course for this patient. I have also personally directed, reviewed, and agree with the discharge instructions and disposition. Disposition - Disposition Forms: [employer] (Swedish)
[2018-12-04 17:19] LABS: ABG ALLEN TEST YES; ARTERIAL BLOOD GAS HCO3 25.6 mmol/L (21-28); ARTERIAL BLOOD GAS O2 SAT 100.9 % (95-98); ARTERIAL BLOOD GAS PCO2 66 mm/Hg (35-45); ARTERIAL BLOOD GAS PH 7.26 (7.35-7.45); ARTERIAL BLOOD GAS PO2 142 mm/Hg (80-100); ARTERIAL BLOOD GAS TCO2 31.6 mmol/L (22-28)
[2018-12-04 17:45] LABS: BANDS 2 % (0-2); BASOPHIL 1 % (0-2); EOSINOPHIL 1 % (0-7); LYMPHOCYTE 9 % (20-50); MONOCYTE 6 % (0-10); NEUTROPHIL 81 % (42-75); TOTAL CELLS COUNTED 100
[2018-12-04 17:46] LABS: PLATELET ESTIMATE NORMAL (NORMAL)
[2018-12-04 17:47] LABS: HYPOCHROMIC SLIGHT; TOXIC GRANULATION PRESENT
[2018-12-04] MEDS ORDERED: Etomidate 20 mg/10ml Inj IV ONE ×2 (17:50→17:59)
[2018-12-04] MEDS ORDERED: Rocuronium 10 mg/ml (5 ml) ONE (17:51)
[2018-12-04] MEDS ORDERED: Lidocaine 1% 5ml Abboject ONE (17:58)
[2018-12-04] MEDS ORDERED: Albuterol-Ipratrop 3 mg / 0.5 (3 ml) UD INH STA (17:59)
[2018-12-04] MEDS ORDERED: Lidocaine 1% Inj (20ml) TP ONE (18:07)
[2018-12-04] MEDS ORDERED: Piperacillin/Tazobact 3.375 gm Inj IVPB ONE (18:30)
[2018-12-04] MEDS ORDERED: Propofol 10 mg/ml 1,000 MG/100 ML VIAL IV SCH (18:30)
[2018-12-04] MEDS ORDERED: SODIUM CHLORIDE 0.9% IV ONE (18:57)
[2018-12-04] MEDS ORDERED: MIDAZOLAM IV ONE (18:57)
[2018-12-04] MEDS ORDERED: Propofol 10 mg/ml Inj (20 ML) IV ONE (19:00)
[2018-12-04] MEDS ORDERED: Lidocaine 1% 5ml Abboject IJ ONE (19:00)
[2018-12-04] MEDS ORDERED: Etomidate 20 mg/10ml Inj IV STA (19:04)
[2018-12-04] MEDS ORDERED: Fentanyl Citrate 2,500 MCG in Dextrose 5% In Water 200 ML IV SCH (19:15)
[2018-12-04] MEDS ORDERED: Albuterol-Ipratrop 3 mg / 0.5 (3 ml) UD INH PRN (19:44)
--- NOTE | 2018-12-04 19:55 | CP.PCM.HP ---
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 Further interviewing limited due to sedation with Nasal/tracheal intubation. Of note, he was previously admitted on 06/25 for sepsis 2/2 worsening SOB and pneumonia. Blood cultures Step pneumonia. Treated with Azithromycin and Ceftriaxone; IPF treated with chest physiotherapy, Acapella and duoneb tapered. History derived from prior chart documentation PMD/Pulm: Dr. Niño PMH: Right Pneumothorax' A Fiv; Anemia; Interstitial Lung disease; HTTN; BPH; Right hip fracture; COPD PSH: Bilateral Cataract surgery; Right Hip ORIF. Right Chest Tube 12/28/14 SH: Never Smoked: No ETOH use; No illegal drug Use; Lives alone with Aide visiting; Walks with 4 legged Cane FH: Brother with Lung problem on home Oxygen Allergies: NKDA, Shellfish Medication: Reviewed Code status: Full code Next of Kin: Jordon Clemens (nephew) [phone] Present on Admission - Present on Admission Any Indicators Present on Admission: No History of Uncontrolled Diabetes: No Review of Systems - Review of Systems Systems not reviewed;Unavailable: Intubated Past Patient History - Infectious Disease Hx of Infectious Diseases: None - Tetanus Immunizations Tetanus Immunization: Unknown - Past Medical History & Family History Past Medical History?: Yes - Past Social History Smoking Status: Never Smoked Alcohol: None Drugs: Denies Home Situation {Lives}: Alone - CARDIAC Hx Atrial Fibrillation: No Hx Cardia Arrhythmia: No Hx Congestive Heart Failure: No Hx Hypercholesterolemia: No Hx Hypertension: Yes Hx Mitral Valve Prolapse: No Hx Pacemaker: No Hx Peripheral Edema: No - PULMONARY Hx Asthma: No Hx Bronchitis: No Hx Chronic Obstructive Pulmonary Disease (COPD): Yes Hx Emphysema: No Hx Pneumonia: Yes Hx Pulmonary Embolism: No Hx Sleep Apnea: No Other/Comment: IPF - NEUROLOGICAL Hx Alzheimer's Disease: No Hx Dementia: No Hx Migraine: No Hx Multiple Sclerosis: No Hx Parkinson's Disease: No Hx Seizures: No Hx Transient Ischemic Attacks (TIA): No - HEENT Hx Cataracts: Yes - RENAL Hx Chronic Kidney Disease: No Hx Kidney Stones: No - ENDOCRINE/METABOLIC Hx Hyperthyroidism: No Hx Hypothyroidism: No - HEMATOLOGICAL/ONCOLOGICAL Hx Anemia: Yes Hx Human Immunodeficiency Virus (HIV): No Hx Sickle Cell Disease: No - INTEGUMENTARY Hx Dermatological Problems: No - MUSCULOSKELETAL/RHEUMATOLOGICAL Hx Fractures: Yes (right hip fracture ) - GASTROINTESTINAL Hx Crohn's Disease: No Hx Diverticulitis: No Hx Gall Bladder Disease: No Hx Gastritis: No Hx Pancreatitis: No - GENITOURINARY/GYNECOLOGICAL Hx Prostate Problems: Yes (BPH) - PSYCHIATRIC Hx Psychophysiologic Disorder: No Hx Substance Use: No - SURGICAL HISTORY Hx Cataract Extraction: Yes Hx Joint Replacement: Yes (Hip) Other/Comment: Right hip fracture ORIF. Right spontaneous pneumothorax with VATS - ANESTHESIA Hx Anesthesia: Yes Hx Anesthesia Reactions: No Hx Malignant Hyperthermia: No Meds Allergies/Adverse Reactions: Allergies Allergy/AdvReac Type Severity Reaction Status Date / Time shellfish Allergy SHORTNESS Uncoded 06/25/18 19:47 OF BREATH Physical Exam - ENT Exam Additional comments: Black plaque on tongue - Respiratory Exam Respiratory Exam: Rales, Rhonchi - Cardiovascular Exam Cardiovascular Exam: +S1, +S2 - GI/Abdominal Exam GI & Abdominal Exam: Normal Bowel Sounds, Soft - Neurological Exam Neurological exam: Altered (intubated with sedation) Results - Vital Signs Recent Vital Signs: Last Vital Signs Temp 98.7 F 12/04/18 16:18 Pulse 96 H 12/04/18 19:34 Resp 16 12/04/18 19:34 BP 132/82 12/04/18 19:34 Pulse Ox 99 12/04/18 19:48 - Labs Result Diagrams: 12/04/18 16:25 12/04/18 16:25 Labs: Laboratory Results - last 24 hr 12/04/18 12/04/18 12/04/18 16:21 16:25 16:25 WBC 10.7 RBC 4.74 Hgb 13.8 D Hct 44.4 MCV 93.6 MCH 29.2 MCHC 31.2 L RDW 14.5 Plt Count 243 MPV 10.0 Neut % (Auto) 87.1 H Lymph % (Auto) 6.2 L [place] % (Auto) 6.6 Eos % (Auto) 0.0 Baso % (Auto) 0.1 Neut # (Auto) 9.3 H Lymph # (Auto) 0.7 L [place] # (Auto) 0.7 Eos # (Auto) 0.0 Baso # (Auto) 0.0 Neutrophils % (Manual) 81 H Band Neutrophils % 2 Lymphocytes % (Manual) 9 L Monocytes % (Manual) 6 Eosinophils % (Manual) 1 Basophils % (Manual) 1 Toxic Granulation Present Platelet Estimate Normal Hypochromasia (manual) Slight PT INR APTT pCO2 pO2 HCO3 ABG pH ABG Total CO2 ABG O2 Saturation ABG Base Excess Ryan Test ABG Potassium VBG pH VBG pCO2 VBG HCO3 VBG Total CO2 VBG O2 Sat (Calc) VBG Base Excess VBG Potassium A-a O2 Difference Sodium 147 Chloride 102 Glucose Lactate Vent Mode FiO2 Potassium 3.9 Carbon Dioxide 28 Anion Gap 21 H BUN 42 H Creatinine 1.3 Est GFR ( Amer) > 60 Est GFR (Non-Af Amer) 53 POC Glucose (mg/dL) Random Glucose 167 H Calcium 9.7 Total Bilirubin 0.7 AST 24 ALT 9 L D Alkaline Phosphatase 103 Troponin I 0.0230 NT-Pro-B Natriuret Pep 1390 H Total Protein 8.3 H Albumin 3.9 Globulin 4.4 H Albumin/Globulin Ratio 0.9 L Arterial Blood Potassium Venous Blood Potassium Blood Type O POSITIVE Antibody Screen Negative BBK History Checked Patient has bt 12/04/18 12/04/18 12/04/18 16:25 16:25 16:42 WBC RBC Hgb Hct MCV MCH MCHC RDW Plt Count MPV Neut % (Auto) Lymph % (Auto) [place] % (Auto) Eos % (Auto) Baso % (Auto) Neut # (Auto) Lymph # (Auto) [place] # (Auto) Eos # (Auto) Baso # (Auto) Neutrophils % (Manual) Band Neutrophils % Lymphocytes % (Manual) Monocytes % (Manual) Eosinophils % (Manual) Basophils % (Manual) Toxic Granulation Platelet Estimate Hypochromasia (manual) PT 11.9 INR 1.0 APTT 30.0 pCO2 pO2 49 HCO3 ABG pH ABG Total CO2 ABG O2 Saturation ABG Base Excess Ryan Test ABG Potassium VBG pH 7.34 VBG pCO2 62 H VBG HCO3 28.9 VBG Total CO2 35.3 H VBG O2 Sat (Calc) 87.8 H VBG Base Excess 5.6 H VBG Potassium 3.8 A-a O2 Difference Sodium 147.0 Chloride 105.0 Glucose 164 H Lactate 2.6 H Vent Mode FiO2 21.0 Potassium Carbon Dioxide Anion Gap BUN Creatinine Est GFR ( Amer) Est GFR (Non-Af Amer) POC Glucose (mg/dL) 145 H Random Glucose Calcium Total Bilirubin AST ALT Alkaline Phosphatase Troponin I NT-Pro-B Natriuret Pep Total Protein Albumin Globulin Albumin/Globulin Ratio Arterial Blood Potassium Venous Blood Potassium 3.8 Blood Type Antibody Screen BBK History Checked 12/04/18 17:15 WBC RBC Hgb Hct MCV MCH MCHC RDW Plt Count MPV Neut % (Auto) Lymph % (Auto) [place] % (Auto) Eos % (Auto) Baso % (Auto) Neut # (Auto) Lymph # (Auto) [place] # (Auto) Eos # (Auto) Baso # (Auto) Neutrophils % (Manual) Band Neutrophils % Lymphocytes % (Manual) Monocytes % (Manual) Eosinophils % (Manual) Basophils % (Manual) Toxic Granulation Platelet Estimate Hypochromasia (manual) PT INR APTT pCO2 66 H pO2 142 H HCO3 25.6 ABG pH 7.26 L ABG Total CO2 31.6 H ABG O2 Saturation 100.9 H ABG Base Excess 0.8 Ryan Test Yes ABG Potassium 3.1 L VBG pH VBG pCO2 VBG HCO3 VBG Total CO2 VBG O2 Sat (Calc) VBG Base Excess VBG Potassium A-a O2 Difference 132.0 Sodium 149.0 H Chloride 112.0 H Glucose 122 H Lactate 0.8 Vent Mode High flow lpm FiO2 50.0 Potassium Carbon Dioxide Anion Gap BUN Creatinine Est GFR ( Amer) Est GFR (Non-Af Amer) POC Glucose (mg/dL) Random Glucose Calcium Total Bilirubin AST ALT Alkaline Phosphatase Troponin I NT-Pro-B Natriuret Pep Total Protein Albumin Globulin Albumin/Globulin Ratio Arterial Blood Potassium 3.1 L Venous Blood Potassium Blood Type Antibody Screen BBK History Checked Assessment & Plan - Assessment and Plan (Free Text) Assessment: 83 YO M with pmhx of 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 Plan: CXR: Chronic interstitial lung disease with interval patchy fairly low density nodular opacity in the left mid to upper lung zone projecting of the left clavicle. An interval patchy infiltrate 1 consideration. Diagnosis of exclusion is interval developing left pulmonary nodule. Conceivably some lesion relating to the bone itself lytic lesion cannot be excluded given its projection over the clavicle. Blebs and bullous emphysematous changes are present. No complicating pneumothorax seen. Bronchiectasis is also inferred. Consider follow-up CT chest imaging without IV contrast. XR soft tissue neck: Nondiagnostic frontal radiograph for evaluation of the soft tissues of the neck. Diffuse interstitial fibrosis. Pneumonia Afebrile, wbc: 10.7; lactate: 2.6 Nasotracheal intubation in ER Pt admitted to ICU BNP 1390; (1300 on 06/25/2018) Vancomycin 500 mg and Zosyn 3.375 mg started in ER; continue IVF: NS at 100 mls/hr f/u UA, Blood Cx, AM labs upper airway mass possible necrosis found on CXR Otolaryngology: Dr. Pringle consulted; further recs appreciated IPF, chronic Duoneb; intubated Pulm: Dr. Niño; further recs appreciated HTN c/w home meds continue to monitor bp Chronic Anemia current h/h: 13.8/44.4 continue to monitor DVT/GI ppx Lovenox Pantoprazole 40 MG Case and plan d/w Dr. Tommy Jerome MD PGY-2 <Yeison Sanders D - Last Filed: 12/05/18 00:37> Results - Vital Signs Recent Vital Signs: Last Vital Signs Temp 99.5 F 12/04/18 21:00 Pulse 91 H 12/04/18 21:00 Resp 12 12/04/18 21:00 BP 102/63 12/04/18 21:00 Pulse Ox 100 12/04/18 21:00 - Labs Result Diagrams: 12/04/18 16:25 12/04/18 16:25 Labs: Laboratory Results - last 24 hr 12/04/18 12/04/18 12/04/18 16:21 16:25 16:25 WBC 10.7 RBC 4.74 Hgb 13.8 D Hct 44.4 MCV 93.6 MCH 29.2 MCHC 31.2 L RDW 14.5 Plt Count 243 MPV 10.0 Neut % (Auto) 87.1 H Lymph % (Auto) 6.2 L [place] % (Auto) 6.6 Eos % (Auto) 0.0 Baso % (Auto) 0.1 Neut # (Auto) 9.3 H Lymph # (Auto) 0.7 L [place] # (Auto) 0.7 Eos # (Auto) 0.0 Baso # (Auto) 0.0 Neutrophils % (Manual) 81 H Band Neutrophils % 2 Lymphocytes % (Manual) 9 L Monocytes % (Manual) 6 Eosinophils % (Manual) 1 Basophils % (Manual) 1 Toxic Granulation Present Platelet Estimate Normal Hypochromasia (manual) Slight PT INR APTT pCO2 pO2 HCO3 ABG pH ABG Total CO2 ABG O2 Saturation ABG Base Excess Ryan Test ABG Potassium VBG pH VBG pCO2 VBG HCO3 VBG Total CO2 VBG O2 Sat (Calc) VBG Base Excess VBG Potassium A-a O2 Difference Sodium 147 Chloride 102 Glucose Lactate Vent Mode FiO2 Potassium 3.9 Carbon Dioxide 28 Anion Gap 21 H BUN 42 H Creatinine 1.3 Est GFR ( Amer) > 60 Est GFR (Non-Af Amer) 53 POC Glucose (mg/dL) Random Glucose 167 H Calcium 9.7 Total Bilirubin 0.7 AST 24 ALT 9 L D Alkaline Phosphatase 103 Troponin I 0.0230 NT-Pro-B Natriuret Pep 1390 H Total Protein 8.3 H Albumin 3.9 Globulin 4.4 H Albumin/Globulin Ratio 0.9 L Arterial Blood Potassium Venous Blood Potassium Blood Type O POSITIVE Antibody Screen Negative BBK History Checked Patient has bt 12/04/18 12/04/18 12/04/18 16:25 16:25 16:42 WBC RBC Hgb Hct MCV MCH MCHC RDW Plt Count MPV Neut % (Auto) Lymph % (Auto) [place] % (Auto) Eos % (Auto) Baso % (Auto) Neut # (Auto) Lymph # (Auto) [place] # (Auto) Eos # (Auto) Baso # (Auto) Neutrophils % (Manual) Band Neutrophils % Lymphocytes % (Manual) Monocytes % (Manual) Eosinophils % (Manual) Basophils % (Manual) Toxic Granulation Platelet Estimate Hypochromasia (manual) PT 11.9 INR 1.0 APTT 30.0 pCO2 pO2 49 HCO3 ABG pH ABG Total CO2 ABG O2 Saturation ABG Base Excess Ryan Test ABG Potassium VBG pH 7.34 VBG pCO2 62 H VBG HCO3 28.9 VBG Total CO2 35.3 H VBG O2 Sat (Calc) 87.8 H VBG Base Excess 5.6 H VBG Potassium 3.8 A-a O2 Difference Sodium 147.0 Chloride 105.0 Glucose 164 H Lactate 2.6 H Vent Mode FiO2 21.0 Potassium Carbon Dioxide Anion Gap BUN Creatinine Est GFR ( Amer) Est GFR (Non-Af Amer) POC Glucose (mg/dL) 145 H Random Glucose Calcium Total Bilirubin AST ALT Alkaline Phosphatase Troponin I NT-Pro-B Natriuret Pep Total Protein Albumin Globulin Albumin/Globulin Ratio Arterial Blood Potassium Venous Blood Potassium 3.8 Blood Type Antibody Screen BBK History Checked 12/04/18 17:15 WBC RBC Hgb Hct MCV MCH MCHC RDW Plt Count MPV Neut % (Auto) Lymph % (Auto) [place] % (Auto) Eos % (Auto) Baso % (Auto) Neut # (Auto) Lymph # (Auto) [place] # (Auto) Eos # (Auto) Baso # (Auto) Neutrophils % (Manual) Band Neutrophils % Lymphocytes % (Manual) Monocytes % (Manual) Eosinophils % (Manual) Basophils % (Manual) Toxic Granulation Platelet Estimate Hypochromasia (manual) PT INR APTT pCO2 66 H pO2 142 H HCO3 25.6 ABG pH 7.26 L ABG Total CO2 31.6 H ABG O2 Saturation 100.9 H ABG Base Excess 0.8 Ryan Test Yes ABG Potassium 3.1 L VBG pH VBG pCO2 VBG HCO3 VBG Total CO2 VBG O2 Sat (Calc) VBG Base Excess VBG Potassium A-a O2 Difference 132.0 Sodium 149.0 H Chloride 112.0 H Glucose 122 H Lactate 0.8 Vent Mode High flow lpm FiO2 50.0 Potassium Carbon Dioxide Anion Gap BUN Creatinine Est GFR ( Amer) Est GFR (Non-Af Amer) POC Glucose (mg/dL) Random Glucose Calcium Total Bilirubin AST ALT Alkaline Phosphatase Troponin I NT-Pro-B Natriuret Pep Total Protein Albumin Globulin Albumin/Globulin Ratio Arterial Blood Potassium 3.1 L Venous Blood Potassium Blood Type Antibody Screen BBK History Checked Attending/Attestation - Attestation I have personally seen and examined this patient.: Yes I have fully participated in the care of the patient.: Yes I have reviewed all pertinent clinical information: Yes Notes (Text): 12/05/18 00:37 Patient seen and examined with resident. Case discussed and agreed with assessment and plan of management.
[2018-12-04] MEDS: Sodium Chloride 0.9% 1,000 ML IV SCH (20:00)
[2018-12-04] MEDS: Piperacillin/Tazobact 3.375 GM in Sodium Chloride 0.9% 100 ML IVPB SCH (22:08)
--- NOTE | 2018-12-04 23:12 | CP.PCM.CON ---
History of Present Illness - History of Present Illness History of Present Illness: Attending: Dr Sanders Reason for Consult: Critical care management Chief complaint: SOB The patient was seen and examined in the ICU HPI: The hx was taken from the Radiological, laboratory and medical records, as the patient was intubated and sedated. This is an 83 years old male living alone with hx of A Fib, COPD and Idiopatic Pulmonary Fibrosis who was found on the ground at his home by his mailman. and may have been their for two days. He has been complaining of SOB and crackles along with back pain. In the ED the patient was found to have a dry mouth with the tongue dry blackened colored and with foul odour. ENT saw and evaluated patient finding a mass in the upper airway. The patient was nasally intubated in the ED by Dr Blount. PMH: Right Pneumothorax; anemia; A Fib; Pneumonia; Interstitial Pulmonary fibrosis; HTN; BPH; Right hip fracture; COPD; Gait Instability. PSH: Bilateral cataract; Right hip ORIF; Right chest tube placement 12/28/14 SH: No ETOH, never Smoked; Live alone with aide visiting 2x daily; [place] with a 4 legged cane FH: No known family hx Allergies: NKDA Shell fish Medications: Reviewed Review of Systems - Review of Systems Systems not reviewed;Unavailable: Intubated Review of Systems: Review of systems limited because of the patient being intubated. Past Patient History - Infectious Disease Hx of Infectious Diseases: None - Tetanus Immunizations Tetanus Immunization: Unknown - Past Medical History & Family History Past Medical History?: Yes - Past Social History Smoking Status: Never Smoked Chewing Tobacco Use: No Cigar Use: No Alcohol: None Drugs: Denies Home Situation {Lives}: Alone - CARDIAC Hx Atrial Fibrillation: No Hx Cardia Arrhythmia: No Hx Congestive Heart Failure: No Hx Hypercholesterolemia: No Hx Hypertension: Yes Hx Mitral Valve Prolapse: No Hx Pacemaker: No Hx Peripheral Edema: No - PULMONARY Hx Asthma: No Hx Bronchitis: No Hx Chronic Obstructive Pulmonary Disease (COPD): Yes Hx Emphysema: No Hx Pneumonia: Yes Hx Pulmonary Embolism: No Hx Sleep Apnea: No Other/Comment: IPF - NEUROLOGICAL Hx Alzheimer's Disease: No Hx Dementia: No Hx Migraine: No Hx Multiple Sclerosis: No Hx Parkinson's Disease: No Hx Seizures: No Hx Transient Ischemic Attacks (TIA): No - HEENT Hx Cataracts: Yes - RENAL Hx Chronic Kidney Disease: No Hx Kidney Stones: No - ENDOCRINE/METABOLIC Hx Hyperthyroidism: No Hx Hypothyroidism: No - HEMATOLOGICAL/ONCOLOGICAL Hx Anemia: Yes Hx Human Immunodeficiency Virus (HIV): No Hx Sickle Cell Disease: No - INTEGUMENTARY Hx Dermatological Problems: No - MUSCULOSKELETAL/RHEUMATOLOGICAL Hx Fractures: Yes (right hip fracture ) - GASTROINTESTINAL Hx Crohn's Disease: No Hx Diverticulitis: No Hx Gall Bladder Disease: No Hx Gastritis: No Hx Pancreatitis: No - GENITOURINARY/GYNECOLOGICAL Hx Prostate Problems: Yes (BPH) - PSYCHIATRIC Hx Psychophysiologic Disorder: No Hx Substance Use: No - SURGICAL HISTORY Hx Cataract Extraction: Yes Hx Joint Replacement: Yes (Hip) Other/Comment: Right hip fracture ORIF. Right spontaneous pneumothorax with VATS - ANESTHESIA Hx Anesthesia: Yes Hx Anesthesia Reactions: No Hx Malignant Hyperthermia: No Meds Allergies/Adverse Reactions: Allergies Allergy/AdvReac Type Severity Reaction Status Date / Time shellfish Allergy SHORTNESS Uncoded 06/25/18 19:47 OF BREATH - Medications Medications: Current Medications Albuterol/Ipratropium (Duoneb 3 Mg/0.5 Mg (3 Ml) Ud) 3 ml INH RQ6 PRN PRN Reason: Shortness of Breath Enoxaparin Sodium (Lovenox) 40 mg SC DAILY ANAIS; Protocol Midazolam HCl 50 mg/ Sodium (Chloride) 100 mls @ 4 mls/hr IV .Q24H ONE; Protocol Stop: 12/05/18 18:56 Last Admin: 12/04/18 20:00 Dose: 2 mg/hr, 4 mls/hr Fentanyl Citrate 2,500 mcg/ (Dextrose) 250 mls @ 5.04 mls/hr IV .Q24H ANAIS; Protocol Last Admin: 12/04/18 20:00 Dose: 1 mcg/kg/hr, 5.04 mls/hr Sodium Chloride (Sodium Chloride 0.9%) 1,000 mls @ 100 mls/hr IV .Q10H ANAIS Last Admin: 12/04/18 20:00 Dose: 100 mls/hr Vancomycin HCl 1 gm/ Sodium (Chloride) 250 mls @ 166.667 mls/hr IVPB Q12 ANAIS; Protocol Last Admin: 12/04/18 22:09 Dose: 166.667 mls/hr Piperacillin Sod/Tazobactam (Sod 3.375 gm/ Sodium Chloride) 100 mls @ 100 mls/hr IVPB Q6 ANAIS; Protocol Last Admin: 12/04/18 22:08 Dose: 100 mls/hr Pantoprazole Sodium (Protonix Inj) 40 mg IVP DAILY [facility] Physical Exam - Constitutional Appears: In Acute Distress - Head Exam Head Exam: ATRAUMATIC, NORMAL INSPECTION, NORMOCEPHALIC - Eye Exam Additional comments: Pupils equal and reacting sluggish to light - ENT Exam Additional comments: Mouth with very dry tongue with crusted blackish green. Intubated nasally - Neck Exam Neck exam: Positive for: Full Rom - Respiratory Exam Respiratory Exam: Clear to Auscultation Bilateral. absent: Rales, Rhonchi, Wheezes - Cardiovascular Exam Cardiovascular Exam: REGULAR RHYTHM, RRR, +S1, +S2. absent: Gallop, JVD - GI/Abdominal Exam GI & Abdominal Exam: Normal Bowel Sounds, Soft. absent: Mass, Organomegaly - Rectal Exam Rectal Exam: Deferred - Extremities Exam Extremities exam: Positive for: normal inspection - Back Exam Back exam: NORMAL INSPECTION - Neurological Exam Additional comments: Intubated,m sedated, reacting to painful stimuli. No facial droop - Psychiatric Exam Additional comments: Intubated and sedated - Skin Skin Exam: Dry, Normal Color, Warm Results - Vital Signs Recent Vital Signs: Last Vital Signs Temp 99.5 F 12/04/18 21:00 Pulse 91 H 12/04/18 21:00 Resp 12 12/04/18 21:00 BP 102/63 12/04/18 21:00 Pulse Ox 100 12/04/18 21:00 - Labs Result Diagrams: 12/05/18 04:53 12/05/18 04:53 Labs: Laboratory Results - last 24 hr 12/04/18 12/04/18 12/04/18 16:21 16:25 16:25 WBC 10.7 RBC 4.74 Hgb 13.8 D Hct 44.4 MCV 93.6 MCH 29.2 MCHC 31.2 L RDW 14.5 Plt Count 243 MPV 10.0 Neut % (Auto) 87.1 H Lymph % (Auto) 6.2 L [place] % (Auto) 6.6 Eos % (Auto) 0.0 Baso % (Auto) 0.1 Neut # (Auto) 9.3 H Lymph # (Auto) 0.7 L [place] # (Auto) 0.7 Eos # (Auto) 0.0 Baso # (Auto) 0.0 Neutrophils % (Manual) 81 H Band Neutrophils % 2 Lymphocytes % (Manual) 9 L Monocytes % (Manual) 6 Eosinophils % (Manual) 1 Basophils % (Manual) 1 Toxic Granulation Present Platelet Estimate Normal Hypochromasia (manual) Slight PT INR APTT pCO2 pO2 HCO3 ABG pH ABG Total CO2 ABG O2 Saturation ABG Base Excess Ryan Test ABG Potassium VBG pH VBG pCO2 VBG HCO3 VBG Total CO2 VBG O2 Sat (Calc) VBG Base Excess VBG Potassium A-a O2 Difference Sodium 147 Chloride 102 Glucose Lactate Vent Mode FiO2 Potassium 3.9 Carbon Dioxide 28 Anion Gap 21 H BUN 42 H Creatinine 1.3 Est GFR ( Amer) > 60 Est GFR (Non-Af Amer) 53 POC Glucose (mg/dL) Random Glucose 167 H Calcium 9.7 Total Bilirubin 0.7 AST 24 ALT 9 L D Alkaline Phosphatase 103 Troponin I 0.0230 NT-Pro-B Natriuret Pep 1390 H Total Protein 8.3 H Albumin 3.9 Globulin 4.4 H Albumin/Globulin Ratio 0.9 L Arterial Blood Potassium Venous Blood Potassium Blood Type O POSITIVE Antibody Screen Negative BBK History Checked Patient has bt 12/04/18 12/04/18 12/04/18 16:25 16:25 16:42 WBC RBC Hgb Hct MCV MCH MCHC RDW Plt Count MPV Neut % (Auto) Lymph % (Auto) [place] % (Auto) Eos % (Auto) Baso % (Auto) Neut # (Auto) Lymph # (Auto) [place] # (Auto) Eos # (Auto) Baso # (Auto) Neutrophils % (Manual) Band Neutrophils % Lymphocytes % (Manual) Monocytes % (Manual) Eosinophils % (Manual) Basophils % (Manual) Toxic Granulation Platelet Estimate Hypochromasia (manual) PT 11.9 INR 1.0 APTT 30.0 pCO2 pO2 49 HCO3 ABG pH ABG Total CO2 ABG O2 Saturation ABG Base Excess Ryan Test ABG Potassium VBG pH 7.34 VBG pCO2 62 H VBG HCO3 28.9 VBG Total CO2 35.3 H VBG O2 Sat (Calc) 87.8 H VBG Base Excess 5.6 H VBG Potassium 3.8 A-a O2 Difference Sodium 147.0 Chloride 105.0 Glucose 164 H Lactate 2.6 H Vent Mode FiO2 21.0 Potassium Carbon Dioxide Anion Gap BUN Creatinine Est GFR ( Amer) Est GFR (Non-Af Amer) POC Glucose (mg/dL) 145 H Random Glucose Calcium Total Bilirubin AST ALT Alkaline Phosphatase Troponin I NT-Pro-B Natriuret Pep Total Protein Albumin Globulin Albumin/Globulin Ratio Arterial Blood Potassium Venous Blood Potassium 3.8 Blood Type Antibody Screen BBK History Checked 12/04/18 17:15 WBC RBC Hgb Hct MCV MCH MCHC RDW Plt Count MPV Neut % (Auto) Lymph % (Auto) [place] % (Auto) Eos % (Auto) Baso % (Auto) Neut # (Auto) Lymph # (Auto) [place] # (Auto) Eos # (Auto) Baso # (Auto) Neutrophils % (Manual) Band Neutrophils % Lymphocytes % (Manual) Monocytes % (Manual) Eosinophils % (Manual) Basophils % (Manual) Toxic Granulation Platelet Estimate Hypochromasia (manual) PT INR APTT pCO2 66 H pO2 142 H HCO3 25.6 ABG pH 7.26 L ABG Total CO2 31.6 H ABG O2 Saturation 100.9 H ABG Base Excess 0.8 Ryan Test Yes ABG Potassium 3.1 L VBG pH VBG pCO2 VBG HCO3 VBG Total CO2 VBG O2 Sat (Calc) VBG Base Excess VBG Potassium A-a O2 Difference 132.0 Sodium 149.0 H Chloride 112.0 H Glucose 122 H Lactate 0.8 Vent Mode High flow lpm FiO2 50.0 Potassium Carbon Dioxide Anion Gap BUN Creatinine Est GFR ( Amer) Est GFR (Non-Af Amer) POC Glucose (mg/dL) Random Glucose Calcium Total Bilirubin AST ALT Alkaline Phosphatase Troponin I NT-Pro-B Natriuret Pep Total Protein Albumin Globulin Albumin/Globulin Ratio Arterial Blood Potassium 3.1 L Venous Blood Potassium Blood Type Antibody Screen BBK History Checked - EKG Data EKG comments: Sinus Tachycardia 112/min LVH - Imaging and Cardiology Chest x-ray Status: Image reviewed by me, Report reviewed by me Additional comment: Chronic interstitial lung disease Nodular Opacity at left mid to upper lung Blebs and Emphysematous changes Assessment & Plan - Assessment and Plan (Free Text) Plan: 83 years old male living alone with hx of A Fib, COPD and Idiopatic Pulmonary Fibrosis who was found on the ground at his home by his mailman. and may have been their for two days, complaining of SOB and crackles. In the ED the patient was found to have a dry mouth with the tongue dry blackened colored and with foul odour. ENT saw and evaluated patient finding a mass in the upper airway. The patient was nasally intubated in the ED by Dr Blount. #. Respiratory failure with Hypercapnia - The patient was nasally intubated in the ED - Follow ABG #. Upper airway mass - ENT on consult - r/o Infection vs Malignancy #. Chronic Interstitial Lung Fibrosis - Consult Dr Niño - Continue antibiotics #. COPD with Emphysema - Albuterol/ Iprotropium - Oxygen #.SAMIRA - IV fluids Chalo Palomo MD - Date & Time Date: 12/04/18 Time: 23:12
[2018-12-05] MEDS: Piperacillin/Tazobact 3.375 GM in Sodium Chloride 0.9% 100 ML IVPB SCH ×4 (04:04→21:08)
--- NOTE | 2018-12-05 04:25 | OP ---
PROCEDURE DATE: 12/04/2018 PREOPERATIVE DIAGNOSIS: Possible airway obstruction. POSTOPERATIVE DIAGNOSIS: Possible airway obstruction. PROCEDURE: Flexible laryngoscopy. SIGNIFICANT FINDINGS: Possible left basal tongue lesion. DESCRIPTION OF PROCEDURE: The patient was placed in a seated position. A flexible laryngoscope was inserted into the nasal cavity and passed through nasopharynx, oropharynx, and hypopharynx. The mid pharyngeal wall, base of tongue, vallecula, epiglottis, AE folds, false cords, true cords, arytenoids, pyriform sinuses, vocal cords were brought into view. A soft tongue mass was seen on the left. The scope was removed. The patient tolerated the procedure well. The patient has end-stage lung disease; therefore a fiberoptic intubation was performed. The bronchoscope was inserted into the nasal cavity, passed through nasopharynx, oropharynx, and hypopharynx. It was passed between the vocal cords. Once the tracheal rings and marcelo were visualized, the ET tube was passed down into the trachea and the patient was successfully intubated. Position was checked using oxygen detector. Mike Pringle MD
[2018-12-05] MEDS: Sodium Chloride 0.9% 1,000 ML IV SCH (05:00)
[2018-12-05 05:10] LABS: BASO % 0.2 % (0.0-2.0); EOS % 0.3 % (0.0-4.0); LYMPH # 0.8 K/uL (1.0-4.3); LYMPH % 9.2 % (20.0-40.0); MEAN CELL VOLUME 92.9 fl (80.0-94.0); MEAN CORPUSCULAR HEMOGLOBIN 28.7 pg (27.0-31.0); MEAN CORPUSCULAR HGB CONC 30.9 g/dL (33.0-37.0); MEAN PLATELET VOLUME 9.6 fl (7.2-11.7); MONO # 0.5 K/uL (0.0-0.8); MONO % 6.4 % (0.0-10.0); NEUT # 6.9 K/uL (1.8-7.0); NEUT % 83.9 % (50.0-75.0); NRBC % 0.1 % (0.0-0.0); RBC 3.46 Mil/uL (4.40-5.90); RED CELL DISTRIBUTION WIDTH 14.6 % (11.5-14.5); WHITE BLOOD COUNT 8.2 K/uL (4.8-10.8)
[2018-12-05 05:18] LABS: BLOOD UREA NITROGEN 34 mg/dl (9-20); CALCIUM 7.6 mg/dL (8.4-10.2); GFR NON-AFRICAN AMERICAN > 60
[2018-12-05 05:23] LABS: HEMOGLOBIN 9.9 g/dL (12.0-18.0)
[2018-12-05 05:36] LABS: ABG ALLEN TEST YES; ARTERIAL BLOOD GAS HEMOGLOBIN 9.8 g/dL (11.7-17.4); ARTERIAL BLOOD GAS O2 CAPACITY 13.9 mL/dL (16-24); ARTERIAL BLOOD GAS O2 CONTENT 13.9 ML/dL (15-23); ARTERIAL BLOOD GAS O2 SAT 100.2 % (95-98); ARTERIAL BLOOD GAS PCO2 55 mm/Hg (35-45); ARTERIAL BLOOD GAS PH 7.35 (7.35-7.45); ARTERIAL BLOOD GAS PO2 189 mm/Hg (80-100); ARTERIAL BLOOD GAS TCO2 32.1 mmol/L (22-28)
[2018-12-05] MEDS ORDERED: Sodium Chloride 0.9% 500 ML IV ONE (05:37)
[2018-12-05] MEDS ORDERED: Dextrose 50% SYRINGE Inj (50 ml) IVP ONE ×2 (06:54→16:43)
[2018-12-05] MEDS ORDERED: Sodium Chloride 0.45% 1,000 ML IV SCH (07:45)
[2018-12-05] MEDS ORDERED: Potassium Phosphate 30 MMOLE in Sodium Chloride 0.9% 250 ML IV ONE (08:00)
[2018-12-05] MEDS: Enoxaparin 40 mg Syringe SC SCH (08:26)
--- NOTE | 2018-12-05 09:09 | CP.PCM.CON ---
History of Present Illness - History of Present Illness History of Present Illness: This 83-year-old male is known to me from the outpatient setting where he was seen initially in 2014. At that time he had been hospitalized for spontaneous pneumothorax and was found to have significant interstitial lung disease with the radiographic appearance suggesting of idiopathic pulmonary fibrosis. He was initially placed on bronchodilator therapy while workup was in progress and ultimately started on PO Pirfenidone with increasing doses until he reached 3 capsules 3 times daily. He was able to tolerate this medication without any significant adverse effect. He took his medication consistently for a period of approximately one and a half years after which he became noncompliant and subsequently refused to continue taking it. He did undergo cataract surgery in February of 2017 without any adverse effect. He continued to use LABA/LAMA inhalers during this period of time. He also continued to use nasal oxygen at 2 L/m with good oxygenation levels achieved. He did have a hospitalization in early 2017 after which he was in subacute rehabilitation for an extended period of time, approximately 2 months. After returning home in 2018 he was lost to follow up in this office for approximately 9 months time until presenting to the emergency room yesterday. His surgical history includes hip surgery in 2008 and VATS with chest tube placement for spontaneous pneumothorax in 2014. Past Patient History - Infectious Disease Hx of Infectious Diseases: None - Tetanus Immunizations Tetanus Immunization: Unknown - Past Medical History & Family History Past Medical History?: Yes - Past Social History Smoking Status: Never Smoked Chewing Tobacco Use: No Cigar Use: No Alcohol: None Drugs: Denies Home Situation {Lives}: Alone - CARDIAC Hx Cardia Arrhythmia: No Hx Congestive Heart Failure: No Hx Heart Attack: No Hx Hypercholesterolemia: No Hx Hypertension: Yes - PULMONARY Hx Asthma: Yes Hx Pneumonia: Yes Other/Comment: idiopathic pulmonary fibrosis - NEUROLOGICAL Hx Neurological Disorder: No - HEENT Hx Cataracts: Yes - RENAL Hx Chronic Kidney Disease: No - ENDOCRINE/METABOLIC Hx Endocrine Disorders: No - HEMATOLOGICAL/ONCOLOGICAL Hx Anemia: Yes Hx Human Immunodeficiency Virus (HIV): No - INTEGUMENTARY Hx Dermatological Problems: No - MUSCULOSKELETAL/RHEUMATOLOGICAL Hx Fractures: Yes (right hip fracture ) - GASTROINTESTINAL Hx Gastrointestinal Disorders: No - GENITOURINARY/GYNECOLOGICAL Hx Prostate Problems: Yes (BPH) - PSYCHIATRIC Hx Psychophysiologic Disorder: No Hx Substance Use: No - SURGICAL HISTORY Hx Cataract Extraction: Yes Hx Joint Replacement: Yes (Hip) Other/Comment: Right hip fracture ORIF. Right spontaneous pneumothorax with VATS - ANESTHESIA Hx Anesthesia: Yes Hx Anesthesia Reactions: No Hx Malignant Hyperthermia: No Meds Allergies/Adverse Reactions: Allergies Allergy/AdvReac Type Severity Reaction Status Date / Time shellfish Allergy SHORTNESS Uncoded 06/25/18 19:47 OF BREATH - Medications Medications: Current Medications Albuterol/Ipratropium (Duoneb 3 Mg/0.5 Mg (3 Ml) Ud) 3 ml INH RQ6 PRN PRN Reason: Shortness of Breath Enoxaparin Sodium (Lovenox) 40 mg SC DAILY ANAIS; Protocol Last Admin: 12/05/18 08:26 Dose: 40 mg Midazolam HCl 50 mg/ Sodium (Chloride) 100 mls @ 4 mls/hr IV .Q24H ONE; Protocol Stop: 12/05/18 18:56 Last Admin: 12/04/18 20:00 Dose: 2 mg/hr, 4 mls/hr Fentanyl Citrate 2,500 mcg/ (Dextrose) 250 mls @ 5.04 mls/hr IV .Q24H ANAIS; Protocol Last Admin: 12/04/18 20:00 Dose: 1 mcg/kg/hr, 5.04 mls/hr Vancomycin HCl 1 gm/ Sodium (Chloride) 250 mls @ 166.667 mls/hr IVPB Q12 ANAIS; Protocol Last Admin: 12/05/18 08:29 Dose: 166.667 mls/hr Piperacillin Sod/Tazobactam (Sod 3.375 gm/ Sodium Chloride) 100 mls @ 100 mls/hr IVPB Q6 ANAIS; Protocol Last Admin: 12/05/18 04:04 Dose: 100 mls/hr Sodium Chloride (Sodium Chloride 0.45%) 1,000 mls @ 100 mls/hr IV .Q10H ANAIS Stop: 12/06/18 07:44 Last Admin: 12/05/18 08:28 Dose: 100 mls/hr Potassium Phosphate 30 mmole/ (Sodium Chloride) 260 mls @ 65 mls/hr IV ONCE ONE Stop: 12/05/18 11:59 Pantoprazole Sodium (Protonix Inj) 40 mg IVP DAILY ANAIS Last Admin: 12/05/18 08:27 Dose: 40 mg Physical Exam - Additional Findings Additional findings: Elderly male who is sedated and unresponsive. Orally intubated and mechanically ventilated. Oral mucosa appears dry and the tongue is coated. Nasal passages are patent bilaterally without bleeding. Conjunctivae are pink and there is no scleral icterus. The neck is supple and trachea is midline there is a firm mass in the submental/suprahyoid area. No dullness on chest percussion, no subcutaneous emphysema. Breath sounds are slightly diminished but equal and present in both lungs. Course dry rales are heard throughout both lungs, more so posteriorly. Bronchial breath sounds are present in the right lower lobe posteriorly. No audible wheezing. Heart sounds are distant and the rhythm is regular. The abdomen is soft and nontender with hypoactive bowel sounds. No cyanosis of the extremities. 1+ dependent edema is noted in both ankles. Results - Vital Signs Recent Vital Signs: Last Vital Signs Temp 97.5 F L 12/05/18 08:00 Pulse 72 12/05/18 08:00 Resp 12 12/05/18 08:00 BP 116/58 L 12/05/18 08:00 Pulse Ox 100 12/05/18 08:00 - Labs Result Diagrams: 12/05/18 12:05 12/05/18 04:53 Labs: Laboratory Results - last 24 hr 12/04/18 12/04/18 12/04/18 16:21 16:25 16:25 WBC 10.7 RBC 4.74 Hgb 13.8 D Hct 44.4 MCV 93.6 MCH 29.2 MCHC 31.2 L RDW 14.5 Plt Count 243 MPV 10.0 Neut % (Auto) 87.1 H Lymph % (Auto) 6.2 L Island % (Auto) 6.6 Eos % (Auto) 0.0 Baso % (Auto) 0.1 Neut # (Auto) 9.3 H Lymph # (Auto) 0.7 L Island # (Auto) 0.7 Eos # (Auto) 0.0 Baso # (Auto) 0.0 Neutrophils % (Manual) 81 H Band Neutrophils % 2 Lymphocytes % (Manual) 9 L Monocytes % (Manual) 6 Eosinophils % (Manual) 1 Basophils % (Manual) 1 Toxic Granulation Present Platelet Estimate Normal Hypochromasia (manual) Slight PT INR APTT pCO2 pO2 HCO3 ABG pH ABG Total CO2 ABG O2 Saturation ABG O2 Content ABG Base Excess ABG Hemoglobin ABG Carboxyhemoglobin POC ABG HHb (Measured) ABG Methemoglobin ABG O2 Capacity Ryan Test ABG Potassium VBG pH VBG pCO2 VBG HCO3 VBG Total CO2 VBG O2 Sat (Calc) VBG Base Excess VBG Potassium A-a O2 Difference Hgb O2 Saturation Sodium 147 Chloride 102 Glucose Lactate Vent Mode Mechanical Rate FiO2 Tidal Volume Potassium 3.9 Carbon Dioxide 28 Anion Gap 21 H BUN 42 H Creatinine 1.3 Est GFR ( Amer) > 60 Est GFR (Non-Af Amer) 53 POC Glucose (mg/dL) Random Glucose 167 H Calcium 9.7 Total Bilirubin 0.7 AST 24 ALT 9 L D Alkaline Phosphatase 103 Troponin I 0.0230 NT-Pro-B Natriuret Pep 1390 H Total Protein 8.3 H Albumin 3.9 Globulin 4.4 H Albumin/Globulin Ratio 0.9 L Arterial Blood Potassium Venous Blood Potassium Blood Type O POSITIVE Antibody Screen Negative BBK History Checked Patient has bt 12/04/18 12/04/18 12/04/18 16:25 16:25 16:42 WBC RBC Hgb Hct MCV MCH MCHC RDW Plt Count MPV Neut % (Auto) Lymph % (Auto) Island % (Auto) Eos % (Auto) Baso % (Auto) Neut # (Auto) Lymph # (Auto) Island # (Auto) Eos # (Auto) Baso # (Auto) Neutrophils % (Manual) Band Neutrophils % Lymphocytes % (Manual) Monocytes % (Manual) Eosinophils % (Manual) Basophils % (Manual) Toxic Granulation Platelet Estimate Hypochromasia (manual) PT 11.9 INR 1.0 APTT 30.0 pCO2 pO2 49 HCO3 ABG pH ABG Total CO2 ABG O2 Saturation ABG O2 Content ABG Base Excess ABG Hemoglobin ABG Carboxyhemoglobin POC ABG HHb (Measured) ABG Methemoglobin ABG O2 Capacity Ryan Test ABG Potassium VBG pH 7.34 VBG pCO2 62 H VBG HCO3 28.9 VBG Total CO2 35.3 H VBG O2 Sat (Calc) 87.8 H VBG Base Excess 5.6 H VBG Potassium 3.8 A-a O2 Difference Hgb O2 Saturation Sodium 147.0 Chloride 105.0 Glucose 164 H Lactate 2.6 H Vent Mode Mechanical Rate FiO2 21.0 Tidal Volume Potassium Carbon Dioxide Anion Gap BUN Creatinine Est GFR ( Amer) Est GFR (Non-Af Amer) POC Glucose (mg/dL) 145 H Random Glucose Calcium Total Bilirubin AST ALT Alkaline Phosphatase Troponin I NT-Pro-B Natriuret Pep Total Protein Albumin Globulin Albumin/Globulin Ratio Arterial Blood Potassium Venous Blood Potassium 3.8 Blood Type Antibody Screen BBK History Checked 12/04/18 12/05/18 12/05/18 17:15 04:53 04:53 WBC 8.2 RBC 3.46 L Hgb 9.9 L D Hct 32.1 L MCV 92.9 MCH 28.7 MCHC 30.9 L RDW 14.6 H Plt Count 181 MPV 9.6 Neut % (Auto) 83.9 H Lymph % (Auto) 9.2 L Island % (Auto) 6.4 Eos % (Auto) 0.3 Baso % (Auto) 0.2 Neut # (Auto) 6.9 Lymph # (Auto) 0.8 L Island # (Auto) 0.5 Eos # (Auto) 0.0 Baso # (Auto) 0.0 Neutrophils % (Manual) Band Neutrophils % Lymphocytes % (Manual) Monocytes % (Manual) Eosinophils % (Manual) Basophils % (Manual) Toxic Granulation Platelet Estimate Hypochromasia (manual) PT INR APTT pCO2 66 H pO2 142 H HCO3 25.6 ABG pH 7.26 L ABG Total CO2 31.6 H ABG O2 Saturation 100.9 H ABG O2 Content ABG Base Excess 0.8 ABG Hemoglobin ABG Carboxyhemoglobin POC ABG HHb (Measured) ABG Methemoglobin ABG O2 Capacity Ryan Test Yes ABG Potassium 3.1 L VBG pH VBG pCO2 VBG HCO3 VBG Total CO2 VBG O2 Sat (Calc) VBG Base Excess VBG Potassium A-a O2 Difference 132.0 Hgb O2 Saturation Sodium 149.0 H 149 H Chloride 112.0 H 114 H Glucose 122 H Lactate 0.8 Vent Mode High flow lpm Mechanical Rate FiO2 50.0 Tidal Volume Potassium 3.3 L Carbon Dioxide 29 Anion Gap 9 L BUN 34 H Creatinine 1.1 Est GFR ( Amer) > 60 Est GFR (Non-Af Amer) > 60 POC Glucose (mg/dL) Random Glucose 74 L Calcium 7.6 L Total Bilirubin AST ALT Alkaline Phosphatase Troponin I NT-Pro-B Natriuret Pep Total Protein Albumin Globulin Albumin/Globulin Ratio Arterial Blood Potassium 3.1 L Venous Blood Potassium Blood Type Antibody Screen BBK History Checked 12/05/18 12/05/18 05:27 06:45 WBC RBC Hgb Hct MCV MCH MCHC RDW Plt Count MPV Neut % (Auto) Lymph % (Auto) Island % (Auto) Eos % (Auto) Baso % (Auto) Neut # (Auto) Lymph # (Auto) Island # (Auto) Eos # (Auto) Baso # (Auto) Neutrophils % (Manual) Band Neutrophils % Lymphocytes % (Manual) Monocytes % (Manual) Eosinophils % (Manual) Basophils % (Manual) Toxic Granulation Platelet Estimate Hypochromasia (manual) PT INR APTT pCO2 55 H pO2 189 H HCO3 28.0 ABG pH 7.35 ABG Total CO2 32.1 H ABG O2 Saturation 100.2 H ABG O2 Content 13.9 L ABG Base Excess 3.9 H ABG Hemoglobin 9.8 L ABG Carboxyhemoglobin 1.3 POC ABG HHb (Measured) -0.2 L ABG Methemoglobin 1.4 ABG O2 Capacity 13.9 L Ryan Test Yes ABG Potassium VBG pH VBG pCO2 VBG HCO3 VBG Total CO2 VBG O2 Sat (Calc) VBG Base Excess VBG Potassium A-a O2 Difference 99.0 Hgb O2 Saturation 97.5 Sodium Chloride Glucose Lactate Vent Mode A/c Mechanical Rate 12 FiO2 50.0 Tidal Volume 400 Potassium Carbon Dioxide Anion Gap BUN Creatinine Est GFR ( Amer) Est GFR (Non-Af Amer) POC Glucose (mg/dL) 69 Random Glucose Calcium Total Bilirubin AST ALT Alkaline Phosphatase Troponin I NT-Pro-B Natriuret Pep Total Protein Albumin Globulin Albumin/Globulin Ratio Arterial Blood Potassium Venous Blood Potassium Blood Type Antibody Screen BBK History Checked Assessment & Plan (1) Respiratory failure Status: Acute (2) Laryngeal mass Status: Acute (3) Idiopathic pulmonary fibrosis Status: Chronic Priority: High - Assessment and Plan (Free Text) Plan: The case was discussed with the warehouse manager. The patient's nephew who is POA was contacted to further clarify their wishes. Phone consent for biopsy of the laryngeal mass was obtained. Discussion was also had about a possible tracheostomy. End-of-life care was also discussed with his nephew if continued aggressive medical therapy were to be considered futile. - Date & Time Date: 12/05/18 Time: 09:07
[2018-12-05] MEDS ORDERED: Chlorhexidine Gluconate 1 APPL/PKT TP ONE ×2 (09:14→10:04)
--- NOTE | 2018-12-05 09:52 | CARD ---
APPROVED REPORT Date of service: 12/04/2018 EKG Measurement Heart [id number] <Conclusion> Sinus tachycardia Left axis deviation Left ventricular hypertrophy with repolarization abnormality Possible Lateral infarct, age undetermined Poor R wave progression in Precordial leads Abnormal ECG
--- NOTE | 2018-12-05 09:58 | CP.PCM.PN ---
<Maggy LoredoLeroy - Last Filed: 12/05/18 11:06> Subjective - Date & Time of Evaluation Date of Evaluation: 12/05/18 Time of Evaluation: 07:00 - Subjective Subjective: Patient seen and examined at bedside today. Patient is on Nasal intubated, off sedation. No acute event overnight. Patient on Ventilator right now. Objective - Vital Signs/Intake and Output Vital Signs (last 24 hours): Temp Pulse Resp BP Pulse Ox 97.5 F L 72 12 116/58 L 100 12/05/18 08:00 12/05/18 08:00 12/05/18 08:00 12/05/18 08:00 12/05/18 08:00 - Medications Medications: Current Medications Albuterol/Ipratropium (Duoneb 3 Mg/0.5 Mg (3 Ml) Ud) 3 ml INH RQ6 PRN PRN Reason: Shortness of Breath Enoxaparin Sodium (Lovenox) 40 mg SC DAILY ANAIS; Protocol Last Admin: 12/05/18 08:26 Dose: 40 mg Midazolam HCl 50 mg/ Sodium (Chloride) 100 mls @ 4 mls/hr IV .Q24H ONE; Protocol Stop: 12/05/18 18:56 Last Admin: 12/04/18 20:00 Dose: 2 mg/hr, 4 mls/hr Fentanyl Citrate 2,500 mcg/ (Dextrose) 250 mls @ 5.04 mls/hr IV .Q24H ANAIS; Protocol Last Admin: 12/04/18 20:00 Dose: 1 mcg/kg/hr, 5.04 mls/hr Vancomycin HCl 1 gm/ Sodium (Chloride) 250 mls @ 166.667 mls/hr IVPB Q12 AANIS; Protocol Last Admin: 12/05/18 08:29 Dose: 166.667 mls/hr Piperacillin Sod/Tazobactam (Sod 3.375 gm/ Sodium Chloride) 100 mls @ 100 mls/hr IVPB Q6 ANAIS; Protocol Last Admin: 12/05/18 04:04 Dose: 100 mls/hr Sodium Chloride (Sodium Chloride 0.45%) 1,000 mls @ 100 mls/hr IV .Q10H ANAIS Stop: 12/06/18 07:44 Last Admin: 12/05/18 08:28 Dose: 100 mls/hr Potassium Phosphate 30 mmole/ (Sodium Chloride) 260 mls @ 65 mls/hr IV ONCE ONE Stop: 12/05/18 11:59 Pantoprazole Sodium (Protonix Inj) 40 mg IVP DAILY ANAIS Last Admin: 12/05/18 08:27 Dose: 40 mg - Labs Labs: 12/05/18 04:53 12/05/18 04:53 PT 11.9 Seconds (9.8-13.1) 12/04/18 16:25 INR 1.0 12/04/18 16:25 APTT 30.0 Seconds (25.6-37.1) 12/04/18 16:25 Assessment and Plan - Assessment and Plan (Free Text) Assessment: 83 YO M with 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 Intubated and admitted to ICU Plan: CXR: Chronic interstitial lung disease with interval patchy fairly low density nodular opacity in the left mid to upper lung zone projecting of the left clavicle. An interval patchy infiltrate 1 consideration. Diagnosis of exclusion is interval developing left pulmonary nodule. Conceivably some lesion relating to the bone itself lytic lesion cannot be excluded given its projection over the clavicle. Blebs and bullous emphysematous changes are present. No complicating pneumothorax seen. Bronchiectasis is also inferred. Consider follow-up CT chest imaging without IV contrast. XR soft tissue neck: Nondiagnostic frontal radiograph for evaluation of the soft tissues of the neck. Diffuse interstitial fibrosis. Pneumonia Afebrile, wbc: 8.2; lactate:0.8 Nasotracheal intubation in ER Pt admitted to ICU BNP 1390; (1300 on 06/25/2018) Vancomycin 500 mg and Zosyn 3.375 mg started in ER; continue Vancomycin 1gm Day 2 COntinue Pip-tazo 3.375 Day 2 IVF: NS at 100 mls/hr Palliative care in case F/U BC F/U CBC upper airway mass Possible necrosis Otolaryngology: Dr. Pringle consulted; further recs appreciated IPF, chronic Duoneb; intubated Pulm: Dr. Niño; further recs appreciated Hypokalemia K 3.3 Give KCL 30 F/u CMP + Mg HTN c/w home meds continue to monitor bp Chronic Anemia current h/h: 9.9/32.1 continue to monitor DVT/GI ppx Lovenox Pantoprazole 40 MG <TateLilian Sally - Last Filed: 12/05/18 13:54> Objective - Vital Signs/Intake and Output Vital Signs (last 24 hours): Temp Pulse Resp BP Pulse Ox 97.7 F 75 12 118/60 100 12/05/18 12:00 12/05/18 13:00 12/05/18 13:00 12/05/18 13:00 12/05/18 13:00 - Medications Medications: Current Medications Albuterol/Ipratropium (Duoneb 3 Mg/0.5 Mg (3 Ml) Ud) 3 ml INH RQ6 PRN PRN Reason: Shortness of Breath Enoxaparin Sodium (Lovenox) 40 mg SC DAILY ANAIS; Protocol Last Admin: 12/05/18 08:26 Dose: 40 mg Midazolam HCl 50 mg/ Sodium (Chloride) 100 mls @ 4 mls/hr IV .Q24H ONE; Protocol Stop: 12/05/18 18:56 Last Admin: 12/04/18 20:00 Dose: 2 mg/hr, 4 mls/hr Fentanyl Citrate 2,500 mcg/ (Dextrose) 250 mls @ 5.04 mls/hr IV .Q24H ANAIS; Protocol Last Admin: 12/04/18 20:00 Dose: 1 mcg/kg/hr, 5.04 mls/hr Vancomycin HCl 1 gm/ Sodium (Chloride) 250 mls @ 166.667 mls/hr IVPB Q12 ANAIS; Protocol Last Admin: 12/05/18 08:29 Dose: 166.667 mls/hr Piperacillin Sod/Tazobactam (Sod 3.375 gm/ Sodium Chloride) 100 mls @ 100 mls/hr IVPB Q6 ANAIS; Protocol Last Admin: 12/05/18 10:11 Dose: 100 mls/hr Sodium Chloride (Sodium Chloride 0.45%) 1,000 mls @ 100 mls/hr IV .Q10H ANAIS Stop: 12/06/18 07:44 Last Admin: 12/05/18 08:28 Dose: 100 mls/hr Pantoprazole Sodium (Protonix Inj) 40 mg IVP DAILY ANAIS Last Admin: 12/05/18 08:27 Dose: 40 mg - Labs Labs: 12/05/18 12:05 12/05/18 04:53 PT 11.9 Seconds (9.8-13.1) 12/04/18 16:25 INR 1.0 12/04/18 16:25 APTT 30.0 Seconds (25.6-37.1) 12/04/18 16:25 Attending/Attestation - Attestation I have personally seen and examined this patient.: Yes I have fully participated in the care of the patient.: Yes I have reviewed all pertinent clinical information, including history, physical exam and plan: Yes Notes (Text): (1) Acute on Chronic Hypercarbic, Hypoxic Respiratory failure multifactorial - sec to Laryngeal Mass, IPL and Pneumonia (2) Left Basal Tongue mass (3) Idiopathic pulmonary fibrosis 4. Pneumonia - Pt is intranasally intubated , on Mech Vent 06/4000/50% AC ( intubated by Dr Pringle -ENT) -cont IV Zosyn and Vanco -Pulm - Dr Niño on case - cont Duoneb tx -Plan for biopsy of mass by ENT , Pt may poss need Trach placement -Palliative Care consult
--- NOTE | 2018-12-05 10:57 | RAD ---
Date of service: 12/04/2018 HISTORY: Possible admission COMPARISON: 12/04/2018 single-view chest. 09/19/2017 CT thorax FINDINGS: LUNGS: Severe conduct interstitial lung disease/pulmonary fibrosis. PLEURA: No significant pleural effusion identified, no pneumothorax apparent. CARDIOVASCULAR: Atherosclerotic calcifications identified primarily aortic arch. No radiographic findings to suggest acute or significant cardiovascular disease. OSSEOUS STRUCTURES: No significant abnormalities. VISUALIZED UPPER ABDOMEN: Normal. OTHER FINDINGS: None. IMPRESSION: No acute findings/active pulmonary disease. Findings of severe, chronic interstitial lung disease likely pulmonary fibrosis.
--- NOTE | 2018-12-05 11:18 | RAD ---
Date of service: 12/05/2018 HISTORY: intubation COMPARISON: December 04, 2018. Study performed 18:31. FINDINGS: LUNGS: No change interstitial lung disease. PLEURA: No significant pleural effusion identified, no pneumothorax apparent. CARDIOVASCULAR: Atherosclerotic calcifications identified primarily aortic arch. No radiographic findings to suggest acute or significant cardiovascular disease. OSSEOUS STRUCTURES: No significant abnormalities. VISUALIZED UPPER ABDOMEN: Normal. OTHER FINDINGS: Satisfactory position of recently placed endotracheal tube. IMPRESSION: Satisfactory position of recently placed endotracheal tube.
--- NOTE | 2018-12-05 11:19 | CP.CCUPN ---
<Dunia Eddy - Last Filed: 12/05/18 10:59> CCU Subjective - Physician Review Subjective (Free Text): Overnight events noted. Pt seen and examined this morning at the bedside. Intubated on MV FIO2 40%. Moderate sedation, unresponsive to voice. Critical Care Time Spent (in minutes): 35 CCU Objective - Vital Signs / Intake & Output Intake and Output (Last 8hrs): Intake & Output 12/04/18 12/05/18 12/05/18 22:59 06:59 14:59 Weight 111 lb 1.6 oz 105 lb - Physical Exam Head: Positive for: Atraumatic Pupils: Positive for: PERRL Extroacular Muscles: Negative for: Gaze Palsy Conjunctiva: Positive for: Normal Mouth: Positive for: Other (bradford-black thick coating on body of tongue extending into base) Nose (Internal): Positive for: Other (nasal trachela tube in place) Neck: Negative for: JVD Respiratory/Chest: Positive for: Rales (scattered rales). Negative for: Respiratory Distress, Wheezes, Rhonchi Cardiovascular: Positive for: Regular Rate and Rhythm Abdomen: Positive for: Normal Bowel Sounds. Negative for: Tenderness, Distention Lower Extremity: Positive for: Capillary Refill < 2 s Neurological: Positive for: Other (sedated, unresponsive to voice, withdraws to pain) Skin: Positive for: Normal Color Psychiatric: Negative for: Alert - Medications Active Medications: Active Medications Generic Name Dose Route Start Last Admin Trade Name Freq PRN Reason Stop Dose Admin Albuterol/Ipratropium 3 ml 12/04/18 19:44 Duoneb 3 Mg/0.5 Mg (3 Ml) Ud INH RQ6 PRN Shortness of Breath Enoxaparin Sodium 40 mg 12/05/18 09:00 Lovenox SC DAILY ANAIS Protocol Midazolam HCl 50 mg/ Sodium 100 mls @ 4 mls/hr 12/04/18 18:57 12/04/18 20:00 Chloride IV 12/05/18 18:56 2 mg/hr .Q24H ONE 4 mls/hr Administration Protocol 2 MG/HR Fentanyl Citrate 2,500 mcg/ 250 mls @ 5.04 mls/hr 12/04/18 19:15 12/04/18 20:00 Dextrose IV 1 mcg/kg/hr .Q24H ANAIS 5.04 mls/hr Administration Protocol 1 MCG/KG/HR Sodium Chloride 1,000 mls @ 100 mls/hr 12/04/18 19:15 12/04/18 20:00 Sodium Chloride 0.9% IV 100 mls/hr .Q10H ANAIS Administration Vancomycin HCl 1 gm/ Sodium 250 mls @ 166.667 mls/hr 12/04/18 21:00 12/04/18 22:09 Chloride IVPB 166.667 mls/hr Q12 ANAIS Administration Protocol Piperacillin Sod/Tazobactam 100 mls @ 100 mls/hr 12/04/18 22:00 12/05/18 04:04 Sod 3.375 gm/ Sodium Chloride IVPB 100 mls/hr Q6 ANAIS Administration Protocol Pantoprazole Sodium 40 mg 12/05/18 09:00 Protonix Inj IVP DAILY ANAIS - Patient Studies Lab Studies: Lab Studies 12/05/18 12/05/18 12/05/18 Range/Units 06:45 05:27 04:53 WBC (4.8-10.8) K/uL RBC (4.40-5.90) Mil/uL Hgb (12.0-18.0) g/dL Hct (35.0-51.0) % MCV (80.0-94.0) fl MCH (27.0-31.0) pg MCHC (33.0-37.0) g/dL RDW (11.5-14.5) % Plt Count (130-400) K/uL MPV (7.2-11.7) fl Neut % (Auto) (50.0-75.0) % Lymph % (Auto) (20.0-40.0) % Mitchell % (Auto) (0.0-10.0) % Eos % (Auto) (0.0-4.0) % Baso % (Auto) (0.0-2.0) % Neut # (Auto) (1.8-7.0) K/uL Lymph # (Auto) (1.0-4.3) K/uL Mitchell # (Auto) (0.0-0.8) K/uL Eos # (Auto) (0.0-0.7) K/uL Baso # (Auto) (0.0-0.2) K/uL Neutrophils % (Manual) (42-75) % Band Neutrophils % (0-2) % Lymphocytes % (Manual) (20-50) % Monocytes % (Manual) (0-10) % Eosinophils % (Manual) (0-7) % Basophils % (Manual) (0-2) % Toxic Granulation Platelet Estimate (NORMAL) Hypochromasia (manual) PT (9.8-13.1) Seconds INR APTT (25.6-37.1) Seconds pCO2 55 H (35-45) mm/Hg pO2 189 H (30-55) mm/Hg HCO3 28.0 (21-28) mmol/L ABG pH 7.35 (7.35-7.45) ABG Total CO2 32.1 H (22-28) mmol/L ABG O2 Saturation 100.2 H (95-98) % ABG O2 Content 13.9 L (15-23) ML/dL ABG Base Excess 3.9 H (-2.0-3.0) mmol/L ABG Hemoglobin 9.8 L (11.7-17.4) g/dL ABG Carboxyhemoglobin 1.3 (0.5-1.5) % POC ABG HHb (Measured) -0.2 L (0.0-5.0) % ABG Methemoglobin 1.4 (0.0-3.0) % ABG O2 Capacity 13.9 L (16-24) mL/dL Ryan Test Yes ABG Potassium (3.6-5.2) mmol/L VBG pH (7.32-7.43) VBG pCO2 (40-60) mmHg VBG HCO3 mmol/L VBG Total CO2 (22-28) mmol/L VBG O2 Sat (Calc) (40-65) % VBG Base Excess (0.0-2.0) mmol/L VBG Potassium (3.6-5.2) mmol/L A-a O2 Difference 99.0 mm/Hg Hgb O2 Saturation 97.5 (95.0-98.0) % Sodium 149 H (132-148) mmol/L Chloride 114 H (98-107) mmol/L Glucose (75-110) mg/dL Lactate (0.7-2.1) mmol/L Vent Mode A/c Mechanical Rate 12 FiO2 50.0 % Tidal Volume 400 Potassium 3.3 L (3.6-5.0) MMOL/L Carbon Dioxide 29 (22-30) mmol/L Anion Gap 9 L (10-20) BUN 34 H (9-20) mg/dl Creatinine 1.1 (0.8-1.5) mg/dl Est GFR ( Amer) > 60 Est GFR (Non-Af Amer) > 60 POC Glucose (mg/dL) 69 (65-110) mg/dL Random Glucose 74 L (75-110) mg/dL Calcium 7.6 L (8.4-10.2) mg/dL Total Bilirubin (0.2-1.3) mg/dl AST (17-59) U/L ALT (21-72) U/L Alkaline Phosphatase (38-126) U/L Troponin I (0.00-0.120) ng/mL NT-Pro-B Natriuret Pep (0-900) pg/ml Total Protein (6.3-8.2) G/DL Albumin (3.5-5.0) g/dL Globulin (2.2-3.9) gm/dL Albumin/Globulin Ratio (1.0-2.1) Arterial Blood Potassium (3.6-5.2) mmol/L Venous Blood Potassium (3.6-5.2) mmol/L Blood Type Antibody Screen BBK History Checked 12/05/18 12/04/18 12/04/18 Range/Units 04:53 17:15 16:42 WBC 8.2 (4.8-10.8) K/uL RBC 3.46 L (4.40-5.90) Mil/uL Hgb 9.9 L D (12.0-18.0) g/dL Hct 32.1 L (35.0-51.0) % MCV 92.9 (80.0-94.0) fl MCH 28.7 (27.0-31.0) pg MCHC 30.9 L (33.0-37.0) g/dL RDW 14.6 H (11.5-14.5) % Plt Count 181 (130-400) K/uL MPV 9.6 (7.2-11.7) fl Neut % (Auto) 83.9 H (50.0-75.0) % Lymph % (Auto) 9.2 L (20.0-40.0) % Mitchell % (Auto) 6.4 (0.0-10.0) % Eos % (Auto) 0.3 (0.0-4.0) % Baso % (Auto) 0.2 (0.0-2.0) % Neut # (Auto) 6.9 (1.8-7.0) K/uL Lymph # (Auto) 0.8 L (1.0-4.3) K/uL Mitchell # (Auto) 0.5 (0.0-0.8) K/uL Eos # (Auto) 0.0 (0.0-0.7) K/uL Baso # (Auto) 0.0 (0.0-0.2) K/uL Neutrophils % (Manual) (42-75) % Band Neutrophils % (0-2) % Lymphocytes % (Manual) (20-50) % Monocytes % (Manual) (0-10) % Eosinophils % (Manual) (0-7) % Basophils % (Manual) (0-2) % Toxic Granulation Platelet Estimate (NORMAL) Hypochromasia (manual) PT (9.8-13.1) Seconds INR APTT (25.6-37.1) Seconds pCO2 66 H (35-45) mm/Hg pO2 142 H (30-55) mm/Hg HCO3 25.6 (21-28) mmol/L ABG pH 7.26 L (7.35-7.45) ABG Total CO2 31.6 H (22-28) mmol/L ABG O2 Saturation 100.9 H (95-98) % ABG O2 Content (15-23) ML/dL ABG Base Excess 0.8 (-2.0-3.0) mmol/L ABG Hemoglobin (11.7-17.4) g/dL ABG Carboxyhemoglobin (0.5-1.5) % POC ABG HHb (Measured) (0.0-5.0) % ABG Methemoglobin (0.0-3.0) % ABG O2 Capacity (16-24) mL/dL Ryan Test Yes ABG Potassium 3.1 L (3.6-5.2) mmol/L VBG pH (7.32-7.43) VBG pCO2 (40-60) mmHg VBG HCO3 mmol/L VBG Total CO2 (22-28) mmol/L VBG O2 Sat (Calc) (40-65) % VBG Base Excess (0.0-2.0) mmol/L VBG Potassium (3.6-5.2) mmol/L A-a O2 Difference 132.0 mm/Hg Hgb O2 Saturation (95.0-98.0) % Sodium 149.0 H (132-148) mmol/L Chloride 112.0 H (98-107) mmol/L Glucose 122 H (75-110) mg/dL Lactate 0.8 (0.7-2.1) mmol/L Vent Mode High flow lpm Mechanical Rate FiO2 50.0 % Tidal Volume Potassium (3.6-5.0) MMOL/L Carbon Dioxide (22-30) mmol/L Anion Gap (10-20) BUN (9-20) mg/dl Creatinine (0.8-1.5) mg/dl Est GFR ( Amer) Est GFR (Non-Af Amer) POC Glucose (mg/dL) 145 H (65-110) mg/dL Random Glucose (75-110) mg/dL Calcium (8.4-10.2) mg/dL Total Bilirubin (0.2-1.3) mg/dl AST (17-59) U/L ALT (21-72) U/L Alkaline Phosphatase (38-126) U/L Troponin I (0.00-0.120) ng/mL NT-Pro-B Natriuret Pep (0-900) pg/ml Total Protein (6.3-8.2) G/DL Albumin (3.5-5.0) g/dL Globulin (2.2-3.9) gm/dL Albumin/Globulin Ratio (1.0-2.1) Arterial Blood Potassium 3.1 L (3.6-5.2) mmol/L Venous Blood Potassium (3.6-5.2) mmol/L Blood Type Antibody Screen BBK History Checked 12/04/18 12/04/18 12/04/18 Range/Units 16:25 16:25 16:25 WBC 10.7 (4.8-10.8) K/uL RBC 4.74 (4.40-5.90) Mil/uL Hgb 13.8 D (12.0-18.0) g/dL Hct 44.4 (35.0-51.0) % MCV 93.6 (80.0-94.0) fl MCH 29.2 (27.0-31.0) pg MCHC 31.2 L (33.0-37.0) g/dL RDW 14.5 (11.5-14.5) % Plt Count 243 (130-400) K/uL MPV 10.0 (7.2-11.7) fl Neut % (Auto) 87.1 H (50.0-75.0) % Lymph % (Auto) 6.2 L (20.0-40.0) % Mitchell % (Auto) 6.6 (0.0-10.0) % Eos % (Auto) 0.0 (0.0-4.0) % Baso % (Auto) 0.1 (0.0-2.0) % Neut # (Auto) 9.3 H (1.8-7.0) K/uL Lymph # (Auto) 0.7 L (1.0-4.3) K/uL Mitchell # (Auto) 0.7 (0.0-0.8) K/uL Eos # (Auto) 0.0 (0.0-0.7) K/uL Baso # (Auto) 0.0 (0.0-0.2) K/uL Neutrophils % (Manual) 81 H (42-75) % Band Neutrophils % 2 (0-2) % Lymphocytes % (Manual) 9 L (20-50) % Monocytes % (Manual) 6 (0-10) % Eosinophils % (Manual) 1 (0-7) % Basophils % (Manual) 1 (0-2) % Toxic Granulation Present Platelet Estimate Normal (NORMAL) Hypochromasia (manual) Slight PT 11.9 (9.8-13.1) Seconds INR 1.0 APTT 30.0 (25.6-37.1) Seconds pCO2 (35-45) mm/Hg pO2 49 (30-55) mm/Hg HCO3 (21-28) mmol/L ABG pH (7.35-7.45) ABG Total CO2 (22-28) mmol/L ABG O2 Saturation (95-98) % ABG O2 Content (15-23) ML/dL ABG Base Excess (-2.0-3.0) mmol/L ABG Hemoglobin (11.7-17.4) g/dL ABG Carboxyhemoglobin (0.5-1.5) % POC ABG HHb (Measured) (0.0-5.0) % ABG Methemoglobin (0.0-3.0) % ABG O2 Capacity (16-24) mL/dL Ryan Test ABG Potassium (3.6-5.2) mmol/L VBG pH 7.34 (7.32-7.43) VBG pCO2 62 H (40-60) mmHg VBG HCO3 28.9 mmol/L VBG Total CO2 35.3 H (22-28) mmol/L VBG O2 Sat (Calc) 87.8 H (40-65) % VBG Base Excess 5.6 H (0.0-2.0) mmol/L VBG Potassium 3.8 (3.6-5.2) mmol/L A-a O2 Difference mm/Hg Hgb O2 Saturation (95.0-98.0) % Sodium 147.0 (132-148) mmol/L Chloride 105.0 (98-107) mmol/L Glucose 164 H (75-110) mg/dL Lactate 2.6 H (0.7-2.1) mmol/L Vent Mode Mechanical Rate FiO2 21.0 % Tidal Volume Potassium (3.6-5.0) MMOL/L Carbon Dioxide (22-30) mmol/L Anion Gap (10-20) BUN (9-20) mg/dl Creatinine (0.8-1.5) mg/dl Est GFR ( Amer) Est GFR (Non-Af Amer) POC Glucose (mg/dL) (65-110) mg/dL Random Glucose (75-110) mg/dL Calcium (8.4-10.2) mg/dL Total Bilirubin (0.2-1.3) mg/dl AST (17-59) U/L ALT (21-72) U/L Alkaline Phosphatase (38-126) U/L Troponin I (0.00-0.120) ng/mL NT-Pro-B Natriuret Pep (0-900) pg/ml Total Protein (6.3-8.2) G/DL Albumin (3.5-5.0) g/dL Globulin (2.2-3.9) gm/dL Albumin/Globulin Ratio (1.0-2.1) Arterial Blood Potassium (3.6-5.2) mmol/L Venous Blood Potassium 3.8 (3.6-5.2) mmol/L Blood Type Antibody Screen BBK History Checked 12/04/18 12/04/18 Range/Units 16:25 16:21 WBC (4.8-10.8) K/uL RBC (4.40-5.90) Mil/uL Hgb (12.0-18.0) g/dL Hct (35.0-51.0) % MCV (80.0-94.0) fl MCH (27.0-31.0) pg MCHC (33.0-37.0) g/dL RDW (11.5-14.5) % Plt Count (130-400) K/uL MPV (7.2-11.7) fl Neut % (Auto) (50.0-75.0) % Lymph % (Auto) (20.0-40.0) % Mitchell % (Auto) (0.0-10.0) % Eos % (Auto) (0.0-4.0) % Baso % (Auto) (0.0-2.0) % Neut # (Auto) (1.8-7.0) K/uL Lymph # (Auto) (1.0-4.3) K/uL Mitchell # (Auto) (0.0-0.8) K/uL Eos # (Auto) (0.0-0.7) K/uL Baso # (Auto) (0.0-0.2) K/uL Neutrophils % (Manual) (42-75) % Band Neutrophils % (0-2) % Lymphocytes % (Manual) (20-50) % Monocytes % (Manual) (0-10) % Eosinophils % (Manual) (0-7) % Basophils % (Manual) (0-2) % Toxic Granulation Platelet Estimate (NORMAL) Hypochromasia (manual) PT (9.8-13.1) Seconds INR APTT (25.6-37.1) Seconds pCO2 (35-45) mm/Hg pO2 (30-55) mm/Hg HCO3 (21-28) mmol/L ABG pH (7.35-7.45) ABG Total CO2 (22-28) mmol/L ABG O2 Saturation (95-98) % ABG O2 Content (15-23) ML/dL ABG Base Excess (-2.0-3.0) mmol/L ABG Hemoglobin (11.7-17.4) g/dL ABG Carboxyhemoglobin (0.5-1.5) % POC ABG HHb (Measured) (0.0-5.0) % ABG Methemoglobin (0.0-3.0) % ABG O2 Capacity (16-24) mL/dL Ryan Test ABG Potassium (3.6-5.2) mmol/L VBG pH (7.32-7.43) VBG pCO2 (40-60) mmHg VBG HCO3 mmol/L VBG Total CO2 (22-28) mmol/L VBG O2 Sat (Calc) (40-65) % VBG Base Excess (0.0-2.0) mmol/L VBG Potassium (3.6-5.2) mmol/L A-a O2 Difference mm/Hg Hgb O2 Saturation (95.0-98.0) % Sodium 147 (132-148) mmol/L Chloride 102 (98-107) mmol/L Glucose (75-110) mg/dL Lactate (0.7-2.1) mmol/L Vent Mode Mechanical Rate FiO2 % Tidal Volume Potassium 3.9 (3.6-5.0) MMOL/L Carbon Dioxide 28 (22-30) mmol/L Anion Gap 21 H (10-20) BUN 42 H (9-20) mg/dl Creatinine 1.3 (0.8-1.5) mg/dl Est GFR ( Amer) > 60 Est GFR (Non-Af Amer) 53 POC Glucose (mg/dL) (65-110) mg/dL Random Glucose 167 H (75-110) mg/dL Calcium 9.7 (8.4-10.2) mg/dL Total Bilirubin 0.7 (0.2-1.3) mg/dl AST 24 (17-59) U/L ALT 9 L D (21-72) U/L Alkaline Phosphatase 103 (38-126) U/L Troponin I 0.0230 (0.00-0.120) ng/mL NT-Pro-B Natriuret Pep 1390 H (0-900) pg/ml Total Protein 8.3 H (6.3-8.2) G/DL Albumin 3.9 (3.5-5.0) g/dL Globulin 4.4 H (2.2-3.9) gm/dL Albumin/Globulin Ratio 0.9 L (1.0-2.1) Arterial Blood Potassium (3.6-5.2) mmol/L Venous Blood Potassium (3.6-5.2) mmol/L Blood Type O POSITIVE Antibody Screen Negative BBK History Checked Patient has bt Laboratory Results - last 24 hr 12/04/18 12/04/18 12/04/18 16:21 16:25 16:25 WBC 10.7 RBC 4.74 Hgb 13.8 D Hct 44.4 MCV 93.6 MCH 29.2 MCHC 31.2 L RDW 14.5 Plt Count 243 MPV 10.0 Neut % (Auto) 87.1 H Lymph % (Auto) 6.2 L Mitchell % (Auto) 6.6 Eos % (Auto) 0.0 Baso % (Auto) 0.1 Neut # (Auto) 9.3 H Lymph # (Auto) 0.7 L Mitchell # (Auto) 0.7 Eos # (Auto) 0.0 Baso # (Auto) 0.0 Neutrophils % (Manual) 81 H Band Neutrophils % 2 Lymphocytes % (Manual) 9 L Monocytes % (Manual) 6 Eosinophils % (Manual) 1 Basophils % (Manual) 1 Toxic Granulation Present Platelet Estimate Normal Hypochromasia (manual) Slight PT INR APTT pCO2 pO2 HCO3 ABG pH ABG Total CO2 ABG O2 Saturation ABG O2 Content ABG Base Excess ABG Hemoglobin ABG Carboxyhemoglobin POC ABG HHb (Measured) ABG Methemoglobin ABG O2 Capacity Ryan Test ABG Potassium VBG pH VBG pCO2 VBG HCO3 VBG Total CO2 VBG O2 Sat (Calc) VBG Base Excess VBG Potassium A-a O2 Difference Hgb O2 Saturation Sodium 147 Chloride 102 Glucose Lactate Vent Mode Mechanical Rate FiO2 Tidal Volume Potassium 3.9 Carbon Dioxide 28 Anion Gap 21 H BUN 42 H Creatinine 1.3 Est GFR ( Amer) > 60 Est GFR (Non-Af Amer) 53 POC Glucose (mg/dL) Random Glucose 167 H Calcium 9.7 Total Bilirubin 0.7 AST 24 ALT 9 L D Alkaline Phosphatase 103 Troponin I 0.0230 NT-Pro-B Natriuret Pep 1390 H Total Protein 8.3 H Albumin 3.9 Globulin 4.4 H Albumin/Globulin Ratio 0.9 L Arterial Blood Potassium Venous Blood Potassium Blood Type O POSITIVE Antibody Screen Negative BBK History Checked Patient has bt 12/04/18 12/04/18 12/04/18 16:25 16:25 16:42 WBC RBC Hgb Hct MCV MCH MCHC RDW Plt Count MPV Neut % (Auto) Lymph % (Auto) Mitchell % (Auto) Eos % (Auto) Baso % (Auto) Neut # (Auto) Lymph # (Auto) Mitchell # (Auto) Eos # (Auto) Baso # (Auto) Neutrophils % (Manual) Band Neutrophils % Lymphocytes % (Manual) Monocytes % (Manual) Eosinophils % (Manual) Basophils % (Manual) Toxic Granulation Platelet Estimate Hypochromasia (manual) PT 11.9 INR 1.0 APTT 30.0 pCO2 pO2 49 HCO3 ABG pH ABG Total CO2 ABG O2 Saturation ABG O2 Content ABG Base Excess ABG Hemoglobin ABG Carboxyhemoglobin POC ABG HHb (Measured) ABG Methemoglobin ABG O2 Capacity Ryan Test ABG Potassium VBG pH 7.34 VBG pCO2 62 H VBG HCO3 28.9 VBG Total CO2 35.3 H VBG O2 Sat (Calc) 87.8 H VBG Base Excess 5.6 H VBG Potassium 3.8 A-a O2 Difference Hgb O2 Saturation Sodium 147.0 Chloride 105.0 Glucose 164 H Lactate 2.6 H Vent Mode Mechanical Rate FiO2 21.0 Tidal Volume Potassium Carbon Dioxide Anion Gap BUN Creatinine Est GFR ( Amer) Est GFR (Non-Af Amer) POC Glucose (mg/dL) 145 H Random Glucose Calcium Total Bilirubin AST ALT Alkaline Phosphatase Troponin I NT-Pro-B Natriuret Pep Total Protein Albumin Globulin Albumin/Globulin Ratio Arterial Blood Potassium Venous Blood Potassium 3.8 Blood Type Antibody Screen BBK History Checked 12/04/18 12/05/18 12/05/18 17:15 04:53 04:53 WBC 8.2 RBC 3.46 L Hgb 9.9 L D Hct 32.1 L MCV 92.9 MCH 28.7 MCHC 30.9 L RDW 14.6 H Plt Count 181 MPV 9.6 Neut % (Auto) 83.9 H Lymph % (Auto) 9.2 L Mitchell % (Auto) 6.4 Eos % (Auto) 0.3 Baso % (Auto) 0.2 Neut # (Auto) 6.9 Lymph # (Auto) 0.8 L Mitchell # (Auto) 0.5 Eos # (Auto) 0.0 Baso # (Auto) 0.0 Neutrophils % (Manual) Band Neutrophils % Lymphocytes % (Manual) Monocytes % (Manual) Eosinophils % (Manual) Basophils % (Manual) Toxic Granulation Platelet Estimate Hypochromasia (manual) PT INR APTT pCO2 66 H pO2 142 H HCO3 25.6 ABG pH 7.26 L ABG Total CO2 31.6 H ABG O2 Saturation 100.9 H ABG O2 Content ABG Base Excess 0.8 ABG Hemoglobin ABG Carboxyhemoglobin POC ABG HHb (Measured) ABG Methemoglobin ABG O2 Capacity Ryan Test Yes ABG Potassium 3.1 L VBG pH VBG pCO2 VBG HCO3 VBG Total CO2 VBG O2 Sat (Calc) VBG Base Excess VBG Potassium A-a O2 Difference 132.0 Hgb O2 Saturation Sodium 149.0 H 149 H Chloride 112.0 H 114 H Glucose 122 H Lactate 0.8 Vent Mode High flow lpm Mechanical Rate FiO2 50.0 Tidal Volume Potassium 3.3 L Carbon Dioxide 29 Anion Gap 9 L BUN 34 H Creatinine 1.1 Est GFR ( Amer) > 60 Est GFR (Non-Af Amer) > 60 POC Glucose (mg/dL) Random Glucose 74 L Calcium 7.6 L Total Bilirubin AST ALT Alkaline Phosphatase Troponin I NT-Pro-B Natriuret Pep Total Protein Albumin Globulin Albumin/Globulin Ratio Arterial Blood Potassium 3.1 L Venous Blood Potassium Blood Type Antibody Screen BBK History Checked 12/05/18 12/05/18 05:27 06:45 WBC RBC Hgb Hct MCV MCH MCHC RDW Plt Count MPV Neut % (Auto) Lymph % (Auto) Mitchell % (Auto) Eos % (Auto) Baso % (Auto) Neut # (Auto) Lymph # (Auto) Mitchell # (Auto) Eos # (Auto) Baso # (Auto) Neutrophils % (Manual) Band Neutrophils % Lymphocytes % (Manual) Monocytes % (Manual) Eosinophils % (Manual) Basophils % (Manual) Toxic Granulation Platelet Estimate Hypochromasia (manual) PT INR APTT pCO2 55 H pO2 189 H HCO3 28.0 ABG pH 7.35 ABG Total CO2 32.1 H ABG O2 Saturation 100.2 H ABG O2 Content 13.9 L ABG Base Excess 3.9 H ABG Hemoglobin 9.8 L ABG Carboxyhemoglobin 1.3 POC ABG HHb (Measured) -0.2 L ABG Methemoglobin 1.4 ABG O2 Capacity 13.9 L Ryan Test Yes ABG Potassium VBG pH VBG pCO2 VBG HCO3 VBG Total CO2 VBG O2 Sat (Calc) VBG Base Excess VBG Potassium A-a O2 Difference 99.0 Hgb O2 Saturation 97.5 Sodium Chloride Glucose Lactate Vent Mode A/c Mechanical Rate 12 FiO2 50.0 Tidal Volume 400 Potassium Carbon Dioxide Anion Gap BUN Creatinine Est GFR ( Amer) Est GFR (Non-Af Amer) POC Glucose (mg/dL) 69 Random Glucose Calcium Total Bilirubin AST ALT Alkaline Phosphatase Troponin I NT-Pro-B Natriuret Pep Total Protein Albumin Globulin Albumin/Globulin Ratio Arterial Blood Potassium Venous Blood Potassium Blood Type Antibody Screen BBK History Checked Radiology Impressions: Radiology Impressions Chest X-Ray 12/04/18 16:12 IMPRESSION: Chronic interstitial lung disease with interval patchy fairly low density nodular opacity in the left mid to upper lung zone projecting of the left clavicle. An interval patchy infiltrate 1 consideration. Diagnosis of exclusion is interval developing left pulmonary nodule. Conceivably some lesion relating to the bone itself lytic lesion cannot be excluded given its projection over the clavicle. Blebs and bullous emphysematous changes are present. No complicating pneumothorax seen. Bronchiectasis is also inferred. Consider follow-up CT chest imaging without IV contrast. Soft Tissue Neck X-Ray 12/04/18 16:13 IMPRESSION: Nondiagnostic frontal radiograph for evaluation of the soft tissues of the neck. Diffuse interstitial fibrosis. Fingerstick Blood Sugar Results: 145 Critical Care Progress Note - Ventilator Checklist Head of Bed 30 Degrees: Yes Daily Assessment of Readiness to Wean: Yes PUD Prophalyxis: Yes DVT Prophylaxis: Yes - Nutrition Nutrition: Nutrition Category Date Time Status NPO Diet [DIET] Diets 12/04/18 Dinner Active Assessment/Plan - Assessment and Plan (Free Text) Plan: Pt is an 83 y/o male with hx of Chronic Interstitial Lung disease on home O2, Hx of Pneumothorax, COPD, BPH admitted to ICU on 12/04 for respiratory failure. Pt was found by EMS in respiratory arrest and intubated on field via nasotracheal tube. 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 #Neuro - Sedated on Versed and Fentanyl. Wean as tolerated. - RAAS (-4) - Found unresponsive on field, may be related to respiratory arrest. If neurological status not improved, will consider Head CT. #Cardiac - No known cardiac hx - Currently hemodynamically stable w/ NSR on monitor tech - Hypotensive in 90's systolic on admission, fluid responsive S/P 2L NS #Pulm - Acute Hypercapnic Respiratory Failure may be 2/2 to Chronic Interstitial Fibrosis vs COPD exas vs Lung/Laryngeal mass (malignancy?) vs PNU - CXray (12/04/18): Chronic appearing interstitial lung disease, subpleural blebs, Nodular patchy opacity projecting of the left upper lung zone and clavicle. (interval from Chest CT in 06/2018) - ABG c/w Respiratory acidosis - (+) Neck swelling on exam w/ han, ENT consulted, Dr. Pringle, plan for biopsy at bedside today - Pulmonology, Dr. Niño on board #GI - NG tube inserted to start tube feedings #Renal - BUN 34, Crea 1.1 - Azotemia w/ stable kidney function - Hypernatremia + Hyperchloremia. Fluids changed to 1/2NS at 100cc - K 3.3, repleted with Kphos - Urinary retention, hx of BPH, relieved by nolasco placement today. Continue to monitor urine output - Continue to monitor BMP #Heme - Hg 13.8> 9.9. Likely dilutional - Platelets stable - No leukocytosis - C/W Vanco and Zosyn for possible PNU #PPX - GI: Protonix 40mg IVP daily - DVT ppx: Lovenox SC daily Lines: none Nolasco: placed on 12/05/18 for urinary retention Discussed case with Dr. Palmer who agrees with plan Dunia Eddy PGY2 <Sal Palmer - Last Filed: 12/05/18 15:13> Critical Care Progress Note - Nutrition Nutrition: Nutrition Category Date Time Status NPO Diet [DIET] Diets 12/04/18 Dinner Active Assessment/Plan - Assessment and Plan (Free Text) Plan: Attestation: Patient seen and examined at the bedside with Resident Dr. Mindy Eddy; and I agree with her outline of plans and management documented above as discussed on AM rounds; reflecting my review of all applicable clinical data, and participation in the care of the patient throughout the day in ICU; today, December 05, 2018. Mr. Pan on sedation vacation from Fentanyl and Versed infusions. Still has yet to be completely arousable and awake even after 3 hours since drips discontinued. Yesterday, initial reports of mental status noted that he was altered and found unconscious, will consider CT Head if he does not show more signs of awakening. Arrangements for bedside biopsy of the neck mass. Pending biopsy results and disposition of the mass, may ultimately need tracheostomy given his h/o of IPF and bleb disease.
[2018-12-05 12:34] LABS: BASO % 0.2 % (0.0-2.0); EOS # 0.1 K/uL (0.0-0.7); EOS % 0.8 % (0.0-4.0); HEMOGLOBIN 10.1 g/dL (12.0-18.0); LYMPH # 1.1 K/uL (1.0-4.3); LYMPH % 10.7 % (20.0-40.0); MEAN CELL VOLUME 93.6 fl (80.0-94.0); MEAN CORPUSCULAR HEMOGLOBIN 28.8 pg (27.0-31.0); MEAN CORPUSCULAR HGB CONC 30.7 g/dL (33.0-37.0); MEAN PLATELET VOLUME 9.8 fl (7.2-11.7); MONO # 0.8 K/uL (0.0-0.8); MONO % 7.7 % (0.0-10.0); NEUT % 80.6 % (50.0-75.0); NRBC % 0.1 % (0.0-0.0); RBC 3.51 Mil/uL (4.40-5.90); RED CELL DISTRIBUTION WIDTH 14.9 % (11.5-14.5); WHITE BLOOD COUNT 9.9 K/uL (4.8-10.8)
[2018-12-05] MEDS ORDERED: Sodium Chloride 0.9% 50 ML IV ONE (13:40)
[2018-12-05] MEDS ORDERED: Iohexol 300 100 ML IJ ONE (13:40)
--- NOTE | 2018-12-05 15:17 | CT ---
Date of service: 12/05/2018 PROCEDURE: CT NECK WITH CONTRAST HISTORY: large neck mass, nasotracheally intubated, for bx. COMPARISON: None available. TECHNIQUE: CT of the neck with intravenous contrast. Coronal and sagittal reformats generated. Intravenous contrast dose: 90 mL of Omnipaque 300 intravenously. Radiation dose: Total exam DLP = 244.31 mGy-cm. This CT exam was performed using one or more of the following dose reduction techniques: Automated exposure control, adjustment of the mA and/or kV according to patient size, and/or use of iterative reconstruction technique. FINDINGS: NASOPHARYNX: No definite evidence of discrete mass lesion in the nasopharynx. SUPRAHYOID NECK: There is a nasotracheal tube in place which limits the evaluation of the pharynx and larynx. No definite evidence of discrete mass lesion in the oropharynx, oral cavity, parapharyngeal space and retropharyngeal space. The evaluation of the tongue is somewhat limited due to streak artifacts and nasotracheal tube. INFRAHYOID NECK: Unremarkable larynx, hypopharynx, and supraglottic space. Vocal cords intact. MASS: No definite evidence of discrete mass GLANDS: Parotid and submandibular glands unremarkable. Normal size thyroid gland, without nodule. LYMPH NODES: Normal. No lymphadenopathy. CERVICAL SPINE: Arthritic and degenerative changes noted in the VASCULAR STRUCTURES: There are foci of atherosclerotic calcification at the carotid bifurcation P OTHER FINDINGS: There are foci of pleural calcification noted in the upper chest. There are advanced emphysematous changes in the lung apices. IMPRESSION: Nasotracheal tube in place. Limited evaluation due to streak artifact and due to the nasotracheal tube. No definite evidence of large discrete enhancing mass lesion in the larynx and pharynx.
[2018-12-05] MEDS ORDERED: Dextrose 50% SYRINGE Inj (50 ml) ONE (16:54)
[2018-12-05] MEDS: Dextrose 5%/0.45% NS 1,000 ML IV SCH (17:03)
[2018-12-05 21:17] LABS: SQUAMOUS EPITHIAL 1 /hpf (0-5); URINE BACTERIA RARE (<OCC); URINE BILIRUBIN NEGATIVE (NEGATIVE); URINE BLOOD SMALL (NEGATIVE); URINE CLARITY CLOUDY (Clear); URINE COLOR YELLOW (YELLOW); URINE GLUCOSE (UA) NEG (NEGATIVE); URINE LEUKOCYTE ESTERASE MOD Leu/uL (Negative); URINE PROTEIN NEGATIVE (NEGATIVE); URINE UROBILINOGEN 0.2-1.0 mg/dL (0.2-1.0)
[2018-12-06] MEDS: Piperacillin/Tazobact 3.375 GM in Sodium Chloride 0.9% 100 ML IVPB SCH ×4 (04:41→21:08)
[2018-12-06 04:50] LABS: BASO % 0.2 % (0.0-2.0); EOS # 0.1 K/uL (0.0-0.7); EOS % 0.9 % (0.0-4.0); HEMOGLOBIN 11.6 g/dL (12.0-18.0); MEAN CELL VOLUME 94.3 fl (80.0-94.0); MEAN CORPUSCULAR HEMOGLOBIN 28.9 pg (27.0-31.0); MEAN CORPUSCULAR HGB CONC 30.6 g/dL (33.0-37.0); MEAN PLATELET VOLUME 9.9 fl (7.2-11.7); MONO # 0.6 K/uL (0.0-0.8); MONO % 6.4 % (0.0-10.0); NEUT # 8.1 K/uL (1.8-7.0); NEUT % 82.5 % (50.0-75.0); NRBC % 0.1 % (0.0-0.0); RBC 4.03 Mil/uL (4.40-5.90); RED CELL DISTRIBUTION WIDTH 15.5 % (11.5-14.5); WHITE BLOOD COUNT 9.8 K/uL (4.8-10.8)
[2018-12-06 05:09] LABS: ALB/GLOB RATIO 0.7 (1.0-2.1); ALBUMIN 2.7 g/dL (3.5-5.0); ALT/SGPT 16 U/L (21-72); AST/SGOT 30 U/L (17-59); BLOOD UREA NITROGEN 22 mg/dl (9-20); CALCIUM 7.5 mg/dL (8.4-10.2); GFR NON-AFRICAN AMERICAN > 60
[2018-12-06 05:12] LABS: ABG ALLEN TEST YES; ARTERIAL BLOOD GAS HCO3 26.8 mmol/L (21-28); ARTERIAL BLOOD GAS HEMOGLOBIN 10.3 g/dL (11.7-17.4); ARTERIAL BLOOD GAS O2 CAPACITY 14.3 mL/dL (16-24); ARTERIAL BLOOD GAS O2 CONTENT 14.1 ML/dL (15-23); ARTERIAL BLOOD GAS O2 SAT 98.9 % (95-98); ARTERIAL BLOOD GAS PCO2 42 mm/Hg (35-45); ARTERIAL BLOOD GAS PH 7.42 (7.35-7.45); ARTERIAL BLOOD GAS PO2 89 mm/Hg (80-100); ARTERIAL BLOOD GAS TCO2 28.5 mmol/L (22-28)
--- NOTE | 2018-12-06 06:45 | CP.PCM.PN ---
<Maggy LoredoLeroy - Last Filed: 12/06/18 13:19> Subjective - Date & Time of Evaluation Date of Evaluation: 12/06/18 Time of Evaluation: 07:00 - Subjective Subjective: Patient seen and examined. Still intubated via nasal. No acute event overnight. No sedation at moment, patient responsive to voice, and touch. FIO2 40% Objective - Vital Signs/Intake and Output Vital Signs (last 24 hours): Temp Pulse Resp BP Pulse Ox 98.2 F 83 16 116/65 100 12/06/18 04:00 12/06/18 06:37 12/06/18 06:37 12/06/18 06:37 12/06/18 06:37 Intake and Output: 12/05/18 12/06/18 18:59 06:59 Intake Total 200 1250 Output Total 800 500 Balance -600 750 - Medications Medications: Current Medications Albuterol/Ipratropium (Duoneb 3 Mg/0.5 Mg (3 Ml) Ud) 3 ml INH RQ6 PRN PRN Reason: Shortness of Breath Enoxaparin Sodium (Lovenox) 40 mg SC DAILY ANAIS; Protocol Last Admin: 12/05/18 08:26 Dose: 40 mg Fentanyl Citrate 2,500 mcg/ (Dextrose) 250 mls @ 5.04 mls/hr IV .Q24H ANAIS; Protocol Last Admin: 12/04/18 20:00 Dose: 1 mcg/kg/hr, 5.04 mls/hr Vancomycin HCl 1 gm/ Sodium (Chloride) 250 mls @ 166.667 mls/hr IVPB Q12 ANAIS; Protocol Last Admin: 12/05/18 20:15 Dose: 166.667 mls/hr Piperacillin Sod/Tazobactam (Sod 3.375 gm/ Sodium Chloride) 100 mls @ 100 mls/hr IVPB Q6 ANAIS; Protocol Last Admin: 12/06/18 04:41 Dose: 100 mls/hr Dextrose/Sodium Chloride (Dextrose 5%/0.45% Ns 1000 Ml) 1,000 mls @ 100 mls/hr IV .Q10H ANAIS Stop: 12/06/18 16:45 Last Admin: 12/05/18 17:03 Dose: 100 mls/hr Pantoprazole Sodium (Protonix Inj) 40 mg IVP DAILY ANAIS Last Admin: 12/05/18 08:27 Dose: 40 mg - Labs Labs: 12/06/18 04:10 12/06/18 04:10 PT 11.9 Seconds (9.8-13.1) 12/04/18 16:25 INR 1.0 12/04/18 16:25 APTT 30.0 Seconds (25.6-37.1) 12/04/18 16:25 - Constitutional Appears: Non-toxic, No Acute Distress - Head Exam Head Exam: ATRAUMATIC, NORMAL INSPECTION, NORMOCEPHALIC - Eye Exam Eye Exam: EOMI, Normal appearance, PERRL Pupil Exam: NORMAL ACCOMODATION, PERRL - ENT Exam ENT Exam: Mucous Membranes Moist Additional comments: Dark mass noted on mouth - Respiratory Exam Respiratory Exam: Rales Additional comments: Intubated - Cardiovascular Exam Cardiovascular Exam: REGULAR RHYTHM, +S1, +S2 - GI/Abdominal Exam GI & Abdominal Exam: Soft, Normal Bowel Sounds - Extremities Exam Extremities Exam: Full ROM, Normal Capillary Refill, Normal Inspection - Back Exam Back Exam: NORMAL INSPECTION - Neurological Exam Neurological Exam: Alert - Psychiatric Exam Psychiatric exam: Normal Affect, Normal Mood - Skin Skin Exam: Dry, Intact, Normal Color, Warm Assessment and Plan - Assessment and Plan (Free Text) Assessment: 3 YO M with 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 Intubated and admitted to ICU. Off sedation, responsive to voice and touch. Plan: CXR: Chronic interstitial lung disease with interval patchy fairly low density nodular opacity in the left mid to upper lung zone projecting of the left clavicle. An interval patchy infiltrate 1 consideration. Diagnosis of exclusion is interval developing left pulmonary nodule. Conceivably some lesion relating to the bone itself lytic lesion cannot be excluded given its projection over the clavicle. Blebs and bullous emphysematous changes are present. No complicating pneumothorax seen. Bronchiectasis is also inferred. Consider follow-up CT chest imaging without IV contrast. XR soft tissue neck: Nondiagnostic frontal radiograph for evaluation of the soft tissues of the neck. Diffuse interstitial fibrosis. Pneumonia Afebrile, wbc: 9.8; lactate:0.8 Nasotracheal intubation in ER BNP 1390; (1300 on 06/25/2018) Vancomycin 500 mg and Zosyn 3.375 mg started in ER; continue Vancomycin 1gm Day 3 COntinue Pip-tazo 3.375 Day 3 IVF: NS at 100 mls/hr Palliative care in case Na 149, K 3.5 upper airway mass Possible necrosis Biopsy today by doctor Nita Possible tracheotomy Ventilator weaning off. Otolaryngology: Dr. Pringle consulted; further recs appreciated IPF, chronic Duoneb; intubated Pulm: Dr. Niño; further recs appreciated Hypokalemia K 3.3-> 3.5 MG 1.8 Give KCL 30 HTN c/w home meds continue to monitor bp Chronic Anemia current h/h: 11.6/38 continue to monitor DVT/GI ppx Lovenox Pantoprazole 40 MG <Lilian Tate - Last Filed: 12/06/18 14:15> Objective - Vital Signs/Intake and Output Vital Signs (last 24 hours): Temp Pulse Resp BP Pulse Ox 98 F 92 H 18 126/68 100 12/06/18 13:00 12/06/18 13:54 12/06/18 13:54 12/06/18 13:54 12/06/18 13:54 Intake and Output: 12/06/18 12/06/18 06:59 18:59 Intake Total 1250 1000 Output Total 500 Balance 750 1000 - Medications Medications: Current Medications Albuterol/Ipratropium (Duoneb 3 Mg/0.5 Mg (3 Ml) Ud) 3 ml INH RQ6 ANAIS Last Admin: 12/06/18 13:16 Dose: 3 ml Dimethicone (Proshield Plus Skin Protectant) 1 applic TOP Q8 ANAIS Enoxaparin Sodium (Lovenox) 40 mg SC DAILY ANAIS; Protocol Last Admin: 12/06/18 08:17 Dose: 40 mg Vancomycin HCl 1 gm/ Sodium (Chloride) 250 mls @ 166.667 mls/hr IVPB Q12 [facility]NA[facility]; Protocol Last Admin: 12/06/18 08:18 Dose: 166.667 mls/hr Piperacillin Sod/Tazobactam (Sod 3.375 gm/ Sodium Chloride) 100 mls @ 100 mls/hr IVPB Q6 ANA[facility]; Protocol Last Admin: 12/06/18 09:57 Dose: 100 mls/hr Dextrose/Sodium Chloride (Dextrose 5%/0.45% Ns 1000 Ml) 1,000 mls @ 100 mls/hr IV .Q10H ANAIS Stop: 12/06/18 16:45 Last Admin: 12/06/18 06:55 Dose: 100 mls/hr Pantoprazole Sodium (Protonix Inj) 40 mg IVP DAILY ANAIS Last Admin: 12/06/18 08:18 Dose: 40 mg - Labs Labs: 12/06/18 04:10 12/06/18 04:10 PT 11.9 Seconds (9.8-13.1) 12/04/18 16:25 INR 1.0 12/04/18 16:25 APTT 30.0 Seconds (25.6-37.1) 12/04/18 16:25 Attending/Attestation - Attestation I have personally seen and examined this patient.: Yes I have fully participated in the care of the patient.: Yes I have reviewed all pertinent clinical information, including history, physical exam and plan: Yes Notes (Text): (1) Acute on Chronic Hypercarbic, Hypoxic Respiratory failure multifactorial - sec to Laryngeal Mass, IPL and Pneumonia (2) Left Basal Tongue mass (3) Idiopathic pulmonary fibrosis (4) Pneumonia - Pt is intranasally intubated , on Mech Vent ( intubated by Dr Pringle -ENT) -off sedation, opens eyes to verbal stimuli -cont IV Zosyn and Vanco - cont Duoneb -Pulm - Dr Niño on case - cont Duoneb tx -biopsy of mass done at bedside by ENT Dr Pringle, unable to pass feeding tube - depending upon biopsy result - poss Trach -Palliative Care consulted- surrogate decision maker is kyree Ruvalcaba Advance Directive in chart -
[2018-12-06] MEDS: Dextrose 5%/0.45% NS 1,000 ML IV SCH ×2 (06:55→16:10)
[2018-12-06] MEDS ORDERED: Potassium Phosphate 30 MMOLE in Sodium Chloride 0.9% 250 ML IV ONE (07:51)
[2018-12-06] MEDS: Enoxaparin 40 mg Syringe SC SCH (08:17)
--- NOTE | 2018-12-06 09:45 | PCM.PCON ---
History of Present Illness - History of Present Illness History of Present Illness: Patient is a 83 year old male who presented to the ED on 12/04/18. He was found on the ground by the mailman. In the ED, he also complained of lower back pain and during assessment found to have a blackened area on tongue with a foul order. He had a prior ED visit for SOB and pneumonia. As per patient nephmarcelino Ruvalcaba, patient lives alone in private 2 level home. The patient has a private pay [employer] who comes 5 times a week and a friend assists the patient in getting ready for bed at night. PMH: R pneumothorax, anemia, HTN, BPH, COPD Fam hx: Brother has pulmonary condition on home O2 Soc hx: Uses cane at home 12/04 Laryngoscopy: Possible left basal tongue lesion Review of Systems - Review of Systems Systems not reviewed;Unavailable: Intubated Review of Systems: unable to obtain ROS from patient, patient currently intubated Physical Exam - Constitutional Appears: Chronically Ill - Head Exam Head Exam: ATRAUMATIC, NORMAL INSPECTION, NORMOCEPHALIC - ENT Exam ENT Exam: Mucous Membranes Moist - Neck Exam Neck exam: Positive for: Normal Inspection - Respiratory Exam Additional comments: intubated on mechanical vent - Cardiovascular Exam Cardiovascular Exam: REGULAR RHYTHM - GI/Abdominal Exam GI & Abdominal Exam: Soft. absent: Distended - Exam Additional comments: Has f/c - Extremities Exam Extremities exam: Positive for: pedal pulses present - Skin Skin Exam: Dry, Pallor, Warm Palliative Care Assessment - Modified MRC Dyspnea Scale Modified MRC Dyspnea Scale: Too breathless to leave the house,or breathless dressing or undressing Grade: 5 - Pain Scale Pain Score: 1 Pain Scale Used: FLACC - Rony Scale Sensory Perception: Slightly Limited Moisture: Occasionally Moist Activity: Bedfast Mobility: Completely Immobile Nutrition: Very Poor Friction & Shear: Potential Problem Total Score - Skin Risk Assessment: 11 Palliative Care - Goals Goal(s) of care: Goals of Care discussed with patient's nephew Jordon Triplett. He verbalized understanding of the patient's current condition. He understands the need for Goals of Care planning and says he will be present in the hospital tomorrow and would like to have a more extensive GOC conversation at that time. Code Status : Full Code at this time, Patient nephew Jordon Ioana will have Code Status discussion at Family meeting tomorrow. Treatment Goal(s): Alleviate symptoms, Improve quality of life End of life care discussed: Yes Assessment & Plan - Assessment and Plan (Free Text) Assessment: Full Code, there is an Advanced directive in the chart. Patient kyree Triplett ([phone]) is the designated decision maker for the patient Palliative Performance Scale 10% I reviewed medical records, diagnostic Studies, and examined the patient in bed, Kyree Ruvalcaba Ioana interviewed via telephone Impression Respiratory Failure Upper airway mass decrease mobility Needs continued Goals of Care discussions Suggestion Follow up with biopsy results Reposition q2h mouth care will continue Goals of Care discussion tomorrow with Kyree Ruvalcaba Palliative Care will remain on board as needed Time Spent with patient 55 min
[2018-12-06] MEDS ORDERED: Rocuronium 10 mg/ml (5 ml) IV ONE (10:23)
[2018-12-06] MEDS ORDERED: HYDROmorphone 0.5 mg/0.5 ml ISec ONE (10:38)
--- NOTE | 2018-12-06 11:03 | CP.PCM.PN ---
Subjective - Date & Time of Evaluation Date of Evaluation: 12/06/18 Time of Evaluation: 10:58 - Subjective Subjective: Seen on morning rounds in the ICU. Still OFF sedation, and only now beginning to open eyes with stimulation. Vital signs remain stable, he continues to be afebrile. No leukocytosis, Na & Cl both mildly elevated, renal function is stable. Urine was concentrated on admission with budding yeast. Repeat chest x-ray shows extensive ILD with sub-pleural honeycombing and traction bronchiectasis. Does not follow commands. Opens eyes, does not appear to focus. Moves all 4 extremities with stimulation. No clonus, no rigidity. No cyanosis, all extremities are warm to touch. Oral mucosa is moist, crusted tongue is now moist and pink. Neck is supple, no palpable cervical adenopathy. No dullness on percussion of the anterior thorax, no subcut emphysema. Breath sounds are equally heard bilaterally with diffuse early, dry rales. Some bronchial character of the breath sounds is noted in the RLL posteriorly. No audible wheezing. Heart sounds are well heard, regular rhythm. Abdomen is soft and non-tender, + BS. Diffuse ILD C/W IPF late stage disease. Acute respiratory failure. Reported mass at the base of the tongue. For bedside biopsy today. Will attempt again to pass NG/OGT. Allow for awakening to occur, then re-sedate. Ventilator weaning may begin. Potential tracheostomy dependant on biopsy result. Continue empiric antibiotic therapy. Objective - Vital Signs/Intake and Output Vital Signs (last 24 hours): Temp Pulse Resp BP Pulse Ox 98.1 F 81 18 118/79 100 12/06/18 10:00 12/06/18 10:00 12/06/18 10:00 12/06/18 10:00 12/06/18 10:00 Intake and Output: 12/05/18 12/06/18 23:59 11:59 Intake Total 650 1600 Output Total 800 500 Balance -150 1100 - Medications Medications: Current Medications Albuterol/Ipratropium (Duoneb 3 Mg/0.5 Mg (3 Ml) Ud) 3 ml INH RQ6 ANAIS Dimethicone (Proshield Plus Skin Protectant) 1 applic TOP Q8 ANAIS Enoxaparin Sodium (Lovenox) 40 mg SC DAILY COUNTS INCLUDE 234 BEDS AT THE [facility]; Protocol Last Admin: 12/06/18 08:17 Dose: 40 mg Fentanyl Citrate 2,500 mcg/ (Dextrose) 250 mls @ 5.04 mls/hr IV .Q24H ANAIS; Protocol Last Admin: 12/04/18 20:00 Dose: 1 mcg/kg/hr, 5.04 mls/hr Vancomycin HCl 1 gm/ Sodium (Chloride) 250 mls @ 166.667 mls/hr IVPB Q12 ANA[facility]; Protocol Last Admin: 12/06/18 08:18 Dose: 166.667 mls/hr Piperacillin Sod/Tazobactam (Sod 3.375 gm/ Sodium Chloride) 100 mls @ 100 mls/hr IVPB Q6 [facility]NA[facility]; Protocol Last Admin: 12/06/18 09:57 Dose: 100 mls/hr Dextrose/Sodium Chloride (Dextrose 5%/0.45% Ns 1000 Ml) 1,000 mls @ 100 mls/hr IV .Q10H ANAIS Stop: 12/06/18 16:45 Last Admin: 12/06/18 06:55 Dose: 100 mls/hr Potassium Phosphate 30 mmole/ (Sodium Chloride) 260 mls @ 65 mls/hr IV ONCE ONE Stop: 12/06/18 11:50 Last Admin: 12/06/18 09:58 Dose: 65 mls/hr Pantoprazole Sodium (Protonix Inj) 40 mg IVP DAILY ANAIS Last Admin: 12/06/18 08:18 Dose: 40 mg - Labs Labs: 12/06/18 04:10 12/06/18 04:10 PT 11.9 Seconds (9.8-13.1) 12/04/18 16:25 INR 1.0 12/04/18 16:25 APTT 30.0 Seconds (25.6-37.1) 12/04/18 16:25 Assessment and Plan (1) Respiratory failure Status: Acute (2) Laryngeal mass Status: Acute (3) Idiopathic pulmonary fibrosis Status: Chronic
--- NOTE | 2018-12-06 12:15 | RAD ---
Date of service: 12/06/2018 HISTORY: vented COMPARISON: Multiple serial examinations preceding the most recent study: December 05, 2018. FINDINGS: LUNGS: Stable common known chronic interstitial lung disease. PLEURA: No significant pleural effusion identified, no pneumothorax apparent. CARDIOVASCULAR: Atherosclerotic calcifications identified primarily aortic arch. No radiographic findings to suggest acute or significant cardiovascular disease. OSSEOUS STRUCTURES: No significant abnormalities. VISUALIZED UPPER ABDOMEN: Normal. OTHER FINDINGS: Stable position of endotracheal tube. IMPRESSION: No significant interval change compared to the prior examination(s).
--- NOTE | 2018-12-06 12:29 | CP.CCUPN ---
<Dunia Eddy - Last Filed: 12/06/18 12:13> CCU Subjective - Physician Review Subjective (Free Text): No acute overnight events. RN unable to place NG tube. Pt seen and examined this morning at the bedside. Intubated on MV FIO2 40%. Responds to painful stimuli. As per RN, pt occasionally opens eyes and responds to voice. CCU Objective - Vital Signs / Intake & Output Vital Signs (Last 4 hours): Vital Signs Temp Pulse Resp BP Pulse Ox 12/06/18 06:37 83 16 116/65 100 12/06/18 06:18 99 12/06/18 05:56 84 14 133/65 100 12/06/18 05:00 90 13 140/72 100 12/06/18 04:00 98.2 F 89 15 139/61 100 12/06/18 03:00 74 14 124/66 100 Intake and Output (Last 8hrs): Intake & Output 12/05/18 12/05/18 12/06/18 14:59 22:59 06:59 Intake Total 650 800 Output Total 800 500 Balance -150 300 Weight 114 lb 112 lb 11.2 oz Intake: IV 400 600 Intake, Piggyback 250 200 Output: Urine 800 500 Urine, Voided 800 500 Other: # Bowel Movements 1 1 - Physical Exam Head: Positive for: Atraumatic Pupils: Positive for: PERRL Extroacular Muscles: Negative for: Gaze Palsy Conjunctiva: Positive for: Normal Mouth: Positive for: Other ([place]-black thick coating on body of tongue extending into base) Nose (Internal): Positive for: Other (nasal trachela tube in place) Neck: Negative for: JVD Respiratory/Chest: Positive for: Rales (scattered rales). Negative for: Respiratory Distress, Wheezes, Rhonchi Cardiovascular: Positive for: Regular Rate and Rhythm Abdomen: Positive for: Normal Bowel Sounds. Negative for: Tenderness, Distention Lower Extremity: Positive for: Capillary Refill < 2 s Neurological: Positive for: Other (sedated, unresponsive to voice, withdraws to pain) Skin: Positive for: Normal Color Psychiatric: Negative for: Alert - Medications Active Medications: Active Medications Generic Name Dose Route Start Last Admin Trade Name Freq PRN Reason Stop Dose Admin Albuterol/Ipratropium 3 ml 12/04/18 19:44 Duoneb 3 Mg/0.5 Mg (3 Ml) Ud INH RQ6 PRN Shortness of Breath Enoxaparin Sodium 40 mg 12/05/18 09:00 12/05/18 08:26 Lovenox SC 40 mg DAILY ANAIS Administration Protocol Fentanyl Citrate 2,500 mcg/ 250 mls @ 5.04 mls/hr 12/04/18 19:15 12/04/18 20:00 Dextrose IV 1 mcg/kg/hr .Q24H ANAIS 5.04 mls/hr Administration Protocol 1 MCG/KG/HR Vancomycin HCl 1 gm/ Sodium 250 mls @ 166.667 mls/hr 12/04/18 21:00 12/05/18 20:15 Chloride IVPB 166.667 mls/hr Q12 ANAIS Administration Protocol Piperacillin Sod/Tazobactam 100 mls @ 100 mls/hr 12/04/18 22:00 12/06/18 04:41 Sod 3.375 gm/ Sodium Chloride IVPB 100 mls/hr Q6 ANAIS Administration Protocol Dextrose/Sodium Chloride 1,000 mls @ 100 mls/hr 12/05/18 16:45 12/05/18 17:03 Dextrose 5%/0.45% Ns 1000 Ml IV 12/06/18 16:45 100 mls/hr .Q10H ANAIS Administration Pantoprazole Sodium 40 mg 12/05/18 09:00 12/05/18 08:27 Protonix Inj IVP 40 mg DAILY ANAIS Administration - Patient Studies Lab Studies: Microbiology Studies 12/04/18 16:21 Blood Culture - Preliminary Blood-Venous NO GROWTH AFTER 24 HOURS Lab Studies 12/06/18 12/06/18 12/06/18 Range/Units 04:54 04:10 04:10 WBC 9.8 (4.8-10.8) K/uL RBC 4.03 L (4.40-5.90) Mil/uL Hgb 11.6 L (12.0-18.0) g/dL Hct 38.0 (35.0-51.0) % MCV 94.3 H (80.0-94.0) fl MCH 28.9 (27.0-31.0) pg MCHC 30.6 L (33.0-37.0) g/dL RDW 15.5 H (11.5-14.5) % Plt Count 170 (130-400) K/uL MPV 9.9 (7.2-11.7) fl Neut % (Auto) 82.5 H (50.0-75.0) % Lymph % (Auto) 10.0 L (20.0-40.0) % [place] % (Auto) 6.4 (0.0-10.0) % Eos % (Auto) 0.9 (0.0-4.0) % Baso % (Auto) 0.2 (0.0-2.0) % Neut # (Auto) 8.1 H (1.8-7.0) K/uL Lymph # (Auto) 1.0 (1.0-4.3) K/uL [place] # (Auto) 0.6 (0.0-0.8) K/uL Eos # (Auto) 0.1 (0.0-0.7) K/uL Baso # (Auto) 0.0 (0.0-0.2) K/uL pCO2 42 (35-45) mm/Hg pO2 89 (80-100) mm/Hg HCO3 26.8 (21-28) mmol/L ABG pH 7.42 (7.35-7.45) ABG Total CO2 28.5 H (22-28) mmol/L ABG O2 Saturation 98.9 H (95-98) % ABG O2 Content 14.1 L (15-23) ML/dL ABG Base Excess 2.4 (-2.0-3.0) mmol/L ABG Hemoglobin 10.3 L (11.7-17.4) g/dL ABG Carboxyhemoglobin 1.2 (0.5-1.5) % POC ABG HHb (Measured) 1.1 (0.0-5.0) % ABG Methemoglobin 1.2 (0.0-3.0) % ABG O2 Capacity 14.3 L (16-24) mL/dL Ryan Test Yes A-a O2 Difference 215.0 mm/Hg Hgb O2 Saturation 96.5 (95.0-98.0) % Vent Mode A/c Mechanical Rate 12 FiO2 50.0 % Tidal Volume 400 Sodium 149 H (132-148) mmol/l Potassium 3.5 L (3.6-5.0) MMOL/L Chloride 118 H (98-107) mmol/L Carbon Dioxide 25 (22-30) mmol/L Anion Gap 10 (10-20) BUN 22 H (9-20) mg/dl Creatinine 1.1 (0.8-1.5) mg/dl Est GFR ( Amer) > 60 Est GFR (Non-Af Amer) > 60 POC Glucose (mg/dL) (65-110) mg/dL Random Glucose 128 H (75-110) mg/dL Calcium 7.5 L (8.4-10.2) mg/dL Phosphorus 4.0 (2.5-4.5) mg/dl Magnesium 1.8 (1.6-2.3) MG/DL Total Bilirubin 0.5 (0.2-1.3) mg/dl AST 30 (17-59) U/L ALT 16 L D (21-72) U/L Alkaline Phosphatase 70 (38-126) U/L Total Protein 6.4 (6.3-8.2) G/DL Albumin 2.7 L D (3.5-5.0) g/dL Globulin 3.7 (2.2-3.9) gm/dL Albumin/Globulin Ratio 0.7 L (1.0-2.1) Urine Color (YELLOW) Urine Clarity (Clear) Urine pH (5.0-8.0) Ur Specific [place] (1.003-1.030) Urine Protein (NEGATIVE) mg/dL Urine Glucose (UA) (NEGATIVE) mg/dL Urine Ketones (NEGATIVE) mg/dL Urine Blood (NEGATIVE) Urine Nitrate (NEGATIVE) Urine Bilirubin (NEGATIVE) Urine Urobilinogen (0.2-1.0) mg/dL Ur Leukocyte Esterase (Negative) Julia/uL Urine RBC (Auto) (0-3) /hpf Urine Microscopic WBC (0-5) /hpf Ur Squamous Epith Cells (0-5) /hpf Urine Bacteria (<OCC) Urine Yeast (Budding) (NEGATIVE) /hpf 12/05/18 12/05/18 12/05/18 Range/Units 21:03 20:41 16:21 WBC (4.8-10.8) K/uL RBC (4.40-5.90) Mil/uL Hgb (12.0-18.0) g/dL Hct (35.0-51.0) % MCV (80.0-94.0) fl MCH (27.0-31.0) pg MCHC (33.0-37.0) g/dL RDW (11.5-14.5) % Plt Count (130-400) K/uL MPV (7.2-11.7) fl Neut % (Auto) (50.0-75.0) % Lymph % (Auto) (20.0-40.0) % [place] % (Auto) (0.0-10.0) % Eos % (Auto) (0.0-4.0) % Baso % (Auto) (0.0-2.0) % Neut # (Auto) (1.8-7.0) K/uL Lymph # (Auto) (1.0-4.3) K/uL [place] # (Auto) (0.0-0.8) K/uL Eos # (Auto) (0.0-0.7) K/uL Baso # (Auto) (0.0-0.2) K/uL pCO2 (35-45) mm/Hg pO2 (80-100) mm/Hg HCO3 (21-28) mmol/L ABG pH (7.35-7.45) ABG Total CO2 (22-28) mmol/L ABG O2 Saturation (95-98) % ABG O2 Content (15-23) ML/dL ABG Base Excess (-2.0-3.0) mmol/L ABG Hemoglobin (11.7-17.4) g/dL ABG Carboxyhemoglobin (0.5-1.5) % POC ABG HHb (Measured) (0.0-5.0) % ABG Methemoglobin (0.0-3.0) % ABG O2 Capacity (16-24) mL/dL Ryan Test A-a O2 Difference mm/Hg Hgb O2 Saturation (95.0-98.0) % Vent Mode Mechanical Rate FiO2 % Tidal Volume Sodium (132-148) mmol/l Potassium (3.6-5.0) MMOL/L Chloride (98-107) mmol/L Carbon Dioxide (22-30) mmol/L Anion Gap (10-20) BUN (9-20) mg/dl Creatinine (0.8-1.5) mg/dl Est GFR ( Amer) Est GFR (Non-Af Amer) POC Glucose (mg/dL) 138 H 67 (65-110) mg/dL Random Glucose (75-110) mg/dL Calcium (8.4-10.2) mg/dL Phosphorus (2.5-4.5) mg/dl Magnesium (1.6-2.3) MG/DL Total Bilirubin (0.2-1.3) mg/dl AST (17-59) U/L ALT (21-72) U/L Alkaline Phosphatase (38-126) U/L Total Protein (6.3-8.2) G/DL Albumin (3.5-5.0) g/dL Globulin (2.2-3.9) gm/dL Albumin/Globulin Ratio (1.0-2.1) Urine Color Yellow (YELLOW) Urine Clarity Cloudy (Clear) Urine pH 5.0 (5.0-8.0) Ur Specific [place] 1.041 H (1.003-1.030) Urine Protein Negative (NEGATIVE) mg/dL Urine Glucose (UA) Neg (NEGATIVE) mg/dL Urine Ketones Negative (NEGATIVE) mg/dL Urine Blood Small (NEGATIVE) Urine Nitrate Negative (NEGATIVE) Urine Bilirubin Negative (NEGATIVE) Urine Urobilinogen 0.2-1.0 (0.2-1.0) mg/dL Ur Leukocyte Esterase Mod (Negative) Julia/uL Urine RBC (Auto) 18 H (0-3) /hpf Urine Microscopic WBC 42 H (0-5) /hpf Ur Squamous Epith Cells 1 (0-5) /hpf Urine Bacteria Rare (<OCC) Urine Yeast (Budding) Rare H (NEGATIVE) /hpf 12/05/18 12/05/18 12/05/18 Range/Units 12:05 11:09 08:27 WBC 9.9 (4.8-10.8) K/uL RBC 3.51 L (4.40-5.90) Mil/uL Hgb 10.1 L (12.0-18.0) g/dL Hct 32.8 L (35.0-51.0) % MCV 93.6 (80.0-94.0) fl MCH 28.8 (27.0-31.0) pg MCHC 30.7 L (33.0-37.0) g/dL RDW 14.9 H (11.5-14.5) % Plt Count 173 (130-400) K/uL MPV 9.8 (7.2-11.7) fl Neut % (Auto) 80.6 H (50.0-75.0) % Lymph % (Auto) 10.7 L (20.0-40.0) % [place] % (Auto) 7.7 (0.0-10.0) % Eos % (Auto) 0.8 (0.0-4.0) % Baso % (Auto) 0.2 (0.0-2.0) % Neut # (Auto) 8.0 H (1.8-7.0) K/uL Lymph # (Auto) 1.1 (1.0-4.3) K/uL [place] # (Auto) 0.8 (0.0-0.8) K/uL Eos # (Auto) 0.1 (0.0-0.7) K/uL Baso # (Auto) 0.0 (0.0-0.2) K/uL pCO2 (35-45) mm/Hg pO2 (80-100) mm/Hg HCO3 (21-28) mmol/L ABG pH (7.35-7.45) ABG Total CO2 (22-28) mmol/L ABG O2 Saturation (95-98) % ABG O2 Content (15-23) ML/dL ABG Base Excess (-2.0-3.0) mmol/L ABG Hemoglobin (11.7-17.4) g/dL ABG Carboxyhemoglobin (0.5-1.5) % POC ABG HHb (Measured) (0.0-5.0) % ABG Methemoglobin (0.0-3.0) % ABG O2 Capacity (16-24) mL/dL Ryan Test A-a O2 Difference mm/Hg Hgb O2 Saturation (95.0-98.0) % Vent Mode Mechanical Rate FiO2 % Tidal Volume Sodium (132-148) mmol/l Potassium (3.6-5.0) MMOL/L Chloride (98-107) mmol/L Carbon Dioxide (22-30) mmol/L Anion Gap (10-20) BUN (9-20) mg/dl Creatinine (0.8-1.5) mg/dl Est GFR ( Amer) Est GFR (Non-Af Amer) POC Glucose (mg/dL) 133 H 188 H (65-110) mg/dL Random Glucose (75-110) mg/dL Calcium (8.4-10.2) mg/dL Phosphorus (2.5-4.5) mg/dl Magnesium (1.6-2.3) MG/DL Total Bilirubin (0.2-1.3) mg/dl AST (17-59) U/L ALT (21-72) U/L Alkaline Phosphatase (38-126) U/L Total Protein (6.3-8.2) G/DL Albumin (3.5-5.0) g/dL Globulin (2.2-3.9) gm/dL Albumin/Globulin Ratio (1.0-2.1) Urine Color (YELLOW) Urine Clarity (Clear) Urine pH (5.0-8.0) Ur Specific [place] (1.003-1.030) Urine Protein (NEGATIVE) mg/dL Urine Glucose (UA) (NEGATIVE) mg/dL Urine Ketones (NEGATIVE) mg/dL Urine Blood (NEGATIVE) Urine Nitrate (NEGATIVE) Urine Bilirubin (NEGATIVE) Urine Urobilinogen (0.2-1.0) mg/dL Ur Leukocyte Esterase (Negative) Julia/uL Urine RBC (Auto) (0-3) /hpf Urine Microscopic WBC (0-5) /hpf Ur Squamous Epith Cells (0-5) /hpf Urine Bacteria (<OCC) Urine Yeast (Budding) (NEGATIVE) /hpf 12/05/18 Range/Units 06:45 WBC (4.8-10.8) K/uL RBC (4.40-5.90) Mil/uL Hgb (12.0-18.0) g/dL Hct (35.0-51.0) % MCV (80.0-94.0) fl MCH (27.0-31.0) pg MCHC (33.0-37.0) g/dL RDW (11.5-14.5) % Plt Count (130-400) K/uL MPV (7.2-11.7) fl Neut % (Auto) (50.0-75.0) % Lymph % (Auto) (20.0-40.0) % [place] % (Auto) (0.0-10.0) % Eos % (Auto) (0.0-4.0) % Baso % (Auto) (0.0-2.0) % Neut # (Auto) (1.8-7.0) K/uL Lymph # (Auto) (1.0-4.3) K/uL [place] # (Auto) (0.0-0.8) K/uL Eos # (Auto) (0.0-0.7) K/uL Baso # (Auto) (0.0-0.2) K/uL pCO2 (35-45) mm/Hg pO2 (80-100) mm/Hg HCO3 (21-28) mmol/L ABG pH (7.35-7.45) ABG Total CO2 (22-28) mmol/L ABG O2 Saturation (95-98) % ABG O2 Content (15-23) ML/dL ABG Base Excess (-2.0-3.0) mmol/L ABG Hemoglobin (11.7-17.4) g/dL ABG Carboxyhemoglobin (0.5-1.5) % POC ABG HHb (Measured) (0.0-5.0) % ABG Methemoglobin (0.0-3.0) % ABG O2 Capacity (16-24) mL/dL Ryan Test A-a O2 Difference mm/Hg Hgb O2 Saturation (95.0-98.0) % Vent Mode Mechanical Rate FiO2 % Tidal Volume Sodium (132-148) mmol/l Potassium (3.6-5.0) MMOL/L Chloride (98-107) mmol/L Carbon Dioxide (22-30) mmol/L Anion Gap (10-20) BUN (9-20) mg/dl Creatinine (0.8-1.5) mg/dl Est GFR ( Amer) Est GFR (Non-Af Amer) POC Glucose (mg/dL) 69 (65-110) mg/dL Random Glucose (75-110) mg/dL Calcium (8.4-10.2) mg/dL Phosphorus (2.5-4.5) mg/dl Magnesium (1.6-2.3) MG/DL Total Bilirubin (0.2-1.3) mg/dl AST (17-59) U/L ALT (21-72) U/L Alkaline Phosphatase (38-126) U/L Total Protein (6.3-8.2) G/DL Albumin (3.5-5.0) g/dL Globulin (2.2-3.9) gm/dL Albumin/Globulin Ratio (1.0-2.1) Urine Color (YELLOW) Urine Clarity (Clear) Urine pH (5.0-8.0) Ur Specific [place] (1.003-1.030) Urine Protein (NEGATIVE) mg/dL Urine Glucose (UA) (NEGATIVE) mg/dL Urine Ketones (NEGATIVE) mg/dL Urine Blood (NEGATIVE) Urine Nitrate (NEGATIVE) Urine Bilirubin (NEGATIVE) Urine Urobilinogen (0.2-1.0) mg/dL Ur Leukocyte Esterase (Negative) Julia/uL Urine RBC (Auto) (0-3) /hpf Urine Microscopic WBC (0-5) /hpf Ur Squamous Epith Cells (0-5) /hpf Urine Bacteria (<OCC) Urine Yeast (Budding) (NEGATIVE) /hpf Laboratory Results - last 24 hr 12/05/18 12/05/18 12/05/18 06:45 08:27 11:09 WBC RBC Hgb Hct MCV MCH MCHC RDW Plt Count MPV Neut % (Auto) Lymph % (Auto) [place] % (Auto) Eos % (Auto) Baso % (Auto) Neut # (Auto) Lymph # (Auto) [place] # (Auto) Eos # (Auto) Baso # (Auto) pCO2 pO2 HCO3 ABG pH ABG Total CO2 ABG O2 Saturation ABG O2 Content ABG Base Excess ABG Hemoglobin ABG Carboxyhemoglobin POC ABG HHb (Measured) ABG Methemoglobin ABG O2 Capacity Ryan Test A-a O2 Difference Hgb O2 Saturation Vent Mode Mechanical Rate FiO2 Tidal Volume Sodium Potassium Chloride Carbon Dioxide Anion Gap BUN Creatinine Est GFR ( Amer) Est GFR (Non-Af Amer) POC Glucose (mg/dL) 69 188 H 133 H Random Glucose Calcium Phosphorus Magnesium Total Bilirubin AST ALT Alkaline Phosphatase Total Protein Albumin Globulin Albumin/Globulin Ratio Urine Color Urine Clarity Urine pH Ur Specific [place] Urine Protein Urine Glucose (UA) Urine Ketones Urine Blood Urine Nitrate Urine Bilirubin Urine Urobilinogen Ur Leukocyte Esterase Urine RBC (Auto) Urine Microscopic WBC Ur Squamous Epith Cells Urine Bacteria Urine Yeast (Budding) 12/05/18 12/05/18 12/05/18 12:05 16:21 20:41 WBC 9.9 RBC 3.51 L Hgb 10.1 L Hct 32.8 L MCV 93.6 MCH 28.8 MCHC 30.7 L RDW 14.9 H Plt Count 173 MPV 9.8 Neut % (Auto) 80.6 H Lymph % (Auto) 10.7 L [place] % (Auto) 7.7 Eos % (Auto) 0.8 Baso % (Auto) 0.2 Neut # (Auto) 8.0 H Lymph # (Auto) 1.1 [place] # (Auto) 0.8 Eos # (Auto) 0.1 Baso # (Auto) 0.0 pCO2 pO2 HCO3 ABG pH ABG Total CO2 ABG O2 Saturation ABG O2 Content ABG Base Excess ABG Hemoglobin ABG Carboxyhemoglobin POC ABG HHb (Measured) ABG Methemoglobin ABG O2 Capacity Ryan Test A-a O2 Difference Hgb O2 Saturation Vent Mode Mechanical Rate FiO2 Tidal Volume Sodium Potassium Chloride Carbon Dioxide Anion Gap BUN Creatinine Est GFR ( Amer) Est GFR (Non-Af Amer) POC Glucose (mg/dL) 67 138 H Random Glucose Calcium Phosphorus Magnesium Total Bilirubin AST ALT Alkaline Phosphatase Total Protein Albumin Globulin Albumin/Globulin Ratio Urine Color Urine Clarity Urine pH Ur Specific [place] Urine Protein Urine Glucose (UA) Urine Ketones Urine Blood Urine Nitrate Urine Bilirubin Urine Urobilinogen Ur Leukocyte Esterase Urine RBC (Auto) Urine Microscopic WBC Ur Squamous Epith Cells Urine Bacteria Urine Yeast (Budding) 12/05/18 12/06/18 12/06/18 21:03 04:10 04:10 WBC 9.8 RBC 4.03 L Hgb 11.6 L Hct 38.0 MCV 94.3 H MCH 28.9 MCHC 30.6 L RDW 15.5 H Plt Count 170 MPV 9.9 Neut % (Auto) 82.5 H Lymph % (Auto) 10.0 L [place] % (Auto) 6.4 Eos % (Auto) 0.9 Baso % (Auto) 0.2 Neut # (Auto) 8.1 H Lymph # (Auto) 1.0 [place] # (Auto) 0.6 Eos # (Auto) 0.1 Baso # (Auto) 0.0 pCO2 pO2 HCO3 ABG pH ABG Total CO2 ABG O2 Saturation ABG O2 Content ABG Base Excess ABG Hemoglobin ABG Carboxyhemoglobin POC ABG HHb (Measured) ABG Methemoglobin ABG O2 Capacity Ryan Test A-a O2 Difference Hgb O2 Saturation Vent Mode Mechanical Rate FiO2 Tidal Volume Sodium 149 H Potassium 3.5 L Chloride 118 H Carbon Dioxide 25 Anion Gap 10 BUN 22 H Creatinine 1.1 Est GFR ( Amer) > 60 Est GFR (Non-Af Amer) > 60 POC Glucose (mg/dL) Random Glucose 128 H Calcium 7.5 L Phosphorus 4.0 Magnesium 1.8 Total Bilirubin 0.5 AST 30 ALT 16 L D Alkaline Phosphatase 70 Total Protein 6.4 Albumin 2.7 L D Globulin 3.7 Albumin/Globulin Ratio 0.7 L Urine Color Yellow Urine Clarity Cloudy Urine pH 5.0 Ur Specific [place] 1.041 H Urine Protein Negative Urine Glucose (UA) Neg Urine Ketones Negative Urine Blood Small Urine Nitrate Negative Urine Bilirubin Negative Urine Urobilinogen 0.2-1.0 Ur Leukocyte Esterase Mod Urine RBC (Auto) 18 H Urine Microscopic WBC 42 H Ur Squamous Epith Cells 1 Urine Bacteria Rare Urine Yeast (Budding) Rare H 12/06/18 04:54 WBC RBC Hgb Hct MCV MCH MCHC RDW Plt Count MPV Neut % (Auto) Lymph % (Auto) [place] % (Auto) Eos % (Auto) Baso % (Auto) Neut # (Auto) Lymph # (Auto) [place] # (Auto) Eos # (Auto) Baso # (Auto) pCO2 42 pO2 89 HCO3 26.8 ABG pH 7.42 ABG Total CO2 28.5 H ABG O2 Saturation 98.9 H ABG O2 Content 14.1 L ABG Base Excess 2.4 ABG Hemoglobin 10.3 L ABG Carboxyhemoglobin 1.2 POC ABG HHb (Measured) 1.1 ABG Methemoglobin 1.2 ABG O2 Capacity 14.3 L Ryan Test Yes A-a O2 Difference 215.0 Hgb O2 Saturation 96.5 Vent Mode A/c Mechanical Rate 12 FiO2 50.0 Tidal Volume 400 Sodium Potassium Chloride Carbon Dioxide Anion Gap BUN Creatinine Est GFR ( Amer) Est GFR (Non-Af Amer) POC Glucose (mg/dL) Random Glucose Calcium Phosphorus Magnesium Total Bilirubin AST ALT Alkaline Phosphatase Total Protein Albumin Globulin Albumin/Globulin Ratio Urine Color Urine Clarity Urine pH Ur Specific [place] Urine Protein Urine Glucose (UA) Urine Ketones Urine Blood Urine Nitrate Urine Bilirubin Urine Urobilinogen Ur Leukocyte Esterase Urine RBC (Auto) Urine Microscopic WBC Ur Squamous Epith Cells Urine Bacteria Urine Yeast (Budding) Radiology Impressions: Radiology Impressions Chest X-Ray 12/04/18 18:31 IMPRESSION: No acute findings/active pulmonary disease. Findings of severe, chronic interstitial lung disease likely pulmonary fibrosis. Chest X-Ray 12/05/18 04:00 IMPRESSION: Satisfactory position of recently placed endotracheal tube. Soft Tissue Neck CT 12/05/18 13:07 IMPRESSION: Nasotracheal tube in place. Limited evaluation due to streak artifact and due to the nasotracheal tube. No definite evidence of large discrete enhancing mass lesion in the larynx and pharynx. Fingerstick Blood Sugar Results: 145 Critical Care Progress Note - Nutrition Nutrition: Nutrition Category Date Time Status NPO Diet [DIET] Diets 12/04/18 Dinner Active Assessment/Plan - Assessment and Plan (Free Text) Assessment: Pt is an 83 y/o male with hx of Chronic Interstitial Lung disease on home O2, Hx of Pneumothorax, COPD, BPH admitted to ICU on 12/04 for respiratory failure. Pt was found by EMS in respiratory arrest and intubated on field via nasotracheal tube. 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 Biopsy completed today at the bedside by ENT, Dr. Pringle. #Neuro - Slight improvement in mental status - Not on any sedation - Found unresponsive on field, may be related to respiratory arrest. If neurological status not improved, will consider Head CT. #Cardiac - No known cardiac hx - Currently hemodynamically stable w/ NSR on branch officer #Pulm - Acute Hypercapnic Respiratory Failure may be 2/2 to Poor mental status vs Chronic Interstitial Fibrosis vs COPD exas vs Lung/Laryngeal mass (malignancy?) vs PNU - CXray (12/04/18): Chronic appearing interstitial lung disease, subpleural blebs, Nodular patchy opacity projecting of the left upper lung zone and clavic le. (interval from Chest CT in 06/2018) - On mechanical ventilation, weaning as tolerated - Pulmonology, Dr. Niño - (+) Neck swelling on exam, ENT consulted, Dr. Pringle, completed bedside biopsy. F/U pathology #GI - Unable to insert NG tube to initiate feeds due to laryngeal mass - GI consulted for PEG placement #Renal - BUN 34, Crea 1.1 - Azotemia w/ stable kidney function - Hypernatremia + Hyperchloremia. C/W fluids D5- 1/2NS at 100cc - K 3.3, repleted with Kphos - Continue to monitor BMP #Heme - H/H and Platelets stable - No leukocytosis - C/W Vanco and Zosyn for possible PNU #PPX - GI: Protonix 40mg IVP daily - DVT ppx: Lovenox SC daily Lines: none Case: placed on 12/05/18 for urinary retention Discussed case with Dr. Palmer who agrees with plan Dunia Eddy PGY2 <Sal Palmer - Last Filed: 12/06/18 13:34> Critical Care Progress Note - Nutrition Nutrition: Nutrition Category Date Time Status NPO Diet [DIET] Diets 12/04/18 Dinner Active Assessment/Plan - Assessment and Plan (Free Text) Plan: Attestation: Patient seen and examined at the bedside with Resident Dr. Mindy Eddy; and I agree with her outline of plans and management documented above as discussed on AM rounds; reflecting my review of all applicable clinical data, and participation in the care of the patient throughout the day in ICU; today, December 06, 2018. Underwent bedside biopsy under endoscopic guidance by ENT. Still unable to pass feeding tube via NG or OG route. Will ask GI for assistance in endoscopic placement if feasible. Pending biopsy results and eventual disposition and therapy for tumor, will initiate MV weans as tolerated. Aware of patients HCP statements of no prolonged wish for MV support if no other need for this modality is needed.
[2018-12-06] MEDS: Albuterol-Ipratrop 3 mg / 0.5 (3 ml) UD INH SCH ×2 (13:16→19:28)
[2018-12-06 19:41] LABS: VENOUS BLOOD GAS PCO2 48 mmHg (40-60); VENOUS BLOOD GAS PO2 26 mm/Hg (30-55); VENOUS BLOOD PH 7.28 (7.32-7.43)
[2018-12-06 21:15] LABS: BLOOD UREA NITROGEN 19 mg/dl (9-20); CALCIUM 7.2 mg/dL (8.4-10.2); GFR NON-AFRICAN AMERICAN > 60
[2018-12-06] MEDS ORDERED: Potassium Chloride 20 mEq 100 ML IVPB ONE (21:45)
[2018-12-07] MEDS: Proshield Plus GEL TOP SCH ×3 (01:00→17:29)
[2018-12-07] MEDS: Dextrose 5%/0.45% NS 1,000 ML IV SCH ×2 (01:00→11:26)
[2018-12-07] MEDS: Albuterol-Ipratrop 3 mg / 0.5 (3 ml) UD INH SCH ×4 (02:04→19:03)
[2018-12-07] MEDS: Piperacillin/Tazobact 3.375 GM in Sodium Chloride 0.9% 100 ML IVPB SCH ×4 (03:27→22:20)
[2018-12-07 04:39] LABS: ABG ALLEN TEST YES; ARTERIAL BLOOD GAS HCO3 24.8 mmol/L (21-28); ARTERIAL BLOOD GAS HEMOGLOBIN 9.5 g/dL (11.7-17.4); ARTERIAL BLOOD GAS O2 CAPACITY 13.4 mL/dL (16-24); ARTERIAL BLOOD GAS O2 CONTENT 13.5 ML/dL (15-23); ARTERIAL BLOOD GAS O2 SAT 100.5 % (95-98); ARTERIAL BLOOD GAS PCO2 48 mm/Hg (35-45); ARTERIAL BLOOD GAS PH 7.34 (7.35-7.45); ARTERIAL BLOOD GAS PO2 174 mm/Hg (80-100); ARTERIAL BLOOD GAS TCO2 27.4 mmol/L (22-28)
[2018-12-07 05:22] LABS: BLOOD UREA NITROGEN 17 mg/dl (9-20); CALCIUM 6.9 mg/dL (8.4-10.2); GFR NON-AFRICAN AMERICAN > 60
[2018-12-07 05:40] LABS: BASO % 0.1 % (0.0-2.0); EOS # 0.1 K/uL (0.0-0.7); EOS % 0.8 % (0.0-4.0); HEMOGLOBIN 9.7 g/dL (12.0-18.0); LYMPH # 0.6 K/uL (1.0-4.3); LYMPH % 7.1 % (20.0-40.0); MEAN CELL VOLUME 91.7 fl (80.0-94.0); MEAN CORPUSCULAR HGB CONC 31.7 g/dL (33.0-37.0); MEAN PLATELET VOLUME 9.9 fl (7.2-11.7); MONO # 0.6 K/uL (0.0-0.8); MONO % 6.4 % (0.0-10.0); NEUT # 7.7 K/uL (1.8-7.0); NEUT % 85.6 % (50.0-75.0); NRBC % 0.1 % (0.0-0.0); RBC 3.35 Mil/uL (4.40-5.90); RED CELL DISTRIBUTION WIDTH 14.8 % (11.5-14.5); WHITE BLOOD COUNT 8.9 K/uL (4.8-10.8)
--- NOTE | 2018-12-07 06:54 | CP.PCM.PN ---
<Leroy Bardales - Last Filed: 12/07/18 12:10> Subjective - Date & Time of Evaluation Date of Evaluation: 12/07/18 Time of Evaluation: 07:20 - Subjective Subjective: Patient seen and examined at bedside today. No acute event. Patient awake today, able to follow command. Still intubated via nasal Objective - Vital Signs/Intake and Output Vital Signs (last 24 hours): Temp Pulse Resp BP Pulse Ox 98.5 F 95 H 22 105/72 100 12/07/18 02:00 12/07/18 02:00 12/07/18 02:00 12/07/18 02:00 12/07/18 02:00 Intake and Output: 12/06/18 12/07/18 18:59 06:59 Intake Total 1500 1300 Output Total 600 Balance 900 1300 - Medications Medications: Current Medications Albuterol/Ipratropium (Duoneb 3 Mg/0.5 Mg (3 Ml) Ud) 3 ml INH RQ6 ANAIS Last Admin: 12/07/18 02:04 Dose: 3 ml Dimethicone (Proshield Plus Skin Protectant) 1 applic TOP Q8 ANAIS Last Admin: 12/07/18 01:00 Dose: 1 applic Enoxaparin Sodium (Lovenox) 40 mg SC DAILY ANAIS; Protocol Last Admin: 12/06/18 08:17 Dose: 40 mg Vancomycin HCl 1 gm/ Sodium (Chloride) 250 mls @ 166.667 mls/hr IVPB Q12 ANAIS; Protocol Last Admin: 12/06/18 22:18 Dose: 166.667 mls/hr Piperacillin Sod/Tazobactam (Sod 3.375 gm/ Sodium Chloride) 100 mls @ 100 mls/hr IVPB Q6 ANAIS; Protocol Last Admin: 12/07/18 03:27 Dose: 100 mls/hr Dextrose/Sodium Chloride (Dextrose 5%/0.45% Ns 1000 Ml) 1,000 mls @ 100 mls/hr IV .Q10H ANAIS Stop: 12/07/18 22:33 Last Admin: 12/07/18 01:00 Dose: 100 mls/hr Pantoprazole Sodium (Protonix Inj) 40 mg IVP DAILY ANAIS Last Admin: 12/06/18 08:18 Dose: 40 mg - Labs Labs: 12/07/18 04:02 12/07/18 04:02 PT 11.9 Seconds (9.8-13.1) 12/04/18 16:25 INR 1.0 12/04/18 16:25 APTT 30.0 Seconds (25.6-37.1) 12/04/18 16:25 - Constitutional Appears: Non-toxic, No Acute Distress - Head Exam Head Exam: ATRAUMATIC, NORMAL INSPECTION, NORMOCEPHALIC - Eye Exam Eye Exam: EOMI, Normal appearance, PERRL Pupil Exam: NORMAL ACCOMODATION, PERRL - ENT Exam ENT Exam: Mucous Membranes Moist, Normal Exam - Neck Exam Neck Exam: Full ROM, Normal Inspection - Respiratory Exam Respiratory Exam: Rales, Rhonchi, NORMAL BREATHING PATTERN - Cardiovascular Exam Cardiovascular Exam: Tachycardia, REGULAR RHYTHM, +S1, +S2 - GI/Abdominal Exam GI & Abdominal Exam: Soft, Normal Bowel Sounds - Skin Skin Exam: Dry, Intact, Normal Color, Warm Assessment and Plan - Assessment and Plan (Free Text) Assessment: 83 YO M with 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 Intubated and admitted to ICU. Off sedation, responsive to voice and touch. Plan: CXR: Chronic interstitial lung disease with interval patchy fairly low density nodular opacity in the left mid to upper lung zone projecting of the left clavicle. An interval patchy infiltrate 1 consideration. Diagnosis of e xclusion is interval developing left pulmonary nodule. Conceivably some lesion relating to the bone itself lytic lesion cannot be excluded given its projection over the clavicle. Blebs and bullous emphysematous changes are present. No complicating pneumothorax seen. Bronchiectasis is also inferred. Consider follow-up CT chest imaging without IV contrast. XR soft tissue neck: Nondiagnostic frontal radiograph for evaluation of the soft tissues of the neck. Diffuse interstitial fibrosis. Ventilator setting Placed on SIMV/PS at 10BPM, FiO2 .40, PS 15cm Pneumonia Afebrile, wbc: 8.9; lactate:0.8 Nasotracheal intubation in ER BNP 1390; (1300 on 06/25/2018) Vancomycin 500 mg and Zosyn 3.375 mg started in ER; continue Vancomycin 1gm Day 4 COntinue Pip-tazo 3.375 Day 4 IVF: NS at 100 mls/hr Palliative care in case Na 148, K 3.5 upper airway mass Possible necrosis F/U biopsy Possible tracheotomy Ventilator weaning off as tolerated NGT placement attempted again today. will sedate with propafol as protocol Otolaryngology: Dr. Pringle consulted; further recs appreciated IPF, chronic Duoneb; intubated Pulm: Dr. Niño; further recs appreciated Hypokalemia K 3.5 MG 1.8 Another KCL will be given HTN c/w home meds continue to monitor bp Chronic Anemia current h/h: 11.6/38 continue to monitor DVT/GI ppx Lovenox Pantoprazole 40 MG <Lilian Tate - Last Filed: 12/07/18 14:10> Objective - Vital Signs/Intake and Output Vital Signs (last 24 hours): Temp Pulse Resp BP Pulse Ox 98.2 F 105 H 29 H 102/53 L 100 12/07/18 10:00 12/07/18 12:00 12/07/18 12:00 12/07/18 12:00 12/07/18 12:00 Intake and Output: 12/07/18 12/07/18 06:59 18:59 Intake Total 1500 954 Output Total 600 Balance 900 954 - Medications Medications: Current Medications Albuterol/Ipratropium (Duoneb 3 Mg/0.5 Mg (3 Ml) Ud) 3 ml INH RQ6 ANAIS Last Admin: 12/07/18 13:11 Dose: 3 ml Dimethicone (Proshield Plus Skin Protectant) 1 applic TOP Q8 ANAIS Last Admin: 12/07/18 08:47 Dose: 1 applic Enoxaparin Sodium (Lovenox) 40 mg SC DAILY ANAIS; Protocol Last Admin: 12/07/18 08:46 Dose: 40 mg Vancomycin HCl 1 gm/ Sodium (Chloride) 250 mls @ 166.667 mls/hr IVPB Q12 ANAIS; Protocol Last Admin: 12/07/18 08:46 Dose: 166.667 mls/hr Piperacillin Sod/Tazobactam (Sod 3.375 gm/ Sodium Chloride) 100 mls @ 100 mls/hr IVPB Q6 ANAIS; Protocol Last Admin: 12/07/18 09:57 Dose: 100 mls/hr Dextrose/Sodium Chloride (Dextrose 5%/0.45% Ns 1000 Ml) 1,000 mls @ 100 mls/hr IV .Q10H ANAIS Stop: 12/07/18 22:33 Last Admin: 12/07/18 11:26 Dose: 100 mls/hr Propofol (Diprivan) 1,000 mg in 100 mls @ 1.497 mls/hr IV .Q24H ANAIS; Protocol Stop: 12/08/18 10:02 Last Admin: 12/07/18 10:18 Dose: 5 mcg/kg/min, 1.497 mls/hr Potassium Phosphate 30 mmole/ (Sodium Chloride) 260 mls @ 65 mls/hr IV ONCE ONE Stop: 12/07/18 16:08 Pantoprazole Sodium (Protonix Inj) 40 mg IVP DAILY [facility] Last Admin: 12/07/18 08:46 Dose: 40 mg - Labs Labs: 12/07/18 04:02 12/07/18 04:02 PT 11.9 Seconds (9.8-13.1) 12/04/18 16:25 INR 1.0 12/04/18 16:25 APTT 30.0 Seconds (25.6-37.1) 12/04/18 16:25 Attending/Attestation - Attestation I have personally seen and examined this patient.: Yes I have fully participated in the care of the patient.: Yes I have reviewed all pertinent clinical information, including history, physical exam and plan: Yes Notes (Text): (1) Acute on Chronic Hypercarbic, Hypoxic Respiratory failure multifactorial - sec to Laryngeal Mass, IPL and Pneumonia (2) Left Basal Tongue/Laryngeal mass (3) Idiopathic pulmonary fibrosis (4) Pneumonia - Pt intranasally intubated , on Mech Vent ( intubated by Dr Pringle -ENT) - weaning in progress, now on Pressure Support - Propofol started - will attempt to insert NGT today -opens eyes to verbal stimuli -cont IV Zosyn and Vanco - cont Duoneb -Pulm -Dr Niño on case - cont Duoneb tx -biopsy of mass done at bedside by ENT Dr Pringle, he was unable to pass feeding tube - depending upon biopsy result - poss Trach/PEG -Palliative Care consulted- surrogate decision maker is kyree Ruvalcaba Advance Directive in chart
--- NOTE | 2018-12-07 08:03 | CP.CCUPN ---
CCU Subjective - Physician Review Events Since Last Encounter (Free Text): Patient on ventilator, on PRVC, RR 12, TV 400, FIO2 50%, no response to verbal stimuli, no fever, no pressors, events reviewed CCU Objective - Vital Signs / Intake & Output Vital Signs (Last 4 hours): Vital Signs Temp Pulse Resp BP Pulse Ox 12/07/18 07:28 98.4 F 107 H 21 105/54 L 100 12/07/18 07:00 98.4 F 100 H 22 100/57 L 100 12/07/18 06:00 98.6 F 98 H 21 96/43 L 100 12/07/18 05:00 98.6 F 100 H 18 105/52 L 100 Intake and Output (Last 8hrs): Intake & Output 12/06/18 12/07/18 12/07/18 22:59 06:59 14:59 Intake Total 1000 1000 200 Output Total 600 600 Balance 400 400 200 Weight 110 lb Intake: IV 800 800 200 Intake, Piggyback 200 200 Output: Urine 600 600 Urethral (Case) 600 600 - Physical Exam Head: Positive for: Atraumatic Pupils: Positive for: PERRL Extroacular Muscles: Negative for: Gaze Palsy Conjunctiva: Positive for: Normal Mouth: Positive for: Other (bradford-black thick coating on body of tongue extending into base) Nose (External): Positive for: Atraumatic Neck: Negative for: JVD Respiratory/Chest: Positive for: Rales (scattered rales) Cardiovascular: Positive for: Regular Rate and Rhythm Abdomen: Positive for: Normal Bowel Sounds. Negative for: Tenderness, Distention Upper Extremity: Positive for: Normal Inspection Lower Extremity: Positive for: Normal Inspection, Capillary Refill < 2 s Neurological: Positive for: Other (on ventilator,unresponsive to voice) Skin: Positive for: Normal Color - Medications Active Medications: Active Medications Generic Name Dose Route Start Last Admin Trade Name Freq PRN Reason Stop Dose Admin Albuterol/Ipratropium 3 ml 12/06/18 14:00 12/07/18 07:25 Duoneb 3 Mg/0.5 Mg (3 Ml) Ud INH 3 ml RQ6 ANAIS Administration Dimethicone 1 applic 12/06/18 17:00 12/07/18 01:00 Proshield Plus Skin Protectant TOP 1 applic Q8 ANAIS Administration Enoxaparin Sodium 40 mg 12/05/18 09:00 12/06/18 08:17 Lovenox SC 40 mg DAILY ANAIS Administration Protocol Vancomycin HCl 1 gm/ Sodium 250 mls @ 166.667 mls/hr 12/04/18 21:00 12/06/18 22:18 Chloride IVPB 166.667 mls/hr Q12 ANAIS Administration Protocol Piperacillin Sod/Tazobactam 100 mls @ 100 mls/hr 12/04/18 22:00 12/07/18 03:27 Sod 3.375 gm/ Sodium Chloride IVPB 100 mls/hr Q6 ANAIS Administration Protocol Dextrose/Sodium Chloride 1,000 mls @ 100 mls/hr 12/06/18 22:45 12/07/18 01:00 Dextrose 5%/0.45% Ns 1000 Ml IV 12/07/18 22:33 100 mls/hr .Q10H ANAIS Administration Pantoprazole Sodium 40 mg 12/05/18 09:00 12/06/18 08:18 Protonix Inj IVP 40 mg DAILY ANAIS Administration - Patient Studies Lab Studies: Microbiology Studies 12/06/18 15:00 Gram Stain - Final Trachasp 12/05/18 06:00 MRSA Culture (Admit) - Final Naris MRSA NOT DETECTED 12/04/18 16:21 Blood Culture - Preliminary Blood-Venous NO GROWTH AFTER 48 HOURS Lab Studies 12/07/18 12/07/18 12/07/18 Range/Units 04:35 04:02 04:02 WBC 8.9 (4.8-10.8) K/uL RBC 3.35 L (4.40-5.90) Mil/uL Hgb 9.7 L (12.0-18.0) g/dL Hct 30.7 L (35.0-51.0) % MCV 91.7 D (80.0-94.0) fl MCH 29.0 (27.0-31.0) pg MCHC 31.7 L (33.0-37.0) g/dL RDW 14.8 H (11.5-14.5) % Plt Count 187 (130-400) K/uL MPV 9.9 (7.2-11.7) fl Neut % (Auto) 85.6 H (50.0-75.0) % Lymph % (Auto) 7.1 L (20.0-40.0) % [place] % (Auto) 6.4 (0.0-10.0) % Eos % (Auto) 0.8 (0.0-4.0) % Baso % (Auto) 0.1 (0.0-2.0) % Neut # (Auto) 7.7 H (1.8-7.0) K/uL Lymph # (Auto) 0.6 L (1.0-4.3) K/uL [place] # (Auto) 0.6 (0.0-0.8) K/uL Eos # (Auto) 0.1 (0.0-0.7) K/uL Baso # (Auto) 0.0 (0.0-0.2) K/uL pCO2 48 H (35-45) mm/Hg pO2 174 H (30-55) mm/Hg HCO3 24.8 (21-28) mmol/L ABG pH 7.34 L (7.35-7.45) ABG Total CO2 27.4 (22-28) mmol/L ABG O2 Saturation 100.5 H (95-98) % ABG O2 Content 13.5 L (15-23) ML/dL ABG Base Excess -0.2 (-2.0-3.0) mmol/L ABG Hemoglobin 9.5 L (11.7-17.4) g/dL ABG Carboxyhemoglobin 1.2 (0.5-1.5) % POC ABG HHb (Measured) -0.5 L (0.0-5.0) % ABG Methemoglobin 1.0 (0.0-3.0) % ABG O2 Capacity 13.4 L (16-24) mL/dL Ryan Test Yes VBG pH (7.32-7.43) VBG pCO2 (40-60) mmHg VBG HCO3 mmol/L VBG Total CO2 (22-28) mmol/L VBG O2 Sat (Calc) (40-65) % VBG Base Excess (0.0-2.0) mmol/L VBG Potassium (3.6-5.2) mmol/L A-a O2 Difference 123.0 mm/Hg Hgb O2 Saturation 98.3 H (95.0-98.0) % Sodium 148 (132-148) mmol/L Chloride 116 H (98-107) mmol/L Glucose (75-110) mg/dL Lactate (0.7-2.1) mmol/L Vent Mode A/c Mechanical Rate 12 FiO2 50.0 % Tidal Volume 400 Crit Value Called To Crit Value Called By Crit Value Read Back Blood Gas Notified Time Potassium 3.5 L (3.6-5.0) MMOL/L Carbon Dioxide 26 (22-30) mmol/L Anion Gap 10 (10-20) BUN 17 (9-20) mg/dl Creatinine 1.1 (0.8-1.5) mg/dl Est GFR ( Amer) > 60 Est GFR (Non-Af Amer) > 60 POC Glucose (mg/dL) (65-110) mg/dL Random Glucose 160 H (75-110) mg/dL Calcium 6.9 L (8.4-10.2) mg/dL Venous Blood Potassium (3.6-5.2) mmol/L 12/06/18 12/06/18 12/06/18 Range/Units 20:47 18:00 04:31 WBC (4.8-10.8) K/uL RBC (4.40-5.90) Mil/uL Hgb (12.0-18.0) g/dL Hct (35.0-51.0) % MCV (80.0-94.0) fl MCH (27.0-31.0) pg MCHC (33.0-37.0) g/dL RDW (11.5-14.5) % Plt Count (130-400) K/uL MPV (7.2-11.7) fl Neut % (Auto) (50.0-75.0) % Lymph % (Auto) (20.0-40.0) % [place] % (Auto) (0.0-10.0) % Eos % (Auto) (0.0-4.0) % Baso % (Auto) (0.0-2.0) % Neut # (Auto) (1.8-7.0) K/uL Lymph # (Auto) (1.0-4.3) K/uL [place] # (Auto) (0.0-0.8) K/uL Eos # (Auto) (0.0-0.7) K/uL Baso # (Auto) (0.0-0.2) K/uL pCO2 (35-45) mm/Hg pO2 26 L (30-55) mm/Hg HCO3 (21-28) mmol/L ABG pH (7.35-7.45) ABG Total CO2 (22-28) mmol/L ABG O2 Saturation (95-98) % ABG O2 Content (15-23) ML/dL ABG Base Excess (-2.0-3.0) mmol/L ABG Hemoglobin (11.7-17.4) g/dL ABG Carboxyhemoglobin (0.5-1.5) % POC ABG HHb (Measured) (0.0-5.0) % ABG Methemoglobin (0.0-3.0) % ABG O2 Capacity (16-24) mL/dL Ryan Test VBG pH 7.28 L (7.32-7.43) VBG pCO2 48 (40-60) mmHg VBG HCO3 21.1 mmol/L VBG Total CO2 24.1 (22-28) mmol/L VBG O2 Sat (Calc) 56.7 (40-65) % VBG Base Excess -4.0 L (0.0-2.0) mmol/L VBG Potassium 2.9 L (3.6-5.2) mmol/L A-a O2 Difference mm/Hg Hgb O2 Saturation (95.0-98.0) % Sodium 148 140.0 (132-148) mmol/L Chloride 115 H 110.0 H (98-107) mmol/L Glucose 516 H* D (75-110) mg/dL Lactate 1.2 (0.7-2.1) mmol/L Vent Mode Mechanical Rate FiO2 50.0 % Tidal Volume Crit Value Called To Marleny craig r.n. Crit Value Called By Laura Owens Value Read Back Y Blood Gas Notified Time 1940 Potassium 3.5 L (3.6-5.0) MMOL/L Carbon Dioxide 25 (22-30) mmol/L Anion Gap 12 (10-20) BUN 19 (9-20) mg/dl Creatinine 1.1 (0.8-1.5) mg/dl Est GFR ( Amer) > 60 Est GFR (Non-Af Amer) > 60 POC Glucose (mg/dL) 125 H (65-110) mg/dL Random Glucose 136 H (75-110) mg/dL Calcium 7.2 L (8.4-10.2) mg/dL Venous Blood Potassium 2.9 L (3.6-5.2) mmol/L Laboratory Results - last 24 hr 12/06/18 12/06/18 12/06/18 04:31 18:00 20:47 WBC RBC Hgb Hct MCV MCH MCHC RDW Plt Count MPV Neut % (Auto) Lymph % (Auto) [place] % (Auto) Eos % (Auto) Baso % (Auto) Neut # (Auto) Lymph # (Auto) [place] # (Auto) Eos # (Auto) Baso # (Auto) pCO2 pO2 26 L HCO3 ABG pH ABG Total CO2 ABG O2 Saturation ABG O2 Content ABG Base Excess ABG Hemoglobin ABG Carboxyhemoglobin POC ABG HHb (Measured) ABG Methemoglobin ABG O2 Capacity Ryan Test VBG pH 7.28 L VBG pCO2 48 VBG HCO3 21.1 VBG Total CO2 24.1 VBG O2 Sat (Calc) 56.7 VBG Base Excess -4.0 L VBG Potassium 2.9 L A-a O2 Difference Hgb O2 Saturation Sodium 140.0 148 Chloride 110.0 H 115 H Glucose 516 H* D Lactate 1.2 Vent Mode Mechanical Rate FiO2 50.0 Tidal Volume Crit Value Called To Marleny craig r.n. Crit Value Called By Laura Crijaimr Value Read Back Y Blood Gas Notified Time 1940 Potassium 3.5 L Carbon Dioxide 25 Anion Gap 12 BUN 19 Creatinine 1.1 Est GFR ( Amer) > 60 Est GFR (Non-Af Amer) > 60 POC Glucose (mg/dL) 125 H Random Glucose 136 H Calcium 7.2 L Venous Blood Potassium 2.9 L 12/07/18 12/07/18 12/07/18 04:02 04:02 04:35 WBC 8.9 RBC 3.35 L Hgb 9.7 L Hct 30.7 L MCV 91.7 D MCH 29.0 MCHC 31.7 L RDW 14.8 H Plt Count 187 MPV 9.9 Neut % (Auto) 85.6 H Lymph % (Auto) 7.1 L [place] % (Auto) 6.4 Eos % (Auto) 0.8 Baso % (Auto) 0.1 Neut # (Auto) 7.7 H Lymph # (Auto) 0.6 L [place] # (Auto) 0.6 Eos # (Auto) 0.1 Baso # (Auto) 0.0 pCO2 48 H pO2 174 H HCO3 24.8 ABG pH 7.34 L ABG Total CO2 27.4 ABG O2 Saturation 100.5 H ABG O2 Content 13.5 L ABG Base Excess -0.2 ABG Hemoglobin 9.5 L ABG Carboxyhemoglobin 1.2 POC ABG HHb (Measured) -0.5 L ABG Methemoglobin 1.0 ABG O2 Capacity 13.4 L Ryan Test Yes VBG pH VBG pCO2 VBG HCO3 VBG Total CO2 VBG O2 Sat (Calc) VBG Base Excess VBG Potassium A-a O2 Difference 123.0 Hgb O2 Saturation 98.3 H Sodium 148 Chloride 116 H Glucose Lactate Vent Mode A/c Mechanical Rate 12 FiO2 50.0 Tidal Volume 400 Crit Value Called To Crit Value Called By Crit Value Read Back Blood Gas Notified Time Potassium 3.5 L Carbon Dioxide 26 Anion Gap 10 BUN 17 Creatinine 1.1 Est GFR ( Amer) > 60 Est GFR (Non-Af Amer) > 60 POC Glucose (mg/dL) Random Glucose 160 H Calcium 6.9 L Venous Blood Potassium Radiology Impressions: Radiology Impressions Chest X-Ray 12/06/18 04:00 IMPRESSION: No significant interval change compared to the prior examination(s). Fingerstick Blood Sugar Results: 145 Critical Care Progress Note - Nutrition Nutrition: Nutrition Category Date Time Status NPO Diet [DIET] Diets 12/04/18 Dinner Active Assessment/Plan - Assessment and Plan (Free Text) Assessment: A/P Respiratory failure, IL O2 dependent, Hx pneumothorax, BPH, laryngeal/lung mass s/p biopsy, R/O malignancy, SAMIRA, ?pneumonia - Ventilatory support - Pulmonary toilets - weaning as tolerated - Follow up biopsy - Continue meds - Poor prognosis critical care 35 min
[2018-12-07] MEDS: Enoxaparin 40 mg Syringe SC SCH (08:46)
[2018-12-07] MEDS ORDERED: Propofol 10 mg/ml 1,000 MG/100 ML VIAL IV SCH (10:15)
--- NOTE | 2018-12-07 10:20 | CP.PCM.PN ---
Subjective - Date & Time of Evaluation Date of Evaluation: 12/07/18 Time of Evaluation: 10:09 - Subjective Subjective: Seen on rounds in the ICU this AM. Interim events reviewed. Case discussed with pt's nurse. Chest x-ray reviewed. Had laryngeal biopsy done yesterday. Labs and VS reviewed. Awake this morning. Communicates appropriately. Follows simple commands. C/O pain in throat. No jaundice, no cyanosis. Neck is supple. No cervical adenopathy. Breath sounds are equally heard in both lungs. Coarse rhonchi present in RLL posteriorly today. Diffuse dry to medium rales unchanged bilaterally. No audible wheezing. Heart rate mildly tachycardic. Abdomen is soft and non-tender, + BS. Trace dependant edema, no calf tenderness. Weaning of ventilator started. Placed on SIMV/PS at 10BPM, FiO2 .40, PS 15cm. Will sedate using Propofol per protocol. Continue aerosol and antibiotic therapy. Attempt placement of NGT again today. Will proceed further after path report is available. CCT 45min. Objective - Vital Signs/Intake and Output Vital Signs (last 24 hours): Temp Pulse Resp BP Pulse Ox 98.2 F 112 H 21 108/66 99 12/07/18 10:00 12/07/18 10:00 12/07/18 10:00 12/07/18 10:00 12/07/18 10:00 Intake and Output: 12/06/18 12/07/18 23:59 11:59 Intake Total 1200 1750 Output Total 600 600 Balance 600 1150 - Medications Medications: Current Medications Albuterol/Ipratropium (Duoneb 3 Mg/0.5 Mg (3 Ml) Ud) 3 ml INH RQ6 ANAIS Last Admin: 12/07/18 07:25 Dose: 3 ml Dimethicone (Proshield Plus Skin Protectant) 1 applic TOP Q8 ANAIS Last Admin: 12/07/18 08:47 Dose: 1 applic Enoxaparin Sodium (Lovenox) 40 mg SC DAILY ANAIS; Protocol Last Admin: 12/07/18 08:46 Dose: 40 mg Vancomycin HCl 1 gm/ Sodium (Chloride) 250 mls @ 166.667 mls/hr IVPB Q12 ANAIS; Protocol Last Admin: 12/07/18 08:46 Dose: 166.667 mls/hr Piperacillin Sod/Tazobactam (Sod 3.375 gm/ Sodium Chloride) 100 mls @ 100 mls/hr IVPB Q6 ANAIS; Protocol Last Admin: 12/07/18 09:57 Dose: 100 mls/hr Dextrose/Sodium Chloride (Dextrose 5%/0.45% Ns 1000 Ml) 1,000 mls @ 100 mls/hr IV .Q10H ANAIS Stop: 12/07/18 22:33 Last Admin: 12/07/18 01:00 Dose: 100 mls/hr Propofol (Diprivan) 1,000 mg in 100 mls @ 1.497 mls/hr IV .Q24H ANAIS; Protocol Stop: 12/08/18 10:02 Pantoprazole Sodium (Protonix Inj) 40 mg IVP DAILY ANAIS Last Admin: 12/07/18 08:46 Dose: 40 mg - Labs Labs: 12/07/18 04:02 12/07/18 04:02 PT 11.9 Seconds (9.8-13.1) 12/04/18 16:25 INR 1.0 12/04/18 16:25 APTT 30.0 Seconds (25.6-37.1) 12/04/18 16:25 Assessment and Plan (1) Respiratory failure Status: Acute (2) Laryngeal mass Status: Acute (3) Idiopathic pulmonary fibrosis Status: Chronic
--- NOTE | 2018-12-07 11:32 | RAD ---
Date of service: 12/07/2018 HISTORY: respiratory failure COMPARISON: Multiple serial examinations preceding the most recent study: December 06, 2018 at 07:04 FINDINGS: LUNGS: Stable chronic interstitial lung disease. PLEURA: No significant pleural effusion identified, no pneumothorax apparent. CARDIOVASCULAR: Atherosclerotic calcifications identified primarily aortic arch. No radiographic findings to suggest acute or significant cardiovascular disease. OSSEOUS STRUCTURES: No significant abnormalities. VISUALIZED UPPER ABDOMEN: Normal. Four OTHER FINDINGS: Stable position of endotracheal tube IMPRESSION: No significant interval change compared to the prior examination(s).
[2018-12-07] MEDS ORDERED: Potassium Phosphate 30 MMOLE in Sodium Chloride 0.9% 250 ML IV ONE (12:09)
[2018-12-07] MEDS ORDERED: Chlorhexidine Gluconate 1 APPL/PKT TP ONE (14:13)
[2018-12-08] MEDS: Proshield Plus GEL TOP SCH ×3 (00:18→16:37)
[2018-12-08] MEDS: Dextrose 5%/0.45% NS 1,000 ML IV SCH ×3 (00:33→13:01)
[2018-12-08] MEDS: Albuterol-Ipratrop 3 mg / 0.5 (3 ml) UD INH SCH ×4 (01:03→19:15)
[2018-12-08] MEDS: Piperacillin/Tazobact 3.375 GM in Sodium Chloride 0.9% 100 ML IVPB SCH ×2 (03:56→10:21)
[2018-12-08 05:06] VITALS: BMI 17.4
[2018-12-08 05:28] LABS: ALB/GLOB RATIO 0.7 (1.0-2.1); ALBUMIN 2.3 g/dL (3.5-5.0); ALT/SGPT 19 U/L (21-72); AST/SGOT 24 U/L (17-59); BLOOD UREA NITROGEN 18 mg/dl (9-20); CALCIUM 6.6 mg/dL (8.4-10.2); GFR NON-AFRICAN AMERICAN 53
[2018-12-08 05:29] LABS: EOS % 0.1 % (0.0-4.0); LYMPH # 0.4 K/uL (1.0-4.3)
[2018-12-08 05:36] LABS: ABG ALLEN TEST YES; ARTERIAL BLOOD GAS HCO3 21.1 mmol/L (21-28); ARTERIAL BLOOD GAS HEMOGLOBIN 9.5 g/dL (11.7-17.4); ARTERIAL BLOOD GAS O2 CAPACITY 13.5 mL/dL (16-24); ARTERIAL BLOOD GAS O2 CONTENT 13.6 ML/dL (15-23); ARTERIAL BLOOD GAS O2 SAT 100.6 % (95-98); ARTERIAL BLOOD GAS PCO2 43 mm/Hg (35-45); ARTERIAL BLOOD GAS PO2 201 mm/Hg (80-100); ARTERIAL BLOOD GAS TCO2 22.5 mmol/L (22-28)
[2018-12-08 05:39] LABS: HEMOGLOBIN 9.9 g/dL (12.0-18.0); LYMPH % 4.3 % (20.0-40.0); MEAN CELL VOLUME 93.1 fl (80.0-94.0); MEAN CORPUSCULAR HEMOGLOBIN 28.9 pg (27.0-31.0); MEAN PLATELET VOLUME 9.6 fl (7.2-11.7); MONO # 0.6 K/uL (0.0-0.8); MONO % 5.5 % (0.0-10.0); NEUT # 9.4 K/uL (1.8-7.0); NEUT % 90.1 % (50.0-75.0); NRBC % 0.1 % (0.0-0.0); PLATELET COUNT 160 K/uL (130-400); RBC 3.41 Mil/uL (4.40-5.90); RED CELL DISTRIBUTION WIDTH 15.3 % (11.5-14.5); WHITE BLOOD COUNT 10.4 K/uL (4.8-10.8)
--- NOTE | 2018-12-08 06:58 | CP.PCM.PN ---
Subjective - Date & Time of Evaluation Date of Evaluation: 12/08/18 Time of Evaluation: 08:00 - Subjective Subjective: Pt seen and examined at bedside. No acute event overnight. Patient still awake and respond to voice and touch. Nasaltracheal intubated. Ventilator decreased from FIO2 40 to 30 % Edematous in upper extremities Objective - Vital Signs/Intake and Output Vital Signs (last 24 hours): Temp Pulse Resp BP Pulse Ox 99.3 F 107 H 31 H 95/54 L 100 12/08/18 05:56 12/08/18 05:56 12/08/18 05:56 12/08/18 05:56 12/08/18 05:56 Intake and Output: 12/07/18 12/08/18 18:59 06:59 Intake Total 1654 1650 Output Total 500 375 Balance 1154 1275 - Medications Medications: Current Medications Albuterol/Ipratropium (Duoneb 3 Mg/0.5 Mg (3 Ml) Ud) 3 ml INH RQ6 ANAIS Last Admin: 12/08/18 01:03 Dose: 3 ml Dimethicone (Proshield Plus Skin Protectant) 1 applic TOP Q8 ANAIS Last Admin: 12/08/18 00:18 Dose: 1 applic Enoxaparin Sodium (Lovenox) 40 mg SC DAILY ANAIS; Protocol Last Admin: 12/07/18 08:46 Dose: 40 mg Vancomycin HCl 1 gm/ Sodium (Chloride) 250 mls @ 166.667 mls/hr IVPB Q12 ANAIS; Protocol Last Admin: 12/07/18 20:32 Dose: 166.667 mls/hr Piperacillin Sod/Tazobactam (Sod 3.375 gm/ Sodium Chloride) 100 mls @ 100 mls/hr IVPB Q6 ANAIS; Protocol Last Admin: 12/08/18 03:56 Dose: 100 mls/hr Propofol (Diprivan) 1,000 mg in 100 mls @ 1.497 mls/hr IV .Q24H ANAIS; Protocol Stop: 12/08/18 10:02 Last Titration: 12/07/18 19:08 Dose: 10 mcg/kg/min, 2.994 mls/hr Pantoprazole Sodium (Protonix Inj) 40 mg IVP DAILY ANAIS Last Admin: 12/07/18 08:46 Dose: 40 mg - Labs Labs: 12/08/18 04:10 12/08/18 04:10 PT 11.9 Seconds (9.8-13.1) 12/04/18 16:25 INR 1.0 12/04/18 16:25 APTT 30.0 Seconds (25.6-37.1) 12/04/18 16:25 - Constitutional Appears: Non-toxic - Head Exam Head Exam: ATRAUMATIC, NORMAL INSPECTION, NORMOCEPHALIC Additional comments: intubated, dexter discoloration of tongue noted, mass noted on neck - Eye Exam Eye Exam: EOMI, Normal appearance, PERRL Pupil Exam: NORMAL ACCOMODATION, PERRL - ENT Exam ENT Exam: Mucous Membranes Moist, Normal Exam - Neck Exam Additional comments: mass noted - Respiratory Exam Respiratory Exam: Rales Additional comments: Intubated - Cardiovascular Exam Cardiovascular Exam: REGULAR RHYTHM, +S1, +S2 - GI/Abdominal Exam GI & Abdominal Exam: Soft, Normal Bowel Sounds - Neurological Exam Neurological Exam: Alert, Awake - Skin Additional comments: Edematous upper extremeties B/L Assessment and Plan - Assessment and Plan (Free Text) Assessment: Assessment: 83 YO M with 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 Intubated and admitted to ICU. responsive to touch and speak. Ventilator decreased Patient is edematous on Upper extremities, Possible Central line Plan: CXR: Chronic interstitial lung disease with interval patchy fairly low density nodular opacity in the left mid to upper lung zone projecting of the left clavicle. An interval patchy infiltrate 1 consideration. Diagnosis of exclusion is interval developing left pulmonary nodule. Conceivably some lesion relating to the bone itself lytic lesion cannot be excluded given its projection over the clavicle. Blebs and bullous emphysematous changes are present. No complicating pneumothorax seen. Bronchiectasis is also inferred. Consider follow-up CT chest imaging without IV contrast. XR soft tissue neck: Nondiagnostic frontal radiograph for evaluation of the soft tissues of the neck. Diffuse interstitial fibrosis. Ventilator setting Placed on SIMV/PS at 10BPM, FiO2 .30, PS 15cm Pneumonia Afebrile, wbc: 9.9 Nasotracheal intubation in ER BNP 1390; (1300 on 06/25/2018) Vancomycin 500 mg and Zosyn 3.375 mg started in ER; continue Vancomycin 1gm Day 5 COntinue Pip-tazo 3.375 Day 5 IVF: NS at 60 mls/hr Palliative care in case Na 148, K 4 upper airway mass Possible necrosis F/U biopsy Possible tracheotomy Ventilator weaning off as tolerated. will sedate with versed Otolaryngology: Dr. Pringle consulted; further recs appreciated IPF, chronic Duoneb; intubated Pulm: Dr. Niño; further recs appreciated Hypokalemia Improved (4.0) MG 1.8 Another KCL will be given Hypomagnesemia Mg 1.4 WIll give mg Sulfate Hypocalcemia Corrected Ca 7.4 WIll give Ca Gluc HTN c/w home meds continue to monitor bp Chronic Anemia current h/h: 11. continue to monitor DVT/GI ppx Lovenox Pantoprazole 40 MG
[2018-12-08] MEDS ORDERED: Magnesium Sulfate 1 gm in D5W 1 GM/100 ML BAG IVPB ONE (07:32)
[2018-12-08] MEDS: Enoxaparin 40 mg Syringe SC SCH (08:38)
[2018-12-08 09:49] LABS: BANDS 2 % (0-2); LYMPHOCYTE 5 % (20-50); MONOCYTE 5 % (0-10); MYELOCYTE 1 % (0-0); NEUTROPHIL 87 % (42-75); PLATELET ESTIMATE NORMAL (NORMAL); TOTAL CELLS COUNTED 100
[2018-12-08 09:51] LABS: ANISOCYTOSIS SLIGHT; LARGE PLATELETS PRESENT; TEARDROP CELLS SLIGHT
[2018-12-08] MEDS ORDERED: Midazolam 50 mg/10 ml 50 MG in Dextrose 5% In Water 90 ML IV ONE (10:11)
--- NOTE | 2018-12-08 14:10 | CP.CCUPN ---
CCU Subjective - Physician Review Events Since Last Encounter (Free Text): 12/08/18 13:30 Pt is an 83 y/o male with hx of Chronic Interstitial Lung disease on home O2, Hx of Pneumothorax, COPD, BPH admitted to ICU on 12/04 for respiratory failure. Pt was found by EMS in respiratory arrest and intubated on field via nasotracheal tube. 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 Neuro: alert, sedated on vent. Starting versed gtt with propofol gtt Pulm: acute respiratory failure, intubated on vent. CV: hemodynamically stable, blood pressure run's low in systolic 90's. Hem: no acute issues Renal: no acute issues, urine output wnl, continue monitoring. Endo: no acute issues GI: NPO, NGT could not be passed, multiple attempts from multiple practitioners. ID: no acute issues, stopping all abx. DVT proph - lovenox GI proph - protonix nolasco for strict I/O's during acute illness Code status - full code Patient will need trach/peg if further aggressive treatment is considered by his family. We are waiting for a biopsy on his laryngeal mass. 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 Critical Care time spent 35 minutes Multi-disciplinary rounds were performed with house staff, nursing, speech therapy, respiratory therapy, pharmacy and nutrition with integrated input from the primary team/attending and other consulting services. The documented time is cumulative and includes review of patient data/exams/labs/chart review and examination of the patient on rounds and throughout the day; time is exclusive of any procedures or teaching time. CCU Objective - Vital Signs / Intake & Output Vital Signs (Last 4 hours): Vital Signs Temp Pulse Resp BP Pulse Ox 12/08/18 12:54 98.6 F 98 H 23 107/57 L 100 Intake and Output (Last 8hrs): Intake & Output 12/07/18 12/08/18 12/08/18 22:59 06:59 14:59 Intake Total 1150 1000 450 Output Total 650 225 Balance 500 775 450 Weight 118 lb Intake: IV 800 800 200 Intake, Piggyback 350 200 250 Output: Urine 650 225 Urethral (Nolasco) 650 225 - Physical Exam Head: Positive for: Atraumatic Pupils: Positive for: PERRL Extroacular Muscles: Negative for: Gaze Palsy Conjunctiva: Positive for: Normal Mouth: Positive for: Other (bradford-black thick coating on body of tongue extending into base) Nose (External): Positive for: Atraumatic Nose (Internal): Positive for: Other (nasal trachela tube in place) Neck: Negative for: JVD Respiratory/Chest: Positive for: Rales (scattered rales) Cardiovascular: Positive for: Regular Rate and Rhythm Abdomen: Positive for: Normal Bowel Sounds. Negative for: Tenderness, Distention Upper Extremity: Positive for: Normal Inspection Lower Extremity: Positive for: Normal Inspection, Capillary Refill < 2 s Neurological: Positive for: Other (on ventilator,unresponsive to voice) Skin: Positive for: Normal Color Psychiatric: Negative for: Alert - Medications Active Medications: Active Medications Generic Name Dose Route Start Last Admin Trade Name Freq PRN Reason Stop Dose Admin Albuterol/Ipratropium 3 ml 12/06/18 14:00 12/08/18 13:25 Duoneb 3 Mg/0.5 Mg (3 Ml) Ud INH 3 ml RQ6 ANAIS Administration Dimethicone 1 applic 12/06/18 17:00 12/08/18 08:39 Proshield Plus Skin Protectant TOP 1 applic Q8 ANAIS Administration Enoxaparin Sodium 40 mg 12/05/18 09:00 12/08/18 08:38 Lovenox SC 40 mg DAILY ANAIS Administration Protocol Vancomycin HCl 1 gm/ Sodium 250 mls @ 166.667 mls/hr 12/04/18 21:00 12/08/18 08:39 Chloride IVPB 166.667 mls/hr Q12 ANAIS Administration Protocol Piperacillin Sod/Tazobactam 100 mls @ 100 mls/hr 12/04/18 22:00 12/08/18 10:21 Sod 3.375 gm/ Sodium Chloride IVPB 100 mls/hr Q6 ANAIS Administration Protocol Dextrose/Sodium Chloride 1,000 mls @ 60 mls/hr 12/08/18 07:45 12/08/18 13:01 Dextrose 5%/0.45% Ns 1000 Ml IV 12/09/18 07:34 60 mls/hr .[id number] ANAIS Administration Midazolam HCl 50 mg/ Dextrose 100 mls @ 4 mls/hr 12/08/18 10:11 12/08/18 10:45 IV 12/09/18 10:10 2 mg/hr .Q24H ONE 4 mls/hr Administration Protocol 2 MG/HR Pantoprazole Sodium 40 mg 12/05/18 09:00 12/08/18 08:39 Protonix Inj IVP 40 mg DAILY ANAIS Administration - Patient Studies Lab Studies: Microbiology Studies 12/06/18 15:00 Gram Stain - Final Trachasp Sputum Culture - Final Serratia Marcescens 12/04/18 16:21 Blood Culture - Preliminary Blood-Venous NO GROWTH AFTER 3 DAYS Lab Studies 12/08/18 12/08/18 12/08/18 Range/Units 05:24 04:10 04:10 WBC 10.4 (4.8-10.8) K/uL RBC 3.41 L (4.40-5.90) Mil/uL Hgb 9.9 L (12.0-18.0) g/dL Hct 31.8 L (35.0-51.0) % MCV 93.1 (80.0-94.0) fl MCH 28.9 (27.0-31.0) pg MCHC 31.0 L (33.0-37.0) g/dL RDW 15.3 H (11.5-14.5) % Plt Count 160 (130-400) K/uL MPV 9.6 (7.2-11.7) fl Neut % (Auto) 90.1 H (50.0-75.0) % Lymph % (Auto) 4.3 L (20.0-40.0) % Wells % (Auto) 5.5 (0.0-10.0) % Eos % (Auto) 0.1 (0.0-4.0) % Baso % (Auto) 0.0 (0.0-2.0) % Neut # (Auto) 9.4 H (1.8-7.0) K/uL Lymph # (Auto) 0.4 L (1.0-4.3) K/uL Wells # (Auto) 0.6 (0.0-0.8) K/uL Eos # (Auto) 0.0 (0.0-0.7) K/uL Baso # (Auto) 0.0 (0.0-0.2) K/uL Neutrophils % (Manual) 87 H (42-75) % Band Neutrophils % 2 (0-2) % Lymphocytes % (Manual) 5 L (20-50) % Monocytes % (Manual) 5 (0-10) % Myelocytes % 1 H (0-0) % Platelet Estimate Normal (NORMAL) Large Platelets Present Anisocytosis (manual) Slight Macrocytosis (manual) Slight Tear Drop Cells Slight Acanthocytes (Spur) Slight pCO2 43 (35-45) mm/Hg pO2 201 H (80-100) mm/Hg HCO3 21.1 (21-28) mmol/L ABG pH 7.30 L (7.35-7.45) ABG Total CO2 22.5 (22-28) mmol/L ABG O2 Saturation 100.6 H (95-98) % ABG O2 Content 13.6 L (15-23) ML/dL ABG Base Excess -5.0 L (-2.0-3.0) mmol/L ABG Hemoglobin 9.5 L (11.7-17.4) g/dL ABG Carboxyhemoglobin 1.2 (0.5-1.5) % POC ABG HHb (Measured) -0.6 L (0.0-5.0) % ABG Methemoglobin 1.0 (0.0-3.0) % ABG O2 Capacity 13.5 L (16-24) mL/dL Ryan Test Yes A-a O2 Difference 102.0 mm/Hg Hgb O2 Saturation 98.5 H (95.0-98.0) % Vent Mode Prvc/ac Mechanical Rate 12 FiO2 50.0 % Tidal Volume 400 Sodium 147 (132-148) mmol/l Potassium 4.0 (3.6-5.0) MMOL/L Chloride 117 H (98-107) mmol/L Carbon Dioxide 21 L (22-30) mmol/L Anion Gap 13 (10-20) BUN 18 (9-20) mg/dl Creatinine 1.3 (0.8-1.5) mg/dl Est GFR ( Amer) > 60 Est GFR (Non-Af Amer) 53 Random Glucose 131 H (75-110) mg/dL Calcium 6.6 L (8.4-10.2) mg/dL Phosphorus 7.2 H (2.5-4.5) mg/dl Magnesium 1.4 L (1.6-2.3) MG/DL Total Bilirubin 0.3 (0.2-1.3) mg/dl AST 24 (17-59) U/L ALT 19 L (21-72) U/L Alkaline Phosphatase 66 (38-126) U/L Total Protein 5.6 L (6.3-8.2) G/DL Albumin 2.3 L (3.5-5.0) g/dL Globulin 3.3 (2.2-3.9) gm/dL Albumin/Globulin Ratio 0.7 L (1.0-2.1) Laboratory Results - last 24 hr 12/08/18 12/08/18 12/08/18 04:10 04:10 05:24 WBC 10.4 RBC 3.41 L Hgb 9.9 L Hct 31.8 L MCV 93.1 MCH 28.9 MCHC 31.0 L RDW 15.3 H Plt Count 160 MPV 9.6 Neut % (Auto) 90.1 H Lymph % (Auto) 4.3 L Wells % (Auto) 5.5 Eos % (Auto) 0.1 Baso % (Auto) 0.0 Neut # (Auto) 9.4 H Lymph # (Auto) 0.4 L Wells # (Auto) 0.6 Eos # (Auto) 0.0 Baso # (Auto) 0.0 Neutrophils % (Manual) 87 H Band Neutrophils % 2 Lymphocytes % (Manual) 5 L Monocytes % (Manual) 5 Myelocytes % 1 H Platelet Estimate Normal Large Platelets Present Anisocytosis (manual) Slight Macrocytosis (manual) Slight Tear Drop Cells Slight Acanthocytes (Spur) Slight pCO2 43 pO2 201 H HCO3 21.1 ABG pH 7.30 L ABG Total CO2 22.5 ABG O2 Saturation 100.6 H ABG O2 Content 13.6 L ABG Base Excess -5.0 L ABG Hemoglobin 9.5 L ABG Carboxyhemoglobin 1.2 POC ABG HHb (Measured) -0.6 L ABG Methemoglobin 1.0 ABG O2 Capacity 13.5 L Ryan Test Yes A-a O2 Difference 102.0 Hgb O2 Saturation 98.5 H Vent Mode Prvc/ac Mechanical Rate 12 FiO2 50.0 Tidal Volume 400 Sodium 147 Potassium 4.0 Chloride 117 H Carbon Dioxide 21 L Anion Gap 13 BUN 18 Creatinine 1.3 Est GFR ( Amer) > 60 Est GFR (Non-Af Amer) 53 Random Glucose 131 H Calcium 6.6 L Phosphorus 7.2 H Magnesium 1.4 L Total Bilirubin 0.3 AST 24 ALT 19 L Alkaline Phosphatase 66 Total Protein 5.6 L Albumin 2.3 L Globulin 3.3 Albumin/Globulin Ratio 0.7 L Fingerstick Blood Sugar Results: 145 Critical Care Progress Note - Nutrition Nutrition: Nutrition Category Date Time Status NPO Diet [DIET] Diets 12/04/18 Dinner Active
--- NOTE | 2018-12-08 15:25 | RAD ---
Date of service: 12/08/2018 HISTORY: ILD COMPARISON: 12/07/2018 TECHNIQUE: 1 view obtained. FINDINGS: LUNGS: Stable diffuse chronic interstitial lung disease. No focal consolidation. No change from multiple prior examinations. PLEURA: No significant pleural effusion identified, no pneumothorax apparent. CARDIOVASCULAR: No aortic atherosclerotic calcification present. Normal cardiac size. ET tube noted with tip approximately 7.3 cm above the tracheal marcelo. OSSEOUS STRUCTURES: No significant abnormalities. VISUALIZED UPPER ABDOMEN: Normal. OTHER FINDINGS: None. IMPRESSION: ET tube tip 7.3 cm above the tracheal macrelo. Stable diffuse chronic interstitial lung disease.
[2018-12-08] MEDS ORDERED: Albumin Human 5% (12.5 gm/250 ml) IV ONE (18:16)
[2018-12-09] MEDS: Proshield Plus GEL TOP SCH ×2 (00:01→09:41)
[2018-12-09] MEDS: Albuterol-Ipratrop 3 mg / 0.5 (3 ml) UD INH SCH ×3 (03:46→14:46)
[2018-12-09 04:41] LABS: ABG ALLEN TEST YES; ARTERIAL BLOOD GAS HCO3 21.5 mmol/L (21-28); ARTERIAL BLOOD GAS O2 CAPACITY 12.6 mL/dL (16-24); ARTERIAL BLOOD GAS O2 CONTENT 12.7 ML/dL (15-23); ARTERIAL BLOOD GAS O2 SAT 100.4 % (95-98); ARTERIAL BLOOD GAS PCO2 39 mm/Hg (35-45); ARTERIAL BLOOD GAS PH 7.34 (7.35-7.45); ARTERIAL BLOOD GAS PO2 141 mm/Hg (80-100); ARTERIAL BLOOD GAS TCO2 22.2 mmol/L (22-28)
[2018-12-09] MEDS: Dextrose 5%/0.45% NS 1,000 ML IV SCH (05:23)
[2018-12-09 06:53] LABS: HEMOGLOBIN 9.1 g/dL (12.0-18.0); MEAN CELL VOLUME 90.5 fl (80.0-94.0); MEAN CORPUSCULAR HGB CONC 32.1 g/dL (33.0-37.0); RBC 3.14 Mil/uL (4.40-5.90); WHITE BLOOD COUNT 12.2 K/uL (4.8-10.8)
[2018-12-09 07:07] LABS: ALB/GLOB RATIO 0.7 (1.0-2.1); ALBUMIN 2.4 g/dL (3.5-5.0); CALCIUM 7.1 mg/dL (8.4-10.2)
--- NOTE | 2018-12-09 08:02 | CP.PCM.PN ---
Subjective - Date & Time of Evaluation Date of Evaluation: 12/09/18 Time of Evaluation: 07:00 - Subjective Subjective: Patient seen and examined at bedside today. No acute event overnight, Patient sedated. Patient will be extubated today as he was placed DNR, DNI and comfort Objective - Vital Signs/Intake and Output Vital Signs (last 24 hours): Temp Pulse Resp BP Pulse Ox 98.6 F 104 H 23 109/61 100 12/09/18 04:00 12/09/18 07:00 12/09/18 07:00 12/09/18 07:00 12/09/18 07:00 Intake and Output: 12/09/18 12/09/18 06:59 18:59 Intake Total 995 Output Total 350 Balance 645 - Medications Medications: Current Medications Albuterol/Ipratropium (Duoneb 3 Mg/0.5 Mg (3 Ml) Ud) 3 ml INH RQ6 ANAIS Last Admin: 12/09/18 03:46 Dose: 3 ml Dimethicone (Proshield Plus Skin Protectant) 1 applic TOP Q8 ANAIS Last Admin: 12/09/18 00:01 Dose: 1 applic Enoxaparin Sodium (Lovenox) 40 mg SC DAILY ANAIS; Protocol Last Admin: 12/08/18 08:38 Dose: 40 mg Midazolam HCl 50 mg/ Dextrose 100 mls @ 4 mls/hr IV .Q24H ONE; Protocol Stop: 12/09/18 10:10 Last Titration: 12/08/18 14:32 Dose: 1 mg/hr, 2 mls/hr Potassium Chloride (Potassium Chloride 20 Meq/100 Ml) 100 mls @ 50 mls/hr IVPB Q2 ANAIS Stop: 12/09/18 13:59 Pantoprazole Sodium (Protonix Inj) 40 mg IVP DAILY ANAIS Last Admin: 12/08/18 08:39 Dose: 40 mg - Labs Labs: 12/09/18 05:35 12/09/18 05:35 PT 11.9 Seconds (9.8-13.1) 12/04/18 16:25 INR 1.0 12/04/18 16:25 APTT 30.0 Seconds (25.6-37.1) 12/04/18 16:25 Assessment and Plan - Assessment and Plan (Free Text) Assessment: 83 YO M with 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 Will Extubate, D/C abx and only comfort care for now. Patient is placed DNR/DNI, With consent of Nephew Jordon. Plan: Comfort care Extubated, to BIPap if decompensate will start Morphine drip for comfort Lovenox and Pantoprazole for prophylaxis Palliative care in case upper airway mass Will extubated F/U biopsy Otolaryngology: Dr. Pringle consulted IPF, chronic Duoneb Pulm: Dr. Sarkar Hypokalemia Improved (3.3) on KCL 20 IVPB Hypocalcemia Corrected is 8.4 HTN c/w home meds continue to monitor bp Chronic Anemia current h/h: 9.1/28.4 DVT/GI ppx Lovenox Pantoprazole 40 MG
--- NOTE | 2018-12-09 08:36 | OP ---
PROCEDURE DATE: 12/06/2018 PREOPERATIVE DIAGNOSIS: Possible left basal tongue mass. POSTOPERATIVE DIAGNOSIS: Possible left basal tongue mass. PROCEDURE: Direct laryngoscopy and endoscopy. SIGNIFICANT FINDINGS: Possible left basal tongue mass. DESCRIPTION OF PROCEDURE: The patient was orally intubated. Shoulder roll was placed. The laryngoscope was inserted into oral cavity, passed through oropharynx and hypopharynx, the base of the tongue, vallecula, epiglottis, AE folds, false cords, true cords, pyriform sinuses, and arytenoids were brought into view. Possible mass was noted on the left basal tongue. Most of the biopsies were taken. Bleeding was controlled with tie. The scope was removed. The patient tolerated the procedure well. Mike Pringle MD
--- NOTE | 2018-12-09 08:36 | RAD ---
Date of service: 12/09/2018 PROCEDURE: CHEST RADIOGRAPH, 1 VIEW HISTORY: intubated COMPARISON: 12/08/2018 FINDINGS: LUNGS: Diffuse interstitial infiltrate, chronic. No focal consolidation. No change in the overall appearance. PLEURA: No pneumothorax or pleural fluid seen. CARDIOVASCULAR: No aortic atherosclerotic calcification present. ET tube terminates at the level of the thoracic inlet. This is somewhat high in position. The difference from the film of 12/08/2018 is likely due to differences in patient positioning, yesterday's film was a reverse lordotic film. It is not believed that there has been interval change in position of the tube. OSSEOUS STRUCTURES: No significant abnormalities. VISUALIZED UPPER ABDOMEN: Normal. OTHER FINDINGS: None. IMPRESSION: Diffuse chronic interstitial infiltrate. ET tube tip at the level of the thoracic inlet.
--- NOTE | 2018-12-09 08:56 | CP.PCM.PN ---
Subjective - Date & Time of Evaluation Date of Evaluation: 12/09/18 Time of Evaluation: 08:56 - Subjective Subjective: Seen on rounds in the ICU this morning. Interim events reviewed. AM chest x-ray and labs reviewed. Case discussed with nurse and flamer after lasting. Has had ETT repositioned once earlier this morning. Has remained afebrile, well oxygenated on ventilator. Awake, moving all 4 extremities. Appears anxious and uncomfortable. No cyanosis or ecchymosis. Oropharynx pink and moist. Neck is supple and trachea midline. No palpable lymphadenopathy. No dullness on chest percussion. Air entry appears equal in both lungs. Diffuse, early, dry to medium rales unoversally. No audible wheezes, no bronchial breath sounds. Heart sounds are distant, tachycardic. End stage ILD/IPF. Acute on chronic respiratory failure. Laryngeal mass; pathology pending. Will have more clear plan of care today. Discussion with POA planned for today. Maintain mechanical vent support for the time being. Unable to pass NG/OGT multiple times. Prognosis is grave. Objective - Vital Signs/Intake and Output Vital Signs (last 24 hours): Temp Pulse Resp BP Pulse Ox 98.4 F 111 H 30 H 106/64 97 12/09/18 08:00 12/09/18 08:00 12/09/18 08:00 12/09/18 08:00 12/09/18 08:00 Intake and Output: 12/08/18 12/09/18 23:59 11:59 Intake Total 1183 632 Output Total 200 350 Balance 983 282 - Medications Medications: Current Medications Albuterol/Ipratropium (Duoneb 3 Mg/0.5 Mg (3 Ml) Ud) 3 ml INH RQ6 ANAIS Last Admin: 12/09/18 08:19 Dose: 3 ml Dimethicone (Proshield Plus Skin Protectant) 1 applic TOP Q8 ANAIS Last Admin: 12/09/18 00:01 Dose: 1 applic Enoxaparin Sodium (Lovenox) 40 mg SC DAILY ANAIS; Protocol Last Admin: 12/08/18 08:38 Dose: 40 mg Midazolam HCl 50 mg/ Dextrose 100 mls @ 4 mls/hr IV .Q24H ONE; Protocol Stop: 12/09/18 10:10 Last Titration: 12/08/18 14:32 Dose: 1 mg/hr, 2 mls/hr Potassium Chloride (Potassium Chloride 20 Meq/100 Ml) 100 mls @ 50 mls/hr IVPB Q2 ANAIS Stop: 12/09/18 13:59 Pantoprazole Sodium (Protonix Inj) 40 mg IVP DAILY ANAIS Last Admin: 12/08/18 08:39 Dose: 40 mg - Labs Labs: 12/09/18 05:35 12/09/18 05:35 PT 11.9 Seconds (9.8-13.1) 12/04/18 16:25 INR 1.0 12/04/18 16:25 APTT 30.0 Seconds (25.6-37.1) 12/04/18 16:25 Assessment and Plan (1) Respiratory failure Status: Acute (2) Laryngeal mass Status: Acute (3) Idiopathic pulmonary fibrosis Status: Chronic
[2018-12-09] MEDS: Potassium Chloride 20 mEq 100 ML IVPB SCH ×2 (09:35→12:11)
[2018-12-09] MEDS: Enoxaparin 40 mg Syringe SC SCH (09:40)
[2018-12-09] MEDS ORDERED: Morphine 100 MG in Sodium Chloride 0.9% 100 ML IV SCH (11:00)
--- NOTE | 2018-12-09 11:04 | PCM.PPROG ---
History of Present Illness - History of Present Illness History of Present Illness: Patient is a 83 year old male who presented to the ED on 12/04/18. He was found on the ground by the mailman. In the ED, he also complained of lower back pain and during assessment found to have a blackened area on tongue with a foul or xiomy. He had a prior ED visit for SOB and pneumonia. patient is currently intubated in the ICU PMH: R pneumothorax, anemia, HTN, BPH, COPD Fam hx: Brother has pulmonary condition on home O2 Soc hx: Uses cane at home Review of Systems - Review of Systems Systems not reviewed;Unavailable: Acuity of Condition, Intubated Physical Exam - Constitutional Appears: Chronically Ill - Head Exam Head Exam: ATRAUMATIC, NORMAL INSPECTION, NORMOCEPHALIC - Respiratory Exam Additional comments: intubated on vent - Cardiovascular Exam Cardiovascular Exam: Tachycardia - Exam Additional comments: has f/c - Extremities Exam Extremities exam: Positive for: pedal pulses present - Skin Skin Exam: Dry, Pallor, Warm Palliative Care Assessment - Modified MRC Dyspnea Scale Modified MRC Dyspnea Scale: Too breathless to leave the house,or breathless dressing or undressing Grade: 5 - Rony Scale Sensory Perception: Slightly Limited Moisture: Occasionally Moist Activity: Bedfast Mobility: Completely Immobile Nutrition: Very Poor Friction & Shear: Problem Total Score - Skin Risk Assessment: 10 Palliative Care - Goals Goal(s) of care: Goals of Care discussed with patient's nephew Jordon Triplett. He verbalized understanding of the patient's current condition. He states that he know patient would not like to be dependent on life support. Patient's nephew would like comfort care at this time. Code Status : DNR/DNI Nephew Jordon (decision maker) verbalized understanding per conversation with Mud Grinder and confirmed DNR/DNI status as his designation. Treatment Goal(s): Alleviate symptoms, Improve quality of life End of life care discussed: Yes Assessment & Plan - Assessment and Plan (Free Text) Assessment: Impression Respiratory Failure Upper airway mass Suggestion comfort care
--- NOTE | 2018-12-09 11:54 | CP.CCUPN ---
CCU Subjective - Physician Review Events Since Last Encounter (Free Text): off sedation, alert. intubated. CCU Objective - Vital Signs / Intake & Output Vital Signs (Last 4 hours): Vital Signs Temp Pulse Resp BP Pulse Ox 12/09/18 10:00 112 H 34 H 118/69 98 12/09/18 09:00 117 H 34 H 109/64 98 12/09/18 08:00 98.4 F 111 H 30 H 106/64 97 Intake and Output (Last 8hrs): Intake & Output 12/08/18 12/09/18 12/09/18 22:59 06:59 14:59 Intake Total 563 680 122 Output Total 200 350 Balance 363 330 122 Weight 122 lb 8 oz Intake: IV 480 480 120 Intake, Piggyback 83 200 2 Output: Urine 200 350 Urethral (Case) 200 350 Other: # Bowel Movements 0 - Physical Exam Head: Positive for: Atraumatic Pupils: Positive for: PERRL Extroacular Muscles: Negative for: Gaze Palsy Conjunctiva: Positive for: Normal Mouth: Positive for: Other (bradford-black thick coating on body of tongue extending into base) Nose (External): Positive for: Atraumatic Nose (Internal): Positive for: Other (nasal trachela tube in place) Neck: Negative for: JVD Respiratory/Chest: Positive for: Rales (scattered rales) Cardiovascular: Positive for: Regular Rate and Rhythm Abdomen: Positive for: Normal Bowel Sounds. Negative for: Tenderness, Distention Upper Extremity: Positive for: Normal Inspection Lower Extremity: Positive for: Normal Inspection, Capillary Refill < 2 s Neurological: Positive for: Other (on ventilator,unresponsive to voice) Skin: Positive for: Normal Color Psychiatric: Negative for: Alert - Medications Active Medications: Active Medications Generic Name Dose Route Start Last Admin Trade Name Freq PRN Reason Stop Dose Admin Albuterol/Ipratropium 3 ml 12/06/18 14:00 12/09/18 08:19 Duoneb 3 Mg/0.5 Mg (3 Ml) Ud INH 3 ml RQ6 ANAIS Administration Dimethicone 1 applic 12/06/18 17:00 12/09/18 09:41 Proshield Plus Skin Protectant TOP 1 applic Q8 ANAIS Administration Enoxaparin Sodium 40 mg 12/05/18 09:00 12/09/18 09:40 Lovenox SC 40 mg DAILY ANAIS Administration Protocol Potassium Chloride 100 mls @ 50 mls/hr 12/09/18 08:00 12/09/18 09:35 Potassium Chloride 20 Meq/100 Ml IVPB 12/09/18 13:59 50 mls/hr Q2 ANAIS Administration Morphine Sulfate 100 mg/ 104 mls @ 3.12 mls/hr 12/09/18 11:00 Sodium Chloride IV .Q24H ANAIS Protocol 3 MG/HR Pantoprazole Sodium 40 mg 12/05/18 09:00 12/09/18 09:41 Protonix Inj IVP 40 mg DAILY ANAIS Administration - Patient Studies Lab Studies: Microbiology Studies 12/04/18 16:21 Blood Culture - Preliminary Blood-Venous NO GROWTH AFTER 4 DAYS Lab Studies 12/09/18 12/09/18 12/09/18 Range/Units 05:35 05:35 04:28 WBC 12.2 H (4.8-10.8) K/uL RBC 3.14 L (4.40-5.90) Mil/uL Hgb 9.1 L (12.0-18.0) g/dL Hct 28.4 L (35.0-51.0) % MCV 90.5 D (80.0-94.0) fl MCH 29.0 (27.0-31.0) pg MCHC 32.1 L (33.0-37.0) g/dL RDW 15.0 H (11.5-14.5) % Plt Count 162 (130-400) K/uL pCO2 39 (35-45) mm/Hg pO2 141 H (80-100) mm/Hg HCO3 21.5 (21-28) mmol/L ABG pH 7.34 L (7.35-7.45) ABG Total CO2 22.2 (22-28) mmol/L ABG O2 Saturation 100.4 H (95-98) % ABG O2 Content 12.7 L (15-23) ML/dL ABG Base Excess -4.4 L (-2.0-3.0) mmol/L ABG Hemoglobin 9.0 L (11.7-17.4) g/dL ABG Carboxyhemoglobin 1.2 (0.5-1.5) % POC ABG HHb (Measured) -0.4 L (0.0-5.0) % ABG Methemoglobin 1.2 (0.0-3.0) % ABG O2 Capacity 12.6 L (16-24) mL/dL Ryan Test Yes A-a O2 Difference 60.0 mm/Hg Hgb O2 Saturation 98.0 (95.0-98.0) % Vent Mode A/c Mechanical Rate 12 FiO2 35.0 % Tidal Volume 450 PEEP 3 Sodium 145 (132-148) mmol/l Potassium 3.3 L (3.6-5.0) MMOL/L Chloride 116 H (98-107) mmol/L Carbon Dioxide 20 L (22-30) mmol/L Anion Gap 12 (10-20) BUN 19 (9-20) mg/dl Creatinine 1.5 (0.8-1.5) mg/dl Est GFR ( Amer) 54 Est GFR (Non-Af Amer) 45 POC Glucose (mg/dL) (65-110) mg/dL Random Glucose 132 H (75-110) mg/dL Calcium 7.1 L (8.4-10.2) mg/dL Magnesium 1.8 (1.6-2.3) MG/DL Total Bilirubin 0.4 (0.2-1.3) mg/dl AST 34 (17-59) U/L ALT 23 (21-72) U/L Alkaline Phosphatase 71 (38-126) U/L Total Protein 5.7 L (6.3-8.2) G/DL Albumin 2.4 L (3.5-5.0) g/dL Globulin 3.3 (2.2-3.9) gm/dL Albumin/Globulin Ratio 0.7 L (1.0-2.1) 12/08/18 Range/Units 16:29 WBC (4.8-10.8) K/uL RBC (4.40-5.90) Mil/uL Hgb (12.0-18.0) g/dL Hct (35.0-51.0) % MCV (80.0-94.0) fl MCH (27.0-31.0) pg MCHC (33.0-37.0) g/dL RDW (11.5-14.5) % Plt Count (130-400) K/uL pCO2 (35-45) mm/Hg pO2 (80-100) mm/Hg HCO3 (21-28) mmol/L ABG pH (7.35-7.45) ABG Total CO2 (22-28) mmol/L ABG O2 Saturation (95-98) % ABG O2 Content (15-23) ML/dL ABG Base Excess (-2.0-3.0) mmol/L ABG Hemoglobin (11.7-17.4) g/dL ABG Carboxyhemoglobin (0.5-1.5) % POC ABG HHb (Measured) (0.0-5.0) % ABG Methemoglobin (0.0-3.0) % ABG O2 Capacity (16-24) mL/dL Ryan Test A-a O2 Difference mm/Hg Hgb O2 Saturation (95.0-98.0) % Vent Mode Mechanical Rate FiO2 % Tidal Volume PEEP Sodium (132-148) mmol/l Potassium (3.6-5.0) MMOL/L Chloride (98-107) mmol/L Carbon Dioxide (22-30) mmol/L Anion Gap (10-20) BUN (9-20) mg/dl Creatinine (0.8-1.5) mg/dl Est GFR ( Amer) Est GFR (Non-Af Amer) POC Glucose (mg/dL) 137 H (65-110) mg/dL Random Glucose (75-110) mg/dL Calcium (8.4-10.2) mg/dL Magnesium (1.6-2.3) MG/DL Total Bilirubin (0.2-1.3) mg/dl AST (17-59) U/L ALT (21-72) U/L Alkaline Phosphatase (38-126) U/L Total Protein (6.3-8.2) G/DL Albumin (3.5-5.0) g/dL Globulin (2.2-3.9) gm/dL Albumin/Globulin Ratio (1.0-2.1) Laboratory Results - last 24 hr 12/08/18 12/09/18 12/09/18 16:29 04:28 05:35 WBC 12.2 H RBC 3.14 L Hgb 9.1 L Hct 28.4 L MCV 90.5 D MCH 29.0 MCHC 32.1 L RDW 15.0 H Plt Count 162 pCO2 39 pO2 141 H HCO3 21.5 ABG pH 7.34 L ABG Total CO2 22.2 ABG O2 Saturation 100.4 H ABG O2 Content 12.7 L ABG Base Excess -4.4 L ABG Hemoglobin 9.0 L ABG Carboxyhemoglobin 1.2 POC ABG HHb (Measured) -0.4 L ABG Methemoglobin 1.2 ABG O2 Capacity 12.6 L Ryan Test Yes A-a O2 Difference 60.0 Hgb O2 Saturation 98.0 Vent Mode A/c Mechanical Rate 12 FiO2 35.0 Tidal Volume 450 PEEP 3 Sodium Potassium Chloride Carbon Dioxide Anion Gap BUN Creatinine Est GFR ( Amer) Est GFR (Non-Af Amer) POC Glucose (mg/dL) 137 H Random Glucose Calcium Magnesium Total Bilirubin AST ALT Alkaline Phosphatase Total Protein Albumin Globulin Albumin/Globulin Ratio 12/09/18 05:35 WBC RBC Hgb Hct MCV MCH MCHC RDW Plt Count pCO2 pO2 HCO3 ABG pH ABG Total CO2 ABG O2 Saturation ABG O2 Content ABG Base Excess ABG Hemoglobin ABG Carboxyhemoglobin POC ABG HHb (Measured) ABG Methemoglobin ABG O2 Capacity Ryan Test A-a O2 Difference Hgb O2 Saturation Vent Mode Mechanical Rate FiO2 Tidal Volume PEEP Sodium 145 Potassium 3.3 L Chloride 116 H Carbon Dioxide 20 L Anion Gap 12 BUN 19 Creatinine 1.5 Est GFR ( Amer) 54 Est GFR (Non-Af Amer) 45 POC Glucose (mg/dL) Random Glucose 132 H Calcium 7.1 L Magnesium 1.8 Total Bilirubin 0.4 AST 34 ALT 23 Alkaline Phosphatase 71 Total Protein 5.7 L Albumin 2.4 L Globulin 3.3 Albumin/Globulin Ratio 0.7 L Radiology Impressions: Radiology Impressions Chest X-Ray 12/08/18 05:00 IMPRESSION: ET tube tip 7.3 cm above the tracheal marcelo. Stable diffuse chronic interstitial lung disease. Chest X-Ray 12/09/18 09:00 IMPRESSION: Diffuse chronic interstitial infiltrate. ET tube tip at the level of the thoracic inlet. Fingerstick Blood Sugar Results: 145 Review of Systems - Review of Systems Systems not reviewed;Unavailable: Intubated Critical Care Progress Note - Nutrition Nutrition: Nutrition Category Date Time Status NPO Diet [DIET] Diets 12/04/18 Dinner Active Assessment/Plan (1) Pulmonary fibrosis Assessment and plan: Spoke with patient's health care proxy Jordon. It is agreed to make the patient DNR/DNI and terminally extubate the patient. The patient had told his HCP that he did not want to be kept alive on a mechanical ventilator. He has a terminal disease, end stage pulmonary fibrosis. The pending biopsy results will not change his already poor prognosis. If the biopsy comes back as cancerous he wou ld not be able to tolerate the necessary treatments. He will be extubated to BIPAP and if he decompensates he will be started on a morphine drip for comfort care. Critical Care time 35 minutes. Current Visit: Yes Status: Acute
[2018-12-09 12:10] VITALS: TEMP 98.2
--- NOTE | 2018-12-09 15:09 | CP.PCM.DIS ---
Provider - Provider Date of Admission: 12/04/18 18:22 Attending physician: Yeison Sanders MD Primary care physician: Dr. Niño Consults: 12/04/18 17:50 Anesthesiology Consult Stat Comment: Consulting Provider: Rishabh Bueno Consulting Physician: Rishabh Bueno Reason for Consult: airway mass with respiratory distress 12/04/18 17:51 Otolaryngology Consult Stat Consulting Provider: Mike Pringle Consulting Physician: Mike Pringle Reason for Consult: large upper airway mass, risky intubation 12/04/18 19:14 Pulmonology Consult Stat Comment: Consulting Provider: Ephraim Niño Consulting Physician: Ephraim Niño Reason for Consult: acute respiratory failure 12/04/18 21:05 Nursing Referral for Wound Care Routine Comment: Physician Instructions: Reason For Exam: red opening on the right and left buttocks 12/05/18 09:13 Palliative Care Consult Routine Comment: Consulting Provider: Melanie Mcginnis Physician Instructions: Reason For Exam: possible manager long term care intubation 12/06/18 10:08 Gastroenterology Consult Routine Comment: Consulting Provider: Adrien Boland Consulting Physician: Adrien Boland Reason for Consult: PEG placementl unable to place OG/NG tube Time Spent in preparation of Discharge (in minutes): 20 Hospital Course - Lab Results Lab Results: Micro Results 12/04/18 16:21 Blood-Venous Blood Culture - Preliminary NO GROWTH AFTER 4 DAYS 12/06/18 15:00 Trachasp Gram Stain - Final 12/06/18 15:00 Trachasp Sputum Culture - Final Serratia Marcescens 12/05/18 06:00 Naris MRSA Culture (Admit) - Final MRSA NOT DETECTED Most Recent Lab Values WBC 12.2 K/uL (4.8-10.8) H 12/09/18 05:35 RBC 3.14 Mil/uL (4.40-5.90) L 12/09/18 05:35 Hgb 9.1 g/dL (12.0-18.0) L 12/09/18 05:35 Hct 28.4 % (35.0-51.0) L 12/09/18 05:35 MCV 90.5 fl (80.0-94.0) D 12/09/18 05:35 MCH 29.0 pg (27.0-31.0) 12/09/18 05:35 MCHC 32.1 g/dL (33.0-37.0) L 12/09/18 05:35 RDW 15.0 % (11.5-14.5) H 12/09/18 05:35 Plt Count 162 K/uL (130-400) 12/09/18 05:35 MPV 9.6 fl (7.2-11.7) 12/08/18 04:10 Neut % (Auto) 90.1 % (50.0-75.0) H 12/08/18 04:10 Lymph % (Auto) 4.3 % (20.0-40.0) L 12/08/18 04:10 Kleberg % (Auto) 5.5 % (0.0-10.0) 12/08/18 04:10 Eos % (Auto) 0.1 % (0.0-4.0) 12/08/18 04:10 Baso % (Auto) 0.0 % (0.0-2.0) 12/08/18 04:10 Neut # (Auto) 9.4 K/uL (1.8-7.0) H 12/08/18 04:10 Lymph # (Auto) 0.4 K/uL (1.0-4.3) L 12/08/18 04:10 Kleberg # (Auto) 0.6 K/uL (0.0-0.8) 12/08/18 04:10 Eos # (Auto) 0.0 K/uL (0.0-0.7) 12/08/18 04:10 Baso # (Auto) 0.0 K/uL (0.0-0.2) 12/08/18 04:10 Neutrophils % (Manual) 87 % (42-75) H 12/08/18 04:10 Band Neutrophils % 2 % (0-2) 12/08/18 04:10 Lymphocytes % (Manual) 5 % (20-50) L 12/08/18 04:10 Monocytes % (Manual) 5 % (0-10) 12/08/18 04:10 Eosinophils % (Manual) 1 % (0-7) 12/04/18 16:25 Basophils % (Manual) 1 % (0-2) 12/04/18 16:25 Myelocytes % 1 % (0-0) H 12/08/18 04:10 Toxic Granulation Present 12/04/18 16:25 Platelet Estimate Normal (NORMAL) 12/08/18 04:10 Large Platelets Present 12/08/18 04:10 Hypochromasia (manual) Slight 12/04/18 16:25 Anisocytosis (manual) Slight 12/08/18 04:10 Macrocytosis (manual) Slight 12/08/18 04:10 Tear Drop Cells Slight 12/08/18 04:10 Acanthocytes (Spur) Slight 12/08/18 04:10 PT 11.9 Seconds (9.8-13.1) 12/04/18 16:25 INR 1.0 12/04/18 16:25 APTT 30.0 Seconds (25.6-37.1) 12/04/18 16:25 pCO2 39 mm/Hg (35-45) 12/09/18 04:28 pO2 141 mm/Hg (80-100) H 12/09/18 04:28 HCO3 21.5 mmol/L (21-28) 12/09/18 04:28 ABG pH 7.34 (7.35-7.45) L 12/09/18 04:28 ABG Total CO2 22.2 mmol/L (22-28) 12/09/18 04:28 ABG O2 Saturation 100.4 % (95-98) H 12/09/18 04:28 ABG O2 Content 12.7 ML/dL (15-23) L 12/09/18 04:28 ABG Base Excess -4.4 mmol/L (-2.0-3.0) L 12/09/18 04:28 ABG Hemoglobin 9.0 g/dL (11.7-17.4) L 12/09/18 04:28 ABG Carboxyhemoglobin 1.2 % (0.5-1.5) 12/09/18 04:28 POC ABG HHb (Measured) -0.4 % (0.0-5.0) L 12/09/18 04:28 ABG Methemoglobin 1.2 % (0.0-3.0) 12/09/18 04:28 ABG O2 Capacity 12.6 mL/dL (16-24) L 12/09/18 04:28 Ryan Test Yes 12/09/18 04:28 ABG Potassium 3.1 mmol/L (3.6-5.2) L 12/04/18 17:15 VBG pH 7.28 (7.32-7.43) L 12/06/18 18:00 VBG pCO2 48 mmHg (40-60) 12/06/18 18:00 VBG HCO3 21.1 mmol/L 12/06/18 18:00 VBG Total CO2 24.1 mmol/L (22-28) 12/06/18 18:00 VBG O2 Sat (Calc) 56.7 % (40-65) 12/06/18 18:00 VBG Base Excess -4.0 mmol/L (0.0-2.0) L 12/06/18 18:00 VBG Potassium 2.9 mmol/L (3.6-5.2) L 12/06/18 18:00 A-a O2 Difference 60.0 mm/Hg 12/09/18 04:28 Hgb O2 Saturation 98.0 % (95.0-98.0) 12/09/18 04:28 Sodium 140.0 mmol/L (132-148) 12/06/18 18:00 Chloride 110.0 mmol/L (98-107) H 12/06/18 18:00 Glucose 516 mg/dL (75-110) H* D 12/06/18 18:00 Lactate 1.2 mmol/L (0.7-2.1) 12/06/18 18:00 Vent Mode A/c 12/09/18 04:28 Mechanical Rate 12 12/09/18 04:28 FiO2 35.0 % 12/09/18 04:28 Tidal Volume 450 12/09/18 04:28 PEEP 3 12/09/18 04:28 Crit Value Called To Marleny craig r.n. 12/06/18 18:00 Crit Value Called By Laura 12/06/18 18:00 Crit Value Read Back Y 12/06/18 18:00 Blood Gas Notified Time 194012/06/18 18:00 Sodium 145 mmol/l (132-148) 12/09/18 05:35 Potassium 3.3 MMOL/L (3.6-5.0) L 12/09/18 05:35 Chloride 116 mmol/L (98-107) H 12/09/18 05:35 Carbon Dioxide 20 mmol/L (22-30) L 12/09/18 05:35 Anion Gap 12 (10-20) 12/09/18 05:35 BUN 19 mg/dl (9-20) 12/09/18 05:35 Creatinine 1.5 mg/dl (0.8-1.5) 12/09/18 05:35 Est GFR ( Amer) 54 12/09/18 05:35 Est GFR (Non-Af Amer) 45 12/09/18 05:35 POC Glucose (mg/dL) 137 mg/dL (65-110) H 12/08/18 16:29 Random Glucose 132 mg/dL (75-110) H 12/09/18 05:35 Calcium 7.1 mg/dL (8.4-10.2) L 12/09/18 05:35 Phosphorus 7.2 mg/dl (2.5-4.5) H 12/08/18 04:10 Magnesium 1.8 MG/DL (1.6-2.3) 12/09/18 05:35 Total Bilirubin 0.4 mg/dl (0.2-1.3) 12/09/18 05:35 AST 34 U/L (17-59) 12/09/18 05:35 ALT 23 U/L (21-72) 12/09/18 05:35 Alkaline Phosphatase 71 U/L (38-126) 12/09/18 05:35 Troponin I 0.0230 ng/mL (0.00-0.120) 12/04/18 16:25 NT-Pro-B Natriuret Pep 1390 pg/ml (0-900) H 12/04/18 16:25 Total Protein 5.7 G/DL (6.3-8.2) L 12/09/18 05:35 Albumin 2.4 g/dL (3.5-5.0) L 12/09/18 05:35 Globulin 3.3 gm/dL (2.2-3.9) 12/09/18 05:35 Albumin/Globulin Ratio 0.7 (1.0-2.1) L 12/09/18 05:35 Arterial Blood Potassium 3.1 mmol/L (3.6-5.2) L 12/04/18 17:15 Venous Blood Potassium 2.9 mmol/L (3.6-5.2) L 12/06/18 18:00 Urine Color Yellow (YELLOW) 12/05/18 21:03 Urine Clarity Cloudy (Clear) 12/05/18 21:03 Urine pH 5.0 (5.0-8.0) 12/05/18 21:03 Ur Specific Damon 1.041 (1.003-1.030) H 12/05/18 21:03 Urine Protein Negative mg/dL (NEGATIVE) 12/05/18 21:03 Urine Glucose (UA) Neg mg/dL (NEGATIVE) 12/05/18 21: Urine Ketones Negative mg/dL (NEGATIVE) 12/05/18 21: Urine Blood Small (NEGATIVE) 12/05/18 21:03 Urine Nitrate Negative (NEGATIVE) 12/05/18 21:03 Urine Bilirubin Negative (NEGATIVE) 12/05/18 21: Urine Urobilinogen 0.2-1.0 mg/dL (0.2-1.0) 12/05/18 21:03 Ur Leukocyte Esterase Mod Julia/uL (Negative) 12/05/18 21:03 Urine RBC (Auto) 18 /hpf (0-3) H 12/05/18 21:03 Urine Microscopic WBC 42 /hpf (0-5) H 12/05/18 21:03 Ur Squamous Epith Cells 1 /hpf (0-5) 12/05/18 21:03 Urine Bacteria Rare (<OCC) 12/05/18 21:03 Urine Yeast (Budding) Rare /hpf (NEGATIVE) H 12/05/18 21:03 Blood Type O POSITIVE 12/04/18 16:21 Antibody Screen Negative 12/04/18 16:21 BBK History Checked Patient has bt 12/04/18 16:21 - Hospital Course Hospital Course: 83 y/o male with PMH of advanced ILD on home oxygen, HTN, chronic anemia was found at home on the floor by coworker and brought to ER by EMS. Patient was intubated for acute on chronic hypercarbic , respiratory failure with ph 7.2 / PCO2 66 on admission. Large laryngeal mass noted during attempt for intubation, ENT consulted and patient was intubated via nasotracheal route ands started on IV antibiotics for possible Pneumonia. he underwent biopsy of laryngeal mass by ENT After discussion with patient's POA , (nephew)Jordon patient has made his wishes clear about not wanting to be kept intubated in case of poor prognosis Patient;'s wishes were honored and he was extubate and placed on comfort care Patient pronounced @ 14:44 PREDRS # [id number] Dx 1. Acute on Chronic Hypercarbic Respiratory failure 2. Large laryngeal, pharynx mass -unknown etiology 3.Advanced Idiopathic pulmonary fibrosis on home oxygen 4. Suspected Pneumonia 5. Anemia of chronic disease 6. Hypocalcemia 7. Hypomagnesemia 6. History of HTN 7. History of BPH 8. Cachexia BMI 17 9. Hypoalbuminemia Discharge Exam - Head Exam Head Exam: ATRAUMATIC, NORMAL INSPECTION, NORMOCEPHALIC Discharge Plan - Follow Up Plan Condition: CRITICAL Disposition: WITH WITHOUT AUTOPSY
--- NOTE | 2018-12-09 15:10 | CP.PCM.PRO ---
Pronouncement of Note - Clinical Findings Physical Exam: No Response Verbal/Painful Stimuli, Absent Peripheral Puls es{Carotid & Femoral}, Absent Heart & Breath Sounds, No Pupillary Light Reflex, No Corneal Reflex, Pupils Fixed & Dilated, Absence of Vital Signs - Pronouncement Time Time of Pronouncement of : 14:44 - Notifications Pronouncement Notifications: Family Notified, Atending Notified - Autopsy Autopsy Requested: No
[2018-12-09 16:36] VITALS: O2SAT 96
[2018-12-09 16:38] VITALS: BP 135/63; PULSE 103; RESP 19
== END 2018-12-09 14:44 | DRG 207 ==
LOC: H.ER 15:44 → H.ERHOLD 18:22 → H.ICU/CCU 19:28
PROC: 0CJS8ZZ Inspection of Larynx, Via Natural or Artificial Opening Endoscopic (ICD-10-PCS; principal; 2018-12-04)
PROC: 5A1955Z Respiratory Ventilation, Greater than 96 Consecutive Hours (ICD-10-PCS; 2018-12-04)
PROC: 0BH17EZ Insertion of Endotracheal Airway into Trachea, Via Natural or Artificial Opening (ICD-10-PCS; 2018-12-04)
PROC: 0CBS8ZX Excision of Larynx, Via Natural or Artificial Opening Endoscopic, Diagnostic (ICD-10-PCS; 2018-12-06)
PROC: 0BJ08ZZ Inspection of Tracheobronchial Tree, Via Natural or Artificial Opening Endoscopic (ICD-10-PCS; 2018-12-06)
DX: J96.22 Acute and chronic respiratory failure with hypercapnia (principal); J18.9 Pneumonia, unspecified organism; N17.9 Acute kidney failure, unspecified; E87.0 Hyperosmolality and hypernatremia; R64 Cachexia; Z68.1 Body mass index [BMI] 19.9 or less, adult; I48.91 Unspecified atrial fibrillation; J96.21 Acute and chronic respiratory failure with hypoxia; J38.7 Other diseases of larynx; J43.9 Emphysema, unspecified; J84.112 Idiopathic pulmonary fibrosis; Z79.82 Long term (current) use of aspirin; Z99.81 Dependence on supplemental oxygen; I10 Essential (primary) hypertension; L89.101 Pressure ulcer of unspecified part of back, stage 1; L89.151 Pressure ulcer of sacral region, stage 1; K14.9 Disease of tongue, unspecified; N40.1 Benign prostatic hyperplasia with lower urinary tract symptoms; R33.8 Other retention of urine; E87.8 Other disorders of electrolyte and fluid balance, not elsewhere classified; E87.6 Hypokalemia; E83.42 Hypomagnesemia; E83.51 Hypocalcemia; D63.8 Anemia in other chronic diseases classified elsewhere; Z51.5 Encounter for palliative care; Z66 Do not resuscitate; E88.09 Other disorders of plasma-protein metabolism, not elsewhere classified